=== PATIENT | male | born 1945 | race African-American/Black ===

== ENCOUNTER 2016-05-25 16:04 | Inpatient (IN) | payer MEDICARE ==
[~2016-05-25] VITALS: Ht 177.8 cm; Wt 78.1 kg
[~2016-05-25 16:04] MED LIST: AMLO5TAB2 PO; ASPI-482 PO; DILT180C2 PO; FOSI40TA PO; GABA-585 PO; HYDR12.53 PO; METF500T4 PO; METO100T2 PO; RANI150T2 PO; SILD20TA2 PO; SIMV80TA3 PO; TERA5CAP3 PO
--- NOTE | 2016-05-25 16:53 | PHYS DOC ---
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 Patient reports for the past 2 weeks she has been dealing with cold symptoms, such as cough and sore throat. He presents today with complaint of generalized weakness and shortness of breath as well. He was seen by his doctor last month, was started on a course of azithromycin with no improvement after that. He denies any chest pain. No fever. He has not taken anything else today for symptoms. No other acute complaints. Review of Systems Review of Systems Constitutional: Generalized weakness. Denies fever or chills Eyes: Denies change in visual acuity or eye pain HENT: Sore throat. Denies nasal congestion Respiratory: Cough, shortness of breath Cardiovascular: Denies chest pain GI: Denies abdominal pain, nausea, vomiting, bloody stools or diarrhea : Denies dysuria or hematuria Musculoskeletal: Denies back pain or joint pain Integument: Denies rash or skin lesions Neurologic: Denies headache, focal weakness or sensory changes Current Medications Current Medications Current Medications Medications (Trade) Dose Ordered Sig/Latonya Start Time Stop Time Status Last Admin Dose Admin Acetaminophen (Tylenol) 1,000 mg 1X ONCE 05/25/16 17:15 05/25/16 17:16 DC 05/25/16 17:20 1,000 MG Ertapenem 50 ml @ 100 mls/hr 1X ONCE 05/25/16 20:15 05/25/16 20:44 DC 05/25/16 20:26 100 MLS/HR Sodium Chloride 1,000 ml @ 1,000 mls/hr 1X ONCE 05/25/16 20:15 05/25/16 21:14 DC 05/25/16 20:27 1,000 MLS/HR Sodium Chloride (Iv Sodium Chloride 0.9% 1000ml Bag) 1,000 ml @ 1,000 mls/hr Q1H 05/25/16 17:15 05/25/16 18:14 DC 05/25/16 17:20 1,000 MLS/HR Vancomycin HCl 1 each 1 each PRN DAILY PRN 05/25/16 20:15 Vancomycin HCl/ Sodium Chloride (Iv Sodium Chloride 0.9% 500ml Bag) 500 ml @ 250 mls/hr 1X ONCE 05/25/16 20:30 05/25/16 22:29 DC 05/25/16 21:55 250 MLS/HR Allergies Allergies Allergies Coded Allergies Type Severity Reaction Last Updated Verified Penicillins Allergy Intermediate 02/04/14 Yes iodine Allergy Intermediate 02/04/14 Yes Physical Exam Physical Exam Constitutional: Well developed, well nourished, no acute distress, non-toxic appearance HENT: Normocephalic, atraumatic, bilateral external ears normal. Oropharynx clear without exudate Eyes: EOMI, conjunctiva normal, no discharge Neck: Normal range of motion, no stridor Cardiovascular: Heart rate normal, regular rhythm, no murmur Lungs & Thorax: Bilateral breath sounds clear to auscultation Abdomen: Bowel sounds normal, soft, non-distended, no TTP; ostomy noted Skin: Warm, dry, no erythema, no rash Extremities: No obvious deformity, no edema Neurologic: Alert and oriented X 3, no gross deficits noted Psychologic: Affect normal, judgement normal, mood normal Current Patient Data Vital Signs Vital Signs Date Time Temp Pulse Resp B/P Pulse Ox O2 Delivery O2 Flow Rate FiO2 05/25/16 20:30 84 20 118/69 96 Room Air 05/25/16 16:15 97.6 97.6 Lab Values Laboratory Tests Test 05/25/16 17:00 05/25/16 17:10 05/25/16 20:27 White Blood Count 4.1x10^3/uL (4.0-11.0) Red Blood Count 3.83x10^6/uL (4.30-5.70) L Hemoglobin 12.0g/dL (13.0-17.5) L Hematocrit 35.0% (39.0-53.0) L Mean Corpuscular Volume 91fL (79-100) Mean Corpuscular Hemoglobin 31pg (25-35) Mean Corpuscular Hemoglobin Concent 34g/dL (31-37) Red Cell Distribution Width 19.3% (11.5-14.5) H Platelet Count 111x10^3/uL (140-400) L Neutrophils (%) (Auto) 68% (31-73) Lymphocytes (%) (Auto) 12% (24-48) L Monocytes (%) (Auto) 19% (0-9) H Eosinophils (%) (Auto) 1% (0-3) Basophils (%) (Auto) 0% (0-3) Neutrophils # (Auto) 2.8x10^3uL (1.8-7.7) Lymphocytes # (Auto) 0.5x10^3/uL (1.0-4.8) L Monocytes # (Auto) 0.8x10^3/uL (0.0-1.1) Eosinophils # (Auto) 0.0x10^3/uL (0.0-0.7) Basophils # (Auto) 0.0x10^3/uL (0.0-0.2) Segmented Neutrophils % 66% (35-66) Band Neutrophils % 1% (0-9) Lymphocytes % 9% (24-48) L Monocytes % 23% (0-10) H Eosinophils % 1% (0-5) Toxic Granulation Mod Platelet Estimate Decreased (ADEQUATE) Large Platelets Occ Giant Platelets Occ Anisocytosis Slight Stomatocytes Occ Sodium Level 136mmol/L (136-145) Potassium Level 3.8mmol/L (3.5-5.1) Chloride Level 98mmol/L (98-107) Carbon Dioxide Level 28mmol/L (21-32) Anion Gap 10 (6-14) Blood Urea Nitrogen 34mg/dL (8-26) H Creatinine 1.9mg/dL (0.7-1.3) H Estimated GFR (Cockcroft-Gault) 42.7 BUN/Creatinine Ratio 18 (6-20) Glucose Level 300mg/dL (70-99) H Lactic Acid Level 3.6mmol/L (0.4-2.0) H Calcium Level 9.9mg/dL (8.5-10.1) Total Bilirubin 0.7mg/dL (0.2-1.0) Aspartate Amino Transferase (AST) 14U/L (15-37) L Alanine Aminotransferase (ALT) 28U/L (16-63) Alkaline Phosphatase 85U/L (46-116) Troponin I Quantitative < 0.017ng/mL (0.000-0.055) Total Protein 7.2g/dL (6.4-8.2) Albumin 3.6g/dL (3.4-5.0) Albumin/Globulin Ratio 1.0 (1.0-1.7) Influenza Type A Antigen Negative (NEGATIVE) Influenza Type B Antigen Negative (NEGATIVE) Urine Color [place] Urine Clarity Clear Urine pH 5.5 Urine Specific Reading >=1.030 Urine Protein 30mg/dL (NEG-TRACE) Urine Glucose (UA) >=1000mg/dL (NEG) Urine Ketones (Stick) Negativemg/dL (NEG) Urine Blood Negative (NEG) Urine Nitrite Negative (NEG) Urine Bilirubin Negative (NEG) Urine Urobilinogen Dipstick 0.2mg/dL (0.2 mg/dL) Urine Leukocyte Esterase Negative (NEG) Urine RBC 0/HPF (0-2) Urine WBC Occ/HPF (0-4) Urine Squamous Epithelial Cells Occ/LPF Urine Amorphous Sediment Present/HPF Urine Bacteria 0/HPF (0-FEW) Urine Hyaline Casts Moderate/HPF Urine Mucus Mod/LPF Laboratory Tests 05/25/16 17:00 Laboratory Tests 05/25/16 17:00 EKG EKG [] Radiology/Procedures Radiology/Procedures CXR: IMPRESSION: No acute cardiopulmonary abnormality is detected. Course & Med Decision Making Course & Med Decision Making Pertinent Labs and Imaging studies reviewed. (See chart for details) Patient is 70-year-old male who presents with cold symptoms, generalized weakness, shortness of breath. Increased concern for significant infectious process as patient is on chemotherapy. Will check labs, chest x-ray to evaluate. Tylenol and IV fluid bolus ordered. Imaging results as above. Labs largely unremarkable except for elevated lactic acid level; creatinine also slightly increased from prior. Discussed results with patient. Given chemotherapy, will cover with broad-spectrum antibiotics. Discussed with Dr. Fishman, will admit under his care for further evaluation and treatment. Dragon Disclaimer Dragon Disclaimer This electronic medical record was generated, in whole or in part, using a voice recognition dictation system. Departure Departure Impression: Primary Impression: Generalized weakness Additional Impressions: Cough SOB (shortness of breath) Elevated lactic acid level Disposition: 09 ADMITTED INPATIENT Admitting Physician: Carolin Fishman Condition: GUARDED Referrals: BAILEY CARRANZA Jr, MD Problem Qualifiers ELIZABETH ALCOCER MD May 25, 2016 16:53
[2016-05-25 17:13] LABS: BASO % 0 % (0-3); EOS % 1 % (0-3); LYMPH # 0.5 x10^3/uL (1.0-4.8); LYMPH % 12 % (24-48); MEAN CORPUSCULAR HEMOGLOBIN 31 pg (25-35); MEAN CORPUSCULAR HGB CONC 34 g/dL (31-37); MEAN CORPUSCULAR VOLUME 91 fL (79-100); MONO % 19 % (0-9); NEUT % 68 % (31-73); PLATELET COUNT 111 x10^3/uL (140-400); RED BLOOD COUNT 3.83 x10^6/uL (4.30-5.70); RED CELL DISTRIBUTION WIDTH 19.3 % (11.5-14.5); WHITE BLOOD COUNT 4.1 x10^3/uL (4.0-11.0)
--- NOTE | 2016-05-25 17:14 | RAD ---
Portable chest, 05/25/2016: History: Cough, shortness of breath, tachycardia Comparison is made to a study from 02/20/2016. A right-sided Port-A-Cath remains in place extending into the superior vena cava. The heart size and pulmonary vascularity are normal. There is tortuosity and calcific plaquing of the thoracic aorta. No pulmonary infiltrates are seen. The right base has cleared since the previous study. There is no evidence of pleural fluid. IMPRESSION: No acute cardiopulmonary abnormality is detected.
[2016-05-25] MEDS ORDERED: ACETAMINOPHEN 500 MG TABLET PO ONE (17:15)
[2016-05-25] MEDS ORDERED: IV NORMAL SALINE 1000ML BAG 1,000 ML IV SCH (17:15)
[2016-05-25 17:31] LABS: CALCIUM 9.9 mg/dL (8.5-10.1); CREATININE 1.9 mg/dL (0.7-1.3); GFR 42.7; POTASSIUM 3.8 mmol/L (3.5-5.1)
[2016-05-25 17:37] LABS: ALBUMIN 3.6 g/dL (3.4-5.0); TOTAL BILIRUBIN 0.7 mg/dL (0.2-1.0); TOTAL PROTEIN 7.2 g/dL (6.4-8.2)
[2016-05-25 17:40] LABS: OBC FLU VALID
[2016-05-25] MEDS ORDERED: ERTAPENEM 1GM IVPB FOR OMNI 50 ML IV ONE (20:15)
[2016-05-25] MEDS ORDERED: IV NORMAL SALINE 1000ML BAG 1,000 ML IV ONE (20:15)
[2016-05-25 20:30] LABS: % EOS 1 % (0-5)
[2016-05-25] MEDS ORDERED: VANCOMYCIN 2 GM in IV NORMAL SALINE 500ML BAG 500 ML IV ONE (20:30)
[2016-05-25 20:31] LABS: PLT ESTIMATE DECREASED (ADEQUATE)
[2016-05-25 20:32] LABS: ANISOCYTOSIS SLIGHT; STOMATOCYTES OCC
[2016-05-25 20:33] LABS: TOXIC GRANULATION MOD
[2016-05-25 20:35] LABS: BILIRUBIN,URINE NEGATIVE (NEG); GLUCOSE,URINE >=1000 mg/dL (NEG); NITRITE,URINE NEGATIVE (NEG); PH,URINE 5.5; PROTEIN,URINE 30 mg/dL (NEG-TRACE); UROBILINOGEN,URINE 0.2 mg/dL (0.2 mg/dL)
[2016-05-25] MEDS ORDERED: DEXTROSE 50% 25 GM / 50ML DISP.SYRIN. IV PRN (20:45)
[2016-05-25] MEDS ORDERED: ACETAMINOPHEN 325 MG TABLET. PO PRN (20:45)
[2016-05-25] MEDS ORDERED: ONDANSETRON PF 4 MG/2 ML VIAL. IV PRN (20:45)
[2016-05-25] MEDS ORDERED: MORPHINE SULFATE 4 MG/ML DISP.SYRIN. IV PRN (20:45)
[2016-05-25 20:54] LABS: BACTERIA,URINE 0 /HPF (0-FEW); RBC,URINE 0 /HPF (0-2); SQUAMOUS EPITHELIAL CELL,UR OCC /LPF; WBC,URINE OCC /HPF (0-4)
--- NOTE | 2016-05-25 21:19 | EKG ---
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
[2016-05-25] MEDS: IV NORMAL SALINE 1000ML BAG 1,000 ML IV SCH (21:56)
--- NOTE | 2016-05-25 23:47 | ACF ---
Admit Criteria Forms Admit Criteria Forms Admit Criteria Forms GENERAL ADMISSION CRITERIA (Place 'X' for any and all applicable criteria): Admission is indicated for ANY ONE of the following: [X]I. Hemodynamic instability as indicated by ANY ONE of the following(1)(2) (3)(4)(5): [ ]a) Vital sign abnormality not readily corrected by appropriate treatment within 12 to 24 hours indicated by ANY ONE of the following: [ ]i) Hypotension [ ]ii) Symptomatic Tachycardia unresponsive to treatment (eg , analgesia, fluids, sedation as indicated) [ ]iii) Orthostatic vital sign changes unresponsive to treatment (eg, fluids) [X]b) Vital sign abnormality that is severe indicated by ANY ONE of the following: [X]i) Inadequate perfusion indicated by ANY ONE of the following: [X]1) Lactic acidosis (greater than 2 mmol/L) [ ]2) New abnormal capillary refill (greater than 3 seconds) [ ]3) Other metabolic acidosis (arterial pH less than 7.35) not otherwise explained [ ]4) Reduced urine output [ ]5) Altered mental status [ ]6) Myocardial Ischemia [ ]v) Mean arterial pressure[A] less than 60 mm Hg [ ]vi) Mean arterial pressure[A] less than 70 mm Hg after 30 minutes of appropriate treatment (eg, fluid resuscitation) [ ]vii) IV inotropic or vasopressor medication required to maintain adequate blood pressure or perfusion [ ]viii) Sustained heart rate greater than 120 beats per minute in adult or child 6 years or older[B]] [ ]II. Hypertension requiring inpatient treatment as indicated by ANY ONE of the following(6)(7)(8): [ ]a) SBP greater than 220 mm Hg or DBP greater than 120 mm Hg despite treatment [ ]b) SBP greater than 140 mm Hg or DBP greater than 100 mm Hg with evidence of acute end organ damage as indicated by ANY ONE of the following: [ ]i) Encephalopathy [ ]ii) Acute renal failure as indicated by new onset of ANY ONE of the following(9)(10)(11)(12)(13): [ ]1) A 3-fold rise in serum creatinine from baseline [ ]2) Serum creatinine greater than 4 mg/dL ( 354 micromoles/L) with acute rise greater than 0.5 mg/dL (44.2 micromoles/L) [ ]3) Reduction of more than 75% in estimated glomerular filtration rate from baseline [ ]4) Estimated glomerular filtration rate less than 35 mL/min/1.73m2 (0.59 mL/sec/1.73m2) in child up to 18 years of age [ ]5) Cessation of urine output indicated by ALL of the following: [ ]A. Adequate volume status [ ]B. Inadequate urine output as indicated by ANY ONE of the following: [ ]a. Urine output less than 0.3 mL/kg/hr for 24 hours [ ]b. Anuria (urine output less than 0.1 mL/kg/hr) for 12 hours [ ]iii) Aortic dissection [ ]iv) Myocardial ischemia [ ]v) Left ventricular heart failure [ ]vi) Retinal hemorrhage [ ]vii) Other significant finding [ ]c) Hypertension in child requiring inpatient treatment as indicated by ALL of the following(14)(15)(16): [ ]i) Outpatient treatment not effective, not available, or not appropriate [ ]ii) SBP or DBP greater than 95th percentile for age [ ]iii) Evidence of acute end organ damage as indicated by ANY ONE of the following: [ ]1) Altered mental status [ ]2) Acute renal failure as indicated by new onset of ANY ONE of the following(9)(10)(11)(12)(13): [ ]A. A 3-fold rise in serum creatinine from baseline [ ]B. Serum creatinine greater than 4 mg/dL (354 micromoles/L) with acute rise greater than 0.5 mg/dL (44.2 micromoles/L) [ ]C. Reduction of more than 75% in estimated glomerular filtration rate from baseline [ ]D. Estimated glomerular filtration rate less than 35 mL/min/1.73m2 (0.59 mL/sec/1.73m2)in child up to 18 years of age [ ]E. Cessation of urine output indicated by ALL of the following: [ ]a. Adequate volume status [ ]b. Inadequate urine output as indicated by ANY ONE of the following: [ ]1) Urine output less than 0.3 mL/kg/hr for 24 hours [ ]2) Anuria (urine output less than 0.1 mL/kg/hr) for 12 hours [ ]3) Severe headache [ ]4) Visual disturbance [ ]5) Retinal hemorrhage [ ]6) Other significant finding [ ]III. Acute cardiac or peripheral ischemia as indicated by ANY ONE of the following: [ ]a) Acute coronary syndrome(17)(18) [ ]b) Acute peripheral ischemia (eg, pulseless, cool, mottled, or cyanotic extremity)(19) [ ]IV. Cardiac arrhythmias or findings of immediate concern indicated by ANY ONE of the following(20)(21): [ ]a) Heart rhythms that are inherently dangerous or unstable indicated by ANY ONE of the following(22)(23)(24): [ ]i) Resuscitated ventricular fibrillation or cardiac arrest [ ]ii) Ventricular escape rhythm [ ]iii) Sustained ventricular tachycardia (30 seconds or more of ventricular rhythm at greater than 100 beats per minute) [ ]iv) Nonsustained ventricular tachycardia and ANY ONE of the following: [ ]1) Suspected cardiac ischemia as cause or consequence of ventricular tachycardia [ ]2) In setting of acute myocarditis [ ]b) Unstable cardiac conduction defects indicated by ANY ONE of the following(24)(25)(26): [ ]i) Type II second-degree atrioventricular block [ ]ii) Third-degree atrioventricular block [ ]iii) New-onset left bundle branch block with suspected myocardial ischemia [ ]c) Any heart rhythm and ANY ONE of the following(22)(23)(27)(28)( 29): [ ] i) Continuous long-term ECG monitoring needed (eg, initiation of drug requiring monitoring for more than 24 hours) [ ] ii) Patient has automatic implanted cardioverter defibrillator that is repeatedly firing, malfunctioning, or in need of immediate adjustment of settings beyond the scope of ambulatory or observation care. [ ]d) Heart rhythms of concern due to ANY ONE of the following: [ ]i) Hypotension [ ]ii) Respiratory distress [ ]iii) Association with other significant symptoms (eg, bradycardia with syncope or ongoing dizziness, supraventricular tachycardia with chest pain) (27)(28) (30) [ ] V. Severe heart failure as indicated by ANY ONE of the following ( 31)(32): [ ]a) Respiratory distress [ ]b) Hypotension [ ]c) Anasarca (refractory to outpatient therapy) [ ]d) Cardiac arrhythmias of immediate concern [ ]e) Myocardial ischemia [ ]. Respiratory abnormalities, including ANY ONE of the following(33)(34) (35)(36): [ ]a) Respiratory rate greater than 30 breaths per minute unresponsive to treatment [A] [ ]b) New saturation of arterial oxygen less than 90% [ ]c) New partial pressure of carbon dioxide greater than 44 mm Hg ( 5.9 kPa) [ ]d) Supplemental oxygen or respiratory treatments needed that are new or not performable at other levels of care [ ]e) New-onset cyanosis [ ]f) Inability to protect airway [ ]g) Chronic lung disease with severe deterioration (not responsive to emergency and observation care treatment as appropriate) as indicated by ANY ONE of the following(34)(36 ): [ ]i) SaO2 5% below baseline in patient with chronic hypoxemia [ ]ii) New requirement for supplemental oxygen to keep SaO2 at baseline or acceptable level [ ]iii) Required supplemental oxygen performable only in acute inpatient setting [ ]iv) Severe airflow or ventilation abnormalities [ ]v) Previously mobile patient unable to walk between rooms [ ]vi Inability to eat or sleep due to dyspnea [ ]vii) Rapid rate of exacerbation onset [ ]viii) Altered mental status ]VII. Severe airflow or ventilation abnormalities (not responsive to emergency and observation care treatment as appropriate) as indicated by ANY ONE of the following(33)(34)(35)(37): [ ]a) PCO2 greater than 42 mm Hg (5.6 kPa) and pH less than 7.35 (new ) [ ]b) Documented PCO2 increased more than 5 mm Hg (0.7 kPa) from disease baseline [ ]c) Airflow measurements [B] less than 60% of previous best or predicted (eg, peak expiratory flow rate less than 300 L/minute) despite intensive emergent treatment [C] [ ]d) Required respiratory treatments that are performable only in acute inpatient setting [ ]VIII. Impending or actual respiratory arrest ( Also use Respiratory Failure GRG for severe respiratory disease and long-term mechanical ventilation patients) [ ]IX. Neurologic abnormalities, including ANY ONE of the following: [ ]a) New findings that suggest ANY ONE of the following: [ ]i) FISH WORM GROWER infection(38) [ ]ii) Cerebral bleeding, ischemia, or vasospasm(39)(40) [ ]iii) Increased intracranial pressure, hydrocephalus, or cerebral edema(41)(42)(43) [ ]iv) Spinal cord injury(44) [ ]b) Uncontrolled seizures(45) [ ]c) New-onset coma (eg, Prosepr coma scale score less than 9) or unexplained abnormal mental status (eg, [place] coma scale score less than 14) [D](41)(46)(47) [ ]X. New-onset severe neurologic findings requiring inpatient care; examples include(42)(48)(49): [ ]a) Papilledema [ ]b) Cerebral edema [ ]c) Mass effect on CT scan [ ]XI. Suspected acute intra-abdominal process with peritoneal signs, abdominal mass, or similar findings (50)(51)(52) [ ]XII. Severe physiologic disorder remaining after emergency or observation level care (as appropriate) as indicated by ANY ONE of the following (53): [ ]a) Significant dehydration [ ]b) Diabetic ketoacidosis [ ]c) Hyperglycemic hyperosmolar state (eg, osmolality greater than 320 mOsm/kg (mmol/kg) [ ]d) Hypoglycemia [ ]e) Other (new) acid-base disorder with pH less than 7.35 or greater than 7.5(54) [ ]f) Thyroid storm (55) [ ]g) Myxedema coma (55) [ ]XIII. Abdominal abnormalities with ANY ONE of the following(56)(57): [ ]a) Absent bowel sounds with complete ileus [ ]b) Signs of intestinal obstruction or peritonitis [E] [ ]c) Nausea and vomiting that cannot be controlled with outpatient or observation care [ ]XIV. Acute renal failure as indicated by new onset of ANY ONE of the following(9)(10)(11)(12)(13): [ ]a) A 3-fold rise in serum creatinine from baseline [ ]b) Serum creatinine greater than 4 mg/dL (354 micromoles/L) with acute rise greater than 0.5 mg/dL (44.2 micromoles/L) [ ]c) Reduction of more than 75% in estimated glomerular filtration rate from baseline [ ]d) Estimated glomerular filtration rate less than 35 mL/min/ 1.73m2 (0.59 mL/sec/1.73m2) in child up to 18 years of age [ ]e) Cessation of urine output indicated by ALL of the following: [ ]i) Adequate volume status [ ]ii) Inadequate urine output as indicated by ANY ONE of the following: [ ]1) Urine output less than 0.3 mL/kg/hr for 24 hours [ ]2) Anuria (urine output less than 0.1 mL/kg/hr) for 12 hours [ ]XV. Significant uremic complications as indicated by ANY ONE of the following(58)(59)(60): [ ]a) Outpatient therapy is ineffective or not feasible for ANY ONE of the following: [ ]i) Severe heart failure [ ]ii) Severehypertension [ ]iii) Pleural effusion [ ]iv) Pericarditis or pericardial effusion [ ]b) Cardiac arrhythmias of immediate concern [ ]c) Intractable nausea or vomiting [ ]d) Recurrent seizures [ ]e) Encephalopathy [ ]f) Bleeding abnormalities (eg, platelet dysfunction) with active (eg, gastrointestinal) bleeding [ ]g) Dialysis indicated before long-term access or ambulatory arrangements can be made [ ]h) Significant metabolic or electrolyte abnormalities (eg, severe acidosis or hyperkalemia) [ ]XVI. High fever or other high-risk infection situation as indicated by ANY ONE of the following(61)(62)(63)(64): [ ]a) Outpatient and observation care antimicrobial treatment unavailable, not effective, or not appropriate [ ]b) Documented bacteremia [ ]c) Temperature greater than 40.5 degrees C (104.9 degrees F) ( oral) [ ]d) Temperature greater than 39.5 degrees C (103.1 degrees F) ( oral) or less than 36 degrees C (96.8 degrees F) (rectal) that does not respond to e treatment and observation care [ ] XVII. Temperature less than 95 degrees F (35 degrees C)(rectal)(65) [ ] XVIII. Severe nutritional abnormalities as indicated by ALL of the following (66)(67): [ ]a) Inability to tolerate or establish sufficient oral or other enteral nutrition in outpatient setting [ ]b) Parenteral nutrition regimen need that must be implemented on inpatient basis [ ] XIX. Severe electrolyte abnormalities indicated by ALL of the following(68) (69)(70): [ ]a) Electrolytes and associated findings are not as expected for patient baseline or acceptable treatment effects. [ ]b) Severe abnormalities indicated by ANY ONE of the following: [ ]i) Sodium less than 130 mEq/L (mmol/L) (new) [ ]ii)Sodium less than 135 mEq/L (mmol/L) with ANY ONE of the following: [ ]1) Uncorrectable (to near normal or chronic baseline) after trial of outpatient and emergency treatment [ ]2) Altered mental status [ ]3) Seizures [ ]4) Severe medical etiology requiring inpatient management (eg, heart failure, hypovolemia) [ ]iii) Sodium greater than 155 mEq/L (mmol/L) [ ]iv) Sodium greater than 150 mEq/L (mmol/L) with ANY ONE of the following: [ ]1) Uncorrectable (to near normal or chronic baseline) with outpatient and emergency treatment [ ]2) Altered mental status [ ]3) Seizures [ ]4) Severe medical etiology (eg, hypovolemia, diabetes insipidus) [ ]v) Potassium less than 2.5 mEq/L (mmol/L) despite outpatient and emergency treatment [ ]vi) Potassium less than 3 mEq/L (mmol/L) with ANY ONE of the following: [ ]1) Weakness [ ]2) Cardiac abnormality (eg, arrhythmia, conduction disturbance) [ ]3) Cardiac ischemia [ ]4) Ileus [ ]5) Ongoing medical cause requiring inpatient management (eg, acute renal wasting or SIADH) [ ]6) Other severe symptoms [ ]vii) Potassium greater than 6.5 mEq/L (mmol/L) [ ]viii) Potassium greater than 5 mEq/L (mmol/L) with ANY ONE of the following: [ ]1) Uncorrectable (to near normal or chronic baseline) with outpatient and emergency treatment [ ]2) Severe ECG findings [F] [ ]3) Acute worsening of renal failure (creatinine greater than 2.5 mg/dL (221 micromoles/L) or significant elevation for age and size) [ ]4) Severe weakness [ ]5) Severe medical etiology (eg, hemolysis, infection, drug overdose) [ ]ix) Calcium less than 7 mg/dL (1.75 mmol/L) despite outpatient and emergency treatment (72) [ ]x) Calcium less than 8 mg/dL (2 mmol/L) with significant symptoms or findings; examples include(72): [ ]1) Altered mental status [ ]2) Muscle spasms [ ]3) Seizures [ ]4) Breathing difficulty [ ]5) Cardiac abnormality (eg, arrhythmia or conduction disturbance) [ ]xi) Calcium greater than 14 mg/dL (3.5 mmol/L)(72) [ ]xii) Calcium greater than 12 mg/dL (3 mmol/L) with ANY ONE of the following(72): [ ]1) Uncorrectable (to near normal or chronic baseline) with outpatient and emergency treatment [ ]2) Significant dehydration or hypovolemia as indicated by ALL of the following(70)(73)(74): [ ]A. Not resolved with initial treatments [ ]B. Clinically significant dehydration as indicated by ANY ONE of the following: [ ]a. Vomiting refractory to outpatient treatment (ie, precluding oral rehydration) [ ]b. Inability to drink [ ]c. Hypernatremia or other electrolyte abnormality unable to be corrected with outpatient and emergency treatment [ ]d. Failure to remain hydrated with outpatient therapy [ ]e. Reduced urine output [ ]f. Hypotension [ ]g. Serious cause for dehydration requiring acute hospitalization (eg, bowel obstruction, increased intracranial pressure, infectious cause) [ ]h. Child with ANY ONE of the following(75): [ ]1) Severe abdominal tenderness [ ]2) Adequate care not available at home [ ]3) Severe dehydration ( greater than 9% loss of body weight) [ ]4) Significant symptoms or findings; examples include: [ ]A. Altered mental status [ ]B. Cardiac abnormality (eg, arrhythmia, conduction disturbance) [ ]C. Malignant etiology requiring inpatient treatment [ ]xiii) Phosphorus less than 1 mg/dL (0.32 mmol/L) [ ]xiv) Phosphorus less than 1.5 mg/dL (0.48 mmol/L) with ANY ONE of the following: [ ]1) Patient unresponsive to outpatient and emergency treatment [ ]2) Significant symptoms or findings; examples include: [ ]A. Weakness [ ]B. Altered mental status [ ]C. Breathing difficulty [ ]D. Seizures [ ]E. Rhabdomyolysis [ ]xv) Phosphorus greater than 10 mg/dL (3.2 mmol/L) [ ]xvi) Phosphorus greater than 4.5 mg/dL (1.45 mmol/L) (new) with ANY ONE of the following: [ ]1) Severe medical etiology (eg, crush injury, acute renal failure) [ ]2) Associated hypocalcemia with significant findings; examples include: [ ]A. Neurologic symptoms [ ]B. Altered mental status [ ]C. Muscle spasms [ ]D. Seizures [ ]E. Breathing difficulty [ ]F. Cardiac abnormality (eg, arrhythmia, conduction disturbance) [ ]xvii) Magnesium less than 1 mg/dL (0.41 mmol/L) [ ]xviii) Magnesium less than 1.5 mg/dL (0.62 mmol/L) with ANY ONE of the following: [ ]1) Patient unresponsive to outpatient and emergency treatment [ ]2) Associated hypocalcemia with significant findings; examples include: [ ]A. Altered mental status [ ]B. Muscle spasms [ ]C. Seizures [ ]D. Breathing difficulty [ ]E. Cardiac abnormality (eg, arrhythmia , conduction disturbance) [ ]3) Associated hypokalemia (potassium less than 3 mEq/L (mmol/L)) with risk of arrhythmia [ ]xix) Magnesium greater than 4 mEq/L (2 mmol/L) [ ]xx) Magnesium greater than 2.5 mEq/L (1.25 mmol/L) with significant symptoms or findings; examples include: [ ]1) Weakness [ ]2) Altered mental status [ ]3) Cardiac abnormality (eg, arrhythmia, conduction disturbance) [ ]4) Breathing difficulty [ ]5) Severe medical etiology (eg, renal failure, hypovolemia) [ ]xxi) Uric acid greater than 20 mg/dL (1190 micromoles/L)(76) [ ]xxii) Uric acid greater than 8 mg/dL (476 micromoles/L) with significant symptoms or findings of tumor lysis syndrome; examples include(76): [ ]1) Creatinine greater than 1.5 times upper limit of normal [ ]2) Cardiac abnormality (eg, arrhythmia, conduction disturbance) [ ]3) Seizure [ ]XX. Acute blood loss causing significant abnormality as indicated by ANY ONE of the following(77)(78): [ ]a) Hemoglobin less than 10 g/dL (100 g/L) (not baseline) [ ]b) Hematocrit less than 30% (0.30) (not baseline) [ ]c) Repeat hematocrit decreased more than 2% (0.02) [ ]d) Uncontrolled bleeding [ ]XXI. Severe anemia indicated by ANY ONE of the following(78)(79): [ ]a) Altered mental status [ ]b) Chest pain [ ]c) Exertional dyspnea [ ]d) Syncope [ ]e) Other findings suggesting inadequate perfusion [ ]f) Treatment with transfusion or volume replacement is ineffective at resolving ANY ONE of the following [G]: [ ]i) Tachycardia for age [ ]ii) Orthostatic vital sign changes as indicated by ANY ONE of the following(80): [ ]1) Fall in SBP of 20 mm Hg or more 1 to 3 minutes after patient sits or stands from recumbent position [ ]2) Fall in DBP of 10 mm Hg or more 1 to 3 minutes after patient sits or stands from recumbent position [ ]XXII. High-risk low platelet count as indicated by ANY ONE of the following( 81)(82): [ ]a) Severe or life-threatening bleeding (eg, intracranial, major gastrointestinal, or extensive mucosal bleeding), with any reduced platelet count [ ]b) Platelet count less than 20,000/mm3 (20 x109/L) with any active bleeding [ ]c) Platelet count less than 10,000/mm3 (10 x109/L) with minor purpura or petechiae [ ]d) Platelet count less than 5000/mm3 (5 x109/L) [ ]e) Low platelet count with hemolytic anemia [ ]XXIII. Disseminated intravascular coagulation(77)(83) [ ]XXIV. Severe adverse drug or systemic toxin reaction requiring inpatient treatment; examples include(84)(85): [ ]a) Serotonin syndrome(86) [ ]b) Neuroleptic malignant syndrome(86) [ ]c) Cholinergic syndrome with severe symptoms (eg, bronchorrhea, weakness, mental status changes, seizures) [ ]d) Sympathetic syndrome with severe symptoms (eg, seizures, mental status changes, cardiac dysrhythmias) [ ]e) Anticholinergic syndrome [ ]XXV. Severe pain requiring acute inpatient management as indicated by ALL of the following (87)(88)(89): [ ]a) Continuous or frequent (eg, every 2 to 4 hours) parenteral analgesics required [H] [ ]b) Rapid improvement expected from treatment or acute intervention (eg, surgery, anesthesia procedure) [ ]XXVI.Severe behavioral health issues judged unmanageable at a lower level of care (eg, residential) in a patient who is ANY ONE of the following(91) [ ]a) Acutely suicidal [ ]b) A danger to self (eg, self-mutilating or suicidal behavior) [ ]c) A danger to others (eg, assaultive or homicidal behavior) [ ]d) Incapacitated because of grave disability (eg, inability to provide for self at lower level of care) (92) [ ]XXVII. Inpatient monitoring needed; examples include(1)(3)(87)(93)(94)(95)(96 ): [ ]a) Vital signs, neurologic signs, or vascular checks more frequently than every 4 hours [ ]b) Cardiac or respiratory monitoring beyond the scope (eg, over 24 hours) of observation care [ ]c) Pulmonary artery catheter monitoring [ ]d) Suspected compartment syndrome(97) (98) [ ]e) Cerebral bleeding, hydrocephalus, or vasospasm monitoring [ ]f) Increased intracranial pressure or cerebral edema monitoring [ ]g) monitoring [ ]XXVIII. Treatment requiring inpatient care; examples include: [ ]a) IV fluid to replace significant ongoing losses (greater than 3 L/m2 per day)(53) [ ]b) High concentration oxygen (greater than 40%)(33)(99)(100) [ ]c) Frequent respiratory therapy (more frequently than every 4 hours) to maintain airflow rates greater than 60% of baseline(33)(99)(100) [ ]d) Epidural analgesia(87) [ ]e) IV anticoagulation, vasoactive, or antiarrhythmic medication(19 )(23) [ ]f) Acute thrombolytics (generally require 24 hours of observation )(101)(102) [ ]XXIX. Emergency procedures needed; examples include: [ ]a) Emergency inpatient surgery [ ]b) Temporary pacemaker placement(103) [ ]c) Chest tube placement with active evacuation (eg, suction, drainage)(104) [ ]d) Emergent cardioversion(105) [ ]e) Emergent cardiac or vascular procedures (eg, cardiac catheterization, angioplasty) (17)(18) [ ]f) Emergent dialysis access placement and institution(10)(106) [ ]g) Emergent pericardiocentesis(107) [ ]h) Emergent plasmapheresis or leukapheresis(83) [ ]i) Emergent tracheostomy The original [employer] content created by [employer] has been revised. The portions of the content which have been revised are identified through the use of italic text or in bold, and [email or web address] has neither reviewed nor approved the modified material. All other unmodified content is copyright [employer]. Please see references footnoted in the original [employer] edition 2016 HERMILA HOFF May 25, 2016 23:47
--- NOTE | 2016-05-26 00:38 | HP ---
ADMIT DATE: 05/25/2016 CHIEF COMPLAINT: Weakness, cough, shortness of breath. HISTORY OF PRESENT ILLNESS: The patient is a pleasant 70-year-old male who has metastatic colon cancer. There is mets to the lungs. He is still on chemotherapy. Today presents with weakness, shortness of breath and cough. His lactic acid is little high at 3.6. I have discussed the case with the ER physician. We are going to admit the patient and consult his oncologist. PAST MEDICAL HISTORY: Metastatic colon cancer, colostomy, chemo port on the right chest, hypertension, diabetes, GERD, and BPH. ALLERGIES: PENICILLIN AND IODINE. FAMILY HISTORY: Coronary artery disease. SOCIAL HISTORY: Does not drink, smoke or take drugs. MEDICATIONS: Reviewed, please refer to the MRAD. REVIEW OF SYSTEMS: GENERAL: The patient complains of weakness. SKIN: No bruising, hair changes or rashes. EYES: No blurred, double or loss of vision. NOSE AND THROAT: No history of nosebleeds, hoarseness or sore throat. HEART: No history of palpitations, chest pain or shortness of breath on exertion. LUNGS: Denies cough, hemoptysis, wheezing or shortness of breath. GASTROINTESTINAL: Denies changes in appetite, nausea, vomiting, diarrhea or constipation. GENITOURINARY: No history of frequency, urgency, hesitancy or nocturia. NEUROLOGIC: Denies history of numbness, tingling, tremor or weakness. PSYCHIATRIC: No history of panic, anxiety or depression. ENDOCRINE: No history of heat or cold intolerance, polyuria or polydipsia. EXTREMITIES: Denies muscle weakness, joint pain, pain on walking or stiffness. PHYSICAL EXAMINATION: VITAL SIGNS: Temperature afebrile, pulse 82, respirations 25, blood pressure 106/86. GENERAL: He is alert, cooperative. HEART: Normal S1, S2. LUNGS: Clear. ABDOMEN: Soft, positive bowel sounds, is distended. There is a large hernia in the left lower quadrant. There is also an ostomy bag in the left lower quadrant. EXTREMITIES: Trace edema. SKIN: No rashes. PSYCHIATRIC: He seems depressed. VASCULAR: Good capillary refill. LABORATORY DATA: White count 4, hemoglobin 12, platelets 111. Electrolytes normal other than BUN of 34, creatinine 1.9, glucose of 300, lactic acid high at 3.6. AST is low at 14. Troponin is 0. ASSESSMENT AND PLAN: Weakness, lactic acidosis, hyperglycemia, acute on chronic renal failure in an elderly male who has metastatic colon cancer. The patient has been admitted, will consult Dr. Jade, consult Dr. Gunderson, IV fluids. Continue home medicines, and empiric antibiotics. YASL Jax LANCE DO DR: YARIEL/ivania JOB#: [id number] / [id number]
[2016-05-26 02:54] VITALS: BP 125/76
[2016-05-26] MEDS: VANCOMYCIN PER PHARMACY MC PRN ×2 (03:13→15:37)
[2016-05-26 05:43] LABS: BASO % 0 % (0-3); EOS % 1 % (0-3); HEMATOCRIT 31.9 % (39.0-53.0); HEMOGLOBIN 10.8 g/dL (13.0-17.5); LYMPH # 0.7 x10^3/uL (1.0-4.8); LYMPH % 20 % (24-48); MEAN CORPUSCULAR HEMOGLOBIN 31 pg (25-35); MEAN CORPUSCULAR HGB CONC 34 g/dL (31-37); MEAN CORPUSCULAR VOLUME 91 fL (79-100); MONO % 17 % (0-9); NEUT % 62 % (31-73); PLATELET COUNT 110 x10^3/uL (140-400); RED CELL DISTRIBUTION WIDTH 19.6 % (11.5-14.5); WHITE BLOOD COUNT 3.4 x10^3/uL (4.0-11.0)
[2016-05-26 06:07] LABS: CREATININE 1.5 mg/dL (0.7-1.3); GFR 56.1; POTASSIUM 3.3 mmol/L (3.5-5.1)
[2016-05-26 07:00] VITALS: BP 162/95
[2016-05-26] MEDS: GABAPENTIN 100 MG CAPSULE. PO SCH ×3 (07:45→20:50)
[2016-05-26] MEDS: TERAZOSIN 5 MG CAPSULE. PO SCH (07:46)
[2016-05-26] MEDS: FAMOTIDINE 20 MG TABLET. PO SCH (07:47)
[2016-05-26] MEDS: METOPROLOL TART IMMED RELEASE 50 MG TABLET PO SCH ×2 (07:47→20:53)
[2016-05-26] MEDS: DILTIAZEM HCL 180 MG CAP.ER.24H PO SCH (07:48)
[2016-05-26] MEDS: ASPIRIN ENTERIC COATED 81 MG TABLET.DR. PO SCH (07:49)
[2016-05-26] MEDS ORDERED: INSULIN ASPART 300 UNITS/3 ML INSULN.PEN SQ SCH (08:00)
[2016-05-26] MEDS: LISINOPRIL 40 MG TABLET. PO SCH ×2 (09:00→20:52)
[2016-05-26] MEDS ORDERED: ONDANSETRON PF 4 MG/2 ML VIAL. IV PRN (09:00)
[2016-05-26] MEDS ORDERED: DEXTROSE 50% 25 GM / 50ML DISP.SYRIN. IV PRN (09:00)
[2016-05-26] MEDS: IV NORMAL SALINE 1000ML BAG 1,000 ML IV SCH (09:55)
[2016-05-26 10:48] VITALS: BP 135/83
--- NOTE | 2016-05-26 10:54 | PDOC2 ---
Consultation Consultation Date and Time DATE: 05/26/16 TIME: 10:47 Speciality: Hematology Date of Admission Date of Admission: May 25, 2016 at 20:33 Source: patient Age Age: 70 Sex: Male History of Present Illness HPI originally diagnosed with rectal cancer in 2009, received combined modality neoadjuvant chemotherapy and radiation, underwent an AP resection and colostomy on 06/29/2010. He subsequently went on to receive adjuvant chemotherapy. He was diagnosed with pulmonary metastasis on November 19, 2012 (rt lung nodule biopsy), and was treated on the [facility] clinical trial, where he was randomized to FOLFOX and Avastin. He had some delays due to thrombocytopenia. Eventually found to have a solitary right pulmonary lesion, received radiation under the direction of Dr. Jose Rojo ending on 07/09/2014, and he was followed clinically. CT 04/18/15 revealed worsening lung metastasis. He was started on FOLFIRI 05/11/15 and has been stable, more or less since. CT 03/27/16 : Slight interval increase in size of the right lower lobe/right infrahilar mass. C# 25 FOLFIRI given 05/16/16. He just feels like he has had a cold for some time now that he just can't kick. He was given a course of azithromycin in mid Apr that helped briefly, but now he is back to feeling like he has a tough time catching his breath, mainly with exertion. Sitting in bed this morning, he is very comfortable with his breathing , without any oxygen needed. CXR yesterday showed no acute issues. Vitals Vital Signs Vital Signs Date Time Temp Pulse Resp B/P Pulse Ox O2 Delivery O2 Flow Rate FiO2 05/26/16 07:48 88 162/95 05/26/16 07:00 97.7 18 91 Room Air 97.7 Past Medical History Cardiovascular: HTN GI: Other Heme/Onc: Other Psych: Depression Musculoskeletal: Weakness Renal/: Chronic renal insuff Endocrine: Diabetes Past Surgical History Past Surgical History: Colon Resection Social History ALCOHOL: none Drugs: None Lives: Alone Medicacation Home Meds Reported Medications Gabapentin 100 Mg CapsuleUnknown Dose PO TID #90 CAP Ref 2 02/03/14 Diltiazem Hcl (Cardizem Cd)180 Mg Cap.er.24hUnknown Dose PO DAILY #90 CAP Ref 1 11/12/14 Terazosin Hcl 5 Mg Capsule5 Mg PO DAILY 03/25/13 Aspirin (Aspir 81)81 Mg Tablet.dr81 Mg PO DAILY 03/25/13 Fosinopril Sodium 40 Mg Bhgvgw17 Mg PO BID 03/25/13 Metoprolol Tartrate 100 Mg [id number] Mg PO BID 03/25/13 Metformin Hcl 500 Mg Qbzppq567 Mg PO DAILYBFRSUP 03/25/13 Metformin Hcl 500 Mg Tablet1,000 Mg PO DAILYWBKFT 03/25/13 Ranitidine Hcl 150 Mg [id number] Mg PO BID 03/25/13 Discontinued Reported Medications Simvastatin 80 Mg Fkctlu81 Mg PO HS 03/25/13 Amlodipine Besylate 5 Mg Tablet5 Mg PO DAILY 03/25/13 Allergies Allergies: Coded Allergies: Penicillins (Verified Allergy, Intermediate, 02/04/14) iodine (Verified Allergy, Intermediate, 02/04/14) Radiology X-Ray CXR yesterday looked clear without any acute cardiopulmonary process. Laboratory Lab Results Laboratory Tests Test 05/25/16 17:00 05/25/16 17:10 05/25/16 20:27 05/25/16 21:00 White Blood Count 4.1x10^3/uL (4.0-11.0) Red Blood Count 3.83x10^6/uL (4.30-5.70) Hemoglobin 12.0g/dL (13.0-17.5) Hematocrit 35.0% (39.0-53.0) Mean Corpuscular Volume 91fL (79-100) Mean Corpuscular Hemoglobin 31pg (25-35) Mean Corpuscular Hemoglobin Concent 34g/dL (31-37) Red Cell Distribution Width 19.3% (11.5-14.5) Platelet Count 111x10^3/uL (140-400) Neutrophils (%) (Auto) 68% (31-73) Lymphocytes (%) (Auto) 12% (24-48) Monocytes (%) (Auto) 19% (0-9) Eosinophils (%) (Auto) 1% (0-3) Basophils (%) (Auto) 0% (0-3) Neutrophils # (Auto) 2.8x10^3uL (1.8-7.7) Lymphocytes # (Auto) 0.5x10^3/uL (1.0-4.8) Monocytes # (Auto) 0.8x10^3/uL (0.0-1.1) Eosinophils # (Auto) 0.0x10^3/uL (0.0-0.7) Basophils # (Auto) 0.0x10^3/uL (0.0-0.2) Segmented Neutrophils % 66% (35-66) Band Neutrophils % 1% (0-9) Lymphocytes % 9% (24-48) Monocytes % 23% (0-10) Eosinophils % 1% (0-5) Toxic Granulation Mod Platelet Estimate Decreased (ADEQUATE) Large Platelets Occ Giant Platelets Occ Anisocytosis Slight Stomatocytes Occ Sodium Level 136mmol/L (136-145) Potassium Level 3.8mmol/L (3.5-5.1) Chloride Level 98mmol/L (98-107) Carbon Dioxide Level 28mmol/L (21-32) Anion Gap 10 (6-14) Blood Urea Nitrogen 34mg/dL (8-26) Creatinine 1.9mg/dL (0.7-1.3) Estimated GFR (Cockcroft-Gault) 42.7 BUN/Creatinine Ratio 18 (6-20) Glucose Level 300mg/dL (70-99) Lactic Acid Level 3.6mmol/L (0.4-2.0) 2.0mmol/L (0.4-2.0) Calcium Level 9.9mg/dL (8.5-10.1) Total Bilirubin 0.7mg/dL (0.2-1.0) Aspartate Amino Transf (AST/SGOT) 14U/L (15-37) Alanine Aminotransferase (ALT/SGPT) 28U/L (16-63) Alkaline Phosphatase 85U/L (46-116) Troponin I Quantitative < 0.017ng/mL (0.000-0.055) Total Protein 7.2g/dL (6.4-8.2) Albumin 3.6g/dL (3.4-5.0) Albumin/Globulin Ratio 1.0 (1.0-1.7) Influenza Type A Antigen Negative (NEGATIVE) Influenza Type B Antigen Negative (NEGATIVE) Urine Color [place] Urine Clarity Clear Urine pH 5.5 Urine Specific [place] >=1.030 Urine Protein 30mg/dL (NEG-TRACE) Urine Glucose (UA) >=1000mg/dL (NEG) Urine Ketones (Stick) Negativemg/dL (NEG) Urine Blood Negative (NEG) Urine Nitrite Negative (NEG) Urine Bilirubin Negative (NEG) Urine Urobilinogen Dipstick 0.2mg/dL (0.2 mg/dL) Urine Leukocyte Esterase Negative (NEG) Urine RBC 0/HPF (0-2) Urine WBC Occ/HPF (0-4) Urine Squamous Epithelial Cells Occ/LPF Urine Amorphous Sediment Present/HPF Urine Bacteria 0/HPF (0-FEW) Urine Hyaline Casts Moderate/HPF Urine Mucus Mod/LPF Test 05/26/16 00:01 05/26/16 05:00 05/26/16 07:22 Lactic Acid Level 2.1mmol/L (0.4-2.0) White Blood Count 3.4x10^3/uL (4.0-11.0) Red Blood Count 3.50x10^6/uL (4.30-5.70) Hemoglobin 10.8g/dL (13.0-17.5) Hematocrit 31.9% (39.0-53.0) Mean Corpuscular Volume 91fL (79-100) Mean Corpuscular Hemoglobin 31pg (25-35) Mean Corpuscular Hemoglobin Concent 34g/dL (31-37) Red Cell Distribution Width 19.6% (11.5-14.5) Platelet Count 110x10^3/uL (140-400) Neutrophils (%) (Auto) 62% (31-73) Lymphocytes (%) (Auto) 20% (24-48) Monocytes (%) (Auto) 17% (0-9) Eosinophils (%) (Auto) 1% (0-3) Basophils (%) (Auto) 0% (0-3) Neutrophils # (Auto) 2.1x10^3uL (1.8-7.7) Lymphocytes # (Auto) 0.7x10^3/uL (1.0-4.8) Monocytes # (Auto) 0.6x10^3/uL (0.0-1.1) Eosinophils # (Auto) 0.0x10^3/uL (0.0-0.7) Basophils # (Auto) 0.0x10^3/uL (0.0-0.2) Sodium Level 140mmol/L (136-145) Potassium Level 3.3mmol/L (3.5-5.1) Chloride Level 104mmol/L (98-107) Carbon Dioxide Level 25mmol/L (21-32) Anion Gap 11 (6-14) Blood Urea Nitrogen 32mg/dL (8-26) Creatinine 1.5mg/dL (0.7-1.3) Estimated GFR (Cockcroft-Gault) 56.1 Glucose Level 168mg/dL (70-99) Calcium Level 9.0mg/dL (8.5-10.1) Glucose (Fingerstick) 217mg/dL (70-99) Review of Systems Constitutional: YES Weakness, No Chills, No Fever, No Malaise, No Other, No Sweats ENT: YES Mouth swelling, YES Throat pain, YES Throat swelling Gastrointestinal: Yes Abdominal Pain, Yes Diarrhea, Yes Hematochezia, Yes Nausea, Yes Vomiting Genitourinary: YES Dysuria Musculoskeletal: Yes Joint Pain, Yes Joint Swelling, Yes Muscle Pain Neurological: Yes Weakness Cardiovascular: yes Other Physical Exams General Appearance: no apparent distress, alert, oriented, afebrile Head: normal inspection Neck Exam: normal inspection, full range of motion, trachea is midline Nasal Exam: normal inspection Oral Exam: dentition (poor) Respiratory: normal inspection, normal breath sounds, lungs clear Cardiovascular/Chest: normal inspection, regular rate, rhythm Abdominal Exam: normal inspection, normal bowel sounds, non tender, soft [employer] Exam: normal hearing, normal speech Motor/Sensory: normal sensory function, normal motor function Mental Status: alert, oriented Appearance: appropriate appearance Eye contact: cooperative, good eye contact Thoughts: normal thought pattern Assessment Comments 70 yo with metastatic colorectal cancer, on FOLFIRI for over a year now with slight growth of lung nodules on last CT in Mar 2016. He looks comfortable on exam today, and is non-toxic. I would favor getting him out of the hospital sooner rather than later today or tomorrow, as much of what I would suggest could be done as an outpt. I think he should probably have another CT chest (again, could be done as an outpt early next week) to eval lung lesions; CXR yesterday certainly looked okay though. It does not appear that he has been tried on another course of antibiotics or steroids, so I would treat this with a combination of augmentin x 7 days and steroid burst (prednisone 50mg) for next 5 days. He should follow up with Dr Jade's team next week. CHICHI RUTH MD May 26, 2016 10:54
[2016-05-26] MEDS: INSULIN ASPART 300 UNITS/3 ML INSULN.PEN SQ SCH ×2 (11:52→17:02)
--- NOTE | 2016-05-26 12:04 | PDOC ---
PROGRESS NOTES Chief Complaint Chief Complaint 1. Metastatic colon CA with mets to lungs s/p FOLFOX tx or still currently on chemo, last tx 2 weeks ago 2. Hx hypovolemic hypotension 3. Hx of hypontaremia was on HCTZ 2013 4. Mod PCM 5. Dysphagia, Left sided neck pain 6. AOCD 7. FAll risk , gen weakness 8. DM 2 BS ok 9 JOYA, vasomotor History of Present Illness History of Present Illness Known to fabian from 2013 when I admitted him for hypotension, hypovolemia, hyponatremia was on HCTZ that time DOing well in that regard but now back bec weak, cant walk. REfuses snu, claims he needs a walker LABs, CXR and flu all neg - he does not think his weakness is from his recent chemo Heme onc note reviewed, advised home on PO augmentin and pred 50 burst dose BUt pt would rather stay \ He complains of dysphagia, and pain left neck - my PE of ENT area is neg Plan: Check CT chest (per heme onc recommendation), add CT neck soft tissue Allergy tp PCN - on vanc - need to verify what kind of reaction Start PO pred here 50 qD PT/OT here Downgrade to GI soft Dw pt and son and RN at bedside Nutrition consult Gentle IVF - Joya plus weak Vitals Vitals Vital Signs Date Time Temp Pulse Resp B/P Pulse Ox O2 Delivery O2 Flow Rate FiO2 05/26/16 10:48 98.5 83 20 135/83 92 Room Air 98.5 Physical Exam General: Oriented X3, Cooperative, Other (weak) Heart: Regular rate, Normal S1, Normal S2 Lungs: Clear Abdomen: Normal bowel sounds, Soft Extremities: No clubbing, No cyanosis Skin: No rashes, No breakdown Labs LABS Laboratory Tests Test 05/25/16 17:00 05/25/16 17:10 05/25/16 20:27 05/25/16 21:00 White Blood Count 4.1x10^3/uL (4.0-11.0) Red Blood Count 3.83x10^6/uL (4.30-5.70) Hemoglobin 12.0g/dL (13.0-17.5) Hematocrit 35.0% (39.0-53.0) Mean Corpuscular Volume 91fL (79-100) Mean Corpuscular Hemoglobin 31pg (25-35) Mean Corpuscular Hemoglobin Concent 34g/dL (31-37) Red Cell Distribution Width 19.3% (11.5-14.5) Platelet Count 111x10^3/uL (140-400) Neutrophils (%) (Auto) 68% (31-73) Lymphocytes (%) (Auto) 12% (24-48) Monocytes (%) (Auto) 19% (0-9) Eosinophils (%) (Auto) 1% (0-3) Basophils (%) (Auto) 0% (0-3) Neutrophils # (Auto) 2.8x10^3uL (1.8-7.7) Lymphocytes # (Auto) 0.5x10^3/uL (1.0-4.8) Monocytes # (Auto) 0.8x10^3/uL (0.0-1.1) Eosinophils # (Auto) 0.0x10^3/uL (0.0-0.7) Basophils # (Auto) 0.0x10^3/uL (0.0-0.2) Segmented Neutrophils % 66% (35-66) Band Neutrophils % 1% (0-9) Lymphocytes % 9% (24-48) Monocytes % 23% (0-10) Eosinophils % 1% (0-5) Toxic Granulation Mod Platelet Estimate Decreased (ADEQUATE) Large Platelets Occ Giant Platelets Occ Anisocytosis Slight Stomatocytes Occ Sodium Level 136mmol/L (136-145) Potassium Level 3.8mmol/L (3.5-5.1) Chloride Level 98mmol/L (98-107) Carbon Dioxide Level 28mmol/L (21-32) Anion Gap 10 (6-14) Blood Urea Nitrogen 34mg/dL (8-26) Creatinine 1.9mg/dL (0.7-1.3) Estimated GFR (Cockcroft-Gault) 42.7 BUN/Creatinine Ratio 18 (6-20) Glucose Level 300mg/dL (70-99) Lactic Acid Level 3.6mmol/L (0.4-2.0) 2.0mmol/L (0.4-2.0) Calcium Level 9.9mg/dL (8.5-10.1) Total Bilirubin 0.7mg/dL (0.2-1.0) Aspartate Amino Transf (AST/SGOT) 14U/L (15-37) Alanine Aminotransferase (ALT/SGPT) 28U/L (16-63) Alkaline Phosphatase 85U/L (46-116) Troponin I Quantitative < 0.017ng/mL (0.000-0.055) Total Protein 7.2g/dL (6.4-8.2) Albumin 3.6g/dL (3.4-5.0) Albumin/Globulin Ratio 1.0 (1.0-1.7) Influenza Type A Antigen Negative (NEGATIVE) Influenza Type B Antigen Negative (NEGATIVE) Urine Color [place] Urine Clarity Clear Urine pH 5.5 Urine Specific [place] >=1.030 Urine Protein 30mg/dL (NEG-TRACE) Urine Glucose (UA) >=1000mg/dL (NEG) Urine Ketones (Stick) Negativemg/dL (NEG) Urine Blood Negative (NEG) Urine Nitrite Negative (NEG) Urine Bilirubin Negative (NEG) Urine Urobilinogen Dipstick 0.2mg/dL (0.2 mg/dL) Urine Leukocyte Esterase Negative (NEG) Urine RBC 0/HPF (0-2) Urine WBC Occ/HPF (0-4) Urine Squamous Epithelial Cells Occ/LPF Urine Amorphous Sediment Present/HPF Urine Bacteria 0/HPF (0-FEW) Urine Hyaline Casts Moderate/HPF Urine Mucus Mod/LPF Test 05/26/16 00:01 05/26/16 05:00 05/26/16 07:22 05/26/16 11:03 Lactic Acid Level 2.1mmol/L (0.4-2.0) White Blood Count 3.4x10^3/uL (4.0-11.0) Red Blood Count 3.50x10^6/uL (4.30-5.70) Hemoglobin 10.8g/dL (13.0-17.5) Hematocrit 31.9% (39.0-53.0) Mean Corpuscular Volume 91fL (79-100) Mean Corpuscular Hemoglobin 31pg (25-35) Mean Corpuscular Hemoglobin Concent 34g/dL (31-37) Red Cell Distribution Width 19.6% (11.5-14.5) Platelet Count 110x10^3/uL (140-400) Neutrophils (%) (Auto) 62% (31-73) Lymphocytes (%) (Auto) 20% (24-48) Monocytes (%) (Auto) 17% (0-9) Eosinophils (%) (Auto) 1% (0-3) Basophils (%) (Auto) 0% (0-3) Neutrophils # (Auto) 2.1x10^3uL (1.8-7.7) Lymphocytes # (Auto) 0.7x10^3/uL (1.0-4.8) Monocytes # (Auto) 0.6x10^3/uL (0.0-1.1) Eosinophils # (Auto) 0.0x10^3/uL (0.0-0.7) Basophils # (Auto) 0.0x10^3/uL (0.0-0.2) Sodium Level 140mmol/L (136-145) Potassium Level 3.3mmol/L (3.5-5.1) Chloride Level 104mmol/L (98-107) Carbon Dioxide Level 25mmol/L (21-32) Anion Gap 11 (6-14) Blood Urea Nitrogen 32mg/dL (8-26) Creatinine 1.5mg/dL (0.7-1.3) Estimated GFR (Cockcroft-Gault) 56.1 Glucose Level 168mg/dL (70-99) Calcium Level 9.0mg/dL (8.5-10.1) Glucose (Fingerstick) 217mg/dL (70-99) 221mg/dL (70-99) Review of Systems Review of Systems dysphagia, neck pain, weak, no soa Assessment and Plan Assessmemt and Plan Problems Medical Problems: (1) Cough Status: Acute (2) Elevated lactic acid level Status: Acute (3) Generalized weakness Status: Acute (4) SOB (shortness of breath) Status: Acute Problems: Comment Review of Relevant I have reviewed the following items isabel (where applicable) has been applied. Labs Laboratory Tests Test 05/25/16 17:00 05/25/16 17:10 05/25/16 20:27 05/25/16 21:00 White Blood Count 4.1x10^3/uL (4.0-11.0) Red Blood Count 3.83x10^6/uL (4.30-5.70) Hemoglobin 12.0g/dL (13.0-17.5) Hematocrit 35.0% (39.0-53.0) Mean Corpuscular Volume 91fL (79-100) Mean Corpuscular Hemoglobin 31pg (25-35) Mean Corpuscular Hemoglobin Concent 34g/dL (31-37) Red Cell Distribution Width 19.3% (11.5-14.5) Platelet Count 111x10^3/uL (140-400) Neutrophils (%) (Auto) 68% (31-73) Lymphocytes (%) (Auto) 12% (24-48) Monocytes (%) (Auto) 19% (0-9) Eosinophils (%) (Auto) 1% (0-3) Basophils (%) (Auto) 0% (0-3) Neutrophils # (Auto) 2.8x10^3uL (1.8-7.7) Lymphocytes # (Auto) 0.5x10^3/uL (1.0-4.8) Monocytes # (Auto) 0.8x10^3/uL (0.0-1.1) Eosinophils # (Auto) 0.0x10^3/uL (0.0-0.7) Basophils # (Auto) 0.0x10^3/uL (0.0-0.2) Segmented Neutrophils % 66% (35-66) Band Neutrophils % 1% (0-9) Lymphocytes % 9% (24-48) Monocytes % 23% (0-10) Eosinophils % 1% (0-5) Toxic Granulation Mod Platelet Estimate Decreased (ADEQUATE) Large Platelets Occ Giant Platelets Occ Anisocytosis Slight Stomatocytes Occ Sodium Level 136mmol/L (136-145) Potassium Level 3.8mmol/L (3.5-5.1) Chloride Level 98mmol/L (98-107) Carbon Dioxide Level 28mmol/L (21-32) Anion Gap 10 (6-14) Blood Urea Nitrogen 34mg/dL (8-26) Creatinine 1.9mg/dL (0.7-1.3) Estimated GFR (Cockcroft-Gault) 42.7 BUN/Creatinine Ratio 18 (6-20) Glucose Level 300mg/dL (70-99) Lactic Acid Level 3.6mmol/L (0.4-2.0) 2.0mmol/L (0.4-2.0) Calcium Level 9.9mg/dL (8.5-10.1) Total Bilirubin 0.7mg/dL (0.2-1.0) Aspartate Amino Transf (AST/SGOT) 14U/L (15-37) Alanine Aminotransferase (ALT/SGPT) 28U/L (16-63) Alkaline Phosphatase 85U/L (46-116) Troponin I Quantitative < 0.017ng/mL (0.000-0.055) Total Protein 7.2g/dL (6.4-8.2) Albumin 3.6g/dL (3.4-5.0) Albumin/Globulin Ratio 1.0 (1.0-1.7) Influenza Type A Antigen Negative (NEGATIVE) Influenza Type B Antigen Negative (NEGATIVE) Urine Color [place] Urine Clarity Clear Urine pH 5.5 Urine Specific [place] >=1.030 Urine Protein 30mg/dL (NEG-TRACE) Urine Glucose (UA) >=1000mg/dL (NEG) Urine Ketones (Stick) Negativemg/dL (NEG) Urine Blood Negative (NEG) Urine Nitrite Negative (NEG) Urine Bilirubin Negative (NEG) Urine Urobilinogen Dipstick 0.2mg/dL (0.2 mg/dL) Urine Leukocyte Esterase Negative (NEG) Urine RBC 0/HPF (0-2) Urine WBC Occ/HPF (0-4) Urine Squamous Epithelial Cells Occ/LPF Urine Amorphous Sediment Present/HPF Urine Bacteria 0/HPF (0-FEW) Urine Hyaline Casts Moderate/HPF Urine Mucus Mod/LPF Test 05/26/16 00:01 05/26/16 05:00 05/26/16 07:22 05/26/16 11:03 Lactic Acid Level 2.1mmol/L (0.4-2.0) White Blood Count 3.4x10^3/uL (4.0-11.0) Red Blood Count 3.50x10^6/uL (4.30-5.70) Hemoglobin 10.8g/dL (13.0-17.5) Hematocrit 31.9% (39.0-53.0) Mean Corpuscular Volume 91fL (79-100) Mean Corpuscular Hemoglobin 31pg (25-35) Mean Corpuscular Hemoglobin Concent 34g/dL (31-37) Red Cell Distribution Width 19.6% (11.5-14.5) Platelet Count 110x10^3/uL (140-400) Neutrophils (%) (Auto) 62% (31-73) Lymphocytes (%) (Auto) 20% (24-48) Monocytes (%) (Auto) 17% (0-9) Eosinophils (%) (Auto) 1% (0-3) Basophils (%) (Auto) 0% (0-3) Neutrophils # (Auto) 2.1x10^3uL (1.8-7.7) Lymphocytes # (Auto) 0.7x10^3/uL (1.0-4.8) Monocytes # (Auto) 0.6x10^3/uL (0.0-1.1) Eosinophils # (Auto) 0.0x10^3/uL (0.0-0.7) Basophils # (Auto) 0.0x10^3/uL (0.0-0.2) Sodium Level 140mmol/L (136-145) Potassium Level 3.3mmol/L (3.5-5.1) Chloride Level 104mmol/L (98-107) Carbon Dioxide Level 25mmol/L (21-32) Anion Gap 11 (6-14) Blood Urea Nitrogen 32mg/dL (8-26) Creatinine 1.5mg/dL (0.7-1.3) Estimated GFR (Cockcroft-Gault) 56.1 Glucose Level 168mg/dL (70-99) Calcium Level 9.0mg/dL (8.5-10.1) Glucose (Fingerstick) 217mg/dL (70-99) 221mg/dL (70-99) Laboratory Tests Test 05/25/16 17:00 05/25/16 17:10 05/25/16 20:27 05/25/16 21:00 White Blood Count 4.1x10^3/uL (4.0-11.0) Red Blood Count 3.83x10^6/uL (4.30-5.70) Hemoglobin 12.0g/dL (13.0-17.5) Hematocrit 35.0% (39.0-53.0) Mean Corpuscular Volume 91fL (79-100) Mean Corpuscular Hemoglobin 31pg (25-35) Mean Corpuscular Hemoglobin Concent 34g/dL (31-37) Red Cell Distribution Width 19.3% (11.5-14.5) Platelet Count 111x10^3/uL (140-400) Neutrophils (%) (Auto) 68% (31-73) Lymphocytes (%) (Auto) 12% (24-48) Monocytes (%) (Auto) 19% (0-9) Eosinophils (%) (Auto) 1% (0-3) Basophils (%) (Auto) 0% (0-3) Neutrophils # (Auto) 2.8x10^3uL (1.8-7.7) Lymphocytes # (Auto) 0.5x10^3/uL (1.0-4.8) Monocytes # (Auto) 0.8x10^3/uL (0.0-1.1) Eosinophils # (Auto) 0.0x10^3/uL (0.0-0.7) Basophils # (Auto) 0.0x10^3/uL (0.0-0.2) Segmented Neutrophils % 66% (35-66) Band Neutrophils % 1% (0-9) Lymphocytes % 9% (24-48) Monocytes % 23% (0-10) Eosinophils % 1% (0-5) Toxic Granulation Mod Platelet Estimate Decreased (ADEQUATE) Large Platelets Occ Giant Platelets Occ Anisocytosis Slight Stomatocytes Occ Sodium Level 136mmol/L (136-145) Potassium Level 3.8mmol/L (3.5-5.1) Chloride Level 98mmol/L (98-107) Carbon Dioxide Level 28mmol/L (21-32) Anion Gap 10 (6-14) Blood Urea Nitrogen 34mg/dL (8-26) Creatinine 1.9mg/dL (0.7-1.3) Estimated GFR (Cockcroft-Gault) 42.7 BUN/Creatinine Ratio 18 (6-20) Glucose Level 300mg/dL (70-99) Lactic Acid Level 3.6mmol/L (0.4-2.0) 2.0mmol/L (0.4-2.0) Calcium Level 9.9mg/dL (8.5-10.1) Total Bilirubin 0.7mg/dL (0.2-1.0) Aspartate Amino Transf (AST/SGOT) 14U/L (15-37) Alanine Aminotransferase (ALT/SGPT) 28U/L (16-63) Alkaline Phosphatase 85U/L (46-116) Troponin I Quantitative < 0.017ng/mL (0.000-0.055) Total Protein 7.2g/dL (6.4-8.2) Albumin 3.6g/dL (3.4-5.0) Albumin/Globulin Ratio 1.0 (1.0-1.7) Influenza Type A Antigen Negative (NEGATIVE) Influenza Type B Antigen Negative (NEGATIVE) Urine Color [place] Urine Clarity Clear Urine pH 5.5 Urine Specific [place] >=1.030 Urine Protein 30mg/dL (NEG-TRACE) Urine Glucose (UA) >=1000mg/dL (NEG) Urine Ketones (Stick) Negativemg/dL (NEG) Urine Blood Negative (NEG) Urine Nitrite Negative (NEG) Urine Bilirubin Negative (NEG) Urine Urobilinogen Dipstick 0.2mg/dL (0.2 mg/dL) Urine Leukocyte Esterase Negative (NEG) Urine RBC 0/HPF (0-2) Urine WBC Occ/HPF (0-4) Urine Squamous Epithelial Cells Occ/LPF Urine Amorphous Sediment Present/HPF Urine Bacteria 0/HPF (0-FEW) Urine Hyaline Casts Moderate/HPF Urine Mucus Mod/LPF Test 05/26/16 00:01 05/26/16 05:00 05/26/16 07:22 05/26/16 11:03 Lactic Acid Level 2.1mmol/L (0.4-2.0) White Blood Count 3.4x10^3/uL (4.0-11.0) Red Blood Count 3.50x10^6/uL (4.30-5.70) Hemoglobin 10.8g/dL (13.0-17.5) Hematocrit 31.9% (39.0-53.0) Mean Corpuscular Volume 91fL (79-100) Mean Corpuscular Hemoglobin 31pg (25-35) Mean Corpuscular Hemoglobin Concent 34g/dL (31-37) Red Cell Distribution Width 19.6% (11.5-14.5) Platelet Count 110x10^3/uL (140-400) Neutrophils (%) (Auto) 62% (31-73) Lymphocytes (%) (Auto) 20% (24-48) Monocytes (%) (Auto) 17% (0-9) Eosinophils (%) (Auto) 1% (0-3) Basophils (%) (Auto) 0% (0-3) Neutrophils # (Auto) 2.1x10^3uL (1.8-7.7) Lymphocytes # (Auto) 0.7x10^3/uL (1.0-4.8) Monocytes # (Auto) 0.6x10^3/uL (0.0-1.1) Eosinophils # (Auto) 0.0x10^3/uL (0.0-0.7) Basophils # (Auto) 0.0x10^3/uL (0.0-0.2) Sodium Level 140mmol/L (136-145) Potassium Level 3.3mmol/L (3.5-5.1) Chloride Level 104mmol/L (98-107) Carbon Dioxide Level 25mmol/L (21-32) Anion Gap 11 (6-14) Blood Urea Nitrogen 32mg/dL (8-26) Creatinine 1.5mg/dL (0.7-1.3) Estimated GFR (Cockcroft-Gault) 56.1 Glucose Level 168mg/dL (70-99) Calcium Level 9.0mg/dL (8.5-10.1) Glucose (Fingerstick) 217mg/dL (70-99) 221mg/dL (70-99) Medications Current Medications Sodium Chloride (Iv Sodium Chloride 0.9% 1000ml Bag) 1,000 ml @ 1,000 mls/hr Q1H IV Last administered on 05/25/16 17:20; Start 05/25/16 at 17:15; Stop at 18:14; Status DC Acetaminophen (Tylenol) 1,000 mg 1X ONCE PO Last administered on 05/25/16 17: 20; Start 05/25/16 at 17:15; Stop 05/25/16 at 17:16; Status DC Vancomycin HCl 1 each 1 each PRN DAILY PRN MC SEE COMMENTS Last administered on 05/26/16 03:13; Start 05/25/16 at 20:15 Ertapenem 50 ml @ 100 mls/hr 1X ONCE IV Last administered on 05/25/16 20:26; Start 05/25/16 at 20:15; Stop 05/25/16 at 20:44; Status DC Sodium Chloride 1,000 ml @ 1,000 mls/hr 1X ONCE IV Last administered on 20:27; Start 05/25/16 at 20:15; Stop 05/25/16 at 21:14; Status DC Vancomycin HCl/ Sodium Chloride (Iv Sodium Chloride 0.9% 500ml Bag) 500 ml @ 250 mls/hr 1X ONCE IV Last administered on 05/25/16 21:55; Start 05/25/16 at 20 :30; Stop 05/25/16 at 22:29; Status DC Ondansetron HCl (Zofran) 4 mg PRN Q8HRS PRN IV NAUSEA/VOMITING; Start 05/25/16 at 20:45; Stop 05/26/16 at 09:02; Status DC Morphine Sulfate 4 mg 4 mg PRN Q2HR PRN IV SEVERE PAIN; Start 05/25/16 at 20:45 ; Stop 05/26/16 at 20:44 Sodium Chloride (Iv Sodium Chloride 0.9% 1000ml Bag) 1,000 ml @ 75 mls/hr [id number] IV Last administered on 05/25/16 21:56; Start 05/25/16 at 20:35; Stop at 20:34 Acetaminophen (Tylenol) 650 mg PRN Q4HRS PRN PO FEVER; Start 05/25/16 at 20:45; Stop 05/26/16 at 20:44 Insulin Aspart (Novolog) 0-7 UNITS TIDWMEALS SQ Last administered on 05/26/16 07:52; Start 05/26/16 at 08:00; Stop 05/26/16 at 09:02; Status DC Dextrose 12.5 gm PRN Q15MIN PRN IV SEE COMMENTS; Start 05/25/16 at 20:45 Aspirin (Ecotrin) 81 mg DAILY PO Last administered on 05/26/16 07:49; Start 05/26/16 at 09:00 Diltiazem HCl (Cardizem 24hr Cd) 180 mg DAILY PO Last administered on 05/26/16 07:48; Start 05/26/16 at 09:00 Gabapentin (Neurontin) 100 mg TID PO Last administered on 05/26/16 07:45; Start 05/26/16 at 09:00 Terazosin HCl (Hytrin) 5 mg DAILY PO Last administered on 05/26/16 07:46; Start 05/26/16 at 09:00 Lisinopril (Prinivil) 40 mg BID PO ; Start 05/26/16 at 09:00 Metoprolol Tartrate (Lopressor) 100 mg BID PO Last administered on 05/26/16 07: 47; Start 05/26/16 at 09:00 Famotidine 20 mg 20 mg DAILY PO Last administered on 05/26/16 07:47; Start 05/26 at 09:00 Vancomycin HCl/ Sodium Chloride (Iv Sodium Chloride 0.9% 250ml) 250 ml @ 167 mls/hr Q24H IV ; Start 05/26/16 at 22:00 Vancomycin HCl 1 each 1X ONCE MC ; Start 05/27/16 at 21:30; Stop 05/27/16 at 21: 31 Ondansetron HCl (Zofran) 4 mg PRN Q6HRS PRN IV NAUSEA/VOMITING; Start 05/26/16 at 09:00 Insulin Aspart (Novolog) 0-9 UNITS TIDWMEALS SQ Last administered on 05/26/16 11:52; Start 05/26/16 at 12:00 Dextrose 12.5 gm PRN Q15MIN PRN IV SEE COMMENTS; Start 05/26/16 at 09:00 Active Scripts Active Reported Gabapentin 100 Mg Capsule Unknown Dose PO TID Cardizem Cd (Diltiazem Hcl) 180 Mg Cap.er.24h Unknown Dose PO DAILY Terazosin Hcl 5 Mg Capsule 5 Mg PO DAILY Aspir 81 (Aspirin) 81 Mg Tablet.dr 81 Mg PO DAILY Fosinopril Sodium 40 Mg Tablet 40 Mg PO BID Metoprolol Tartrate 100 Mg Tablet 100 Mg PO BID Metformin Hcl 500 Mg Tablet 500 Mg PO DAILYBFRSUP Metformin Hcl 500 Mg Tablet 1,000 Mg PO [id number] Ranitidine Hcl 150 Mg Tablet 150 Mg PO BID Vitals/I & O Vital Sign - Last 24 Hours 05/25/16 05/25/16 05/25/16 05/25/16 16:15 16:30 17:00 17:30 Temp 97.6 97.6 Pulse 94 92 94 88 Resp 17 22 22 21 B/P 102/68 84/59 95/64 110/66 Pulse Ox 95 96 96 96 O2 Delivery Room Air Room Air Room Air Room Air 05/25/16 05/25/16 05/25/16 05/25/16 18:00 18:30 19:00 19:30 Pulse 84 84 84 82 Resp 22 B/P 101/67 106/68 113/72 112/71 Pulse Ox 96 96 93 100 O2 Delivery Room Air Room Air Room Air Room Air 05/25/16 05/25/16 05/25/16 05/25/16 20:00 20:30 21:00 22:40 Pulse 88 84 80 Resp 23 B/P 106/68 118/69 124/71 Pulse Ox 94 96 94 O2 Delivery Room Air Room Air Room Air Room Air 05/26/16 05/26/16 05/26/16 05/26/16 02:54 07:00 07:46 07:47 Temp 98.1 97.7 98.1 97.7 Pulse 79 90 88 88 Resp 18 18 B/P 125/76 162/95 162/95 162/95 Pulse Ox 95 91 O2 Delivery Room Air Room Air 05/26/16 05/26/16 07:48 10:48 Temp 98.5 98.5 Pulse 88 83 Resp 20 B/P 162/95 135/83 Pulse Ox 92 O2 Delivery Room Air Intake and Output 05/25/16 05/25/16 05/26/16 15:00 23:00 07:00 Intake Total 1750 ml 840 ml Output Total 200 ml Balance 1750 ml 640 ml GONZALEZ WEINSTEIN MD May 26, 2016 12:04
[2016-05-26] MEDS: PREDNISONE 10 MG TABLET PO SCH (12:43)
[2016-05-26 15:00] VITALS: BP 141/82
--- NOTE | 2016-05-26 15:05 | RAD ---
Examination: CT neck and chest without contrast History: History of lung cancer, metastasis Comparison: CT chest from 10/24/2012 Technique: Axial CT images of the soft tissue neck and chest were performed without contrast with coronal and sagittal reformats were performed. PQRS Compliance Statement: One or more of the following individualized dose reduction techniques were utilized for this examination: 1. Automated exposure control 2. Adjustment of the mA and/or kV according to patient size 3. Use of iterative reconstruction technique Findings: Partially visualized right internal jugular line is identified. The visualized intracranial portion grossly appears unremarkable. The bilateral parotid glands, submandibular glands grossly appears unremarkable. No radiological significant bilateral cervical lymphadenopathy identified. Examination is limited lack of IV contrast. Moderate atherosclerotic identified in the bilateral carotid bulbs, left greater than right. The visualized thyroid gland grossly appears unremarkable. Mild cardiomegaly. Diffuse coronary artery calcifications identified. Moderate aortic atherosclerosis. The ascending aorta measures 3.9 cm in transverse dimension. No radiologically significant mediastinal lymphadenopathy is identified. There is a right infrahilar lungs opacity measuring 4.8 x 3.4 cm causing narrowing and filling of the right lower lobe bronchus branches with some postobstructive atelectasis. There is linear left lung base airspace opacity likely atelectasis or infiltrate with mild bronchiectatic changes. There is diffuse decreased attenuation noted throughout the liver likely hepatic steatosis. Partially visualized gallstones identified within the partially visualized gallbladder. Moderate degenerative changes identified in the visualized thoracic and cervical spine. Impression: 1. 4.8 cm masslike density identified in the right infrahilar region surrounding the right lower lobe bronchus causing narrowing and filling of the right lower lobe bronchial branches could be endobronchial lesion with postobstructive atelectasis or right infrahilar mass causing filling of the right lower lobe bronchial branches. Bronchoscopy evaluation and/or PET/CT scanner correlation is recommended. 2. Mild patchy linear left lung base airspace opacity with mild bronchiectasis in the left lung base likely atelectasis or infiltrate. Follow-up to resolution. 3. Diffuse decreased attenuation throughout the liver likely hepatic steatosis. 4. Gallstones identified within the proximal gallbladder. 5. Coronary artery calcifications. 6. No radiologically significant cervical lymphadenopathy identified.
[2016-05-26 19:59] VITALS: BP 184/119
[2016-05-26] MEDS: VANCOMYCIN 1.25 GM in IV NORMAL SALINE 250ML 250 ML IV SCH (20:59)
[2016-05-26] MEDS ORDERED: INSULIN ASPART 300 UNITS/3 ML INSULN.PEN SQ ONE (22:00)
[2016-05-26] MEDS ORDERED: INSULIN DETEMIR 300 UNITS/3 ML INSULN.PEN. SQ SCH (22:00)
[2016-05-26 23:46] VITALS: BP 167/110
[2016-05-27 03:59] VITALS: BP 171/106
[2016-05-27 07:00] VITALS: BP 168/98
[2016-05-27] MEDS ORDERED: INSULIN ASPART 300 UNITS/3 ML INSULN.PEN SQ SCH (07:30)
[2016-05-27] MEDS: INSULIN ASPART 300 UNITS/3 ML INSULN.PEN SQ SCH ×5 (07:41→17:01)
[2016-05-27] MEDS: DILTIAZEM HCL 180 MG CAP.ER.24H PO SCH (09:11)
[2016-05-27] MEDS: ASPIRIN ENTERIC COATED 81 MG TABLET.DR. PO SCH (09:11)
[2016-05-27] MEDS: TERAZOSIN 5 MG CAPSULE. PO SCH (09:11)
[2016-05-27] MEDS: GABAPENTIN 100 MG CAPSULE. PO SCH ×3 (09:11→20:25)
[2016-05-27] MEDS: FAMOTIDINE 20 MG TABLET. PO SCH (09:11)
[2016-05-27] MEDS: METOPROLOL TART IMMED RELEASE 50 MG TABLET PO SCH ×2 (09:12→20:26)
[2016-05-27] MEDS: LISINOPRIL 40 MG TABLET. PO SCH ×2 (09:12→20:26)
[2016-05-27] MEDS: BENZOCAINE/MENTHOL LOZENGE. PO PRN (09:16)
[2016-05-27] MEDS: PREDNISONE 10 MG TABLET PO SCH (09:16)
[2016-05-27 11:00] VITALS: BP 177/100
--- NOTE | 2016-05-27 11:08 | CONS ---
DATE OF CONSULTATION: REQUESTING PHYSICIAN: Hospitalist. REASON FOR CONSULTATION: Renal failure. HISTORY OF PRESENT ILLNESS: A 70-year-old gentleman with known colon cancer with metastases to the lungs. He continues on chemotherapy. He is currently admitted with shortness of breath, cough, and weakness. He is known to have lactic acidosis at 3.6. His white count is 3.4, hemoglobin 10, and hematocrit 31.9. Creatinine 1.5, GFR 56. In this setting, Nephrology evaluation is requested. PAST MEDICAL HISTORY: 1. Metastatic colon catheter -- pulmonary metastases. 2. Colostomy 3. Ongoing chemotherapy. 4. Diabetes mellitus. 5. Hypertension. 6. GE reflux disease. 7. BPH. ALLERGIES: IODINE, IV CONTRAST, AND PENICILLIN. MEDICATIONS: Noted. FAMILY HISTORY: Noncontributory. SOCIAL HISTORY: The patient is a nonsmoker, nondrinker. REVIEW OF SYSTEMS: He has weakness. No headaches, sinus problem, nasal drainage, epistaxis, change in vision or hearing, and no difficulty swallowing. No fever, chills, cough, sputum production, or hemoptysis. He has had dyspnea on exertion. No chest pain. No abdominal pain. No upper or lower gastrointestinal blood loss. No nausea, vomiting, diarrhea, or seizures. He has a history of metastatic colon cancer. PHYSICAL EXAMINATION: GENERAL: The patient is awake and conversant. HEENT: ____. NECK: No increased JVD. No thyromegaly, mass, or adenopathy. LUNGS: Clear. CARDIAC: Without S3 or rub. ABDOMEN: Distended, nontender. EXTREMITIES: Without edema. NEUROLOGIC: Nonfocal localizing. PSYCHIATRIC: Fair attention to detail, appropriate affect. LABORATORY DATA: As above. IMPRESSION: 1. Chronic kidney disease stage 3 in the setting of diabetes mellitus. 2. Metastatic colon cancer. RECOMMENDATIONS: At this point, he should be comfort in palliation. Maintain fluid balance as tolerated. HALIE JIMENEZ MD DR: JULIA/ivania JOB#: [id number] / [id number]
--- NOTE | 2016-05-27 12:02 | PDOC ---
PROGRESS NOTES Chief Complaint Chief Complaint 1. Metastatic colon CA with mets to lungs s/p FOLFOX tx or still currently on chemo, last tx 2 weeks ago 2. Hx hypovolemic hypotension 3. Hx of hypontaremia was on HCTZ 2013 4. Mod PCM 5. Dysphagia, Left sided neck pain 6. AOCD 7. FAll risk , gen weakness 8. DM 2 BS ok 9 JOYA, vasomotor History of Present Illness History of Present Illness CT scan shows: Impression: 1. 4.8 cm masslike density identified in the right infrahilar region surrounding the right lower lobe bronchus causing narrowing and filling of the right lower lobe bronchial branches could be endobronchial lesion with postobstructive atelectasis or right infrahilar mass causing filling of the right lower lobe bronchial branches. Bronchoscopy evaluation and/or PET/CT scanner correlation is recommended. 2. Mild patchy linear left lung base airspace opacity with mild bronchiectasis in the left lung base likely atelectasis or infiltrate. Follow-up to resolution. 3. Diffuse decreased attenuation throughout the liver likely hepatic steatosis. 4. Gallstones identified within the proximal gallbladder. 5. Coronary artery calcifications. 6. No radiologically significant cervical lymphadenopathy identified. Claims dysphagia better - willing to try some solids Walked with PT yesterday - 2 rounds Wansts to stay in house to get more strength, BUT DOES NOT WANT INPT REHAB OR SNU BS high - on OHA only for DM at home, but started on pred 50 PO here per heme onc recs so now BS and BP are both HIGH SATURDAY ENTRY: Known to fabian from 2013 when I admitted him for hypotension, hypovolemia, hyponatremia was on HCTZ that time DOing well in that regard but now back bec weak, cant walk. REfuses snu, claims he needs a walker LABs, CXR and flu all neg - he does not think his weakness is from his recent chemo Heme onc note reviewed, advised home on PO augmentin and pred 50 burst dose BUt pt would rather stay \ He complains of dysphagia, and pain left neck - my PE of ENT area is neg PLAn: Await pulmo consult Ok to have reg diet Pt/OT Supportive meds Cleared from heme onc to go home on PO augmentin And pred 50 - but pt wants to stay to get more PT (refuses rehab) Inc CARDIZEM to 180 PO qD starting lauren - might need to go back to 180 home dose once off steroid Add prn IV labetalol Start levemir 20 qhs start novolog 10 TID Dw RN and pt Vitals Vitals Vital Signs Date Time Temp Pulse Resp B/P Pulse Ox O2 Delivery O2 Flow Rate FiO2 05/27/16 11:00 98.8 95 18 177/100 95 Room Air 98.8 Physical Exam General: Oriented X3, Cooperative, Other (weak) Heart: Regular rate, Normal S1, Normal S2 Lungs: Clear Abdomen: Normal bowel sounds, Soft Extremities: No clubbing, No cyanosis Skin: No rashes, No breakdown Labs LABS Laboratory Tests Test 05/26/16 16:30 05/26/16 21:24 05/27/16 07:36 05/27/16 11:46 Glucose (Fingerstick) 276mg/dL (70-99) 362mg/dL (70-99) 211mg/dL (70-99) 293mg/dL (70-99) Review of Systems Review of Systems weak, dysphagia, alll else neg Assessment and Plan Assessmemt and Plan Problems Medical Problems: (1) Cough Status: Acute (2) Elevated lactic acid level Status: Acute (3) Generalized weakness Status: Acute (4) SOB (shortness of breath) Status: Acute Problems: Comment Review of Relevant I have reviewed the following items isabel (where applicable) has been applied. Labs Laboratory Tests Test 05/25/16 17:00 05/25/16 17:10 05/25/16 20:27 05/25/16 21:00 White Blood Count 4.1x10^3/uL (4.0-11.0) Red Blood Count 3.83x10^6/uL (4.30-5.70) Hemoglobin 12.0g/dL (13.0-17.5) Hematocrit 35.0% (39.0-53.0) Mean Corpuscular Volume 91fL (79-100) Mean Corpuscular Hemoglobin 31pg (25-35) Mean Corpuscular Hemoglobin Concent 34g/dL (31-37) Red Cell Distribution Width 19.3% (11.5-14.5) Platelet Count 111x10^3/uL (140-400) Neutrophils (%) (Auto) 68% (31-73) Lymphocytes (%) (Auto) 12% (24-48) Monocytes (%) (Auto) 19% (0-9) Eosinophils (%) (Auto) 1% (0-3) Basophils (%) (Auto) 0% (0-3) Neutrophils # (Auto) 2.8x10^3uL (1.8-7.7) Lymphocytes # (Auto) 0.5x10^3/uL (1.0-4.8) Monocytes # (Auto) 0.8x10^3/uL (0.0-1.1) Eosinophils # (Auto) 0.0x10^3/uL (0.0-0.7) Basophils # (Auto) 0.0x10^3/uL (0.0-0.2) Segmented Neutrophils % 66% (35-66) Band Neutrophils % 1% (0-9) Lymphocytes % 9% (24-48) Monocytes % 23% (0-10) Eosinophils % 1% (0-5) Toxic Granulation Mod Platelet Estimate Decreased (ADEQUATE) Large Platelets Occ Giant Platelets Occ Anisocytosis Slight Stomatocytes Occ Sodium Level 136mmol/L (136-145) Potassium Level 3.8mmol/L (3.5-5.1) Chloride Level 98mmol/L (98-107) Carbon Dioxide Level 28mmol/L (21-32) Anion Gap 10 (6-14) Blood Urea Nitrogen 34mg/dL (8-26) Creatinine 1.9mg/dL (0.7-1.3) Estimated GFR (Cockcroft-Gault) 42.7 BUN/Creatinine Ratio 18 (6-20) Glucose Level 300mg/dL (70-99) Lactic Acid Level 3.6mmol/L (0.4-2.0) 2.0mmol/L (0.4-2.0) Calcium Level 9.9mg/dL (8.5-10.1) Total Bilirubin 0.7mg/dL (0.2-1.0) Aspartate Amino Transf (AST/SGOT) 14U/L (15-37) Alanine Aminotransferase (ALT/SGPT) 28U/L (16-63) Alkaline Phosphatase 85U/L (46-116) Troponin I Quantitative < 0.017ng/mL (0.000-0.055) Total Protein 7.2g/dL (6.4-8.2) Albumin 3.6g/dL (3.4-5.0) Albumin/Globulin Ratio 1.0 (1.0-1.7) Influenza Type A Antigen Negative (NEGATIVE) Influenza Type B Antigen Negative (NEGATIVE) Urine Color [place] Urine Clarity Clear Urine pH 5.5 Urine Specific [place] >=1.030 Urine Protein 30mg/dL (NEG-TRACE) Urine Glucose (UA) >=1000mg/dL (NEG) Urine Ketones (Stick) Negativemg/dL (NEG) Urine Blood Negative (NEG) Urine Nitrite Negative (NEG) Urine Bilirubin Negative (NEG) Urine Urobilinogen Dipstick 0.2mg/dL (0.2 mg/dL) Urine Leukocyte Esterase Negative (NEG) Urine RBC 0/HPF (0-2) Urine WBC Occ/HPF (0-4) Urine Squamous Epithelial Cells Occ/LPF Urine Amorphous Sediment Present/HPF Urine Bacteria 0/HPF (0-FEW) Urine Hyaline Casts Moderate/HPF Urine Mucus Mod/LPF Test 05/26/16 00:01 05/26/16 05:00 05/26/16 07:22 05/26/16 11:03 Lactic Acid Level 2.1mmol/L (0.4-2.0) White Blood Count 3.4x10^3/uL (4.0-11.0) Red Blood Count 3.50x10^6/uL (4.30-5.70) Hemoglobin 10.8g/dL (13.0-17.5) Hematocrit 31.9% (39.0-53.0) Mean Corpuscular Volume 91fL (79-100) Mean Corpuscular Hemoglobin 31pg (25-35) Mean Corpuscular Hemoglobin Concent 34g/dL (31-37) Red Cell Distribution Width 19.6% (11.5-14.5) Platelet Count 110x10^3/uL (140-400) Neutrophils (%) (Auto) 62% (31-73) Lymphocytes (%) (Auto) 20% (24-48) Monocytes (%) (Auto) 17% (0-9) Eosinophils (%) (Auto) 1% (0-3) Basophils (%) (Auto) 0% (0-3) Neutrophils # (Auto) 2.1x10^3uL (1.8-7.7) Lymphocytes # (Auto) 0.7x10^3/uL (1.0-4.8) Monocytes # (Auto) 0.6x10^3/uL (0.0-1.1) Eosinophils # (Auto) 0.0x10^3/uL (0.0-0.7) Basophils # (Auto) 0.0x10^3/uL (0.0-0.2) Sodium Level 140mmol/L (136-145) Potassium Level 3.3mmol/L (3.5-5.1) Chloride Level 104mmol/L (98-107) Carbon Dioxide Level 25mmol/L (21-32) Anion Gap 11 (6-14) Blood Urea Nitrogen 32mg/dL (8-26) Creatinine 1.5mg/dL (0.7-1.3) Estimated GFR (Cockcroft-Gault) 56.1 Glucose Level 168mg/dL (70-99) Calcium Level 9.0mg/dL (8.5-10.1) Glucose (Fingerstick) 217mg/dL (70-99) 221mg/dL (70-99) Test 05/26/16 16:30 05/26/16 21:24 05/27/16 07:36 05/27/16 11:46 Glucose (Fingerstick) 276mg/dL (70-99) 362mg/dL (70-99) 211mg/dL (70-99) 293mg/dL (70-99) Laboratory Tests Test 05/26/16 16:30 05/26/16 21:24 05/27/16 07:36 05/27/16 11:46 Glucose (Fingerstick) 276mg/dL (70-99) 362mg/dL (70-99) 211mg/dL (70-99) 293mg/dL (70-99) Microbiology 05/25/16 Blood Culture - Preliminary, Resulted NO GROWTH AFTER 1 DAY Medications Current Medications Sodium Chloride (Iv Sodium Chloride 0.9% 1000ml Bag) 1,000 ml @ 1,000 mls/hr Q1H IV Last administered on 05/25/16t 17:20; Start 05/25/16 at 17:15; Stop at 18:14; Status DC Acetaminophen (Tylenol) 1,000 mg 1X ONCE PO Last administered on 05/25/16 17: 20; Start 05/25/16 at 17:15; Stop 05/25/16 at 17:16; Status DC Vancomycin HCl 1 each 1 each PRN DAILY PRN MC SEE COMMENTS Last administered on 05/26/16 15:37; Start 05/25/16 at 20:15 Ertapenem 50 ml @ 100 mls/hr 1X ONCE IV Last administered on 05/25/16 20:26; Start 05/25/16 at 20:15; Stop 05/25/16 at 20:44; Status DC Sodium Chloride 1,000 ml @ 1,000 mls/hr 1X ONCE IV Last administered on 20:27; Start 05/25/16 at 20:15; Stop 05/25/16 at 21:14; Status DC Vancomycin HCl/ Sodium Chloride (Iv Sodium Chloride 0.9% 500ml Bag) 500 ml @ 250 mls/hr 1X ONCE IV Last administered on 05/25/16 21:55; Start 05/25/16 at 20 :30; Stop 05/25/16 at 22:29; Status DC Ondansetron HCl (Zofran) 4 mg PRN Q8HRS PRN IV NAUSEA/VOMITING; Start 05/25/16 at 20:45; Stop 05/26/16 at 09:02; Status DC Morphine Sulfate 4 mg 4 mg PRN Q2HR PRN IV SEVERE PAIN; Start 05/25/16 at 20:45 ; Stop 05/26/16 at 20:44; Status DC Sodium Chloride (Iv Sodium Chloride 0.9% 1000ml Bag) 1,000 ml @ 75 mls/hr [id number] IV Last administered on 05/26/16 09:55; Start 05/25/16 at 20:35; Stop at 20:34; Status DC Acetaminophen (Tylenol) 650 mg PRN Q4HRS PRN PO FEVER; Start 05/25/16 at 20:45; Stop 05/26/16 at 20:44; Status DC Insulin Aspart (Novolog) 0-7 UNITS TIDWMEALS SQ Last administered on 05/26/16 07:52; Start 05/26/16 at 08:00; Stop 05/26/16 at 09:02; Status DC Dextrose 12.5 gm PRN Q15MIN PRN IV SEE COMMENTS; Start 05/25/16 at 20:45; Stop 05/26/16 at 11:58; Status DC Aspirin (Ecotrin) 81 mg DAILY PO Last administered on 05/27/16 09:11; Start 05/26/16 at 09:00 Diltiazem HCl (Cardizem 24hr Cd) 180 mg DAILY PO Last administered on 05/27/16 09:11; Start 05/26/16 at 09:00 Gabapentin (Neurontin) 100 mg TID PO Last administered on 05/27/16 09:11; Start 05/26/16 at 09:00 Terazosin HCl (Hytrin) 5 mg DAILY PO Last administered on 05/27/16 09:11; Start 05/26/16 at 09:00 Lisinopril (Prinivil) 40 mg BID PO Last administered on 05/27/16 09:12; Start 05/26/16 at 09:00 Metoprolol Tartrate (Lopressor) 100 mg BID PO Last administered on 05/27/16 09: 12; Start 05/26/16 at 09:00 Famotidine 20 mg 20 mg DAILY PO Last administered on 05/27/16 09:11; Start 05/26 at 09:00 Vancomycin HCl/ Sodium Chloride (Iv Sodium Chloride 0.9% 250ml) 250 ml @ 167 mls/hr Q24H IV Last administered on 05/26/16 20:59; Start 05/26/16 at 22:00 Vancomycin HCl 1 each 1X ONCE MC ; Start 05/27/16 at 21:30; Stop 05/27/16 at 21: 31 Ondansetron HCl (Zofran) 4 mg PRN Q6HRS PRN IV NAUSEA/VOMITING; Start 05/26/16 at 09:00 Insulin Aspart (Novolog) 0-9 UNITS TIDWMEALS SQ Last administered on 05/27/16 07:41; Start 05/26/16 at 12:00 Dextrose 12.5 gm PRN Q15MIN PRN IV SEE COMMENTS; Start 05/26/16 at 09:00 Throat Lozenges (Cepacol Sore Throat Lozenge) 1 roberto PRN Q2HRS PRN PO SORE THROAT Last administered on 05/27/16 09:16; Start 05/26/16 at 12:00 Prednisone (Prednisone) 50 mg DAILY PO Last administered on 05/27/16 09:16; Start 05/26/16 at 12:30 Insulin Aspart (Novolog) 5 units TIDAC SQ Last administered on 05/27/16 07:41; Start 05/27/16 at 07:30; Stop 05/27/16 at 10:56; Status DC Insulin Aspart (Novolog) 5 units 1X ONCE SQ Last administered on 05/26/16 21: 57; Start 05/26/16 at 22:00; Stop 05/26/16 at 22:01; Status DC Insulin Detemir (Levemir) 15 units QHS SQ Last administered on 05/26/16 21:58; Start 05/26/16 at 22:00; Stop 05/27/16 at 10:56; Status DC Insulin Aspart (Novolog) 10 units TIDAC SQ ; Start 05/27/16 at 11:30 Insulin Detemir (Levemir) 20 units QHS SQ ; Start 05/27/16 at 21:00 Active Scripts Active Reported Gabapentin 100 Mg Capsule Unknown Dose PO TID Cardizem Cd (Diltiazem Hcl) 180 Mg Cap.er.24h Unknown Dose PO DAILY Terazosin Hcl 5 Mg Capsule 5 Mg PO DAILY Aspir 81 (Aspirin) 81 Mg Tablet.dr 81 Mg PO DAILY Fosinopril Sodium 40 Mg Tablet 40 Mg PO BID Metoprolol Tartrate 100 Mg Tablet 100 Mg PO BID Metformin Hcl 500 Mg Tablet 500 Mg PO DAILYBFRSUP Metformin Hcl 500 Mg Tablet 1,000 Mg PO DAILYWBKFT Ranitidine Hcl 150 Mg Tablet 150 Mg PO BID Vitals/I & O Vital Sign - Last 24 Hours 05/26/16 05/26/16 05/26/16 05/26/16 15:00 19:59 20:00 20:52 Temp 97.9 98.5 97.9 98.5 Pulse 89 110 110 Resp 18 18 B/P 141/82 184/119 184/119 Pulse Ox 93 92 O2 Delivery Room Air Room Air Room Air 05/26/16 05/26/16 05/27/16 05/27/16 20:53 23:46 03:59 07:00 Temp 98.7 97.6 97.9 98.7 97.6 97.9 Pulse 110 105 95 94 Resp 18 18 18 B/P 184/119 167/110 171/106 168/98 Pulse Ox 97 93 96 O2 Delivery Room Air Room Air Room Air 05/27/16 05/27/16 05/27/16 05/27/16 07:50 09:11 09:11 09:12 Pulse 94 94 94 B/P 168/98 168/98 168/98 O2 Delivery Room Air 05/27/16 05/27/16 09:12 11:00 Temp 98.8 98.8 Pulse 94 95 Resp 18 B/P 168/98 177/100 Pulse Ox 95 O2 Delivery Room Air Intake and Output 05/26/16 05/26/16 05/27/16 15:00 23:00 07:00 Intake Total 240 ml 0 ml 300 ml Output Total 600 ml 400 ml 1700 ml Balance -360 ml -400 ml -1400 ml GONZALEZ WEINSTEIN MD May 27, 2016 12:02
[2016-05-27] MEDS: LABETALOL 20 MG/4 ML DISP.SYRIN. IVP PRN ×2 (12:32→23:44)
[2016-05-27 15:00] VITALS: BP 163/93
[2016-05-27] MEDS: VANCOMYCIN PER PHARMACY MC PRN (15:11)
--- NOTE | 2016-05-27 16:10 | PDOC ---
PULMONARY PROGRESS NOTES Vitals Vital Signs Date Time Temp Pulse Resp B/P Pulse Ox O2 Delivery O2 Flow Rate FiO2 05/27/16 15:00 98.4 95 18 163/93 97 Room Air 98.4 Lungs: Clear Labs Laboratory Tests Test 05/25/16 17:00 05/25/16 17:10 05/25/16 20:27 05/25/16 21:00 White Blood Count 4.1x10^3/uL (4.0-11.0) Red Blood Count 3.83x10^6/uL (4.30-5.70) Hemoglobin 12.0g/dL (13.0-17.5) Hematocrit 35.0% (39.0-53.0) Mean Corpuscular Volume 91fL (79-100) Mean Corpuscular Hemoglobin 31pg (25-35) Mean Corpuscular Hemoglobin Concent 34g/dL (31-37) Red Cell Distribution Width 19.3% (11.5-14.5) Platelet Count 111x10^3/uL (140-400) Neutrophils (%) (Auto) 68% (31-73) Lymphocytes (%) (Auto) 12% (24-48) Monocytes (%) (Auto) 19% (0-9) Eosinophils (%) (Auto) 1% (0-3) Basophils (%) (Auto) 0% (0-3) Neutrophils # (Auto) 2.8x10^3uL (1.8-7.7) Lymphocytes # (Auto) 0.5x10^3/uL (1.0-4.8) Monocytes # (Auto) 0.8x10^3/uL (0.0-1.1) Eosinophils # (Auto) 0.0x10^3/uL (0.0-0.7) Basophils # (Auto) 0.0x10^3/uL (0.0-0.2) Segmented Neutrophils % 66% (35-66) Band Neutrophils % 1% (0-9) Lymphocytes % 9% (24-48) Monocytes % 23% (0-10) Eosinophils % 1% (0-5) Toxic Granulation Mod Platelet Estimate Decreased (ADEQUATE) Large Platelets Occ Giant Platelets Occ Anisocytosis Slight Stomatocytes Occ Sodium Level 136mmol/L (136-145) Potassium Level 3.8mmol/L (3.5-5.1) Chloride Level 98mmol/L (98-107) Carbon Dioxide Level 28mmol/L (21-32) Anion Gap 10 (6-14) Blood Urea Nitrogen 34mg/dL (8-26) Creatinine 1.9mg/dL (0.7-1.3) Estimated GFR (Cockcroft-Gault) 42.7 BUN/Creatinine Ratio 18 (6-20) Glucose Level 300mg/dL (70-99) Lactic Acid Level 3.6mmol/L (0.4-2.0) 2.0mmol/L (0.4-2.0) Calcium Level 9.9mg/dL (8.5-10.1) Total Bilirubin 0.7mg/dL (0.2-1.0) Aspartate Amino Transf (AST/SGOT) 14U/L (15-37) Alanine Aminotransferase (ALT/SGPT) 28U/L (16-63) Alkaline Phosphatase 85U/L (46-116) Troponin I Quantitative < 0.017ng/mL (0.000-0.055) Total Protein 7.2g/dL (6.4-8.2) Albumin 3.6g/dL (3.4-5.0) Albumin/Globulin Ratio 1.0 (1.0-1.7) Influenza Type A Antigen Negative (NEGATIVE) Influenza Type B Antigen Negative (NEGATIVE) Urine Color [place] Urine Clarity Clear Urine pH 5.5 Urine Specific [place] >=1.030 Urine Protein 30mg/dL (NEG-TRACE) Urine Glucose (UA) >=1000mg/dL (NEG) Urine Ketones (Stick) Negativemg/dL (NEG) Urine Blood Negative (NEG) Urine Nitrite Negative (NEG) Urine Bilirubin Negative (NEG) Urine Urobilinogen Dipstick 0.2mg/dL (0.2 mg/dL) Urine Leukocyte Esterase Negative (NEG) Urine RBC 0/HPF (0-2) Urine WBC Occ/HPF (0-4) Urine Squamous Epithelial Cells Occ/LPF Urine Amorphous Sediment Present/HPF Urine Bacteria 0/HPF (0-FEW) Urine Hyaline Casts Moderate/HPF Urine Mucus Mod/LPF Test 05/26/16 00:01 05/26/16 05:00 05/26/16 07:22 05/26/16 11:03 Lactic Acid Level 2.1mmol/L (0.4-2.0) White Blood Count 3.4x10^3/uL (4.0-11.0) Red Blood Count 3.50x10^6/uL (4.30-5.70) Hemoglobin 10.8g/dL (13.0-17.5) Hematocrit 31.9% (39.0-53.0) Mean Corpuscular Volume 91fL (79-100) Mean Corpuscular Hemoglobin 31pg (25-35) Mean Corpuscular Hemoglobin Concent 34g/dL (31-37) Red Cell Distribution Width 19.6% (11.5-14.5) Platelet Count 110x10^3/uL (140-400) Neutrophils (%) (Auto) 62% (31-73) Lymphocytes (%) (Auto) 20% (24-48) Monocytes (%) (Auto) 17% (0-9) Eosinophils (%) (Auto) 1% (0-3) Basophils (%) (Auto) 0% (0-3) Neutrophils # (Auto) 2.1x10^3uL (1.8-7.7) Lymphocytes # (Auto) 0.7x10^3/uL (1.0-4.8) Monocytes # (Auto) 0.6x10^3/uL (0.0-1.1) Eosinophils # (Auto) 0.0x10^3/uL (0.0-0.7) Basophils # (Auto) 0.0x10^3/uL (0.0-0.2) Sodium Level 140mmol/L (136-145) Potassium Level 3.3mmol/L (3.5-5.1) Chloride Level 104mmol/L (98-107) Carbon Dioxide Level 25mmol/L (21-32) Anion Gap 11 (6-14) Blood Urea Nitrogen 32mg/dL (8-26) Creatinine 1.5mg/dL (0.7-1.3) Estimated GFR (Cockcroft-Gault) 56.1 Glucose Level 168mg/dL (70-99) Calcium Level 9.0mg/dL (8.5-10.1) Glucose (Fingerstick) 217mg/dL (70-99) 221mg/dL (70-99) Test 05/26/16 16:30 05/26/16 21:24 05/27/16 07:36 05/27/16 11:46 Glucose (Fingerstick) 276mg/dL (70-99) 362mg/dL (70-99) 211mg/dL (70-99) 293mg/dL (70-99) Laboratory Tests Test 05/26/16 16:30 05/26/16 21:24 05/27/16 07:36 05/27/16 11:46 Glucose (Fingerstick) 276mg/dL (70-99) 362mg/dL (70-99) 211mg/dL (70-99) 293mg/dL (70-99) Medications Active Scripts Medications Dose Route/Sig Days Date Category Gabapentin 100 Mg Capsule Unknown Dose PO TID 02/03/14 Reported Cardizem Cd (Diltiazem Hcl) 180 Mg Cap.er.24h Unknown Dose PO DAILY 02/03/14 Reported Terazosin Hcl 5 Mg Capsule 5 Mg PO DAILY 03/25/13 Reported Aspir 81 (Aspirin) 81 Mg Tablet.dr 81 Mg PO DAILY 03/25/13 Reported Fosinopril Sodium 40 Mg Tablet 40 Mg PO BID 03/25/13 Reported Metoprolol Tartrate 100 Mg Tablet 100 Mg PO BID 03/25/13 Reported Metformin Hcl 500 Mg Tablet 500 Mg PO DAILYBFRSUP 03/25/13 Reported Metformin Hcl 500 Mg Tablet 1,000 Mg PO DAILYWBKFT 03/25/13 Reported Ranitidine Hcl 150 Mg Tablet 150 Mg PO BID 03/25/13 Reported Impression . FULL CONSULT DICTATED RIGHT INFRAH[facility] WILL PROCEED WITH [facility] IN AM REVIEWED THE R/B/A WITH PT HE ACCEPTED NOHEMI BELLO MD May 27, 2016 16:10
[2016-05-27 19:00] VITALS: BP 159/91
[2016-05-27] MEDS ORDERED: INSULIN DETEMIR 300 UNITS/3 ML INSULN.PEN. SQ SCH (21:00)
[2016-05-27 22:23] LABS: HEMATOCRIT 31.6 % (39.0-53.0); HEMOGLOBIN 10.6 g/dL (13.0-17.5); RED BLOOD COUNT 3.43 x10^6/uL (4.30-5.70); RED CELL DISTRIBUTION WIDTH 18.9 % (11.5-14.5); WHITE BLOOD COUNT 3.7 x10^3/uL (4.0-11.0)
[2016-05-27 22:35] LABS: INR 1.3 (0.8-1.1); PROTHROMBIN TIME PATIENT 15.1 SEC (11.7-14.0)
[2016-05-27 23:00] VITALS: BP 177/104
[2016-05-27] MEDS: VANCOMYCIN 1.25 GM in IV NORMAL SALINE 250ML 250 ML IV SCH (23:04)
[2016-05-28] MEDS: VANCOMYCIN PER PHARMACY MC PRN ×2 (02:33→16:31)
[2016-05-28 03:00] VITALS: BP 182/104
[2016-05-28] MEDS: LABETALOL 20 MG/4 ML DISP.SYRIN. IVP PRN (03:10)
[2016-05-28] MEDS: BENZOCAINE/MENTHOL LOZENGE. PO PRN (03:14)
[2016-05-28 05:37] LABS: CALCIUM 9.3 mg/dL (8.5-10.1); CREATININE 1.1 mg/dL (0.7-1.3); GFR 80.3; POTASSIUM 3.4 mmol/L (3.5-5.1)
[2016-05-28] MEDS: INSULIN ASPART 300 UNITS/3 ML INSULN.PEN SQ SCH ×7 (07:30→17:16)
[2016-05-28 07:51] VITALS: BP 171/107
[2016-05-28] MEDS: PREDNISONE 10 MG TABLET PO SCH (08:10)
[2016-05-28] MEDS: FAMOTIDINE 20 MG TABLET. PO SCH (08:11)
[2016-05-28] MEDS: GABAPENTIN 100 MG CAPSULE. PO SCH ×3 (08:11→21:56)
[2016-05-28] MEDS: METOPROLOL TART IMMED RELEASE 50 MG TABLET PO SCH ×2 (08:11→21:57)
[2016-05-28] MEDS: LISINOPRIL 40 MG TABLET. PO SCH ×2 (08:11→21:57)
[2016-05-28] MEDS: DILTIAZEM HCL 240 MG CAP.ER.24H PO SCH (08:12)
[2016-05-28] MEDS: TERAZOSIN 5 MG CAPSULE. PO SCH (08:12)
[2016-05-28] MEDS: ASPIRIN ENTERIC COATED 81 MG TABLET.DR. PO SCH (08:12)
--- NOTE | 2016-05-28 08:17 | PDOC ---
PROGRESS NOTES Chief Complaint Chief Complaint 1. Metastatic colon CA with mets to lungs s/p FOLFOX tx or still currently on chemo, last tx 2 weeks ago 2. Hx hypovolemic hypotension 3. Hx of hypontaremia was on HCTZ 2013 4. Mod PCM 5. Dysphagia, Left sided neck pain 6. AOCD 7. FAll risk , gen weakness 8. DM 2 BS ok 9 JOYA, vasomotor 10. R HILAR MASS - new? History of Present Illness History of Present Illness NO inc in SOA or CP \NO hemoptysis Working on his strength CT scan shows: Impression: 1. 4.8 cm masslike density identified in the right infrahilar region surrounding the right lower lobe bronchus causing narrowing and filling of the right lower lobe bronchial branches could be endobronchial lesion with postobstructive atelectasis or right infrahilar mass causing filling of the right lower lobe bronchial branches. Bronchoscopy evaluation and/or PET/CT scanner correlation is recommended. 2. Mild patchy linear left lung base airspace opacity with mild bronchiectasis in the left lung base likely atelectasis or infiltrate. Follow-up to resolution. 3. Diffuse decreased attenuation throughout the liver likely hepatic steatosis. 4. Gallstones identified within the proximal gallbladder. 5. Coronary artery calcifications. 6. No radiologically significant cervical lymphadenopathy identified. PLAN: Bronchoscopy later NPO now CPM the rest Vitals Vitals Vital Signs Date Time Temp Pulse Resp B/P Pulse Ox O2 Delivery O2 Flow Rate FiO2 05/28/16 08:12 89 171/107 05/28/16 07:51 96.1 22 98 Room Air 96.1 Physical Exam General: Oriented X3, Cooperative, Other (weak) Heart: Regular rate, Normal S1, Normal S2 Lungs: Clear Abdomen: Normal bowel sounds, Soft Extremities: No clubbing, No cyanosis Skin: No rashes, No breakdown Labs LABS Laboratory Tests Test 05/27/16 11:46 05/27/16 16:53 05/27/16 20:22 05/27/16 21:45 Glucose (Fingerstick) 293mg/dL (70-99) 376mg/dL (70-99) 362mg/dL (70-99) White Blood Count 3.7x10^3/uL (4.0-11.0) Red Blood Count 3.43x10^6/uL (4.30-5.70) Hemoglobin 10.6g/dL (13.0-17.5) Hematocrit 31.6% (39.0-53.0) Mean Corpuscular Volume 92fL (79-100) Mean Corpuscular Hemoglobin 31pg (25-35) Mean Corpuscular Hemoglobin Concent 34g/dL (31-37) Red Cell Distribution Width 18.9% (11.5-14.5) Platelet Count 108x10^3/uL (140-400) Prothrombin Time 15.1SEC (11.7-14.0) Prothromb Time International Ratio 1.3 (0.8-1.1) Vancomycin Level Trough 6.4mcg/mL (10.0-20.0) Vancomycin Last Dose Date Vancomycin Last Dose Time Test 05/28/16 04:40 05/28/16 08:01 Sodium Level 140mmol/L (136-145) Potassium Level 3.4mmol/L (3.5-5.1) Chloride Level 104mmol/L (98-107) Carbon Dioxide Level 25mmol/L (21-32) Anion Gap 11 (6-14) Blood Urea Nitrogen 20mg/dL (8-26) Creatinine 1.1mg/dL (0.7-1.3) Estimated GFR (Cockcroft-Gault) 80.3 Glucose Level 277mg/dL (70-99) Calcium Level 9.3mg/dL (8.5-10.1) Glucose (Fingerstick) 210mg/dL (70-99) Review of Systems Review of Systems no inc SOA or CP or hemoptysis Assessment and Plan Assessmemt and Plan Problems Medical Problems: (1) Cough Status: Acute (2) Elevated lactic acid level Status: Acute (3) Generalized weakness Status: Acute (4) SOB (shortness of breath) Status: Acute Problems: Comment Review of Relevant I have reviewed the following items isabel (where applicable) has been applied. Labs Laboratory Tests Test 05/26/16 11:03 05/26/16 16:30 05/26/16 21:24 05/27/16 07:36 Glucose (Fingerstick) 221mg/dL (70-99) 276mg/dL (70-99) 362mg/dL (70-99) 211mg/dL (70-99) Test 05/27/16 11:46 05/27/16 16:53 05/27/16 20:22 05/27/16 21:45 Glucose (Fingerstick) 293mg/dL (70-99) 376mg/dL (70-99) 362mg/dL (70-99) White Blood Count 3.7x10^3/uL (4.0-11.0) Red Blood Count 3.43x10^6/uL (4.30-5.70) Hemoglobin 10.6g/dL (13.0-17.5) Hematocrit 31.6% (39.0-53.0) Mean Corpuscular Volume 92fL (79-100) Mean Corpuscular Hemoglobin 31pg (25-35) Mean Corpuscular Hemoglobin Concent 34g/dL (31-37) Red Cell Distribution Width 18.9% (11.5-14.5) Platelet Count 108x10^3/uL (140-400) Prothrombin Time 15.1SEC (11.7-14.0) Prothromb Time International Ratio 1.3 (0.8-1.1) Vancomycin Level Trough 6.4mcg/mL (10.0-20.0) Vancomycin Last Dose Date Vancomycin Last Dose Time Test 05/28/16 04:40 05/28/16 08:01 Sodium Level 140mmol/L (136-145) Potassium Level 3.4mmol/L (3.5-5.1) Chloride Level 104mmol/L (98-107) Carbon Dioxide Level 25mmol/L (21-32) Anion Gap 11 (6-14) Blood Urea Nitrogen 20mg/dL (8-26) Creatinine 1.1mg/dL (0.7-1.3) Estimated GFR (Cockcroft-Gault) 80.3 Glucose Level 277mg/dL (70-99) Calcium Level 9.3mg/dL (8.5-10.1) Glucose (Fingerstick) 210mg/dL (70-99) Laboratory Tests Test 05/27/16 11:46 05/27/16 16:53 05/27/16 20:22 05/27/16 21:45 Glucose (Fingerstick) 293mg/dL (70-99) 376mg/dL (70-99) 362mg/dL (70-99) White Blood Count 3.7x10^3/uL (4.0-11.0) Red Blood Count 3.43x10^6/uL (4.30-5.70) Hemoglobin 10.6g/dL (13.0-17.5) Hematocrit 31.6% (39.0-53.0) Mean Corpuscular Volume 92fL (79-100) Mean Corpuscular Hemoglobin 31pg (25-35) Mean Corpuscular Hemoglobin Concent 34g/dL (31-37) Red Cell Distribution Width 18.9% (11.5-14.5) Platelet Count 108x10^3/uL (140-400) Prothrombin Time 15.1SEC (11.7-14.0) Prothromb Time International Ratio 1.3 (0.8-1.1) Vancomycin Level Trough 6.4mcg/mL (10.0-20.0) Vancomycin Last Dose Date Vancomycin Last Dose Time Test 05/28/16 04:40 05/28/16 08:01 Sodium Level 140mmol/L (136-145) Potassium Level 3.4mmol/L (3.5-5.1) Chloride Level 104mmol/L (98-107) Carbon Dioxide Level 25mmol/L (21-32) Anion Gap 11 (6-14) Blood Urea Nitrogen 20mg/dL (8-26) Creatinine 1.1mg/dL (0.7-1.3) Estimated GFR (Cockcroft-Gault) 80.3 Glucose Level 277mg/dL (70-99) Calcium Level 9.3mg/dL (8.5-10.1) Glucose (Fingerstick) 210mg/dL (70-99) Microbiology 05/25/16 Blood Culture - Preliminary, Resulted NO GROWTH AFTER 2 DAYS Medications Current Medications Sodium Chloride (Iv Sodium Chloride 0.9% 1000ml Bag) 1,000 ml @ 1,000 mls/hr Q1H IV Last administered on 05/25/16 17:20; Start 05/25/16 at 17:15; Stop at 18:14; Status DC Acetaminophen (Tylenol) 1,000 mg 1X ONCE PO Last administered on 05/25/16 17: 20; Start 05/25/16 at 17:15; Stop 05/25/16 at 17:16; Status DC Vancomycin HCl 1 each 1 each PRN DAILY PRN MC SEE COMMENTS Last administered on 05/28/16 02:33; Start 05/25/16 at 20:15 Ertapenem 50 ml @ 100 mls/hr 1X ONCE IV Last administered on 05/25/16 20:26; Start 05/25/16 at 20:15; Stop 05/25/16 at 20:44; Status DC Sodium Chloride 1,000 ml @ 1,000 mls/hr 1X ONCE IV Last administered on 20:27; Start 05/25/16 at 20:15; Stop 05/25/16 at 21:14; Status DC Vancomycin HCl/ Sodium Chloride (Iv Sodium Chloride 0.9% 500ml Bag) 500 ml @ 250 mls/hr 1X ONCE IV Last administered on 05/25/16 21:55; Start 05/25/16 at 20 :30; Stop 05/25/16 at 22:29; Status DC Ondansetron HCl (Zofran) 4 mg PRN Q8HRS PRN IV NAUSEA/VOMITING; Start 05/25/16 at 20:45; Stop 05/26/16 at 09:02; Status DC Morphine Sulfate 4 mg 4 mg PRN Q2HR PRN IV SEVERE PAIN; Start 05/25/16 at 20:45 ; Stop 05/26/16 at 20:44; Status DC Sodium Chloride (Iv Sodium Chloride 0.9% 1000ml Bag) 1,000 ml @ 75 mls/hr [id number] IV Last administered on 05/26/16 09:55; Start 05/25/16 at 20:35; Stop at 20:34; Status DC Acetaminophen (Tylenol) 650 mg PRN Q4HRS PRN PO FEVER; Start 05/25/16 at 20:45; Stop 05/26/16 at 20:44; Status DC Insulin Aspart (Novolog) 0-7 UNITS TIDWMEALS SQ Last administered on 05/26/16 07:52; Start 05/26/16 at 08:00; Stop 05/26/16 at 09:02; Status DC Dextrose 12.5 gm PRN Q15MIN PRN IV SEE COMMENTS; Start 05/25/16 at 20:45; Stop 05/26/16 at 11:58; Status DC Aspirin (Ecotrin) 81 mg DAILY PO Last administered on 05/27/16 09:11; Start 05/26/16 at 09:00 Diltiazem HCl (Cardizem 24hr Cd) 180 mg DAILY PO Last administered on 05/27/16 09:11; Start 05/26/16 at 09:00; Stop 05/27/16 at 11:59; Status DC Gabapentin (Neurontin) 100 mg TID PO Last administered on 05/28/16 08:11; Start 05/26/16 at 09:00 Terazosin HCl (Hytrin) 5 mg DAILY PO Last administered on 05/28/16 08:12; Start 05/26/16 at 09:00 Lisinopril (Prinivil) 40 mg BID PO Last administered on 05/28/16 08:11; Start 05/26/16 at 09:00 Metoprolol Tartrate (Lopressor) 100 mg BID PO Last administered on 05/28/16 08: 11; Start 05/26/16 at 09:00 Famotidine 20 mg 20 mg DAILY PO Last administered on 05/28/16 08:11; Start 05/26 at 09:00 Vancomycin HCl/ Sodium Chloride (Iv Sodium Chloride 0.9% 250ml) 250 ml @ 167 mls/hr Q24H IV Last administered on 05/27/16 23:04; Start 05/26/16 at 22:00; Stop 05/28/16 at 02:28; Status DC Vancomycin HCl 1 each 1X ONCE MC ; Start 05/27/16 at 21:30; Stop 05/27/16 at 21: 31; Status DC Ondansetron HCl (Zofran) 4 mg PRN Q6HRS PRN IV NAUSEA/VOMITING; Start 05/26/16 at 09:00 Insulin Aspart (Novolog) 0-9 UNITS TIDWMEALS SQ Last administered on 05/27/16 17:00; Start 05/26/16 at 12:00 Dextrose 12.5 gm PRN Q15MIN PRN IV SEE COMMENTS; Start 05/26/16 at 09:00 Throat Lozenges (Cepacol Sore Throat Lozenge) 1 roberto PRN Q2HRS PRN PO SORE THROAT Last administered on 05/28/16 03:14; Start 05/26/16 at 12:00 Prednisone (Prednisone) 50 mg DAILY PO Last administered on 05/28/16 08:10; Start 05/26/16 at 12:30 Insulin Aspart (Novolog) 5 units TIDAC SQ Last administered on 05/27/16 07:41; Start 05/27/16 at 07:30; Stop 05/27/16 at 10:56; Status DC Insulin Aspart (Novolog) 5 units 1X ONCE SQ Last administered on 05/26/16 21: 57; Start 05/26/16 at 22:00; Stop 05/26/16 at 22:01; Status DC Insulin Detemir (Levemir) 15 units QHS SQ Last administered on 05/26/16 21:58; Start 05/26/16 at 22:00; Stop 05/27/16 at 10:56; Status DC Insulin Aspart (Novolog) 10 units TIDAC SQ Last administered on 05/27/16 17:01 ; Start 05/27/16 at 11:30 Insulin Detemir (Levemir) 20 units QHS SQ Last administered on 05/27/16 20:32; Start 05/27/16 at 21:00; Stop 05/28/16 at 07:13; Status DC Diltiazem HCl (Cardizem 24hr Cd) 240 mg DAILY PO Last administered on 05/28/16 08:12; Start 05/28/16 at 09:00 Labetalol HCl 10 mg 10 mg PRN Q2HR PRN IVP HYPERTENSION, SEE COMMENTS Last administered on 05/28/16 03:10; Start 05/27/16 at 12:00 Levofloxacin/ Dextrose 100 ml @ 100 mls/hr Q24H IV Last administered on 16:55; Start 05/27/16 at 17:00 Vancomycin HCl/ Sodium Chloride (Iv Sodium Chloride 0.9% 250ml) 250 ml @ 167 mls/hr Q12H IV ; Start 05/28/16 at 11:00 Insulin Detemir (Levemir) 25 units QHS SQ ; Start 05/28/16 at 21:00 Active Scripts Active Reported Gabapentin 100 Mg Capsule Unknown Dose PO TID Cardizem Cd (Diltiazem Hcl) 180 Mg Cap.er.24h Unknown Dose PO DAILY Terazosin Hcl 5 Mg Capsule 5 Mg PO DAILY Aspir 81 (Aspirin) 81 Mg Tablet.dr 81 Mg PO DAILY Fosinopril Sodium 40 Mg Tablet 40 Mg PO BID Metoprolol Tartrate 100 Mg Tablet 100 Mg PO BID Metformin Hcl 500 Mg Tablet 500 Mg PO DAILYBFRSUP Metformin Hcl 500 Mg Tablet 1,000 Mg PO DAILYWBKFT Ranitidine Hcl 150 Mg Tablet 150 Mg PO BID Vitals/I & O Vital Sign - Last 24 Hours 05/27/16 05/27/16 05/27/16 05/27/16 09:11 09:11 09:12 09:12 Pulse 94 94 94 94 B/P 168/98 168/98 168/98 168/98 05/27/16 05/27/16 05/27/16 05/27/16 11:00 12:32 15:00 19:00 Temp 98.8 98.4 98.1 98.8 98.4 98.1 Pulse 95 95 95 99 Resp 18 18 22 B/P 177/100 177/100 163/93 159/91 Pulse Ox 95 97 93 O2 Delivery Room Air Room Air Room Air 05/27/16 05/27/16 05/27/16 05/27/16 19:52 20:26 20:26 23:00 Temp 97.5 97.5 Pulse 91 91 87 Resp 20 B/P 177/104 Pulse Ox 95 O2 Delivery Room Air Room Air 05/27/16 05/28/16 05/28/16 05/28/16 23:44 03:00 03:10 07:51 Temp 97.5 96.1 97.5 96.1 Pulse 87 85 87 89 Resp 20 22 B/P 177/104 182/104 177/104 171/107 Pulse Ox 92 98 O2 Delivery Room Air Room Air 05/28/16 05/28/16 05/28/16 05/28/16 08:11 08:11 08:12 08:12 Pulse 89 89 89 89 B/P 171/107 171/107 171/107 171/107 Intake and Output 05/27/16 05/27/16 05/28/16 15:00 23:00 07:00 Intake Total 940 ml 120 ml Output Total 1425 ml 250 ml Balance -485 ml -130 ml GOZNALEZ WEINSTEIN MD May 28, 2016 08:17
--- NOTE | 2016-05-28 09:02 | PDOC ---
PROGRESS NOTES Subjective Subjective c/c - f/u of metastatic rectal cancer Objective Objective Vital Signs Date Time Temp Pulse Resp B/P Pulse Ox O2 Delivery O2 Flow Rate FiO2 05/28/16 08:12 89 171/107 05/28/16 07:51 96.1 22 98 Room Air 96.1 Intake and Output 05/28/16 07:00 Intake Total 1060 ml Output Total 1675 ml Balance -615 ml Intake Oral 1060 ml Output Urine Total 1425 ml Stool Total 250 ml Physical Exam Heart: Regular rate, Normal S1, Normal S2 General: Alert, Oriented X3 Lungs: Clear to auscultation Psych/Mental Status: Mental status NL Assessment Assessment Problems Medical Problems: (1) Cough Status: Acute (2) Elevated lactic acid level Status: Acute (3) Generalized weakness Status: Acute (4) SOB (shortness of breath) Status: Acute 1. 70 yo with metastatic rectal cancer, on FOLFIRI for over a year now with slight growth of lung nodules on last CT in Mar 2016. Defer chemo by 1 week. 2. Lung mets - slight growth of lung nodules on last CT in Mar 2016. CT on : 4.8 cm masslike density identified in the right infrahilar region surrounding the right lower lobe bronchus causing narrowing and filling of the right lower lobe bronchial branches could be endobronchial lesion with postobstructive atelectasis or right infrahilar mass causing filling of the right lower lobe bronchial branches. Bronchoscopy planned. Comment Review of Relevant I have reviewed the following items isabel (where applicable) has been applied. Labs Laboratory Tests Test 05/26/16 11:03 05/26/16 16:30 05/26/16 21:24 05/27/16 07:36 Glucose (Fingerstick) 221mg/dL (70-99) 276mg/dL (70-99) 362mg/dL (70-99) 211mg/dL (70-99) Test 05/27/16 11:46 05/27/16 16:53 05/27/16 20:22 05/27/16 21:45 Glucose (Fingerstick) 293mg/dL (70-99) 376mg/dL (70-99) 362mg/dL (70-99) White Blood Count 3.7x10^3/uL (4.0-11.0) Red Blood Count 3.43x10^6/uL (4.30-5.70) Hemoglobin 10.6g/dL (13.0-17.5) Hematocrit 31.6% (39.0-53.0) Mean Corpuscular Volume 92fL (79-100) Mean Corpuscular Hemoglobin 31pg (25-35) Mean Corpuscular Hemoglobin Concent 34g/dL (31-37) Red Cell Distribution Width 18.9% (11.5-14.5) Platelet Count 108x10^3/uL (140-400) Prothrombin Time 15.1SEC (11.7-14.0) Prothromb Time International Ratio 1.3 (0.8-1.1) Vancomycin Level Trough 6.4mcg/mL (10.0-20.0) Vancomycin Last Dose Date Vancomycin Last Dose Time Test 05/28/16 04:40 05/28/16 08:01 Sodium Level 140mmol/L (136-145) Potassium Level 3.4mmol/L (3.5-5.1) Chloride Level 104mmol/L (98-107) Carbon Dioxide Level 25mmol/L (21-32) Anion Gap 11 (6-14) Blood Urea Nitrogen 20mg/dL (8-26) Creatinine 1.1mg/dL (0.7-1.3) Estimated GFR (Cockcroft-Gault) 80.3 Glucose Level 277mg/dL (70-99) Calcium Level 9.3mg/dL (8.5-10.1) Glucose (Fingerstick) 210mg/dL (70-99) Laboratory Tests Test 05/27/16 11:46 05/27/16 16:53 05/27/16 20:22 05/27/16 21:45 Glucose (Fingerstick) 293mg/dL (70-99) 376mg/dL (70-99) 362mg/dL (70-99) White Blood Count 3.7x10^3/uL (4.0-11.0) Red Blood Count 3.43x10^6/uL (4.30-5.70) Hemoglobin 10.6g/dL (13.0-17.5) Hematocrit 31.6% (39.0-53.0) Mean Corpuscular Volume 92fL (79-100) Mean Corpuscular Hemoglobin 31pg (25-35) Mean Corpuscular Hemoglobin Concent 34g/dL (31-37) Red Cell Distribution Width 18.9% (11.5-14.5) Platelet Count 108x10^3/uL (140-400) Prothrombin Time 15.1SEC (11.7-14.0) Prothromb Time International Ratio 1.3 (0.8-1.1) Vancomycin Level Trough 6.4mcg/mL (10.0-20.0) Vancomycin Last Dose Date Vancomycin Last Dose Time Test 05/28/16 04:40 05/28/16 08:01 Sodium Level 140mmol/L (136-145) Potassium Level 3.4mmol/L (3.5-5.1) Chloride Level 104mmol/L (98-107) Carbon Dioxide Level 25mmol/L (21-32) Anion Gap 11 (6-14) Blood Urea Nitrogen 20mg/dL (8-26) Creatinine 1.1mg/dL (0.7-1.3) Estimated GFR (Cockcroft-Gault) 80.3 Glucose Level 277mg/dL (70-99) Calcium Level 9.3mg/dL (8.5-10.1) Glucose (Fingerstick) 210mg/dL (70-99) Microbiology 05/25/16 Blood Culture - Preliminary, Resulted NO GROWTH AFTER 2 DAYS Medications Current Medications Sodium Chloride (Iv Sodium Chloride 0.9% 1000ml Bag) 1,000 ml @ 1,000 mls/hr Q1H IV Last administered on 05/25/16 17:20; Start 05/25/16 at 17:15; Stop at 18:14; Status DC Acetaminophen (Tylenol) 1,000 mg 1X ONCE PO Last administered on 05/25/16 17: 20; Start 05/25/16 at 17:15; Stop 05/25/16 at 17:16; Status DC Vancomycin HCl 1 each 1 each PRN DAILY PRN MC SEE COMMENTS Last administered on 05/28/16 02:33; Start 05/25/16 at 20:15 Ertapenem 50 ml @ 100 mls/hr 1X ONCE IV Last administered on 05/25/16 20:26; Start 05/25/16 at 20:15; Stop 05/25/16 at 20:44; Status DC Sodium Chloride 1,000 ml @ 1,000 mls/hr 1X ONCE IV Last administered on 20:27; Start 05/25/16 at 20:15; Stop 05/25/16 at 21:14; Status DC Vancomycin HCl/ Sodium Chloride (Iv Sodium Chloride 0.9% 500ml Bag) 500 ml @ 250 mls/hr 1X ONCE IV Last administered on 05/25/16 21:55; Start 05/25/16 at 20 :30; Stop 05/25/16 at 22:29; Status DC Ondansetron HCl (Zofran) 4 mg PRN Q8HRS PRN IV NAUSEA/VOMITING; Start 05/25/16 at 20:45; Stop 05/26/16 at 09:02; Status DC Morphine Sulfate 4 mg 4 mg PRN Q2HR PRN IV SEVERE PAIN; Start 05/25/16 at 20:45 ; Stop 05/26/16 at 20:44; Status DC Sodium Chloride (Iv Sodium Chloride 0.9% 1000ml Bag) 1,000 ml @ 75 mls/hr [id number] IV Last administered on 05/26/16 09:55; Start 05/25/16 at 20:35; Stop at 20:34; Status DC Acetaminophen (Tylenol) 650 mg PRN Q4HRS PRN PO FEVER; Start 05/25/16 at 20:45; Stop 05/26/16 at 20:44; Status DC Insulin Aspart (Novolog) 0-7 UNITS TIDWMEALS SQ Last administered on 05/26/16 07:52; Start 05/26/16 at 08:00; Stop 05/26/16 at 09:02; Status DC Dextrose 12.5 gm PRN Q15MIN PRN IV SEE COMMENTS; Start 05/25/16 at 20:45; Stop 05/26/16 at 11:58; Status DC Aspirin (Ecotrin) 81 mg DAILY PO Last administered on 05/27/16 09:11; Start 05/26/16 at 09:00 Diltiazem HCl (Cardizem 24hr Cd) 180 mg DAILY PO Last administered on 05/27/16 09:11; Start 05/26/16 at 09:00; Stop 05/27/16 at 11:59; Status DC Gabapentin (Neurontin) 100 mg TID PO Last administered on 05/28/16 08:11; Start 05/26/16 at 09:00 Terazosin HCl (Hytrin) 5 mg DAILY PO Last administered on 05/28/16 08:12; Start 05/26/16 at 09:00 Lisinopril (Prinivil) 40 mg BID PO Last administered on 05/28/16 08:11; Start 05/26/16 at 09:00 Metoprolol Tartrate (Lopressor) 100 mg BID PO Last administered on 05/28/16 08: 11; Start 05/26/16 at 09:00 Famotidine 20 mg 20 mg DAILY PO Last administered on 05/28/16 08:11; Start 05/26 at 09:00 Vancomycin HCl/ Sodium Chloride (Iv Sodium Chloride 0.9% 250ml) 250 ml @ 167 mls/hr Q24H IV Last administered on 05/27/16 23:04; Start 05/26/16 at 22:00; Stop 05/28/16 at 02:28; Status DC Vancomycin HCl 1 each 1X ONCE MC ; Start 05/27/16 at 21:30; Stop 05/27/16 at 21: 31; Status DC Ondansetron HCl (Zofran) 4 mg PRN Q6HRS PRN IV NAUSEA/VOMITING; Start 05/26/16 at 09:00 Insulin Aspart (Novolog) 0-9 UNITS TIDWMEALS SQ Last administered on 05/27/16 17:00; Start 05/26/16 at 12:00 Dextrose 12.5 gm PRN Q15MIN PRN IV SEE COMMENTS; Start 05/26/16 at 09:00 Throat Lozenges (Cepacol Sore Throat Lozenge) 1 roberto PRN Q2HRS PRN PO SORE THROAT Last administered on 05/28/16 03:14; Start 05/26/16 at 12:00 Prednisone (Prednisone) 50 mg DAILY PO Last administered on 05/28/16 08:10; Start 05/26/16 at 12:30 Insulin Aspart (Novolog) 5 units TIDAC SQ Last administered on 05/27/16 07:41; Start 05/27/16 at 07:30; Stop 05/27/16 at 10:56; Status DC Insulin Aspart (Novolog) 5 units 1X ONCE SQ Last administered on 05/26/16 21: 57; Start 05/26/16 at 22:00; Stop 05/26/16 at 22:01; Status DC Insulin Detemir (Levemir) 15 units QHS SQ Last administered on 05/26/16 21:58; Start 05/26/16 at 22:00; Stop 05/27/16 at 10:56; Status DC Insulin Aspart (Novolog) 10 units TIDAC SQ Last administered on 05/27/16 17:01 ; Start 05/27/16 at 11:30 Insulin Detemir (Levemir) 20 units QHS SQ Last administered on 05/27/16 20:32; Start 05/27/16 at 21:00; Stop 05/28/16 at 07:13; Status DC Diltiazem HCl (Cardizem 24hr Cd) 240 mg DAILY PO Last administered on 05/28/16 08:12; Start 05/28/16 at 09:00 Labetalol HCl 10 mg 10 mg PRN Q2HR PRN IVP HYPERTENSION, SEE COMMENTS Last administered on 05/28/16 03:10; Start 05/27/16 at 12:00 Levofloxacin/ Dextrose 100 ml @ 100 mls/hr Q24H IV Last administered on 16:55; Start 05/27/16 at 17:00 Vancomycin HCl/ Sodium Chloride (Iv Sodium Chloride 0.9% 250ml) 250 ml @ 167 mls/hr Q12H IV ; Start 05/28/16 at 11:00 Insulin Detemir (Levemir) 25 units QHS SQ ; Start 05/28/16 at 21:00 Active Scripts Active Reported Gabapentin 100 Mg Capsule Unknown Dose PO TID Cardizem Cd (Diltiazem Hcl) 180 Mg Cap.er.24h Unknown Dose PO DAILY Terazosin Hcl 5 Mg Capsule 5 Mg PO DAILY Aspir 81 (Aspirin) 81 Mg Tablet.dr 81 Mg PO DAILY Fosinopril Sodium 40 Mg Tablet 40 Mg PO BID Metoprolol Tartrate 100 Mg Tablet 100 Mg PO BID Metformin Hcl 500 Mg Tablet 500 Mg PO DAILYBFRSUP Metformin Hcl 500 Mg Tablet 1,000 Mg PO DAILYWBKFT Ranitidine Hcl 150 Mg Tablet 150 Mg PO BID Vitals/I & O Vital Sign - Last 24 Hours 05/27/16 05/27/16 05/27/16 05/27/16 09:11 09:11 09:12 09:12 Pulse 94 94 94 94 B/P 168/98 168/98 168/98 168/98 05/27/16 05/27/16 05/27/16 05/27/16 11:00 12:32 15:00 19:00 Temp 98.8 98.4 98.1 98.8 98.4 98.1 Pulse 95 95 95 99 Resp 18 18 22 B/P 177/100 177/100 163/93 159/91 Pulse Ox 95 97 93 O2 Delivery Room Air Room Air Room Air 05/27/16 05/27/16 05/27/16 05/27/16 19:52 20:26 20:26 23:00 Temp 97.5 97.5 Pulse 91 91 87 Resp 20 B/P 177/104 Pulse Ox 95 O2 Delivery Room Air Room Air 05/27/16 05/28/16 05/28/16 05/28/16 23:44 03:00 03:10 07:51 Temp 97.5 96.1 97.5 96.1 Pulse 87 85 87 89 Resp 20 22 B/P 177/104 182/104 177/104 171/107 Pulse Ox 92 98 O2 Delivery Room Air Room Air 05/28/16 05/28/16 05/28/16 05/28/16 08:11 08:11 08:12 08:12 Pulse 89 89 89 89 B/P 171/107 171/107 171/107 171/107 Intake and Output 05/27/16 05/27/16 05/28/16 15:00 23:00 07:00 Intake Total 940 ml 120 ml Output Total 1425 ml 250 ml Balance -485 ml -130 ml WALTER MAHAN MD May 28, 2016 09:02
[2016-05-28 10:39] VITALS: BP 156/104
[2016-05-28] MEDS: VANCOMYCIN 1.25 GM in IV NORMAL SALINE 250ML 250 ML IV SCH ×2 (11:36→23:33)
--- NOTE | 2016-05-28 11:51 | PDOC ---
PULMONARY PROGRESS NOTES Subjective no soa Vitals Vital Signs Date Time Temp Pulse Resp B/P Pulse Ox O2 Delivery O2 Flow Rate FiO2 05/28/16 10:39 98.3 83 17 156/104 94 Room Air 98.3 General: Alert, No acute distress Lungs: Other (decrease bs right) Cardiovascular: S1 Abdomen: Soft Neuro Exam: Alert Extremities: No Edema Skin: Warm Labs Laboratory Tests Test 05/26/16 16:30 05/26/16 21:24 05/27/16 07:36 05/27/16 11:46 Glucose (Fingerstick) 276mg/dL (70-99) 362mg/dL (70-99) 211mg/dL (70-99) 293mg/dL (70-99) Test 05/27/16 16:53 05/27/16 20:22 05/27/16 21:45 05/28/16 04:40 Glucose (Fingerstick) 376mg/dL (70-99) 362mg/dL (70-99) White Blood Count 3.7x10^3/uL (4.0-11.0) Red Blood Count 3.43x10^6/uL (4.30-5.70) Hemoglobin 10.6g/dL (13.0-17.5) Hematocrit 31.6% (39.0-53.0) Mean Corpuscular Volume 92fL (79-100) Mean Corpuscular Hemoglobin 31pg (25-35) Mean Corpuscular Hemoglobin Concent 34g/dL (31-37) Red Cell Distribution Width 18.9% (11.5-14.5) Platelet Count 108x10^3/uL (140-400) Prothrombin Time 15.1SEC (11.7-14.0) Prothromb Time International Ratio 1.3 (0.8-1.1) Vancomycin Level Trough 6.4mcg/mL (10.0-20.0) Vancomycin Last Dose Date Vancomycin Last Dose Time Sodium Level 140mmol/L (136-145) Potassium Level 3.4mmol/L (3.5-5.1) Chloride Level 104mmol/L (98-107) Carbon Dioxide Level 25mmol/L (21-32) Anion Gap 11 (6-14) Blood Urea Nitrogen 20mg/dL (8-26) Creatinine 1.1mg/dL (0.7-1.3) Estimated GFR (Cockcroft-Gault) 80.3 Glucose Level 277mg/dL (70-99) Calcium Level 9.3mg/dL (8.5-10.1) Test 05/28/16 08:01 05/28/16 11:22 Glucose (Fingerstick) 210mg/dL (70-99) 251mg/dL (70-99) Laboratory Tests Test 05/27/16 16:53 05/27/16 20:22 05/27/16 21:45 05/28/16 04:40 Glucose (Fingerstick) 376mg/dL (70-99) 362mg/dL (70-99) White Blood Count 3.7x10^3/uL (4.0-11.0) Red Blood Count 3.43x10^6/uL (4.30-5.70) Hemoglobin 10.6g/dL (13.0-17.5) Hematocrit 31.6% (39.0-53.0) Mean Corpuscular Volume 92fL (79-100) Mean Corpuscular Hemoglobin 31pg (25-35) Mean Corpuscular Hemoglobin Concent 34g/dL (31-37) Red Cell Distribution Width 18.9% (11.5-14.5) Platelet Count 108x10^3/uL (140-400) Prothrombin Time 15.1SEC (11.7-14.0) Prothromb Time International Ratio 1.3 (0.8-1.1) Vancomycin Level Trough 6.4mcg/mL (10.0-20.0) Vancomycin Last Dose Date Vancomycin Last Dose Time Sodium Level 140mmol/L (136-145) Potassium Level 3.4mmol/L (3.5-5.1) Chloride Level 104mmol/L (98-107) Carbon Dioxide Level 25mmol/L (21-32) Anion Gap 11 (6-14) Blood Urea Nitrogen 20mg/dL (8-26) Creatinine 1.1mg/dL (0.7-1.3) Estimated GFR (Cockcroft-Gault) 80.3 Glucose Level 277mg/dL (70-99) Calcium Level 9.3mg/dL (8.5-10.1) Test 05/28/16 08:01 05/28/16 11:22 Glucose (Fingerstick) 210mg/dL (70-99) 251mg/dL (70-99) Medications Active Scripts Medications Dose Route/Sig Days Date Category Gabapentin 100 Mg Capsule Unknown Dose PO TID 02/03/14 Reported Cardizem Cd (Diltiazem Hcl) 180 Mg Cap.er.24h Unknown Dose PO DAILY 02/03/14 Reported Terazosin Hcl 5 Mg Capsule 5 Mg PO DAILY 03/25/13 Reported Aspir 81 (Aspirin) 81 Mg Tablet.dr 81 Mg PO DAILY 03/25/13 Reported Fosinopril Sodium 40 Mg Tablet 40 Mg PO BID 03/25/13 Reported Metoprolol Tartrate 100 Mg Tablet 100 Mg PO BID 03/25/13 Reported Metformin Hcl 500 Mg Tablet 500 Mg PO DAILYBFRSUP 03/25/13 Reported Metformin Hcl 500 Mg Tablet 1,000 Mg PO DAILYWBKFT 03/25/13 Reported Ranitidine Hcl 150 Mg Tablet 150 Mg PO BID 03/25/13 Reported Impression . 1. 70 yo with metastatic rectal cancer, on FOLFIRI for over a year now with slight growth of lung nodules on last CT in Mar 2016. Now with further progression 2. Lung mets - slight growth of lung nodules on last CT in Mar 2016. CT on : 4.8 cm masslike density identified in the right infrahilar region surrounding the right lower lobe bronchus causing narrowing and filling of the right lower lobe bronchial branches / suspect endobronchial lesion with postobstructive atelectasis or right infrahilar mass causing filling of the right lower lobe bronchial branches. Bronchoscopy is not needed at present. d/w Dr Jade Plan . 1. d/w Dr Jade 2. will cancel Bronch 3. Treatment of lung mets per Dr Jade 4. supportive care d/w GUERO CUETO MD May 28, 2016 11:51
--- NOTE | 2016-05-28 13:35 | CONS ---
DATE OF CONSULTATION: 05/27/2016 ATTENDING PHYSICIAN: Dr. Carolin Fishman. REASON FOR CONSULTATION: The patient is seen in pulmonary consultation at the request of Dr. Fishman for abnormal CT revealing pulmonary metastases. HISTORY OF PRESENT ILLNESS: The patient is a 70-year-old who presented to the Emergency Room mainly for cough and shortness of breath. Yesterday, he felt weak. He was more dyspneic with exertion, more than usual. Cough was productive of white sputum, subjective fever, no nausea, vomiting, and some diarrhea. No hemoptysis. The patient does not wear oxygen at home. He has never smoked. Apparently, he has had previously diagnosed pulmonary metastases, the first time back in October 2012, right lung nodule. He underwent biopsy. He was then enrolled in a clinical trial. He then was found to have additional lesion sometime back in June 2014. At that time, he underwent radiation under the direction of Dr. Jose Rojo in [place]. The patient is seen because of his increasing shortness breath. He has failed outpatient therapy. Apparently, he was on a course of Zithromax sometime in April and had some relief. PAST MEDICAL HISTORY: 1. Rectal cancer diagnosed in 2009. He received combined modality neoadjuvant chemotherapy and radiation, then underwent AP resection with colostomy on June 29, 2010. 2. Pulmonary metastases, initially diagnosed on November 19, 2012, right lung, status post biopsy. At that time, he was enrolled in a clinical trial. 3. Recurrent pulmonary nodules sometime in June 2014. At that time, he was treated with radiation under the direction of Dr. Jose Rojo in [place]. 4. Type 2 diabetes. 5. Hypertension. 6. Neuropathy. PAST SURGICAL HISTORY: He has had left shoulder surgery, had a colostomy, and AP resection of his rectum. ALLERGIES: PENICILLIN AND IODINE. CURRENT MEDICATION: List was reviewed. Please see the MRAD. REVIEW OF SYSTEMS: As indicated above. Otherwise, a 10-point system was reviewed and negative. SOCIAL HISTORY: He has never smoked. PHYSICAL EXAMINATION: GENERAL: The patient did not appear to be critically ill. VITAL SIGNS: He was off of oxygen supplementation. O2 saturation greater than 92%. He has been afebrile. HEENT: Eyes, his sclerae were nonicteric. NECK: Jugular venous distention was not elevated. No lymphadenopathy. CHEST: Full expansion. LUNGS: Adequate airway flow. No wheezes. CARDIOVASCULAR: Regular rate and rhythm with S1, S2, no S3. ABDOMEN: Soft, nontender, nondistended. EXTREMITIES: No clubbing, cyanosis, or edema. NEUROLOGIC: The patient was awake, alert, following commands. A detailed neuro exam was not performed. LABORATORY DATA: Labs were reviewed. White count was low. Hemoglobin and hematocrit were low. Electrolytes were noted. Serology for influenza was negative. IMPRESSION: 1. Abnormal CT of the chest, reviewed personally. There is a 4.8-cm mass-like density in the right infrahilar region surrounding the right lower lobe bronchus, narrowing of the bronchus. 2. Airspace opacities with bronchiectasis, left lower lobe. 3. Stage IV rectal cancer, status post initial resection back in June 2010. 4. Progressive dyspnea secondary to above. 5. Cough secondary to above. PLAN: 1. Recommend continued antibiotics and prednisone. 2. We will discuss findings with the patient. I will offer him a bronchoscopy to rule out the possibility of endobronchial lesion, with biopsies to make certain that this is related to his history of rectal cancer and not a new primary lung cancer. 3. Continue home medications. I do appreciate the privilege in sharing the patient's care. NOHEMI BELLO MD DR: ANGELA/ivania JOB#: [id number] / [id number]
[2016-05-28 14:22] VITALS: BP 133/86
--- NOTE | 2016-05-28 16:03 | PDOC ---
SUBJECTIVE ROS JOYA doing a little better OBJECTIVE Vital Signs Vital Signs Date Time Temp Pulse Resp B/P Pulse Ox O2 Delivery O2 Flow Rate FiO2 05/28/16 14:22 97.8 90 18 133/86 96 Room Air 97.8 I & 0 Intake and Output 05/28/16 07:00 Intake Total 1060 ml Output Total 1675 ml Balance -615 ml Intake Oral 1060 ml Output Urine Total 1425 ml Stool Total 250 ml PHYSICAL EXAM Physical Exam General Appearance: Awake: Alert Oriented x 2-3 Neck: No JVD or JVP Chest: CTA Ramo Heart: S1 S2 Abdomen - Soft NTND Extremities - No Edema DIAGNOSIS/ASSESSMENT Assessment & Plan JOYA - Better wtih Fluid balance Will be available prn Problems: COMMENT/RELEVANT DATA Meds Current Medications Medications (Trade) Dose Ordered Sig/Latonya Start Time Stop Time Status Last Admin Dose Admin Acetaminophen (Tylenol) 650 mg PRN Q4HRS PRN 05/25/16 20:45 05/26/16 20:44 DC Aspirin (Ecotrin) 81 mg DAILY 05/26/16 09:00 05/27/16 09:11 81 MG Dextrose 12.5 gm PRN Q15MIN PRN 05/26/16 09:00 Diltiazem HCl (Cardizem 24hr Cd) 240 mg DAILY 05/28/16 09:00 05/28/16 08:12 240 MG Ertapenem 50 ml @ 100 mls/hr 1X ONCE 05/25/16 20:15 05/25/16 20:44 DC 05/25/16 20:26 100 MLS/HR Famotidine (Pepcid) 20 mg DAILY 05/26/16 09:00 05/28/16 08:11 20 MG Gabapentin (Neurontin) 100 mg TID 05/26/16 09:00 05/28/16 14:25 100 MG Insulin Aspart (Novolog) 10 units TIDAC 05/27/16 11:30 05/28/16 11:57 10 UNITS Insulin Detemir (Levemir) 25 units QHS 05/28/16 21:00 Labetalol HCl 10 mg 10 mg PRN Q2HR PRN 05/27/16 12:00 05/28/16 03:10 10 MG Levofloxacin/ Dextrose 100 ml @ 100 mls/hr Q24H 05/27/16 17:00 05/27/16 16:55 100 MLS/HR Lisinopril (Prinivil) 40 mg BID 05/26/16 09:00 05/28/16 08:11 40 MG Metoprolol Tartrate (Lopressor) 100 mg BID 05/26/16 09:00 05/28/16 08:11 100 MG Morphine Sulfate 4 mg 4 mg PRN Q2HR PRN 05/25/16 20:45 05/26/16 20:44 DC Ondansetron HCl (Zofran) 4 mg PRN Q6HRS PRN 05/26/16 09:00 Prednisone (Prednisone) 50 mg DAILY 05/26/16 12:30 05/28/16 08:10 50 MG Sodium Chloride (Iv Sodium Chloride 0.9% 1000ml Bag) 1,000 ml @ 75 mls/hr [id number] 05/25/16 20:35 05/26/16 20:34 DC 05/26/16 09:55 75 MLS/HR Terazosin HCl (Hytrin) 5 mg DAILY 05/26/16 09:00 05/28/16 08:12 5 MG Throat Lozenges (Cepacol Sore Throat Lozenge) 1 benjamin PRN Q2HRS PRN 05/26/16 12:00 05/28/16 03:14 1 BENJAMIN Vancomycin HCl 1 each 1X ONCE 05/27/16 21:30 05/27/16 21:31 DC Vancomycin HCl 1 each 1 each PRN DAILY PRN 05/25/16 20:15 05/28/16 02:33 1 EACH Vancomycin HCl/ Sodium Chloride (Iv Sodium Chloride 0.9% 250ml) 250 ml @ 167 mls/hr Q12H 05/28/16 11:00 05/28/16 11:36 167 MLS/HR Vancomycin HCl/ Sodium Chloride (Iv Sodium Chloride 0.9% 500ml Bag) 500 ml @ 250 mls/hr 1X ONCE 05/25/16 20:30 05/25/16 22:29 DC 05/25/16 21:55 250 MLS/HR Lab Laboratory Tests Test 05/27/16 16:53 05/27/16 20:22 05/27/16 21:45 05/28/16 04:40 Glucose (Fingerstick) 376mg/dL (70-99) 362mg/dL (70-99) White Blood Count 3.7x10^3/uL (4.0-11.0) Red Blood Count 3.43x10^6/uL (4.30-5.70) Hemoglobin 10.6g/dL (13.0-17.5) Hematocrit 31.6% (39.0-53.0) Mean Corpuscular Volume 92fL (79-100) Mean Corpuscular Hemoglobin 31pg (25-35) Mean Corpuscular Hemoglobin Concent 34g/dL (31-37) Red Cell Distribution Width 18.9% (11.5-14.5) Platelet Count 108x10^3/uL (140-400) Prothrombin Time 15.1SEC (11.7-14.0) Prothromb Time International Ratio 1.3 (0.8-1.1) Vancomycin Level Trough 6.4mcg/mL (10.0-20.0) Vancomycin Last Dose Date Vancomycin Last Dose Time Sodium Level 140mmol/L (136-145) Potassium Level 3.4mmol/L (3.5-5.1) Chloride Level 104mmol/L (98-107) Carbon Dioxide Level 25mmol/L (21-32) Anion Gap 11 (6-14) Blood Urea Nitrogen 20mg/dL (8-26) Creatinine 1.1mg/dL (0.7-1.3) Estimated GFR (Cockcroft-Gault) 80.3 Glucose Level 277mg/dL (70-99) Calcium Level 9.3mg/dL (8.5-10.1) Test 05/28/16 08:01 05/28/16 11:22 Glucose (Fingerstick) 210mg/dL (70-99) 251mg/dL (70-99) BLESSING JULIO MD May 28, 2016 16:03
[2016-05-28 19:00] VITALS: BP 155/97
[2016-05-28] MEDS ORDERED: INSULIN DETEMIR 300 UNITS/3 ML INSULN.PEN. SQ SCH ×2 (21:00)
[2016-05-28 23:00] VITALS: BP 165/103
[2016-05-29] VITALS (7 sets, daily range): BP systolic 106–159; BP diastolic 76–100
[2016-05-29] MEDS: LABETALOL 20 MG/4 ML DISP.SYRIN. IVP PRN (02:14)
[2016-05-29] MEDS: FAMOTIDINE 20 MG TABLET. PO SCH (08:54)
[2016-05-29] MEDS: TERAZOSIN 5 MG CAPSULE. PO SCH (08:54)
[2016-05-29] MEDS: DILTIAZEM HCL 240 MG CAP.ER.24H PO SCH (08:54)
[2016-05-29] MEDS: GABAPENTIN 100 MG CAPSULE. PO SCH ×3 (08:55→22:05)
[2016-05-29] MEDS: LISINOPRIL 40 MG TABLET. PO SCH ×2 (08:55→22:06)
[2016-05-29] MEDS: METOPROLOL TART IMMED RELEASE 50 MG TABLET PO SCH ×2 (08:55→22:05)
[2016-05-29] MEDS: PREDNISONE 10 MG TABLET PO SCH (08:55)
[2016-05-29] MEDS: ASPIRIN ENTERIC COATED 81 MG TABLET.DR. PO SCH (08:56)
--- NOTE | 2016-05-29 08:58 | PDOC ---
PROGRESS NOTES Subjective Subjective c/c - f/u of metastatic rectal cancer Objective Objective Vital Signs Date Time Temp Pulse Resp B/P Pulse Ox O2 Delivery O2 Flow Rate FiO2 05/29/16 08:54 77 133/83 05/29/16 07:00 97.7 18 96 Room Air 97.7 Intake and Output 05/29/16 07:00 Intake Total 1080 ml Output Total 1700 ml Balance -620 ml Intake Oral 1080 ml Output Urine Total 1700 ml # Bowel Movements 1 Physical Exam Heart: Normal S1, Normal S2 General: Alert, Oriented X3 Lungs: Clear to auscultation Neuro: Normal speech Psych/Mental Status: Mental status NL Assessment Assessment Problems Medical Problems: (1) Cough Status: Acute (2) Elevated lactic acid level Status: Acute (3) Generalized weakness Status: Acute (4) SOB (shortness of breath) Status: Acute A/P: 1. 70 yo with metastatic rectal cancer, on FOLFIRI for over a year now with slight growth of lung nodules on last CT in Mar 2016. Defer chemo by 1 week. 2. Lung mets - slight growth of lung nodules on last CT in Mar 2016. CT on : 4.8 cm masslike density identified in the right infrahilar region surrounding the right lower lobe bronchus causing narrowing and filling of the right lower lobe bronchial branches could be endobronchial lesion with postobstructive atelectasis or right infrahilar mass causing filling of the right lower lobe bronchial branches. Bronchoscopy not necessary per Dr Simon as this is due to mets and I agree. Comment Review of Relevant I have reviewed the following items isabel (where applicable) has been applied. Labs Laboratory Tests Test 05/27/16 11:46 05/27/16 16:53 05/27/16 20:22 05/27/16 21:45 Glucose (Fingerstick) 293mg/dL (70-99) 376mg/dL (70-99) 362mg/dL (70-99) White Blood Count 3.7x10^3/uL (4.0-11.0) Red Blood Count 3.43x10^6/uL (4.30-5.70) Hemoglobin 10.6g/dL (13.0-17.5) Hematocrit 31.6% (39.0-53.0) Mean Corpuscular Volume 92fL (79-100) Mean Corpuscular Hemoglobin 31pg (25-35) Mean Corpuscular Hemoglobin Concent 34g/dL (31-37) Red Cell Distribution Width 18.9% (11.5-14.5) Platelet Count 108x10^3/uL (140-400) Prothrombin Time 15.1SEC (11.7-14.0) Prothromb Time International Ratio 1.3 (0.8-1.1) Vancomycin Level Trough 6.4mcg/mL (10.0-20.0) Vancomycin Last Dose Date Vancomycin Last Dose Time Test 05/28/16 04:40 05/28/16 08:01 05/28/16 11:22 05/28/16 16:33 Sodium Level 140mmol/L (136-145) Potassium Level 3.4mmol/L (3.5-5.1) Chloride Level 104mmol/L (98-107) Carbon Dioxide Level 25mmol/L (21-32) Anion Gap 11 (6-14) Blood Urea Nitrogen 20mg/dL (8-26) Creatinine 1.1mg/dL (0.7-1.3) Estimated GFR (Cockcroft-Gault) 80.3 Glucose Level 277mg/dL (70-99) Calcium Level 9.3mg/dL (8.5-10.1) Glucose (Fingerstick) 210mg/dL (70-99) 251mg/dL (70-99) 504mg/dL (70-99) Test 05/28/16 21:21 05/29/16 07:19 Glucose (Fingerstick) 310mg/dL (70-99) 202mg/dL (70-99) Laboratory Tests Test 05/28/16 11:22 05/28/16 16:33 05/28/16 21:21 05/29/16 07:19 Glucose (Fingerstick) 251mg/dL (70-99) 504mg/dL (70-99) 310mg/dL (70-99) 202mg/dL (70-99) Microbiology 05/25/16 Blood Culture - Preliminary, Resulted NO GROWTH AFTER 3 DAYS Medications Current Medications Sodium Chloride (Iv Sodium Chloride 0.9% 1000ml Bag) 1,000 ml @ 1,000 mls/hr Q1H IV Last administered on 05/25/16t 17:20; Start 05/25/16 at 17:15; Stop at 18:14; Status DC Acetaminophen (Tylenol) 1,000 mg 1X ONCE PO Last administered on 05/25/16 17: 20; Start 05/25/16 at 17:15; Stop 05/25/16 at 17:16; Status DC Vancomycin HCl 1 each 1 each PRN DAILY PRN MC SEE COMMENTS Last administered on 05/28/16 16:31; Start 05/25/16 at 20:15 Ertapenem 50 ml @ 100 mls/hr 1X ONCE IV Last administered on 05/25/16 20:26; Start 05/25/16 at 20:15; Stop 05/25/16 at 20:44; Status DC Sodium Chloride 1,000 ml @ 1,000 mls/hr 1X ONCE IV Last administered on 20:27; Start 05/25/16 at 20:15; Stop 05/25/16 at 21:14; Status DC Vancomycin HCl/ Sodium Chloride (Iv Sodium Chloride 0.9% 500ml Bag) 500 ml @ 250 mls/hr 1X ONCE IV Last administered on 05/25/16 21:55; Start 05/25/16 at 20 :30; Stop 05/25/16 at 22:29; Status DC Ondansetron HCl (Zofran) 4 mg PRN Q8HRS PRN IV NAUSEA/VOMITING; Start 05/25/16 at 20:45; Stop 05/26/16 at 09:02; Status DC Morphine Sulfate 4 mg 4 mg PRN Q2HR PRN IV SEVERE PAIN; Start 05/25/16 at 20:45 ; Stop 05/26/16 at 20:44; Status DC Sodium Chloride (Iv Sodium Chloride 0.9% 1000ml Bag) 1,000 ml @ 75 mls/hr [id number] IV Last administered on 05/26/16 09:55; Start 05/25/16 at 20:35; Stop at 20:34; Status DC Acetaminophen (Tylenol) 650 mg PRN Q4HRS PRN PO FEVER; Start 05/25/16 at 20:45; Stop 05/26/16 at 20:44; Status DC Insulin Aspart (Novolog) 0-7 UNITS TIDWMEALS SQ Last administered on 05/26/16 07:52; Start 05/26/16 at 08:00; Stop 05/26/16 at 09:02; Status DC Dextrose 12.5 gm PRN Q15MIN PRN IV SEE COMMENTS; Start 05/25/16 at 20:45; Stop 05/26/16 at 11:58; Status DC Aspirin (Ecotrin) 81 mg DAILY PO Last administered on 05/27/16 09:11; Start 05/26/16 at 09:00 Diltiazem HCl (Cardizem 24hr Cd) 180 mg DAILY PO Last administered on 05/27/16 09:11; Start 05/26/16 at 09:00; Stop 05/27/16 at 11:59; Status DC Gabapentin (Neurontin) 100 mg TID PO Last administered on 05/28/16 21:56; Start 05/26/16 at 09:00 Terazosin HCl (Hytrin) 5 mg DAILY PO Last administered on 05/29/16 08:54; Start 05/26/16 at 09:00 Lisinopril (Prinivil) 40 mg BID PO Last administered on 05/28/16 21:57; Start 05/26/16 at 09:00 Metoprolol Tartrate (Lopressor) 100 mg BID PO Last administered on 05/28/16 21: 57; Start 05/26/16 at 09:00 Famotidine 20 mg 20 mg DAILY PO Last administered on 05/28/16 08:11; Start 05/26 at 09:00 Vancomycin HCl/ Sodium Chloride (Iv Sodium Chloride 0.9% 250ml) 250 ml @ 167 mls/hr Q24H IV Last administered on 05/27/16 23:04; Start 05/26/16 at 22:00; Stop 05/28/16 at 02:28; Status DC Vancomycin HCl 1 each 1X ONCE MC ; Start 05/27/16 at 21:30; Stop 05/27/16 at 21: 31; Status DC Ondansetron HCl (Zofran) 4 mg PRN Q6HRS PRN IV NAUSEA/VOMITING; Start 05/26/16 at 09:00 Insulin Aspart (Novolog) 0-9 UNITS TIDWMEALS SQ Last administered on 05/28/16 17:16; Start 05/26/16 at 12:00 Dextrose 12.5 gm PRN Q15MIN PRN IV SEE COMMENTS; Start 05/26/16 at 09:00 Throat Lozenges (Cepacol Sore Throat Lozenge) 1 roberto PRN Q2HRS PRN PO SORE THROAT Last administered on 05/28/16 03:14; Start 05/26/16 at 12:00 Prednisone (Prednisone) 50 mg DAILY PO Last administered on 05/28/16 08:10; Start 05/26/16 at 12:30 Insulin Aspart (Novolog) 5 units TIDAC SQ Last administered on 05/27/16 07:41; Start 05/27/16 at 07:30; Stop 05/27/16 at 10:56; Status DC Insulin Aspart (Novolog) 5 units 1X ONCE SQ Last administered on 05/26/16 21: 57; Start 05/26/16 at 22:00; Stop 05/26/16 at 22:01; Status DC Insulin Detemir (Levemir) 15 units QHS SQ Last administered on 05/26/16 21:58; Start 05/26/16 at 22:00; Stop 05/27/16 at 10:56; Status DC Insulin Aspart (Novolog) 10 units TIDAC SQ Last administered on 05/28/16 11:57 ; Start 05/27/16 at 11:30; Stop 05/28/16 at 16:49; Status DC Insulin Detemir (Levemir) 20 units QHS SQ Last administered on 05/27/16 20:32; Start 05/27/16 at 21:00; Stop 05/28/16 at 07:13; Status DC Diltiazem HCl (Cardizem 24hr Cd) 240 mg DAILY PO Last administered on 05/28/16 08:12; Start 05/28/16 at 09:00 Labetalol HCl 10 mg 10 mg PRN Q2HR PRN IVP HYPERTENSION, SEE COMMENTS Last administered on 05/29/16 02:14; Start 05/27/16 at 12:00 Levofloxacin/ Dextrose 100 ml @ 100 mls/hr Q24H IV Last administered on 17:06; Start 05/27/16 at 17:00 Vancomycin HCl/ Sodium Chloride (Iv Sodium Chloride 0.9% 250ml) 250 ml @ 167 mls/hr Q12H IV Last administered on 05/28/16 23:33; Start 05/28/16 at 11:00 Insulin Detemir (Levemir) 25 units QHS SQ ; Start 05/28/16 at 21:00; Stop at 21:00; Status DC Insulin Aspart (Novolog) 15 units TIDWMEALS SQ Last administered on 05/28/16 17 :16; Start 05/28/16 at 17:00 Insulin Detemir (Levemir) 30 units QHS SQ Last administered on 05/28/16 22:01; Start 05/28/16 at 21:00 Active Scripts Active Reported Gabapentin 100 Mg Capsule Unknown Dose PO TID Cardizem Cd (Diltiazem Hcl) 180 Mg Cap.er.24h Unknown Dose PO DAILY Terazosin Hcl 5 Mg Capsule 5 Mg PO DAILY Aspir 81 (Aspirin) 81 Mg Tablet.dr 81 Mg PO DAILY Fosinopril Sodium 40 Mg Tablet 40 Mg PO BID Metoprolol Tartrate 100 Mg Tablet 100 Mg PO BID Metformin Hcl 500 Mg Tablet 500 Mg PO DAILYBFRSUP Metformin Hcl 500 Mg Tablet 1,000 Mg PO DAILYWBKFT Ranitidine Hcl 150 Mg Tablet 150 Mg PO BID Vitals/I & O Vital Sign - Last 24 Hours 05/28/16 05/28/16 05/28/16 05/28/16 10:39 14:22 19:00 20:00 Temp 98.3 97.8 98.3 98.3 97.8 98.3 Pulse 83 90 102 Resp 20 B/P 156/104 133/86 155/97 Pulse Ox 94 96 95 O2 Delivery Room Air Room Air Room Air Room Air 05/28/16 05/28/16 05/28/16 05/29/16 21:57 21:57 23:00 02:14 Temp 97.8 97.8 Pulse 86 86 78 72 Resp 20 B/P 172/95 172/95 165/103 171/84 Pulse Ox 97 O2 Delivery Room Air 05/29/16 05/29/16 05/29/16 03:00 07:00 08:54 Temp 98.0 97.7 98.0 97.7 Pulse 77 78 77 Resp 18 B/P 159/100 143/94 133/83 Pulse Ox 96 96 O2 Delivery Room Air Room Air Intake and Output 05/28/16 05/28/16 05/29/16 15:00 23:00 07:00 Intake Total 560 ml 200 ml 320 ml Output Total 575 ml 1125 ml Balance -15 ml 200 ml -805 ml Nutrition Consultation Dietary Evaluation: Recommendations by RD: Increase Calorie Intake, Protein supplementation Comments: [place] boost glucose control TID - provides 250kcal and 14g protein per serving Expected Outcomes/Goals: meet >75% est nutr needs Malnutrition Findings: Weight Status: Overweight WALTER MAHAN MD May 29, 2016 08:58
[2016-05-29] MEDS: INSULIN ASPART 300 UNITS/3 ML INSULN.PEN SQ SCH ×6 (09:00→17:16)
--- NOTE | 2016-05-29 09:30 | PDOC ---
PULMONARY PROGRESS NOTES Subjective mild soa Vitals Vital Signs Date Time Temp Pulse Resp B/P Pulse Ox O2 Delivery O2 Flow Rate FiO2 05/29/16 08:55 77 133/83 05/29/16 07:00 97.7 18 96 Room Air 97.7 General: Alert, No acute distress Lungs: Other (decrease bs right) Cardiovascular: S1 Abdomen: Soft Neuro Exam: Alert Extremities: No Edema Skin: Warm Labs Laboratory Tests Test 05/27/16 11:46 05/27/16 16:53 05/27/16 20:22 05/27/16 21:45 Glucose (Fingerstick) 293mg/dL (70-99) 376mg/dL (70-99) 362mg/dL (70-99) White Blood Count 3.7x10^3/uL (4.0-11.0) Red Blood Count 3.43x10^6/uL (4.30-5.70) Hemoglobin 10.6g/dL (13.0-17.5) Hematocrit 31.6% (39.0-53.0) Mean Corpuscular Volume 92fL (79-100) Mean Corpuscular Hemoglobin 31pg (25-35) Mean Corpuscular Hemoglobin Concent 34g/dL (31-37) Red Cell Distribution Width 18.9% (11.5-14.5) Platelet Count 108x10^3/uL (140-400) Prothrombin Time 15.1SEC (11.7-14.0) Prothromb Time International Ratio 1.3 (0.8-1.1) Vancomycin Level Trough 6.4mcg/mL (10.0-20.0) Vancomycin Last Dose Date Vancomycin Last Dose Time Test 05/28/16 04:40 05/28/16 08:01 05/28/16 11:22 05/28/16 16:33 Sodium Level 140mmol/L (136-145) Potassium Level 3.4mmol/L (3.5-5.1) Chloride Level 104mmol/L (98-107) Carbon Dioxide Level 25mmol/L (21-32) Anion Gap 11 (6-14) Blood Urea Nitrogen 20mg/dL (8-26) Creatinine 1.1mg/dL (0.7-1.3) Estimated GFR (Cockcroft-Gault) 80.3 Glucose Level 277mg/dL (70-99) Calcium Level 9.3mg/dL (8.5-10.1) Glucose (Fingerstick) 210mg/dL (70-99) 251mg/dL (70-99) 504mg/dL (70-99) Test 05/28/16 21:21 05/29/16 07:19 Glucose (Fingerstick) 310mg/dL (70-99) 202mg/dL (70-99) Laboratory Tests Test 05/28/16 11:22 05/28/16 16:33 05/28/16 21:21 05/29/16 07:19 Glucose (Fingerstick) 251mg/dL (70-99) 504mg/dL (70-99) 310mg/dL (70-99) 202mg/dL (70-99) Medications Active Scripts Medications Dose Route/Sig Days Date Category Gabapentin 100 Mg Capsule Unknown Dose PO TID 02/03/14 Reported Cardizem Cd (Diltiazem Hcl) 180 Mg Cap.er.24h Unknown Dose PO DAILY 02/03/14 Reported Terazosin Hcl 5 Mg Capsule 5 Mg PO DAILY 03/25/13 Reported Aspir 81 (Aspirin) 81 Mg Tablet. 81 Mg PO DAILY 03/25/13 Reported Fosinopril Sodium 40 Mg Tablet 40 Mg PO BID 03/25/13 Reported Metoprolol Tartrate 100 Mg Tablet 100 Mg PO BID 03/25/13 Reported Metformin Hcl 500 Mg Tablet 500 Mg PO DAILYBFRSUP 03/25/13 Reported Metformin Hcl 500 Mg Tablet 1,000 Mg PO DAILYWBKFT 03/25/13 Reported Ranitidine Hcl 150 Mg Tablet 150 Mg PO BID 03/25/13 Reported Impression . 1. 70 yo with metastatic rectal cancer, on FOLFIRI for over a year now with slight growth of lung nodules on last CT in Mar 2016. Now with further progression 2. Lung mets - growth of lung nodules on last CT in Mar 2016. CT on 05/26/16: 4.8 cm masslike density identified in the right infrahilar region surrounding the right lower lobe bronchus causing narrowing and filling of the right lower lobe bronchial branches / suspect endobronchial lesion with postobstructive atelectasis or right infrahilar mass causing filling of the right lower lobe bronchial branches. All due to progression of lung mets. Bronchoscopy is not needed at present. d/w Dr Jade Plan . 1. d/w Dr Jade 2. prn oxygen 3. Treatment of lung mets per Dr Jade 4. supportive care/ ? palliative care and goals of care d/w GUERO CUETO MD May 29, 2016 09:30
[2016-05-29] MEDS: VANCOMYCIN 1.25 GM in IV NORMAL SALINE 250ML 250 ML IV SCH ×2 (12:12→23:13)
--- NOTE | 2016-05-29 13:15 | PDOC2 ---
PALLIATIVE CARE Palliative Care Note Palliative Care Consult requested by Dr. Wyatt to address goals of care Dx. metastatic rectal cancer, on FOLFIRI for over a year now with slight growth of lung nodules on last CT in Mar 2016; increased weakness ; SOB with Activity Patient alert. Sitting up in chair. Patient is able to verbalize his medical condition. Lives with granddaughter. Family meeting tomorrow at 1030 ARGENIS SIDDIQUI May 29, 2016 13:15
--- NOTE | 2016-05-29 13:33 | PDOC ---
PROGRESS NOTES Chief Complaint Chief Complaint 1. Metastatic colon CA with mets to lungs (for1 year post Chemo and RT before) s /p FOLFOX tx or still currently on chemo, last tx 2 weeks ago 2. Hx hypovolemic hypotension 3. Hx of hyponatremia was on HCTZ 2013 4. Mod PCM 5. Dysphagia, Left sided neck pain 6. AOCD 7. FAll risk , gen weakness 8. DM 2 , not home insulin 9 JOYA, vasomotor 10. R HILAR MASS - new? 11. pancytopenia, 2/2 chemo plan: fu with pulm, onco pt wants cont chemo no bronch as per pulm for now on prednisone, increase insulin again, SSI dvt, gi ppx get PAT consult on vanco and levaquin with possible obstructive pna History of Present Illness History of Present Illness NO inc in SOA or CP \NO hemoptysis Working on his strength CT scan shows: Impression: 1. 4.8 cm masslike density identified in the right infrahilar region surrounding the right lower lobe bronchus causing narrowing and filling of the right lower lobe bronchial branches could be endobronchial lesion with postobstructive atelectasis or right infrahilar mass causing filling of the right lower lobe bronchial branches. Bronchoscopy evaluation and/or PET/CT scanner correlation is recommended. 2. Mild patchy linear left lung base airspace opacity with mild bronchiectasis in the left lung base likely atelectasis or infiltrate. Follow-up to resolution. 3. Diffuse decreased attenuation throughout the liver likely hepatic steatosis. 4. Gallstones identified within the proximal gallbladder. 5. Coronary artery calcifications. 6. No radiologically significant cervical lymphadenopathy identified. Vitals Vitals Vital Signs Date Time Temp Pulse Resp B/P Pulse Ox O2 Delivery O2 Flow Rate FiO2 05/29/16 11:07 97.1 81 16 106/76 97 Room Air 97.1 Physical Exam General: Alert, Oriented X3 Heart: Normal S1, Normal S2 Lungs: Other (decrease bs right) Abdomen: Normal bowel sounds, Soft Extremities: No clubbing, No cyanosis Skin: No rashes, No breakdown Labs LABS Laboratory Tests Test 05/28/16 16:33 05/28/16 21:21 05/29/16 07:19 05/29/16 11:23 Glucose (Fingerstick) 504mg/dL (70-99) 310mg/dL (70-99) 202mg/dL (70-99) 275mg/dL (70-99) Review of Systems Review of Systems no fever ,chills, chest pain Assessment and Plan Assessmemt and Plan Problems Medical Problems: (1) Cough Status: Acute (2) Elevated lactic acid level Status: Acute (3) Generalized weakness Status: Acute (4) SOB (shortness of breath) Status: Acute Problems: Comment Review of Relevant I have reviewed the following items isabel (where applicable) has been applied. Labs Laboratory Tests Test 05/27/16 16:53 05/27/16 20:22 05/27/16 21:45 05/28/16 04:40 Glucose (Fingerstick) 376mg/dL (70-99) 362mg/dL (70-99) White Blood Count 3.7x10^3/uL (4.0-11.0) Red Blood Count 3.43x10^6/uL (4.30-5.70) Hemoglobin 10.6g/dL (13.0-17.5) Hematocrit 31.6% (39.0-53.0) Mean Corpuscular Volume 92fL (79-100) Mean Corpuscular Hemoglobin 31pg (25-35) Mean Corpuscular Hemoglobin Concent 34g/dL (31-37) Red Cell Distribution Width 18.9% (11.5-14.5) Platelet Count 108x10^3/uL (140-400) Prothrombin Time 15.1SEC (11.7-14.0) Prothromb Time International Ratio 1.3 (0.8-1.1) Vancomycin Level Trough 6.4mcg/mL (10.0-20.0) Vancomycin Last Dose Date Vancomycin Last Dose Time Sodium Level 140mmol/L (136-145) Potassium Level 3.4mmol/L (3.5-5.1) Chloride Level 104mmol/L (98-107) Carbon Dioxide Level 25mmol/L (21-32) Anion Gap 11 (6-14) Blood Urea Nitrogen 20mg/dL (8-26) Creatinine 1.1mg/dL (0.7-1.3) Estimated GFR (Cockcroft-Gault) 80.3 Glucose Level 277mg/dL (70-99) Calcium Level 9.3mg/dL (8.5-10.1) Test 05/28/16 08:01 05/28/16 11:22 05/28/16 16:33 05/28/16 21:21 Glucose (Fingerstick) 210mg/dL (70-99) 251mg/dL (70-99) 504mg/dL (70-99) 310mg/dL (70-99) Test 05/29/16 07:19 05/29/16 11:23 Glucose (Fingerstick) 202mg/dL (70-99) 275mg/dL (70-99) Laboratory Tests Test 05/28/16 16:33 05/28/16 21:21 05/29/16 07:19 05/29/16 11:23 Glucose (Fingerstick) 504mg/dL (70-99) 310mg/dL (70-99) 202mg/dL (70-99) 275mg/dL (70-99) Microbiology 05/25/16 Blood Culture - Preliminary, Resulted NO GROWTH AFTER 3 DAYS Medications Current Medications Sodium Chloride (Iv Sodium Chloride 0.9% 1000ml Bag) 1,000 ml @ 1,000 mls/hr Q1H IV Last administered on 05/25/16 17:20; Start 05/25/16 at 17:15; Stop at 18:14; Status DC Acetaminophen (Tylenol) 1,000 mg 1X ONCE PO Last administered on 05/25/16 17: 20; Start 05/25/16 at 17:15; Stop 05/25/16 at 17:16; Status DC Vancomycin HCl 1 each 1 each PRN DAILY PRN MC SEE COMMENTS Last administered on 05/28/16 16:31; Start 05/25/16 at 20:15 Ertapenem 50 ml @ 100 mls/hr 1X ONCE IV Last administered on 05/25/16 20:26; Start 05/25/16 at 20:15; Stop 05/25/16 at 20:44; Status DC Sodium Chloride 1,000 ml @ 1,000 mls/hr 1X ONCE IV Last administered on 20:27; Start 05/25/16 at 20:15; Stop 05/25/16 at 21:14; Status DC Vancomycin HCl/ Sodium Chloride (Iv Sodium Chloride 0.9% 500ml Bag) 500 ml @ 250 mls/hr 1X ONCE IV Last administered on 05/25/16 21:55; Start 05/25/16 at 20 :30; Stop 05/25/16 at 22:29; Status DC Ondansetron HCl (Zofran) 4 mg PRN Q8HRS PRN IV NAUSEA/VOMITING; Start 05/25/16 at 20:45; Stop 05/26/16 at 09:02; Status DC Morphine Sulfate 4 mg 4 mg PRN Q2HR PRN IV SEVERE PAIN; Start 05/25/16 at 20:45 ; Stop 05/26/16 at 20:44; Status DC Sodium Chloride (Iv Sodium Chloride 0.9% 1000ml Bag) 1,000 ml @ 75 mls/hr [id number] IV Last administered on 05/26/16 09:55; Start 05/25/16 at 20:35; Stop at 20:34; Status DC Acetaminophen (Tylenol) 650 mg PRN Q4HRS PRN PO FEVER; Start 05/25/16 at 20:45; Stop 05/26/16 at 20:44; Status DC Insulin Aspart (Novolog) 0-7 UNITS TIDWMEALS SQ Last administered on 05/26/16 07:52; Start 05/26/16 at 08:00; Stop 05/26/16 at 09:02; Status DC Dextrose 12.5 gm PRN Q15MIN PRN IV SEE COMMENTS; Start 05/25/16 at 20:45; Stop 05/26/16 at 11:58; Status DC Aspirin (Ecotrin) 81 mg DAILY PO Last administered on 05/29/16 08:56; Start 05/26/16 at 09:00 Diltiazem HCl (Cardizem 24hr Cd) 180 mg DAILY PO Last administered on 05/27/16 09:11; Start 05/26/16 at 09:00; Stop 05/27/16 at 11:59; Status DC Gabapentin (Neurontin) 100 mg TID PO Last administered on 05/29/16 08:55; Start 05/26/16 at 09:00 Terazosin HCl (Hytrin) 5 mg DAILY PO Last administered on 05/29/16 08:54; Start 05/26/16 at 09:00 Lisinopril (Prinivil) 40 mg BID PO Last administered on 05/29/16 08:55; Start 05/26/16 at 09:00 Metoprolol Tartrate (Lopressor) 100 mg BID PO Last administered on 05/29/16 08: 55; Start 05/26/16 at 09:00 Famotidine 20 mg 20 mg DAILY PO Last administered on 05/29/16 08:54; Start 05/26 at 09:00 Vancomycin HCl/ Sodium Chloride (Iv Sodium Chloride 0.9% 250ml) 250 ml @ 167 mls/hr Q24H IV Last administered on 05/27/16 23:04; Start 05/26/16 at 22:00; Stop 05/28/16 at 02:28; Status DC Vancomycin HCl 1 each 1X ONCE MC ; Start 05/27/16 at 21:30; Stop 05/27/16 at 21: 31; Status DC Ondansetron HCl (Zofran) 4 mg PRN Q6HRS PRN IV NAUSEA/VOMITING; Start 05/26/16 at 09:00 Insulin Aspart (Novolog) 0-9 UNITS TIDWMEALS SQ Last administered on 05/29/16 12:18; Start 05/26/16 at 12:00 Dextrose 12.5 gm PRN Q15MIN PRN IV SEE COMMENTS; Start 05/26/16 at 09:00 Throat Lozenges (Cepacol Sore Throat Lozenge) 1 roberto PRN Q2HRS PRN PO SORE THROAT Last administered on 05/28/16 03:14; Start 05/26/16 at 12:00 Prednisone (Prednisone) 50 mg DAILY PO Last administered on 05/29/16 08:55; Start 05/26/16 at 12:30 Insulin Aspart (Novolog) 5 units TIDAC SQ Last administered on 05/27/16 07:41; Start 05/27/16 at 07:30; Stop 05/27/16 at 10:56; Status DC Insulin Aspart (Novolog) 5 units 1X ONCE SQ Last administered on 05/26/16 21: 57; Start 05/26/16 at 22:00; Stop 05/26/16 at 22:01; Status DC Insulin Detemir (Levemir) 15 units QHS SQ Last administered on 05/26/16 21:58; Start 05/26/16 at 22:00; Stop 05/27/16 at 10:56; Status DC Insulin Aspart (Novolog) 10 units TIDAC SQ Last administered on 05/28/16 11:57 ; Start 05/27/16 at 11:30; Stop 05/28/16 at 16:49; Status DC Insulin Detemir (Levemir) 20 units QHS SQ Last administered on 05/27/16 20:32; Start 05/27/16 at 21:00; Stop 05/28/16 at 07:13; Status DC Diltiazem HCl (Cardizem 24hr Cd) 240 mg DAILY PO Last administered on 05/29/16 08:54; Start 05/28/16 at 09:00 Labetalol HCl 10 mg 10 mg PRN Q2HR PRN IVP HYPERTENSION, SEE COMMENTS Last administered on 05/29/16 02:14; Start 05/27/16 at 12:00 Levofloxacin/ Dextrose 100 ml @ 100 mls/hr Q24H IV Last administered on 17:06; Start 05/27/16 at 17:00 Vancomycin HCl/ Sodium Chloride (Iv Sodium Chloride 0.9% 250ml) 250 ml @ 167 mls/hr Q12H IV Last administered on 05/29/16 12:12; Start 05/28/16 at 11:00 Insulin Detemir (Levemir) 25 units QHS SQ ; Start 05/28/16 at 21:00; Stop at 21:00; Status DC Insulin Aspart (Novolog) 15 units TIDWMEALS SQ Last administered on 05/29/16 12 :19; Start 05/28/16 at 17:00 Insulin Detemir (Levemir) 30 units QHS SQ Last administered on 05/28/16 22:01; Start 05/28/16 at 21:00 Active Scripts Active Reported Gabapentin 100 Mg Capsule Unknown Dose PO TID Cardizem Cd (Diltiazem Hcl) 180 Mg Cap.er.24h Unknown Dose PO DAILY Terazosin Hcl 5 Mg Capsule 5 Mg PO DAILY Aspir 81 (Aspirin) 81 Mg Tablet.dr 81 Mg PO DAILY Fosinopril Sodium 40 Mg Tablet 40 Mg PO BID Metoprolol Tartrate 100 Mg Tablet 100 Mg PO BID Metformin Hcl 500 Mg Tablet 500 Mg PO DAILYBFRSUP Metformin Hcl 500 Mg Tablet 1,000 Mg PO DAILYWBKFT Ranitidine Hcl 150 Mg Tablet 150 Mg PO BID Vitals/I & O Vital Sign - Last 24 Hours 05/28/16 05/28/16 05/28/16 05/28/16 14:22 19:00 20:00 21:57 Temp 97.8 98.3 97.8 98.3 Pulse 90 102 86 Resp 18 20 B/P 133/86 155/97 172/95 Pulse Ox 96 95 O2 Delivery Room Air Room Air Room Air 05/28/16 05/28/16 05/29/16 05/29/16 21:57 23:00 02:14 03:00 Temp 97.8 98.0 97.8 98.0 Pulse 86 78 72 77 Resp 20 20 B/P 172/95 165/103 171/84 159/100 Pulse Ox 97 96 O2 Delivery Room Air Room Air 05/29/16 05/29/16 05/29/16 05/29/16 07:00 08:00 08:50 08:54 Temp 97.7 97.7 Pulse 78 78 77 Resp 18 B/P 143/94 133/89 133/83 Pulse Ox 96 O2 Delivery Room Air Room Air 05/29/16 05/29/16 05/29/16 05/29/16 08:54 08:55 08:55 11:07 Temp 97.1 97.1 Pulse 77 77 77 81 Resp 16 B/P 133/83 133/83 133/83 106/76 Pulse Ox 97 O2 Delivery Room Air Intake and Output 05/28/16 05/28/16 05/29/16 15:00 23:00 07:00 Intake Total 560 ml 200 ml 320 ml Output Total 575 ml 1125 ml Balance -15 ml 200 ml -805 ml Nutrition Consultation Dietary Evaluation: Recommendations by RD: Increase Calorie Intake, Protein supplementation Comments: Jackson boost glucose control TID - provides 250kcal and 14g protein per serving Expected Outcomes/Goals: meet >75% est nutr needs Malnutrition Findings: Weight Status: Overweight ANTOINE HUIRTON MD May 29, 2016 13:33
[2016-05-29] MEDS: VANCOMYCIN PER PHARMACY MC PRN (15:28)
[2016-05-29] MEDS: INSULIN DETEMIR 300 UNITS/3 ML INSULN.PEN. SQ SCH (22:10)
[2016-05-30 03:00] VITALS: BP 156/100
[2016-05-30 04:23] LABS: BASO % 0 % (0-3); EOS % 0 % (0-3); HEMATOCRIT 31.8 % (39.0-53.0); HEMOGLOBIN 11.3 g/dL (13.0-17.5); LYMPH # 0.8 x10^3/uL (1.0-4.8); LYMPH % 20 % (24-48); MEAN CORPUSCULAR HEMOGLOBIN 32 pg (25-35); MEAN CORPUSCULAR HGB CONC 36 g/dL (31-37); MEAN CORPUSCULAR VOLUME 89 fL (79-100); MONO % 13 % (0-9); NEUT % 67 % (31-73); PLATELET COUNT 98 x10^3/uL (140-400); RED BLOOD COUNT 3.55 x10^6/uL (4.30-5.70); RED CELL DISTRIBUTION WIDTH 20.4 % (11.5-14.5); WHITE BLOOD COUNT 3.8 x10^3/uL (4.0-11.0)
[2016-05-30 05:02] LABS: CALCIUM 9.1 mg/dL (8.5-10.1); CREATININE 1.3 mg/dL (0.7-1.3); GFR 66.2; POTASSIUM 3.4 mmol/L (3.5-5.1)
[2016-05-30 07:00] VITALS: BP 128/86
[2016-05-30] MEDS: DILTIAZEM HCL 240 MG CAP.ER.24H PO SCH (08:38)
[2016-05-30] MEDS: LISINOPRIL 40 MG TABLET. PO SCH ×2 (08:38→22:02)
[2016-05-30] MEDS: ASPIRIN ENTERIC COATED 81 MG TABLET.DR. PO SCH (08:38)
[2016-05-30] MEDS: METOPROLOL TART IMMED RELEASE 50 MG TABLET PO SCH ×2 (08:38→22:02)
[2016-05-30] MEDS: PREDNISONE 10 MG TABLET PO SCH (08:38)
[2016-05-30] MEDS: FAMOTIDINE 20 MG TABLET. PO SCH (08:38)
[2016-05-30] MEDS: GABAPENTIN 100 MG CAPSULE. PO SCH ×3 (08:38→22:02)
[2016-05-30] MEDS: TERAZOSIN 5 MG CAPSULE. PO SCH (08:39)
[2016-05-30] MEDS: INSULIN ASPART 300 UNITS/3 ML INSULN.PEN SQ SCH ×6 (08:44→17:51)
[2016-05-30 11:00] VITALS: BP 147/91
[2016-05-30] MEDS ORDERED: POTASSIUM CHLORIDE 20 MEQ TABLET.ER. PO ONE (11:15)
--- NOTE | 2016-05-30 11:36 | PDOC2 ---
PALLIATIVE CARE Palliative Care Note Palliative Care Met with patient, granddaughter Jordan. Son unable to attend Reviewed current medical condition: metastatic rectal cancer, on FOLFIRI for over a year now with slight growth of lung nodules on last CT in Mar 2016. Defer chemo by 1 week. masslike density identified in the right infrahilar region surrounding the right lower lobe bronchus causing narrowing and filling of the right lower lobe bronchial branches could be endobronchial lesion with postobstructive atelectasis or right infrahilar mass causing filling of the right lower lobe bronchial branches. Patient wants to continue current chemotherapy regimen. Discussed Code Status; Patient requests DNR/DNI. Understands without this attempt he likely would . "I have isamar in the Lord and it is his they will be done." Patient requests AD. He would name his son and Jordan to speak for him if he is unable to make his own decisions. Discussed Hospice Support when active treatment is no longer an option. Patient is retired from [employer]. Lives with granddaughter. Isamar is very important part of his life. Plan: Continue current treatment plan. Palliative Home Health as option for discharge assistance if needed DNR/DNI Outside the hospital form signed by patient---will need physician signature. Patient requests to complete AD. Spoke with Camila TA who will assist in completing this document. ARGENIS SIDDIQUI May 30, 2016 11:36
[2016-05-30] MEDS: VANCOMYCIN 1.25 GM in IV NORMAL SALINE 250ML 250 ML IV SCH ×2 (12:20→22:59)
--- NOTE | 2016-05-30 12:45 | PDOC ---
PULMONARY PROGRESS NOTES Subjective feels better Vitals Vital Signs Date Time Temp Pulse Resp B/P Pulse Ox O2 Delivery O2 Flow Rate FiO2 05/30/16 11:00 98.0 72 22 147/91 97 Room Air 98.0 General: Alert, No acute distress Lungs: Other (decrease bs right) Cardiovascular: S1 Abdomen: Soft Neuro Exam: Alert Extremities: No Edema Skin: Warm Labs Laboratory Tests Test 05/28/16 16:33 05/28/16 21:21 05/29/16 07:19 05/29/16 11:23 Glucose (Fingerstick) 504mg/dL (70-99) 310mg/dL (70-99) 202mg/dL (70-99) 275mg/dL (70-99) Test 05/29/16 16:34 05/29/16 21:20 05/30/16 04:02 05/30/16 07:18 Glucose (Fingerstick) 335mg/dL (70-99) 288mg/dL (70-99) 176mg/dL (70-99) White Blood Count 3.8x10^3/uL (4.0-11.0) Red Blood Count 3.55x10^6/uL (4.30-5.70) Hemoglobin 11.3g/dL (13.0-17.5) Hematocrit 31.8% (39.0-53.0) Mean Corpuscular Volume 89fL (79-100) Mean Corpuscular Hemoglobin 32pg (25-35) Mean Corpuscular Hemoglobin Concent 36g/dL (31-37) Red Cell Distribution Width 20.4% (11.5-14.5) Platelet Count 98x10^3/uL (140-400) Neutrophils (%) (Auto) 67% (31-73) Lymphocytes (%) (Auto) 20% (24-48) Monocytes (%) (Auto) 13% (0-9) Eosinophils (%) (Auto) 0% (0-3) Basophils (%) (Auto) 0% (0-3) Neutrophils # (Auto) 2.6x10^3uL (1.8-7.7) Lymphocytes # (Auto) 0.8x10^3/uL (1.0-4.8) Monocytes # (Auto) 0.5x10^3/uL (0.0-1.1) Eosinophils # (Auto) 0.0x10^3/uL (0.0-0.7) Basophils # (Auto) 0.0x10^3/uL (0.0-0.2) Sodium Level 141mmol/L (136-145) Potassium Level 3.4mmol/L (3.5-5.1) Chloride Level 105mmol/L (98-107) Carbon Dioxide Level 24mmol/L (21-32) Anion Gap 12 (6-14) Blood Urea Nitrogen 22mg/dL (8-26) Creatinine 1.3mg/dL (0.7-1.3) Estimated GFR (Cockcroft-Gault) 66.2 Glucose Level 263mg/dL (70-99) Calcium Level 9.1mg/dL (8.5-10.1) Test 05/30/16 10:54 Glucose (Fingerstick) 192mg/dL (70-99) Laboratory Tests Test 05/29/16 16:34 05/29/16 21:20 05/30/16 04:02 05/30/16 07:18 Glucose (Fingerstick) 335mg/dL (70-99) 288mg/dL (70-99) 176mg/dL (70-99) White Blood Count 3.8x10^3/uL (4.0-11.0) Red Blood Count 3.55x10^6/uL (4.30-5.70) Hemoglobin 11.3g/dL (13.0-17.5) Hematocrit 31.8% (39.0-53.0) Mean Corpuscular Volume 89fL (79-100) Mean Corpuscular Hemoglobin 32pg (25-35) Mean Corpuscular Hemoglobin Concent 36g/dL (31-37) Red Cell Distribution Width 20.4% (11.5-14.5) Platelet Count 98x10^3/uL (140-400) Neutrophils (%) (Auto) 67% (31-73) Lymphocytes (%) (Auto) 20% (24-48) Monocytes (%) (Auto) 13% (0-9) Eosinophils (%) (Auto) 0% (0-3) Basophils (%) (Auto) 0% (0-3) Neutrophils # (Auto) 2.6x10^3uL (1.8-7.7) Lymphocytes # (Auto) 0.8x10^3/uL (1.0-4.8) Monocytes # (Auto) 0.5x10^3/uL (0.0-1.1) Eosinophils # (Auto) 0.0x10^3/uL (0.0-0.7) Basophils # (Auto) 0.0x10^3/uL (0.0-0.2) Sodium Level 141mmol/L (136-145) Potassium Level 3.4mmol/L (3.5-5.1) Chloride Level 105mmol/L (98-107) Carbon Dioxide Level 24mmol/L (21-32) Anion Gap 12 (6-14) Blood Urea Nitrogen 22mg/dL (8-26) Creatinine 1.3mg/dL (0.7-1.3) Estimated GFR (Cockcroft-Gault) 66.2 Glucose Level 263mg/dL (70-99) Calcium Level 9.1mg/dL (8.5-10.1) Test 05/30/16 10:54 Glucose (Fingerstick) 192mg/dL (70-99) Medications Active Scripts Medications Dose Route/Sig Days Date Category Gabapentin 100 Mg Capsule Unknown Dose PO TID 02/03/14 Reported Cardizem Cd (Diltiazem Hcl) 180 Mg Cap.er.24h Unknown Dose PO DAILY 02/03/14 Reported Terazosin Hcl 5 Mg Capsule 5 Mg PO DAILY 03/25/13 Reported Aspir 81 (Aspirin) 81 Mg Tablet.dr 81 Mg PO DAILY 03/25/13 Reported Fosinopril Sodium 40 Mg Tablet 40 Mg PO BID 03/25/13 Reported Metoprolol Tartrate 100 Mg Tablet 100 Mg PO BID 03/25/13 Reported Metformin Hcl 500 Mg Tablet 500 Mg PO DAILYBFRSUP 03/25/13 Reported Metformin Hcl 500 Mg Tablet 1,000 Mg PO DAILYWBKFT 03/25/13 Reported Ranitidine Hcl 150 Mg Tablet 150 Mg PO BID 03/25/13 Reported Impression . 1. 70 yo with metastatic rectal cancer, on FOLFIRI for over a year now with slight growth of lung nodules on last CT in Mar 2016. Now with further progression 2. Lung mets - growth of lung nodules on last CT in Mar 2016. CT on 05/26/16: 4.8 cm masslike density identified in the right infrahilar region surrounding the right lower lobe bronchus causing narrowing and filling of the right lower lobe bronchial branches / suspect endobronchial lesion with postobstructive atelectasis or right infrahilar mass causing filling of the right lower lobe bronchial branches. All due to progression of lung mets. Bronchoscopy is not needed at present. d/w Dr Jade Plan . 1. d/w Dr Jade 2. off oxygen 3. Treatment of lung mets per Dr Jade 4. supportive care/ ? palliative care and goals of care d/w IRMA kellogg with dc in GUERO Carter MD May 30, 2016 12:45
[2016-05-30 15:00] VITALS: BP 149/89
--- NOTE | 2016-05-30 15:18 | PDOC ---
PROGRESS NOTES Chief Complaint Chief Complaint 1. Metastatic colon CA with mets to lungs (for1 year post Chemo and RT before) s /p FOLFOX tx or still currently on chemo, last tx 2 weeks ago 2. Hx hypovolemic hypotension 3. Hx of hyponatremia was on HCTZ 2013 4. Mod PCM 5. Dysphagia, Left sided neck pain 6. AOCD 7. FAll risk , gen weakness 8. DM 2 , not home insulin 9 JOYA, vasomotor 10. R [place] mets 11. pancytopenia, 2/2 chemo plan: fu with pulm, onco pt wants cont chemo no bronch as per pulm for now on prednisone, increase insulin again, SSI dvt, gi ppx get PAT consulted, DNR now decrease prednisone to 40mg daily on vanco and levaquin with possible obstructive pna dc tmr History of Present Illness History of Present Illness NO inc in SOA or CP \NO hemoptysis Working on his strength CT scan shows: Impression: 1. 4.8 cm masslike density identified in the right infrahilar region surrounding the right lower lobe bronchus causing narrowing and filling of the right lower lobe bronchial branches could be endobronchial lesion with postobstructive atelectasis or right infrahilar mass causing filling of the right lower lobe bronchial branches. Bronchoscopy evaluation and/or PET/CT scanner correlation is recommended. 2. Mild patchy linear left lung base airspace opacity with mild bronchiectasis in the left lung base likely atelectasis or infiltrate. Follow-up to resolution. 3. Diffuse decreased attenuation throughout the liver likely hepatic steatosis. 4. Gallstones identified within the proximal gallbladder. 5. Coronary artery calcifications. 6. No radiologically significant cervical lymphadenopathy identified. Vitals Vitals Vital Signs Date Time Temp Pulse Resp B/P Pulse Ox O2 Delivery O2 Flow Rate FiO2 05/30/16 11:00 98.0 72 22 147/91 97 Room Air 98.0 Physical Exam General: Alert, Oriented X3 Heart: Normal S1, Normal S2 Lungs: Other (decrease bs right) Abdomen: Normal bowel sounds, Soft Extremities: No clubbing, No cyanosis Skin: No rashes, No breakdown Labs LABS Laboratory Tests Test 05/29/16 16:34 05/29/16 21:20 05/30/16 04:02 05/30/16 07:18 Glucose (Fingerstick) 335mg/dL (70-99) 288mg/dL (70-99) 176mg/dL (70-99) White Blood Count 3.8x10^3/uL (4.0-11.0) Red Blood Count 3.55x10^6/uL (4.30-5.70) Hemoglobin 11.3g/dL (13.0-17.5) Hematocrit 31.8% (39.0-53.0) Mean Corpuscular Volume 89fL (79-100) Mean Corpuscular Hemoglobin 32pg (25-35) Mean Corpuscular Hemoglobin Concent 36g/dL (31-37) Red Cell Distribution Width 20.4% (11.5-14.5) Platelet Count 98x10^3/uL (140-400) Neutrophils (%) (Auto) 67% (31-73) Lymphocytes (%) (Auto) 20% (24-48) Monocytes (%) (Auto) 13% (0-9) Eosinophils (%) (Auto) 0% (0-3) Basophils (%) (Auto) 0% (0-3) Neutrophils # (Auto) 2.6x10^3uL (1.8-7.7) Lymphocytes # (Auto) 0.8x10^3/uL (1.0-4.8) Monocytes # (Auto) 0.5x10^3/uL (0.0-1.1) Eosinophils # (Auto) 0.0x10^3/uL (0.0-0.7) Basophils # (Auto) 0.0x10^3/uL (0.0-0.2) Sodium Level 141mmol/L (136-145) Potassium Level 3.4mmol/L (3.5-5.1) Chloride Level 105mmol/L (98-107) Carbon Dioxide Level 24mmol/L (21-32) Anion Gap 12 (6-14) Blood Urea Nitrogen 22mg/dL (8-26) Creatinine 1.3mg/dL (0.7-1.3) Estimated GFR (Cockcroft-Gault) 66.2 Glucose Level 263mg/dL (70-99) Calcium Level 9.1mg/dL (8.5-10.1) Test 05/30/16 10:54 Glucose (Fingerstick) 192mg/dL (70-99) Review of Systems Review of Systems no fever, chills, chest pain Assessment and Plan Assessmemt and Plan Problems Medical Problems: (1) Cough Status: Acute (2) Elevated lactic acid level Status: Acute (3) Generalized weakness Status: Acute (4) SOB (shortness of breath) Status: Acute Problems: Comment Review of Relevant I have reviewed the following items isabel (where applicable) has been applied. Labs Laboratory Tests Test 05/28/16 16:33 05/28/16 21:21 05/29/16 07:19 05/29/16 11:23 Glucose (Fingerstick) 504mg/dL (70-99) 310mg/dL (70-99) 202mg/dL (70-99) 275mg/dL (70-99) Test 05/29/16 16:34 05/29/16 21:20 05/30/16 04:02 05/30/16 07:18 Glucose (Fingerstick) 335mg/dL (70-99) 288mg/dL (70-99) 176mg/dL (70-99) White Blood Count 3.8x10^3/uL (4.0-11.0) Red Blood Count 3.55x10^6/uL (4.30-5.70) Hemoglobin 11.3g/dL (13.0-17.5) Hematocrit 31.8% (39.0-53.0) Mean Corpuscular Volume 89fL (79-100) Mean Corpuscular Hemoglobin 32pg (25-35) Mean Corpuscular Hemoglobin Concent 36g/dL (31-37) Red Cell Distribution Width 20.4% (11.5-14.5) Platelet Count 98x10^3/uL (140-400) Neutrophils (%) (Auto) 67% (31-73) Lymphocytes (%) (Auto) 20% (24-48) Monocytes (%) (Auto) 13% (0-9) Eosinophils (%) (Auto) 0% (0-3) Basophils (%) (Auto) 0% (0-3) Neutrophils # (Auto) 2.6x10^3uL (1.8-7.7) Lymphocytes # (Auto) 0.8x10^3/uL (1.0-4.8) Monocytes # (Auto) 0.5x10^3/uL (0.0-1.1) Eosinophils # (Auto) 0.0x10^3/uL (0.0-0.7) Basophils # (Auto) 0.0x10^3/uL (0.0-0.2) Sodium Level 141mmol/L (136-145) Potassium Level 3.4mmol/L (3.5-5.1) Chloride Level 105mmol/L (98-107) Carbon Dioxide Level 24mmol/L (21-32) Anion Gap 12 (6-14) Blood Urea Nitrogen 22mg/dL (8-26) Creatinine 1.3mg/dL (0.7-1.3) Estimated GFR (Cockcroft-Gault) 66.2 Glucose Level 263mg/dL (70-99) Calcium Level 9.1mg/dL (8.5-10.1) Test 05/30/16 10:54 Glucose (Fingerstick) 192mg/dL (70-99) Laboratory Tests Test 05/29/16 16:34 05/29/16 21:20 05/30/16 04:02 05/30/16 07:18 Glucose (Fingerstick) 335mg/dL (70-99) 288mg/dL (70-99) 176mg/dL (70-99) White Blood Count 3.8x10^3/uL (4.0-11.0) Red Blood Count 3.55x10^6/uL (4.30-5.70) Hemoglobin 11.3g/dL (13.0-17.5) Hematocrit 31.8% (39.0-53.0) Mean Corpuscular Volume 89fL (79-100) Mean Corpuscular Hemoglobin 32pg (25-35) Mean Corpuscular Hemoglobin Concent 36g/dL (31-37) Red Cell Distribution Width 20.4% (11.5-14.5) Platelet Count 98x10^3/uL (140-400) Neutrophils (%) (Auto) 67% (31-73) Lymphocytes (%) (Auto) 20% (24-48) Monocytes (%) (Auto) 13% (0-9) Eosinophils (%) (Auto) 0% (0-3) Basophils (%) (Auto) 0% (0-3) Neutrophils # (Auto) 2.6x10^3uL (1.8-7.7) Lymphocytes # (Auto) 0.8x10^3/uL (1.0-4.8) Monocytes # (Auto) 0.5x10^3/uL (0.0-1.1) Eosinophils # (Auto) 0.0x10^3/uL (0.0-0.7) Basophils # (Auto) 0.0x10^3/uL (0.0-0.2) Sodium Level 141mmol/L (136-145) Potassium Level 3.4mmol/L (3.5-5.1) Chloride Level 105mmol/L (98-107) Carbon Dioxide Level 24mmol/L (21-32) Anion Gap 12 (6-14) Blood Urea Nitrogen 22mg/dL (8-26) Creatinine 1.3mg/dL (0.7-1.3) Estimated GFR (Cockcroft-Gault) 66.2 Glucose Level 263mg/dL (70-99) Calcium Level 9.1mg/dL (8.5-10.1) Test 05/30/16 10:54 Glucose (Fingerstick) 192mg/dL (70-99) Microbiology 05/25/16 Blood Culture - Preliminary, Resulted NO GROWTH AFTER 4 DAYS Medications Current Medications Sodium Chloride (Iv Sodium Chloride 0.9% 1000ml Bag) 1,000 ml @ 1,000 mls/hr Q1H IV Last administered on 05/25/16 17:20; Start 05/25/16 at 17:15; Stop at 18:14; Status DC Acetaminophen (Tylenol) 1,000 mg 1X ONCE PO Last administered on 05/25/16 17: 20; Start 05/25/16 at 17:15; Stop 05/25/16 at 17:16; Status DC Vancomycin HCl 1 each 1 each PRN DAILY PRN MC SEE COMMENTS Last administered on 05/29/16 15:28; Start 05/25/16 at 20:15 Ertapenem 50 ml @ 100 mls/hr 1X ONCE IV Last administered on 05/25/16 20:26; Start 05/25/16 at 20:15; Stop 05/25/16 at 20:44; Status DC Sodium Chloride 1,000 ml @ 1,000 mls/hr 1X ONCE IV Last administered on 20:27; Start 05/25/16 at 20:15; Stop 05/25/16 at 21:14; Status DC Vancomycin HCl/ Sodium Chloride (Iv Sodium Chloride 0.9% 500ml Bag) 500 ml @ 250 mls/hr 1X ONCE IV Last administered on 05/25/16 21:55; Start 05/25/16 at 20 :30; Stop 05/25/16 at 22:29; Status DC Ondansetron HCl (Zofran) 4 mg PRN Q8HRS PRN IV NAUSEA/VOMITING; Start 05/25/16 at 20:45; Stop 05/26/16 at 09:02; Status DC Morphine Sulfate 4 mg 4 mg PRN Q2HR PRN IV SEVERE PAIN; Start 05/25/16 at 20:45 ; Stop 05/26/16 at 20:44; Status DC Sodium Chloride (Iv Sodium Chloride 0.9% 1000ml Bag) 1,000 ml @ 75 mls/hr [id number] IV Last administered on 05/26/16 09:55; Start 05/25/16 at 20:35; Stop at 20:34; Status DC Acetaminophen (Tylenol) 650 mg PRN Q4HRS PRN PO FEVER; Start 05/25/16 at 20:45; Stop 05/26/16 at 20:44; Status DC Insulin Aspart (Novolog) 0-7 UNITS TIDWMEALS SQ Last administered on 05/26/16 07:52; Start 05/26/16 at 08:00; Stop 05/26/16 at 09:02; Status DC Dextrose 12.5 gm PRN Q15MIN PRN IV SEE COMMENTS; Start 05/25/16 at 20:45; Stop 05/26/16 at 11:58; Status DC Aspirin (Ecotrin) 81 mg DAILY PO Last administered on 05/30/16 08:38; Start 05/26/16 at 09:00 Diltiazem HCl (Cardizem 24hr Cd) 180 mg DAILY PO Last administered on 05/27/16 09:11; Start 05/26/16 at 09:00; Stop 05/27/16 at 11:59; Status DC Gabapentin (Neurontin) 100 mg TID PO Last administered on 05/30/16 08:38; Start 05/26/16 at 09:00 Terazosin HCl (Hytrin) 5 mg DAILY PO Last administered on 05/30/16 08:39; Start 05/26/16 at 09:00 Lisinopril (Prinivil) 40 mg BID PO Last administered on 05/30/16 08:38; Start 05/26/16 at 09:00 Metoprolol Tartrate (Lopressor) 100 mg BID PO Last administered on 05/30/16 08: 38; Start 05/26/16 at 09:00 Famotidine 20 mg 20 mg DAILY PO Last administered on 05/30/16 08:38; Start 05/26 at 09:00 Vancomycin HCl/ Sodium Chloride (Iv Sodium Chloride 0.9% 250ml) 250 ml @ 167 mls/hr Q24H IV Last administered on 05/27/16 23:04; Start 05/26/16 at 22:00; Stop 05/28/16 at 02:28; Status DC Vancomycin HCl 1 each 1X ONCE MC ; Start 05/27/16 at 21:30; Stop 05/27/16 at 21: 31; Status DC Ondansetron HCl (Zofran) 4 mg PRN Q6HRS PRN IV NAUSEA/VOMITING; Start 05/26/16 at 09:00 Insulin Aspart (Novolog) 0-9 UNITS TIDWMEALS SQ Last administered on 05/30/16 12:26; Start 05/26/16 at 12:00 Dextrose 12.5 gm PRN Q15MIN PRN IV SEE COMMENTS; Start 05/26/16 at 09:00 Throat Lozenges (Cepacol Sore Throat Lozenge) 1 roberto PRN Q2HRS PRN PO SORE THROAT Last administered on 05/28/16 03:14; Start 05/26/16 at 12:00 Prednisone (Prednisone) 50 mg DAILY PO Last administered on 05/30/16 08:38; Start 05/26/16 at 12:30; Stop 05/30/16 at 11:03; Status DC Insulin Aspart (Novolog) 5 units TIDAC SQ Last administered on 05/27/16 07:41; Start 05/27/16 at 07:30; Stop 05/27/16 at 10:56; Status DC Insulin Aspart (Novolog) 5 units 1X ONCE SQ Last administered on 05/26/16 21: 57; Start 05/26/16 at 22:00; Stop 05/26/16 at 22:01; Status DC Insulin Detemir (Levemir) 15 units QHS SQ Last administered on 05/26/16 21:58; Start 05/26/16 at 22:00; Stop 05/27/16 at 10:56; Status DC Insulin Aspart (Novolog) 10 units TIDAC SQ Last administered on 05/28/16 11:57 ; Start 05/27/16 at 11:30; Stop 05/28/16 at 16:49; Status DC Insulin Detemir (Levemir) 20 units QHS SQ Last administered on 05/27/16 20:32; Start 05/27/16 at 21:00; Stop 05/28/16 at 07:13; Status DC Diltiazem HCl (Cardizem 24hr Cd) 240 mg DAILY PO Last administered on 05/30/16 08:38; Start 05/28/16 at 09:00 Labetalol HCl 10 mg 10 mg PRN Q2HR PRN IVP HYPERTENSION, SEE COMMENTS Last administered on 05/29/16 02:14; Start 05/27/16 at 12:00 Levofloxacin/ Dextrose 100 ml @ 100 mls/hr Q24H IV Last administered on 17:09; Start 05/27/16 at 17:00; Stop 05/30/16 at 14:30; Status DC Vancomycin HCl/ Sodium Chloride (Iv Sodium Chloride 0.9% 250ml) 250 ml @ 167 mls/hr Q12H IV Last administered on 05/30/16 12:20; Start 05/28/16 at 11:00 Insulin Detemir (Levemir) 25 units QHS SQ ; Start 05/28/16 at 21:00; Stop at 21:00; Status DC Insulin Aspart (Novolog) 15 units TIDWMEALS SQ Last administered on 05/30/16 12 :27; Start 05/28/16 at 17:00 Insulin Detemir (Levemir) 30 units QHS SQ Last administered on 05/28/16 22:01; Start 05/28/16 at 21:00; Stop 05/29/16 at 13:30; Status DC Insulin Detemir (Levemir) 35 units QHS SQ Last administered on 05/29/16 22:10; Start 05/29/16 at 21:00 Prednisone (Prednisone) 40 mg DAILY PO ; Start 05/31/16 at 09:00 Potassium Chloride (Klor-Con) 40 meq 1X ONCE PO Last administered on 05/30/16 12:20; Start 05/30/16 at 11:15; Stop 05/30/16 at 11:16; Status DC Levofloxacin (Levaquin) 500 mg Q24H PO ; Start 05/30/16 at 17:00 Active Scripts Active Reported Gabapentin 100 Mg Capsule Unknown Dose PO TID Cardizem Cd (Diltiazem Hcl) 180 Mg Cap.er.24h Unknown Dose PO DAILY Terazosin Hcl 5 Mg Capsule 5 Mg PO DAILY Aspir 81 (Aspirin) 81 Mg Tablet.dr 81 Mg PO DAILY Fosinopril Sodium 40 Mg Tablet 40 Mg PO BID Metoprolol Tartrate 100 Mg Tablet 100 Mg PO BID Metformin Hcl 500 Mg Tablet 500 Mg PO [id number] Metformin Hcl 500 Mg Tablet 1,000 Mg PO [id number] Ranitidine Hcl 150 Mg Tablet 150 Mg PO BID Vitals/I & O Vital Sign - Last 24 Hours 05/29/16 05/29/16 05/29/16 05/29/16 19:00 20:00 22:05 22:06 Temp 97.5 97.5 Pulse 100 100 100 Resp 20 B/P 149/89 149/89 149/89 Pulse Ox 96 O2 Delivery Room Air Room Air 05/29/16 05/30/16 05/30/16 05/30/16 23:00 03:00 07:00 07:00 Temp 97.5 97.9 97.8 97.5 97.9 97.8 Pulse 81 82 82 Resp 20 20 20 B/P 154/99 156/100 128/86 Pulse Ox 98 97 96 O2 Delivery Room Air Room Air Room Air Room Air 05/30/16 05/30/16 05/30/16 05/30/16 08:10 08:38 08:38 08:38 Pulse 82 82 82 B/P 128/86 128/86 128/86 O2 Delivery Room Air 05/30/16 05/30/16 08:39 11:00 Temp 98.0 98.0 Pulse 82 72 Resp 22 B/P 128/86 147/91 Pulse Ox 97 O2 Delivery Room Air Intake and Output 05/29/16 05/29/16 05/30/16 15:00 23:00 07:00 Intake Total 360 ml 650 ml Output Total 1600 ml 300 ml Balance -1240 ml 350 ml Nutrition Consultation Dietary Evaluation: Recommendations by RD: Increase Calorie Intake, Protein supplementation Comments: Benton boost glucose control TID - provides 250kcal and 14g protein per serving Expected Outcomes/Goals: meet >75% est nutr needs Malnutrition Findings: Weight Status: Overweight ANTOINE HUITRON MD May 30, 2016 15:18
[2016-05-30] MEDS: LEVOFLOXACIN 500 MG TABLET PO SCH (17:48)
[2016-05-30 19:52] VITALS: BP 173/103
[2016-05-30] MEDS: INSULIN DETEMIR 300 UNITS/3 ML INSULN.PEN. SQ SCH (22:06)
[2016-05-30 23:33] VITALS: BP 184/114
[2016-05-31 03:00] VITALS: BP 154/95
[2016-05-31 05:25] LABS: BASO % 0 % (0-3); EOS % 0 % (0-3); HEMATOCRIT 32.8 % (39.0-53.0); HEMOGLOBIN 11.4 g/dL (13.0-17.5); LYMPH # 0.7 x10^3/uL (1.0-4.8); LYMPH % 16 % (24-48); MEAN CORPUSCULAR HEMOGLOBIN 32 pg (25-35); MEAN CORPUSCULAR HGB CONC 35 g/dL (31-37); MEAN CORPUSCULAR VOLUME 91 fL (79-100); MONO % 14 % (0-9); NEUT % 70 % (31-73); PLATELET COUNT 106 x10^3/uL (140-400); RED BLOOD COUNT 3.61 x10^6/uL (4.30-5.70); WHITE BLOOD COUNT 4.4 x10^3/uL (4.0-11.0)
[2016-05-31 05:48] LABS: CALCIUM 8.8 mg/dL (8.5-10.1); CREATININE 1.1 mg/dL (0.7-1.3); GFR 80.3; POTASSIUM 3.5 mmol/L (3.5-5.1)
[2016-05-31 07:00] VITALS: BP 143/91
[2016-05-31] MEDS: INSULIN ASPART 300 UNITS/3 ML INSULN.PEN SQ SCH ×6 (08:21→17:00)
[2016-05-31] MEDS ORDERED: PREDNISONE 20 MG TABLET PO SCH (09:00)
[2016-05-31] MEDS: LISINOPRIL 40 MG TABLET. PO SCH (09:09)
[2016-05-31] MEDS: GABAPENTIN 100 MG CAPSULE. PO SCH ×2 (09:10→14:27)
[2016-05-31] MEDS: METOPROLOL TART IMMED RELEASE 50 MG TABLET PO SCH (09:10)
[2016-05-31] MEDS: FAMOTIDINE 20 MG TABLET. PO SCH (09:10)
[2016-05-31] MEDS: ASPIRIN ENTERIC COATED 81 MG TABLET.DR. PO SCH (09:10)
[2016-05-31] MEDS: TERAZOSIN 5 MG CAPSULE. PO SCH (09:11)
[2016-05-31] MEDS: DILTIAZEM HCL 240 MG CAP.ER.24H PO SCH (09:15)
--- NOTE | 2016-05-31 09:24 | PDOC ---
PROGRESS NOTES Subjective Subjective c/c - f/u of metastatic rectal cancer ROS - dyspnea better Objective Objective Vital Signs Date Time Temp Pulse Resp B/P Pulse Ox O2 Delivery O2 Flow Rate FiO2 05/31/16 09:15 77 143/91 05/31/16 07:00 97.7 18 97 Room Air 97.7 Intake and Output 05/31/16 07:00 Intake Total 1880 ml Output Total 1850 ml Balance 30 ml Intake Oral 1630 ml IV Total 250 ml Output Urine Total 1850 ml # Bowel Movements 1 Physical Exam Heart: Normal S1, Normal S2 Extremities: No cyanosis General: Alert, Oriented X3 Lungs: Clear to auscultation Neuro: Normal speech Psych/Mental Status: Mental status NL Assessment Assessment Problems Medical Problems: (1) Cough Status: Acute (2) Elevated lactic acid level Status: Acute (3) Generalized weakness Status: Acute (4) SOB (shortness of breath) Status: Acute A/P: 1. 70 yo with metastatic rectal cancer, on FOLFIRI for over a year now with slight growth of lung nodules on last CT in Mar 2016. Defer chemo by 1 week. Appreciate palliative care consult. f/u with next week. 2. Lung mets - slight growth of lung nodules on last CT in Mar 2016. CT on : 4.8 cm masslike density identified in the right infrahilar region surrounding the right lower lobe bronchus causing narrowing and filling of the right lower lobe bronchial branches could be endobronchial lesion with postobstructive atelectasis or right infrahilar mass causing filling of the right lower lobe bronchial branches. Bronchoscopy not necessary per Dr Simon as this is due to mets and I agree. Comment Review of Relevant I have reviewed the following items isabel (where applicable) has been applied. Labs Laboratory Tests Test 05/29/16 11:23 05/29/16 16:34 05/29/16 21:20 05/30/16 04:02 Glucose (Fingerstick) 275mg/dL (70-99) 335mg/dL (70-99) 288mg/dL (70-99) White Blood Count 3.8x10^3/uL (4.0-11.0) Red Blood Count 3.55x10^6/uL (4.30-5.70) Hemoglobin 11.3g/dL (13.0-17.5) Hematocrit 31.8% (39.0-53.0) Mean Corpuscular Volume 89fL (79-100) Mean Corpuscular Hemoglobin 32pg (25-35) Mean Corpuscular Hemoglobin Concent 36g/dL (31-37) Red Cell Distribution Width 20.4% (11.5-14.5) Platelet Count 98x10^3/uL (140-400) Neutrophils (%) (Auto) 67% (31-73) Lymphocytes (%) (Auto) 20% (24-48) Monocytes (%) (Auto) 13% (0-9) Eosinophils (%) (Auto) 0% (0-3) Basophils (%) (Auto) 0% (0-3) Neutrophils # (Auto) 2.6x10^3uL (1.8-7.7) Lymphocytes # (Auto) 0.8x10^3/uL (1.0-4.8) Monocytes # (Auto) 0.5x10^3/uL (0.0-1.1) Eosinophils # (Auto) 0.0x10^3/uL (0.0-0.7) Basophils # (Auto) 0.0x10^3/uL (0.0-0.2) Sodium Level 141mmol/L (136-145) Potassium Level 3.4mmol/L (3.5-5.1) Chloride Level 105mmol/L (98-107) Carbon Dioxide Level 24mmol/L (21-32) Anion Gap 12 (6-14) Blood Urea Nitrogen 22mg/dL (8-26) Creatinine 1.3mg/dL (0.7-1.3) Estimated GFR (Cockcroft-Gault) 66.2 Glucose Level 263mg/dL (70-99) Calcium Level 9.1mg/dL (8.5-10.1) Test 05/30/16 07:18 05/30/16 10:54 05/30/16 16:31 05/30/16 21:06 Glucose (Fingerstick) 176mg/dL (70-99) 192mg/dL (70-99) 279mg/dL (70-99) 337mg/dL (70-99) Test 05/31/16 04:50 05/31/16 07:25 White Blood Count 4.4x10^3/uL (4.0-11.0) Red Blood Count 3.61x10^6/uL (4.30-5.70) Hemoglobin 11.4g/dL (13.0-17.5) Hematocrit 32.8% (39.0-53.0) Mean Corpuscular Volume 91fL (79-100) Mean Corpuscular Hemoglobin 32pg (25-35) Mean Corpuscular Hemoglobin Concent 35g/dL (31-37) Red Cell Distribution Width 20.0% (11.5-14.5) Platelet Count 106x10^3/uL (140-400) Neutrophils (%) (Auto) 70% (31-73) Lymphocytes (%) (Auto) 16% (24-48) Monocytes (%) (Auto) 14% (0-9) Eosinophils (%) (Auto) 0% (0-3) Basophils (%) (Auto) 0% (0-3) Neutrophils # (Auto) 3.1x10^3uL (1.8-7.7) Lymphocytes # (Auto) 0.7x10^3/uL (1.0-4.8) Monocytes # (Auto) 0.6x10^3/uL (0.0-1.1) Eosinophils # (Auto) 0.0x10^3/uL (0.0-0.7) Basophils # (Auto) 0.0x10^3/uL (0.0-0.2) Sodium Level 141mmol/L (136-145) Potassium Level 3.5mmol/L (3.5-5.1) Chloride Level 104mmol/L (98-107) Carbon Dioxide Level 26mmol/L (21-32) Anion Gap 11 (6-14) Blood Urea Nitrogen 21mg/dL (8-26) Creatinine 1.1mg/dL (0.7-1.3) Estimated GFR (Cockcroft-Gault) 80.3 Glucose Level 235mg/dL (70-99) Calcium Level 8.8mg/dL (8.5-10.1) Glucose (Fingerstick) 208mg/dL (70-99) Laboratory Tests Test 05/30/16 10:54 05/30/16 16:31 05/30/16 21:06 05/31/16 04:50 Glucose (Fingerstick) 192mg/dL (70-99) 279mg/dL (70-99) 337mg/dL (70-99) White Blood Count 4.4x10^3/uL (4.0-11.0) Red Blood Count 3.61x10^6/uL (4.30-5.70) Hemoglobin 11.4g/dL (13.0-17.5) Hematocrit 32.8% (39.0-53.0) Mean Corpuscular Volume 91fL (79-100) Mean Corpuscular Hemoglobin 32pg (25-35) Mean Corpuscular Hemoglobin Concent 35g/dL (31-37) Red Cell Distribution Width 20.0% (11.5-14.5) Platelet Count 106x10^3/uL (140-400) Neutrophils (%) (Auto) 70% (31-73) Lymphocytes (%) (Auto) 16% (24-48) Monocytes (%) (Auto) 14% (0-9) Eosinophils (%) (Auto) 0% (0-3) Basophils (%) (Auto) 0% (0-3) Neutrophils # (Auto) 3.1x10^3uL (1.8-7.7) Lymphocytes # (Auto) 0.7x10^3/uL (1.0-4.8) Monocytes # (Auto) 0.6x10^3/uL (0.0-1.1) Eosinophils # (Auto) 0.0x10^3/uL (0.0-0.7) Basophils # (Auto) 0.0x10^3/uL (0.0-0.2) Sodium Level 141mmol/L (136-145) Potassium Level 3.5mmol/L (3.5-5.1) Chloride Level 104mmol/L (98-107) Carbon Dioxide Level 26mmol/L (21-32) Anion Gap 11 (6-14) Blood Urea Nitrogen 21mg/dL (8-26) Creatinine 1.1mg/dL (0.7-1.3) Estimated GFR (Cockcroft-Gault) 80.3 Glucose Level 235mg/dL (70-99) Calcium Level 8.8mg/dL (8.5-10.1) Test 05/31/16 07:25 Glucose (Fingerstick) 208mg/dL (70-99) Microbiology 05/25/16 Blood Culture - Final, Complete NO GROWTH AFTER 5 DAYS Medications Current Medications Sodium Chloride (Iv Sodium Chloride 0.9% 1000ml Bag) 1,000 ml @ 1,000 mls/hr Q1H IV Last administered on 05/25/16 17:20; Start 05/25/16 at 17:15; Stop at 18:14; Status DC Acetaminophen (Tylenol) 1,000 mg 1X ONCE PO Last administered on 05/25/16 17: 20; Start 05/25/16 at 17:15; Stop 05/25/16 at 17:16; Status DC Vancomycin HCl 1 each 1 each PRN DAILY PRN MC SEE COMMENTS Last administered on 05/29/16 15:28; Start 05/25/16 at 20:15 Ertapenem 50 ml @ 100 mls/hr 1X ONCE IV Last administered on 05/25/16 20:26; Start 05/25/16 at 20:15; Stop 05/25/16 at 20:44; Status DC Sodium Chloride 1,000 ml @ 1,000 mls/hr 1X ONCE IV Last administered on 20:27; Start 05/25/16 at 20:15; Stop 05/25/16 at 21:14; Status DC Vancomycin HCl/ Sodium Chloride (Iv Sodium Chloride 0.9% 500ml Bag) 500 ml @ 250 mls/hr 1X ONCE IV Last administered on 05/25/16 21:55; Start 05/25/16 at 20 :30; Stop 05/25/16 at 22:29; Status DC Ondansetron HCl (Zofran) 4 mg PRN Q8HRS PRN IV NAUSEA/VOMITING; Start 05/25/16 at 20:45; Stop 05/26/16 at 09:02; Status DC Morphine Sulfate 4 mg 4 mg PRN Q2HR PRN IV SEVERE PAIN; Start 05/25/16 at 20:45 ; Stop 05/26/16 at 20:44; Status DC Sodium Chloride (Iv Sodium Chloride 0.9% 1000ml Bag) 1,000 ml @ 75 mls/hr [id number] IV Last administered on 05/26/16 09:55; Start 05/25/16 at 20:35; Stop at 20:34; Status DC Acetaminophen (Tylenol) 650 mg PRN Q4HRS PRN PO FEVER; Start 05/25/16 at 20:45; Stop 05/26/16 at 20:44; Status DC Insulin Aspart (Novolog) 0-7 UNITS TIDWMEALS SQ Last administered on 05/26/16 07:52; Start 05/26/16 at 08:00; Stop 05/26/16 at 09:02; Status DC Dextrose 12.5 gm PRN Q15MIN PRN IV SEE COMMENTS; Start 05/25/16 at 20:45; Stop 05/26/16 at 11:58; Status DC Aspirin (Ecotrin) 81 mg DAILY PO Last administered on 05/31/16 09:10; Start 05/26/16 at 09:00 Diltiazem HCl (Cardizem 24hr Cd) 180 mg DAILY PO Last administered on 05/27/16 09:11; Start 05/26/16 at 09:00; Stop 05/27/16 at 11:59; Status DC Gabapentin (Neurontin) 100 mg TID PO Last administered on 05/31/16 09:10; Start 05/26/16 at 09:00 Terazosin HCl (Hytrin) 5 mg DAILY PO Last administered on 05/31/16 09:11; Start 05/26/16 at 09:00 Lisinopril (Prinivil) 40 mg BID PO Last administered on 05/31/16 09:09; Start 05/26/16 at 09:00 Metoprolol Tartrate (Lopressor) 100 mg BID PO Last administered on 05/31/16 09: 10; Start 05/26/16 at 09:00 Famotidine 20 mg 20 mg DAILY PO Last administered on 05/31/16 09:10; Start 05/26 at 09:00 Vancomycin HCl/ Sodium Chloride (Iv Sodium Chloride 0.9% 250ml) 250 ml @ 167 mls/hr Q24H IV Last administered on 05/27/16 23:04; Start 05/26/16 at 22:00; Stop 05/28/16 at 02:28; Status DC Vancomycin HCl 1 each 1X ONCE MC ; Start 05/27/16 at 21:30; Stop 05/27/16 at 21: 31; Status DC Ondansetron HCl (Zofran) 4 mg PRN Q6HRS PRN IV NAUSEA/VOMITING; Start 05/26/16 at 09:00 Insulin Aspart (Novolog) 0-9 UNITS TIDWMEALS SQ Last administered on 05/31/16 08:21; Start 05/26/16 at 12:00 Dextrose 12.5 gm PRN Q15MIN PRN IV SEE COMMENTS; Start 05/26/16 at 09:00 Throat Lozenges (Cepacol Sore Throat Lozenge) 1 roberto PRN Q2HRS PRN PO SORE THROAT Last administered on 05/28/16 03:14; Start 05/26/16 at 12:00 Prednisone (Prednisone) 50 mg DAILY PO Last administered on 05/30/16 08:38; Start 05/26/16 at 12:30; Stop 05/30/16 at 11:03; Status DC Insulin Aspart (Novolog) 5 units TIDAC SQ Last administered on 05/27/16 07:41; Start 05/27/16 at 07:30; Stop 05/27/16 at 10:56; Status DC Insulin Aspart (Novolog) 5 units 1X ONCE SQ Last administered on 05/26/16 21: 57; Start 05/26/16 at 22:00; Stop 05/26/16 at 22:01; Status DC Insulin Detemir (Levemir) 15 units QHS SQ Last administered on 05/26/16 21:58; Start 05/26/16 at 22:00; Stop 05/27/16 at 10:56; Status DC Insulin Aspart (Novolog) 10 units TIDAC SQ Last administered on 05/28/16 11:57 ; Start 05/27/16 at 11:30; Stop 05/28/16 at 16:49; Status DC Insulin Detemir (Levemir) 20 units QHS SQ Last administered on 05/27/16 20:32; Start 05/27/16 at 21:00; Stop 05/28/16 at 07:13; Status DC Diltiazem HCl (Cardizem 24hr Cd) 240 mg DAILY PO Last administered on 05/31/16 09:15; Start 05/28/16 at 09:00 Labetalol HCl 10 mg 10 mg PRN Q2HR PRN IVP HYPERTENSION, SEE COMMENTS Last administered on 05/29/16 02:14; Start 05/27/16 at 12:00 Levofloxacin/ Dextrose 100 ml @ 100 mls/hr Q24H IV Last administered on 17:09; Start 05/27/16 at 17:00; Stop 05/30/16 at 14:30; Status DC Vancomycin HCl/ Sodium Chloride (Iv Sodium Chloride 0.9% 250ml) 250 ml @ 167 mls/hr Q12H IV Last administered on 05/30/16 22:59; Start 05/28/16 at 11:00 Insulin Detemir (Levemir) 25 units QHS SQ ; Start 05/28/16 at 21:00; Stop at 21:00; Status DC Insulin Aspart (Novolog) 15 units TIDWMEALS SQ Last administered on 05/31/16 08 :22; Start 05/28/16 at 17:00 Insulin Detemir (Levemir) 30 units QHS SQ Last administered on 05/28/16 22:01; Start 05/28/16 at 21:00; Stop 05/29/16 at 13:30; Status DC Insulin Detemir (Levemir) 35 units QHS SQ Last administered on 05/30/16 22:06; Start 05/29/16 at 21:00 Prednisone (Prednisone) 40 mg DAILY PO Last administered on 05/31/16 09:10; Start 05/31/16 at 09:00 Potassium Chloride (Klor-Con) 40 meq 1X ONCE PO Last administered on 05/30/16 12:20; Start 05/30/16 at 11:15; Stop 05/30/16 at 11:16; Status DC Levofloxacin (Levaquin) 500 mg Q24H PO Last administered on 05/30/16 17:48; Start 05/30/16 at 17:00 Active Scripts Active Reported Gabapentin 100 Mg Capsule Unknown Dose PO TID Cardizem Cd (Diltiazem Hcl) 180 Mg Cap.er.24h Unknown Dose PO DAILY Terazosin Hcl 5 Mg Capsule 5 Mg PO DAILY Aspir 81 (Aspirin) 81 Mg Tablet.dr 81 Mg PO DAILY Fosinopril Sodium 40 Mg Tablet 40 Mg PO BID Metoprolol Tartrate 100 Mg Tablet 100 Mg PO BID Metformin Hcl 500 Mg Tablet 500 Mg PO DAILYBFRSUP Metformin Hcl 500 Mg Tablet 1,000 Mg PO DAILYWBKFT Ranitidine Hcl 150 Mg Tablet 150 Mg PO BID Vitals/I & O Vital Sign - Last 24 Hours 05/30/16 05/30/16 05/30/16 05/30/16 11:00 15:00 19:52 20:00 Temp 98.0 98.2 97.3 98.0 98.2 97.3 Pulse 72 84 Resp 22 20 20 B/P 147/91 149/89 173/103 Pulse Ox 97 98 97 O2 Delivery Room Air Room Air Room Air 05/30/16 05/30/16 05/30/16 05/31/16 22:02 22:02 23:33 03:00 Temp 98.1 98.2 98.1 98.2 Pulse 84 84 87 80 Resp 18 20 B/P 173/103 173/103 184/114 154/95 Pulse Ox 98 96 O2 Delivery Room Air Room Air 05/31/16 05/31/16 05/31/16 05/31/16 07:00 09:09 09:10 09:11 Temp 97.7 97.7 Pulse 77 77 77 77 Resp 18 B/P 143/91 143/91 143/91 143/91 Pulse Ox 97 O2 Delivery Room Air 05/31/16 09:15 Pulse 77 B/P 143/91 Intake and Output 05/30/16 05/30/16 05/31/16 15:00 23:00 07:00 Intake Total 960 ml 670 ml 250 ml Output Total 600 ml 650 ml 600 ml Balance 360 ml 20 ml -350 ml Nutrition Consultation Dietary Evaluation: Recommendations by RD: Increase Calorie Intake, Protein supplementation Comments: Lopeno boost glucose control TID - provides 250kcal and 14g protein per serving Expected Outcomes/Goals: meet >75% est nutr needs Malnutrition Findings: Weight Status: Overweight WALTER MAHAN MD May 31, 2016 09:24
[2016-05-31 10:48] VITALS: BP 119/69
--- NOTE | 2016-05-31 11:08 | PDOC ---
PULMONARY PROGRESS NOTES Subjective feels better Vitals Vital Signs Date Time Temp Pulse Resp B/P Pulse Ox O2 Delivery O2 Flow Rate FiO2 05/31/16 10:48 98.1 81 16 119/69 94 Room Air 98.1 General: Alert, No acute distress Lungs: Other (decrease bs right) Cardiovascular: S1 Abdomen: Soft Neuro Exam: Alert Extremities: No Edema Skin: Warm Labs Laboratory Tests Test 05/29/16 11:23 05/29/16 16:34 05/29/16 21:20 05/30/16 04:02 Glucose (Fingerstick) 275mg/dL (70-99) 335mg/dL (70-99) 288mg/dL (70-99) White Blood Count 3.8x10^3/uL (4.0-11.0) Red Blood Count 3.55x10^6/uL (4.30-5.70) Hemoglobin 11.3g/dL (13.0-17.5) Hematocrit 31.8% (39.0-53.0) Mean Corpuscular Volume 89fL (79-100) Mean Corpuscular Hemoglobin 32pg (25-35) Mean Corpuscular Hemoglobin Concent 36g/dL (31-37) Red Cell Distribution Width 20.4% (11.5-14.5) Platelet Count 98x10^3/uL (140-400) Neutrophils (%) (Auto) 67% (31-73) Lymphocytes (%) (Auto) 20% (24-48) Monocytes (%) (Auto) 13% (0-9) Eosinophils (%) (Auto) 0% (0-3) Basophils (%) (Auto) 0% (0-3) Neutrophils # (Auto) 2.6x10^3uL (1.8-7.7) Lymphocytes # (Auto) 0.8x10^3/uL (1.0-4.8) Monocytes # (Auto) 0.5x10^3/uL (0.0-1.1) Eosinophils # (Auto) 0.0x10^3/uL (0.0-0.7) Basophils # (Auto) 0.0x10^3/uL (0.0-0.2) Sodium Level 141mmol/L (136-145) Potassium Level 3.4mmol/L (3.5-5.1) Chloride Level 105mmol/L (98-107) Carbon Dioxide Level 24mmol/L (21-32) Anion Gap 12 (6-14) Blood Urea Nitrogen 22mg/dL (8-26) Creatinine 1.3mg/dL (0.7-1.3) Estimated GFR (Cockcroft-Gault) 66.2 Glucose Level 263mg/dL (70-99) Calcium Level 9.1mg/dL (8.5-10.1) Test 05/30/16 07:18 05/30/16 10:54 05/30/16 16:31 05/30/16 21:06 Glucose (Fingerstick) 176mg/dL (70-99) 192mg/dL (70-99) 279mg/dL (70-99) 337mg/dL (70-99) Test 05/31/16 04:50 05/31/16 07:25 White Blood Count 4.4x10^3/uL (4.0-11.0) Red Blood Count 3.61x10^6/uL (4.30-5.70) Hemoglobin 11.4g/dL (13.0-17.5) Hematocrit 32.8% (39.0-53.0) Mean Corpuscular Volume 91fL (79-100) Mean Corpuscular Hemoglobin 32pg (25-35) Mean Corpuscular Hemoglobin Concent 35g/dL (31-37) Red Cell Distribution Width 20.0% (11.5-14.5) Platelet Count 106x10^3/uL (140-400) Neutrophils (%) (Auto) 70% (31-73) Lymphocytes (%) (Auto) 16% (24-48) Monocytes (%) (Auto) 14% (0-9) Eosinophils (%) (Auto) 0% (0-3) Basophils (%) (Auto) 0% (0-3) Neutrophils # (Auto) 3.1x10^3uL (1.8-7.7) Lymphocytes # (Auto) 0.7x10^3/uL (1.0-4.8) Monocytes # (Auto) 0.6x10^3/uL (0.0-1.1) Eosinophils # (Auto) 0.0x10^3/uL (0.0-0.7) Basophils # (Auto) 0.0x10^3/uL (0.0-0.2) Sodium Level 141mmol/L (136-145) Potassium Level 3.5mmol/L (3.5-5.1) Chloride Level 104mmol/L (98-107) Carbon Dioxide Level 26mmol/L (21-32) Anion Gap 11 (6-14) Blood Urea Nitrogen 21mg/dL (8-26) Creatinine 1.1mg/dL (0.7-1.3) Estimated GFR (Cockcroft-Gault) 80.3 Glucose Level 235mg/dL (70-99) Calcium Level 8.8mg/dL (8.5-10.1) Glucose (Fingerstick) 208mg/dL (70-99) Laboratory Tests Test 05/30/16 16:31 05/30/16 21:06 05/31/16 04:50 05/31/16 07:25 Glucose (Fingerstick) 279mg/dL (70-99) 337mg/dL (70-99) 208mg/dL (70-99) White Blood Count 4.4x10^3/uL (4.0-11.0) Red Blood Count 3.61x10^6/uL (4.30-5.70) Hemoglobin 11.4g/dL (13.0-17.5) Hematocrit 32.8% (39.0-53.0) Mean Corpuscular Volume 91fL (79-100) Mean Corpuscular Hemoglobin 32pg (25-35) Mean Corpuscular Hemoglobin Concent 35g/dL (31-37) Red Cell Distribution Width 20.0% (11.5-14.5) Platelet Count 106x10^3/uL (140-400) Neutrophils (%) (Auto) 70% (31-73) Lymphocytes (%) (Auto) 16% (24-48) Monocytes (%) (Auto) 14% (0-9) Eosinophils (%) (Auto) 0% (0-3) Basophils (%) (Auto) 0% (0-3) Neutrophils # (Auto) 3.1x10^3uL (1.8-7.7) Lymphocytes # (Auto) 0.7x10^3/uL (1.0-4.8) Monocytes # (Auto) 0.6x10^3/uL (0.0-1.1) Eosinophils # (Auto) 0.0x10^3/uL (0.0-0.7) Basophils # (Auto) 0.0x10^3/uL (0.0-0.2) Sodium Level 141mmol/L (136-145) Potassium Level 3.5mmol/L (3.5-5.1) Chloride Level 104mmol/L (98-107) Carbon Dioxide Level 26mmol/L (21-32) Anion Gap 11 (6-14) Blood Urea Nitrogen 21mg/dL (8-26) Creatinine 1.1mg/dL (0.7-1.3) Estimated GFR (Cockcroft-Gault) 80.3 Glucose Level 235mg/dL (70-99) Calcium Level 8.8mg/dL (8.5-10.1) Medications Active Scripts Medications Dose Route/Sig Days Date Category Gabapentin 100 Mg Capsule Unknown Dose PO TID 02/03/14 Reported Cardizem Cd (Diltiazem Hcl) 180 Mg Cap.er.24h Unknown Dose PO DAILY 02/03/14 Reported Terazosin Hcl 5 Mg Capsule 5 Mg PO DAILY 03/25/13 Reported Aspir 81 (Aspirin) 81 Mg Tablet.dr 81 Mg PO DAILY 03/25/13 Reported Fosinopril Sodium 40 Mg Tablet 40 Mg PO BID 03/25/13 Reported Metoprolol Tartrate 100 Mg Tablet 100 Mg PO BID 03/25/13 Reported Metformin Hcl 500 Mg Tablet 500 Mg PO DAILYBFRSUP 03/25/13 Reported Metformin Hcl 500 Mg Tablet 1,000 Mg PO DAILYWBKFT 03/25/13 Reported Ranitidine Hcl 150 Mg Tablet 150 Mg PO BID 03/25/13 Reported Impression . 1. 70 yo with metastatic rectal cancer, on FOLFIRI for over a year now with slight growth of lung nodules on last CT in Mar 2016. Now with further progression 2. Lung mets - growth of lung nodules on last CT in Mar 2016. CT on 05/26/16: 4.8 cm masslike density identified in the right infrahilar region surrounding the right lower lobe bronchus causing narrowing and filling of the right lower lobe bronchial branches / suspect endobronchial lesion with postobstructive atelectasis or right infrahilar mass causing filling of the right lower lobe bronchial branches. All due to progression of lung mets. Bronchoscopy is not needed at present. d/w Dr Jade Plan . 1. d/w Dr Jade 2. off oxygen 3. Treatment of lung mets per Dr Jade 4. supportive care/ palliative care and goals of care d/w IRMA kellogg with GUERO De La Rosa MD May 31, 2016 11:08
[2016-05-31] MEDS: VANCOMYCIN 1.25 GM in IV NORMAL SALINE 250ML 250 ML IV SCH ×2 (11:16→11:29)
[2016-05-31] MEDS ORDERED: METF10002 PO (11:28)
--- NOTE | 2016-05-31 13:57 | PDOC3 ---
Discharge Summary [facility] Date of Admission: May 25, 2016 Discharge Date: May 31, 2016 Admitting Diagnosis 1. Metastatic colon CA with mets to lungs (for1 year post Chemo and RT before) s /p FOLFOX tx or still currently on chemo, last tx 2 weeks ago 2. Hx hypovolemic hypotension 3. Hx of hyponatremia was on HCTZ 2013 4. Mod PCM 5. Dysphagia, Left sided neck pain 6. AOCD 7. FAll risk , gen weakness 8. DM 2 , not home insulin 9 JOYA, vasomotor 10. R HILAR MASS mets 11. pancytopenia, 2/2 chemo 12. orthostatic hypotension Problems: Final Diagnosis Problems Medical Problems: (1) Cough Status: Acute (2) Elevated lactic acid level Status: Acute (3) Generalized weakness Status: Acute (4) SOB (shortness of breath) Status: Acute CONSULTS pulm onco Brief Hospital Course Mr. Perez is a 70 old M, with rectal Ca post sx and has colostomy, has lung mets for 2 years , got chemo and RT before. Comes for sob, no need o2. CT showed a 4cm rt lung Mass, likely mets. pt still feels mild sob while ambulation. PAT consulted, DNR now. pt wants to fu with onco for chemo. no bronchoscopy done + orthostatic hypotension, dc lisinopril, on cardizem and metoprolol for PAFIB pt wants to go home instead of rehab. hyperglycemia with prednisone here, dc it, increase metformin to 1000mg bid. dc time 40min. General: Alert, Oriented X3 Heart: Normal S1, Normal S2 Lungs: Other (decrease bs right) Abdomen: Normal bowel sounds, Soft Extremities: No clubbing, No cyanosis Skin: No rashes, No breakdown Patient History: Family history: Diabetes mellitus (situation) 32 MOTHER Family history: Hypertension (situation) G8 BROTHER 32 MOTHER Problems: Disposition home CONDITION AT DISCHARGE: Improved Diet regular Scheduled Aspirin (Aspir 81) 81 MG PO DAILY (Reported) Diltiazem Hcl (Cardizem Cd) Unknown Dose PO DAILY (Reported) Gabapentin (Gabapentin) Unknown Dose PO TID (Reported) Metformin Hcl (Metformin Hcl) 1,000 MG PO BIDWMEALS Metoprolol Tartrate (Metoprolol Tartrate) 100 MG PO BID (Reported) Ranitidine Hcl (Ranitidine Hcl) 150 MG PO BID (Reported) Terazosin Hcl (Terazosin Hcl) 5 MG PO DAILY (Reported) Discontinued Medications Amlodipine Besylate (Amlodipine Besylate) 5 MG PO DAILY (Reported) Metformin Hcl (Metformin Hcl) 1,000 MG PO DAILYWBKFT (Reported) Metformin Hcl (Metformin Hcl) 500 MG PO DAILYBFRSUP (Reported) Simvastatin (Simvastatin) 40 MG PO HS (Reported) Follow Up onco in 2 weeks ANTOINE HUITRON MD May 31, 2016 13:57
[2016-05-31 14:57] VITALS: BP 128/71
[2016-05-31] MEDS ORDERED: METFORMIN 1,000 MG TABLET PO SCH (17:00)
[2016-05-31] MEDS: LEVOFLOXACIN 500 MG TABLET PO SCH (17:05)
[2016-05-31] MEDS: VANCOMYCIN PER PHARMACY MC PRN (18:11)
== END 2016-05-31 17:58 | disposition home or self-care (01) | DRG 180 ==
LOC: ER 16:04 → 5 SOUTH 20:33
PROVIDERS: ADMIT Internal Medicine; ATTEND Internal Medicine
DX: C78.00 Secondary malignant neoplasm of unspecified lung (principal); N17.0 Acute kidney failure with tubular necrosis; D61.810 Antineoplastic chemotherapy induced pancytopenia; J98.11 Atelectasis; E44.0 Moderate protein-calorie malnutrition; C19 Malignant neoplasm of rectosigmoid junction; E87.2 Acidosis; N17.9 Acute kidney failure, unspecified; R06.02 Shortness of breath; D63.8 Anemia in other chronic diseases classified elsewhere; E11.22 Type 2 diabetes mellitus with diabetic chronic kidney disease; E11.65 Type 2 diabetes mellitus with hyperglycemia; I12.9 Hypertensive chronic kidney disease with stage 1 through stage 4 chronic kidney disease, or unspecified chronic kidney disease; I25.10 Atherosclerotic heart disease of native coronary artery without angina pectoris; I95.1 Orthostatic hypotension; J47.9 Bronchiectasis, uncomplicated; K21.9 Gastro-esophageal reflux disease without esophagitis; K76.0 Fatty (change of) liver, not elsewhere classified; N18.3 Chronic kidney disease, stage 3 (moderate); K80.20 Calculus of gallbladder without cholecystitis without obstruction; N40.0 Benign prostatic hyperplasia without lower urinary tract symptoms; F32.9 Major depressive disorder, single episode, unspecified; Z66 Do not resuscitate; R13.10 Dysphagia, unspecified; T45.1X5A Adverse effect of antineoplastic and immunosuppressive drugs, initial encounter; Z00.6 Encounter for examination for normal comparison and control in clinical research program; Z82.49 Family history of ischemic heart disease and other diseases of the circulatory system; Z83.3 Family history of diabetes mellitus; Z85.048 Personal history of other malignant neoplasm of rectum, rectosigmoid junction, and anus; Z91.81 History of falling; Z92.3 Personal history of irradiation; Z93.3 Colostomy status; Z79.899 Other long term (current) drug therapy; Z88.0 Allergy status to penicillin; Z91.041 Radiographic dye allergy status
CPT/HCPCS: 36415; 70490; 71010; 71250; 80048; 80053; 80202; 81001; 82947; 83036; 83605; 84484; 85007; 85027; 85610; 87040; 87804; 93005; 96361; 96365; J1335; J1815; J1956; J3370; J3490; J7030; J7040; J7050; J7512; 97110; 97116; 97530; 97535; 99285-25

== ENCOUNTER 2016-06-05 13:05 | Emergency (ER) | payer MEDICARE ==
[~2016-06-05] VITALS: Ht 170.2 cm; Wt 79.4 kg
[~2016-06-05 13:05] MED LIST changes: +METF10002 PO
[2016-06-05] MEDS ORDERED: LIDOCAINE 2% JELLY 6ML IN APPLICATOR. MM ONE (14:15)
[2016-06-05] MEDS: FENTANYL PF 100 MCG/2 ML VIAL. IV PRN ×3 (14:18→15:26)
[2016-06-05 14:40] VITALS: BP 135/85
[2016-06-05 14:45] LABS: CALCIUM 8.8 mg/dL (8.5-10.1); CREATININE 1.4 mg/dL (0.7-1.3); GFR 60.8; POTASSIUM 3.4 mmol/L (3.5-5.1)
[2016-06-05 14:51] LABS: TOTAL BILIRUBIN 0.5 mg/dL (0.2-1.0)
[2016-06-05 15:10] LABS: BILIRUBIN,URINE NEGATIVE (NEG); GLUCOSE,URINE >=1000 mg/dL (NEG); NITRITE,URINE NEGATIVE (NEG); PROTEIN,URINE NEGATIVE (NEG-TRACE); UROBILINOGEN,URINE 0.2 mg/dL (0.2 mg/dL)
[2016-06-05 15:19] LABS: BASO % 1 % (0-3); EOS % 1 % (0-3); HEMATOCRIT 34.3 % (39.0-53.0); HEMOGLOBIN 11.3 g/dL (13.0-17.5); LYMPH # 0.9 x10^3/uL (1.0-4.8); LYMPH % 17 % (24-48); MEAN CORPUSCULAR HEMOGLOBIN 31 pg (25-35); MEAN CORPUSCULAR HGB CONC 33 g/dL (31-37); MEAN CORPUSCULAR VOLUME 94 fL (79-100); MONO % 14 % (0-9); NEUT % 67 % (31-73); PLATELET COUNT 114 x10^3/uL (140-400); RED BLOOD COUNT 3.67 x10^6/uL (4.30-5.70); RED CELL DISTRIBUTION WIDTH 19.4 % (11.5-14.5); WHITE BLOOD COUNT 5.1 x10^3/uL (4.0-11.0)
[2016-06-05 15:22] LABS: BACTERIA,URINE 0 /HPF (0-FEW); RBC,URINE 0 /HPF (0-2); SQUAMOUS EPITHELIAL CELL,UR FEW /LPF
--- NOTE | 2016-06-05 19:59 | ED.ADGEN ---
Past Medical History Past Medical History: Cancer, Diabetes-Type II, Hypertension, Other Additional Past Medical Histor: NEUROPATHY,COLON/RECTAL CA TREATED W/ CHEMO & RADIATION Past Surgical History: Other Additional Past Surgical Histo: L SHOULDER,COLOSTOMY/ RECTUM REMOVED; port Alcohol Use: None Drug Use: None Adult General Chief Complaint Chief Complaint: GROIN PAIN HPI HPI Patient is a 70 year old man, with history of colon cancer currently undergoing chemotherapy with FOLFOX, type 2 diabetes mellitus, hypertension, who presents to the emergency department with complaint of penile pain and swelling for the past 3 days. Patient states that he first noted some irritation along the anterior aspect of his scrotum, and then noted swelling at the head of the penis, and noted that he was then unable to retract his foreskin. He has noted some mild bleeding from the area, denies any drainage, states that he's had some pain with urination but no difficulty with urination. Denies any abdominal pain, any fevers or chills, any nausea or vomiting. States that his sugars have been running well at home. No injuries. No chest pain or shortness of breath, no fevers or chills. No similar symptoms previously. Review of Systems Review of Systems Constitutional: Denies fever or chills. [] Eyes: Denies change in visual acuity. [] HENT: Denies nasal congestion or sore throat. [] Respiratory: Denies cough or shortness of breath. [] Cardiovascular: Denies chest pain or edema. [] GI: Denies abdominal pain, nausea, vomiting, bloody stools or diarrhea. [] : Denies dysuria. Penile pain and swelling. Scrotal pain. Musculoskeletal: Denies back pain or joint pain. [] Integument: Denies rash. [] Neurologic: Denies headache, focal weakness or sensory changes. [] Endocrine: Denies polyuria or polydipsia. [] Lymphatic: Denies swollen glands. [] Psychiatric: Denies depression or anxiety. [] Current Medications Current Medications Current Medications Medications (Trade) Dose Ordered Sig/Latonya Start Time Stop Time Status Last Admin Dose Admin Fentanyl Citrate (Fentanyl 2ml Vial) 50 mcg PRN Q15MIN PRN 06/05/16 14:15 06/05/16 17:33 DC 06/05/16 15:26 50 MCG Lidocaine HCl (Glydo (Lidocaine) Jelly) 1 edgar 1X ONCE 06/05/16 14:15 06/05/16 14:16 DC Allergies Allergies Allergies Coded Allergies Type Severity Reaction Last Updated Verified Penicillins Allergy Intermediate 02/04/14 Yes iodine Allergy Intermediate 02/04/14 Yes Physical Exam Physical Exam Constitutional: Well developed, well nourished, no acute distress, non-toxic appearance. [] HENT: Normocephalic, atraumatic, bilateral external ears normal, oropharynx moist, no oral exudates, nose normal. [] Eyes: PERRLA, EOMI, conjunctiva normal, no discharge. [] Neck: Normal range of motion, no tenderness, supple, no stridor. [] Cardiovascular:Heart rate regular rhythm, no murmur S1, S2, no rubs or gallops. [] Lungs & Thorax: Bilateral breath sounds clear to auscultation, no wheezing, rhonchi, rales. No chest tenderness or crepitus. Abdomen: Bowel sounds normal, soft, no tenderness, she with surgical incision, and large ventral hernia, colostomy with bag in place, with liquid brown stool, no masses, no pulsatile masses. Skin: Warm, dry, no erythema, no rash. [] Back: No tenderness, no CVA tenderness. [] Extremities: No tenderness, no cyanosis, no clubbing, ROM intact, no edema. [] Neurologic: Alert and oriented X 3, normal motor function, normal sensory function, no focal deficits noted. [] Psychologic: Affect normal, judgement normal, mood normal. examination: Patient is uncircumcised, patient with beefy, red, significant swollen glands penis, with paraphimosis, no discharge or drainage from the urethra, drainage noted on the scrotum which is also mildly erythematous, there is no crepitus, no evidence of necrosis, entire area is exquisitely tender to touch. Current Patient Data Vital Signs Vital Signs Date Time Temp Pulse Resp B/P Pulse Ox O2 Delivery O2 Flow Rate FiO2 06/05/16 15:26 97 Room Air 06/05/16 14:40 89 135/85 06/05/16 13:09 97.1 18 97.1 Lab Values Laboratory Tests Test 06/05/16 13:20 06/05/16 14:35 White Blood Count 5.1x10^3/uL (4.0-11.0) Red Blood Count 3.67x10^6/uL (4.30-5.70) L Hemoglobin 11.3g/dL (13.0-17.5) L Hematocrit 34.3% (39.0-53.0) L Mean Corpuscular Volume 94fL (79-100) Mean Corpuscular Hemoglobin 31pg (25-35) Mean Corpuscular Hemoglobin Concent 33g/dL (31-37) Red Cell Distribution Width 19.4% (11.5-14.5) H Platelet Count 114x10^3/uL (140-400) L Neutrophils (%) (Auto) 67% (31-73) Lymphocytes (%) (Auto) 17% (24-48) L Monocytes (%) (Auto) 14% (0-9) H Eosinophils (%) (Auto) 1% (0-3) Basophils (%) (Auto) 1% (0-3) Neutrophils # (Auto) 3.4x10^3uL (1.8-7.7) Lymphocytes # (Auto) 0.9x10^3/uL (1.0-4.8) L Monocytes # (Auto) 0.7x10^3/uL (0.0-1.1) Eosinophils # (Auto) 0.0x10^3/uL (0.0-0.7) Basophils # (Auto) 0.0x10^3/uL (0.0-0.2) Sodium Level 137mmol/L (136-145) Potassium Level 3.4mmol/L (3.5-5.1) L Chloride Level 100mmol/L (98-107) Carbon Dioxide Level 27mmol/L (21-32) Anion Gap 10 (6-14) Blood Urea Nitrogen 12mg/dL (8-26) Creatinine 1.4mg/dL (0.7-1.3) H Estimated GFR (Cockcroft-Gault) 60.8 BUN/Creatinine Ratio 9 (6-20) Glucose Level 343mg/dL (70-99) H Calcium Level 8.8mg/dL (8.5-10.1) Total Bilirubin 0.5mg/dL (0.2-1.0) Aspartate Amino Transferase (AST) 17U/L (15-37) Alanine Aminotransferase (ALT) 31U/L (16-63) Alkaline Phosphatase 102U/L (46-116) Total Protein 6.0g/dL (6.4-8.2) L Albumin 3.0g/dL (3.4-5.0) L Albumin/Globulin Ratio 1.0 (1.0-1.7) Urine Collection Type Unknown Urine Color Yellow Urine Clarity Clear Urine pH 6.0 Urine Specific [place] >=1.030 Urine Protein Negativemg/dL (NEG-TRACE) Urine Glucose (UA) >=1000mg/dL (NEG) Urine Ketones (Stick) Negativemg/dL (NEG) Urine Blood Trace (NEG) Urine Nitrite Negative (NEG) Urine Bilirubin Negative (NEG) Urine Urobilinogen Dipstick 0.2mg/dL (0.2 mg/dL) Urine Leukocyte Esterase Negative (NEG) Urine RBC 0/HPF (0-2) Urine WBC 1-4/HPF (0-4) Urine Squamous Epithelial Cells Few/LPF Urine Bacteria 0/HPF (0-FEW) Laboratory Tests 06/05/16 13:20 Laboratory Tests 06/05/16 13:20 EKG EKG ECG: Rhythm strip: Sinus rhythm, heart rate 90 beats minute, no ectopy. As interpreted by me. [] Radiology/Procedures Radiology/Procedures Not indicated. [] Course & Med Decision Making Course & Med Decision Making Pertinent Labs and Imaging studies reviewed. (See chart for details) Patient with paraphimosis on examination, no evidence of necrosis, but area is extremely red, swollen, with concern for cellulitis of the scrotum and glans penis. No evidence of 4 years gangrene and examination at this time. Urology coverage is not available at [facility] today, therefore I spoke with Dr. Sheriff of urology at . Discussed patients stated medical history, including history of diabetes mellitus, and current chemotherapy for colon cancer, patient's vital signs are stable are his ED course at this point, he is afebrile, he has received pain medication with some improvement of his symptoms although he remains uncomfortable in the emergency department. Dr. Sheriff requests the patient be transferred ED to ED for urology evaluation, for reduction of the paraphimosis, no indication for initiation of antibiotics or other treatment aside from supportive measures at this time, will hold off on antibiotics until he is evaluated by urology. Patient is a ptosis noted on laboratory studies, with no significant lateral abnormalities or other concerning findings. Patient agreeable with plan for transport, consent for transfer obtained from patient, patient received several additional doses of fentanyl in the emergency department, was transferred via EMS without issue for urology evaluation in the emergency department. Dragon Disclaimer Dragon Disclaimer This electronic medical record was generated, in whole or in part, using a voice recognition dictation system. Departure Impression: Primary Impression: Paraphimosis Disposition: 05 TRANSFER OTHER Condition: IMPROVED MERCEDEZ JACOBS DO Jun 05, 2016 19:59
== END 2016-06-05 15:45 | disposition short-term general hospital (02) ==
LOC: ER 13:05
DX: N47.2 Paraphimosis (principal); E11.40 Type 2 diabetes mellitus with diabetic neuropathy, unspecified; I10 Essential (primary) hypertension; C18.9 Malignant neoplasm of colon, unspecified; Z91.041 Radiographic dye allergy status; Z88.0 Allergy status to penicillin; Z51.11 Encounter for antineoplastic chemotherapy
CPT/HCPCS: 36415; 80053; 81001; 85027; 96374; 96376; 99285; J3010

== ENCOUNTER 2016-07-24 08:49 | Emergency (ER) | payer BC, MEDICARE ==
[~2016-07-24] VITALS: Ht 177.8 cm; Wt 83.0 kg
[~2016-07-24 08:49] MED LIST changes: +METF-620 PO; -METF10002 PO
[2016-07-24 08:56] VITALS: BP 146/86
--- NOTE | 2016-07-24 09:22 | PHYS DOC ---
Past Medical History Past Medical History: Cancer, Diabetes-Type II, Hypertension, Other Additional Past Medical Histor: NEUROPATHY,COLON/RECTAL CA TREATED W/ CHEMO & RADIATION Past Surgical History: Other Additional Past Surgical Histo: L SHOULDER,COLOSTOMY/ RECTUM REMOVED; PORT-A- CATH X 2,1 REMOVED Alcohol Use: None Drug Use: None Adult General Chief Complaint Chief Complaint: TONGUE SWELLING/INJURY [facility] HPI Patient is a 71 year old male, with a history diabetes and colorectal cancer under chemotherapy and radiation therapy, comes emergency room today with complaint of sores in mouth and white plaque-like substance on the surface of the tongue that is been ongoing for approximately 2-3 days. Patient denies ingestion of anything hot that would be an inciting injury. He reports that he is able to swallow and control his secretions. He is not under any radiation therapy to his mouth or neck. Patient states his last chemotherapy was last week. He denies any vomiting, fevers, chills, myalgias or arthralgias. He states that he has no other concerns at this time. Review of Systems Review of Systems Constitutional: Denies fever or chills [] Eyes: Denies change in visual acuity, redness, or eye pain [] HENT: Denies nasal congestion or sore throat [] Respiratory: Denies cough or shortness of breath [] Cardiovascular: No additional information not addressed in HPI [] GI: Denies abdominal pain, nausea, vomiting, bloody stools or diarrhea [] : Denies dysuria or hematuria [] Musculoskeletal: Denies back pain or joint pain [] Integument: Denies rash or skin lesions [] Neurologic: Denies headache, focal weakness or sensory changes [] Endocrine: Denies polyuria or polydipsia [] Allergies Allergies Allergies Coded Allergies Type Severity Reaction Last Updated Verified Penicillins Allergy Intermediate 02/04/14 Yes iodine Allergy Intermediate 02/04/14 Yes Physical Exam Physical Exam Constitutional: Well developed, well nourished, no acute distress, non-toxic appearance. [] HENT: Normocephalic, atraumatic, bilateral external ears normal, oropharynx moist, no oral exudates, nose normal. There is no trismus or hot potato speech. Patient has numerous apples ulcers to the surface of his tongue and buccal mucosa bilaterally. He also has an adherent white plicae substance on the surface of his tongue and scattered within the buccal cavity bilaterally consistent with thrush. Posterior oropharynx is normal in appearance without halo lesions or apples ulcers. Eyes: PERRLA, EOMI, conjunctiva normal, no discharge. [] Neck: Normal range of motion, no tenderness, supple, no stridor. There is no meningismus. There is bilateral anterior and posterior cervical lymphadenopathy. Cardiovascular:Heart rate regular rhythm, no murmur [] Lungs & Thorax: Bilateral breath sounds clear to auscultation [] Abdomen: Bowel sounds normal, soft, no tenderness, no masses, no pulsatile masses. [] Skin: Warm, dry, no erythema, no rash. [] Back: No tenderness, no CVA tenderness. [] Extremities: No tenderness, no cyanosis, no clubbing, ROM intact, no edema. [] Neurologic: Alert and oriented X 3, normal motor function, normal sensory function, no focal deficits noted. [] Psychologic: Affect normal, judgement normal, mood normal. [] Current Patient Data Vital Signs Vital Signs Date Time Temp Pulse Resp B/P Pulse Ox O2 Delivery O2 Flow Rate FiO2 07/24/16 08:56 98.8 97 20 146/86 94 Room Air 98.8 EKG EKG [] Radiology/Procedures Radiology/Procedures [] Course & Med Decision Making Course & Med Decision Making Case was staffed with Dr. Jade's nurse practitioner. They will follow up in the office next week. He will be prescribed Diflucan for a single dose and a repeat dose in one week. He'll also be prescribed Magic mouthwash for the discomfort. Dragon Disclaimer Dragon Disclaimer This electronic medical record was generated, in whole or in part, using a voice recognition dictation system. Departure Departure Impression: Primary Impression: Thrush Additional Impression: Aphthous stomatitis Disposition: 01 HOME, SELF-CARE Condition: GOOD Referrals: BAILEY CARRANZA Jr, MD (PCP) WALTER JADE MD Patient Instructions: Primary Herpetic Gingivostomatitis, Thrush, Adult, Easy- to-Read Additional Instructions: 1. Take the medication as prescribed. 2. When using the medication mouthwash, be sure not to swallow it. 3. Review the discharge instructions provided for self-care and reasons to return to the emergency department. 4. Follow-up with Dr. Jade's office as planned. Scripts Fluconazole (Diflucan)150 Mg Tablet1 Tab PO ONCE #2 TAB Ref 1 Take 1 tablet now and repeat with another tablet in 3 days. Prov:AGNIESZKA MENDEZ 07/24/16 Problem Qualifiers AGNIESZKA MENDEZ July 24, 2016 09:21
[2016-07-24] MEDS ORDERED: FLUC150T PO (10:14)
== END 2016-07-24 10:29 | disposition home or self-care (01) ==
LOC: ER 08:49
DX: B37.9 Candidiasis, unspecified (principal); K12.0 Recurrent oral aphthae; I10 Essential (primary) hypertension; E11.40 Type 2 diabetes mellitus with diabetic neuropathy, unspecified; Z93.3 Colostomy status; Z90.49 Acquired absence of other specified parts of digestive tract; Z91.041 Radiographic dye allergy status
CPT/HCPCS: 99284

== ENCOUNTER 2016-10-15 10:31 | Inpatient (IN) | payer BC ==
[~2016-10-15] VITALS: Ht 177.8 cm; Wt 83.5 kg
[~2016-10-15 10:31] MED LIST changes: +FLUC150T PO
[2016-10-15 11:16] LABS: BASO % 1 % (0-3); EOS % 1 % (0-3); HEMATOCRIT 32.7 % (39.0-53.0); HEMOGLOBIN 11.2 g/dL (13.0-17.5); LYMPH # 0.8 x10^3/uL (1.0-4.8); LYMPH % 21 % (24-48); MEAN CORPUSCULAR HEMOGLOBIN 29 pg (25-35); MEAN CORPUSCULAR HGB CONC 34 g/dL (31-37); MEAN CORPUSCULAR VOLUME 84 fL (79-100); MONO % 8 % (0-9); NEUT % 69 % (31-73); PLATELET COUNT 109 x10^3/uL (140-400); RED CELL DISTRIBUTION WIDTH 16.7 % (11.5-14.5); WHITE BLOOD COUNT 3.6 x10^3/uL (4.0-11.0)
--- NOTE | 2016-10-15 11:27 | PHYS DOC ---
Past Medical History Past Medical History: Cancer, Diabetes-Type II, Hypertension, Other Additional Past Medical Histor: NEUROPATHY,COLON/RECTAL CA TREATED W/ CHEMO & RADIATION Past Surgical History: Other Additional Past Surgical Histo: L SHOULDER,COLOSTOMY/ RECTUM REMOVED; PORT-A- CATH X 2,1 REMOVED Alcohol Use: None Drug Use: None Adult General Chief Complaint Chief Complaint: WEAKNESS/GENERALIZED HPI HPI Patient is a 71 year old male who presents with numbness and tingling to his tongue and left arm that started this morning upon arrival waking up. Patient states his last known well was last night. Patient denies any chest pain or shortness of breath. Patient states his symptoms have improved since coming to the emergency room. Patient is currently undergoing chemotherapy for colon cancer with metastases. Patient denies any fevers. Patient denies any nausea/ vomiting/diarrhea. Patient has no other complaints. Review of Systems Review of Systems GEN: Paresthesia is to the tongue and left arm HEENT: Denies blurred vision, sore throat CV: Denies chest pain RESP: Denies shortness of air, cough GI: Denies n/v/d NEURO: Denies confusion, dizziness MSK: Denies weakness, joint pain/swelling Allergies Allergies Allergies Coded Allergies Type Severity Reaction Last Updated Verified Penicillins Allergy Intermediate 02/04/14 Yes iodine Allergy Intermediate 02/04/14 Yes Physical Exam Physical Exam GEN.: No apparent distress. Alert and oriented. HEENT: Head is normocephalic, atraumatic NECK: Supple. LUNGS: CTAB. HEART: RRR, S1, S2 present. Peripheral pulses intact ABDOMEN: Soft, nontender. Positive bowel sounds. EXTREMITIES: Without any cyanosis. NEUROLOGIC: Normal speech, normal tone, no noticeable decrease sensations on the left side of the body, cranial nerves II through XII are grossly intact without focal neurological deficits PSYCHIATRIC: Normal affect, normal mood. SKIN: No ulcerations Current Patient Data Vital Signs Vital Signs Date Time Temp Pulse Resp B/P (MAP) Pulse Ox O2 Delivery O2 Flow Rate FiO2 10/15/16 12:50 79 18 159/93 (115) 94 Room Air 10/15/16 10:42 98.9 98.9 Lab Values Laboratory Tests Test 10/15/16 10:40 10/15/16 11:30 White Blood Count 3.6 x10^3/uL (4.0-11.0) L Red Blood Count 3.90 x10^6/uL (4.30-5.70) L Hemoglobin 11.2 g/dL (13.0-17.5) L Hematocrit 32.7 % (39.0-53.0) L Mean Corpuscular Volume 84 fL (79-100) Mean Corpuscular Hemoglobin 29 pg (25-35) Mean Corpuscular Hemoglobin Concent 34 g/dL (31-37) Red Cell Distribution Width 16.7 % (11.5-14.5) H Platelet Count 109 x10^3/uL (140-400) L Neutrophils (%) (Auto) 69 % (31-73) Lymphocytes (%) (Auto) 21 % (24-48) L Monocytes (%) (Auto) 8 % (0-9) Eosinophils (%) (Auto) 1 % (0-3) Basophils (%) (Auto) 1 % (0-3) Neutrophils # (Auto) 2.5 x10^3uL (1.8-7.7) Lymphocytes # (Auto) 0.8 x10^3/uL (1.0-4.8) L Monocytes # (Auto) 0.3 x10^3/uL (0.0-1.1) Eosinophils # (Auto) 0.0 x10^3/uL (0.0-0.7) Basophils # (Auto) 0.0 x10^3/uL (0.0-0.2) Sodium Level 137 mmol/L (136-145) Potassium Level 2.9 mmol/L (3.5-5.1) *L Chloride Level 98 mmol/L (98-107) Carbon Dioxide Level 31 mmol/L (21-32) Anion Gap 8 (6-14) Blood Urea Nitrogen 6 mg/dL (8-26) L Creatinine 1.2 mg/dL (0.7-1.3) Estimated GFR (Cockcroft-Gault) 72.4 BUN/Creatinine Ratio 5 (6-20) L Glucose Level 248 mg/dL (70-99) H Calcium Level 8.5 mg/dL (8.5-10.1) Total Bilirubin 0.5 mg/dL (0.2-1.0) Aspartate Amino Transferase (AST) 14 U/L (15-37) L Alanine Aminotransferase (ALT) 18 U/L (16-63) Alkaline Phosphatase 100 U/L (46-116) Troponin I Quantitative < 0.017 ng/mL (0.000-0.055) Total Protein 6.4 g/dL (6.4-8.2) Albumin 3.1 g/dL (3.4-5.0) L Albumin/Globulin Ratio 0.9 (1.0-1.7) L Urine Collection Type Void Urine Color Yellow Urine Clarity Clear Urine pH 7.5 Urine Specific [place] <=1.005 Urine Protein Negative mg/dL (NEG-TRACE) Urine Glucose (UA) 100 mg/dL (NEG) Urine Ketones (Stick) Negative mg/dL (NEG) Urine Blood Negative (NEG) Urine Nitrite Negative (NEG) Urine Bilirubin Negative (NEG) Urine Urobilinogen Dipstick 1.0 mg/dL (0.2 mg/dL) Urine Leukocyte Esterase Negative (NEG) Urine RBC 0 /HPF (0-2) Urine WBC Occ /HPF (0-4) Urine Squamous Epithelial Cells Occ /LPF Urine Bacteria 0 /HPF (0-FEW) Laboratory Tests 10/15/16 10:40 Laboratory Tests 10/15/16 10:40 EKG EKG 1113: Normal sinus rhythm rate of 85 no STEMI [] Radiology/Procedures Radiology/Procedures CT HEAD WITHOUT CONTRAST10/15/2016 1:05 PM Indication: paresthesias Comparison: CT of the head without contrast May 27, 2006. Procedure: Multidetector CT imaging of the head was performed without the administration of contrast. Findings: There is no evidence of acute intracranial hemorrhage. No evidence of acute mass effect or midline shift is identified. The ventricles and basilar cisterns are grossly unremarkable. No acute abnormal extra-axial fluid collections are identified. No definitive evidence of interval territorial infarct is identified. However in the interval since prior exam from May 2006, there has been development of a focal area of hypoattenuation in left frontal, periventricular white matter. The appearance most likely represents progressive changes of chronic small vessel disease. Subacute lacunar infarct is felt to be less likely. Given history of malignancy, metastasis is difficult to completely exclude, but also felt to be less likely. If concern persists follow-up MRI of the brain with and without contrast is recommended for further evaluation. No acute osseous abnormalities are identified. Impression: 1. No evidence of acute intracranial hemorrhage 2. Interval development of area of hypoattenuation in left frontal periventricular white matter. Favor progression of chronic small vessel disease. Metastasis is considered less likely but is difficult to completely exclude given history of primary malignancy. If clinical concern persists follow-up MRI of the brain with and without contrast recommended. PQRS Compliance Statement: One or more of the following individualized dose reduction techniques were utilized for this examination: 1. Automated exposure control 2. Adjustment of the mA and/or kV according to patient size 3. Use of iterative reconstruction technique [] Course & Med Decision Making Course & Med Decision Making Pertinent Labs and Imaging studies reviewed. (See chart for details) Patient was seen and evaluated emergency room CBC, CMP, CT scan of the head was ordered 1220: Discussed results with the patient and CT findings for possible metastasis which she was unaware of. Patient's paresthesias have improved and no new symptoms have arise, blood pressure 170/90 1225: Paged Dr. Wyatt 1245: Paged Dr. Thomas 1300: Discussed CC/HP/PMH with Dr. Thomas and recommends admit MDM: After reviewing the chart, CC/HPI/PMH, physical exam, [lab results], [ radiological results], I do not believe the patient have an acute CVA needing TPA however given the patient's neurological symptoms and possible finding of metastasis to the brain from his colon cancer we'll make the patient for further evaluation and management. [] Dragon Disclaimer Dragon Disclaimer This electronic medical record was generated, in whole or in part, using a voice recognition dictation system. Departure Departure Impression: Primary Impression: Paresthesias Additional Impression: Brain metastases Disposition: ADMITTED INPATIENT Admitting Physician: Josefina Thomas Condition: IMPROVED Referrals: BAILEY CARRANZA Jr, MD (PCP) Problem Qualifiers ALISON RAWLS DO Oct 15, 2016 11:27
--- NOTE | 2016-10-15 11:47 | EKG ---
[facility] [address] [place] [address] Test Date: 2016-10-15 Test Time: 11:09:27 Pat Name: RONNIE KENNEDY Department: Room: Gender: M Toe Former: : 1945 Requested By: ALISON RAWLS Order Number: [id number] Reading MD: Jose Kolb Measurements Intervals [place] Rate: 85 P: 22 MA: 180 QRS: -16 QRSD: 86 T: -4 QT: 394 QTc: 475 Interpretive Statements SINUS RHYTHM LEFTWARD AXIS QRS(T) CONTOUR ABNORMALITY CONSIDER ANTEROSEPTAL MYOCARDIAL DAMAGE PROLONGED QT Electronically Signed On 10-21-2016 14:57:34 CDT by Jose Kolb
[2016-10-15 11:50] LABS: ALBUMIN 3.1 g/dL (3.4-5.0); ALBUMIN/GLOBULIN RATIO 0.9 (1.0-1.7); CALCIUM 8.5 mg/dL (8.5-10.1); CREATININE 1.2 mg/dL (0.7-1.3); GFR 72.4; TOTAL BILIRUBIN 0.5 mg/dL (0.2-1.0); TOTAL PROTEIN 6.4 g/dL (6.4-8.2)
[2016-10-15 11:53] LABS: POTASSIUM 2.9 mmol/L (3.5-5.1)
[2016-10-15 11:55] LABS: BILIRUBIN,URINE NEGATIVE (NEG); GLUCOSE,URINE 100 mg/dL (NEG); NITRITE,URINE NEGATIVE (NEG); PH,URINE 7.5; PROTEIN,URINE NEGATIVE (NEG-TRACE)
--- NOTE | 2016-10-15 12:03 | RAD ---
CT HEAD WITHOUT CONTRAST10/15/2016 1:05 PM Indication: paresthesias Comparison: CT of the head without contrast May 27, 2006. Procedure: Multidetector CT imaging of the head was performed without the administration of contrast. Findings: There is no evidence of acute intracranial hemorrhage. No evidence of acute mass effect or midline shift is identified. The ventricles and basilar cisterns are grossly unremarkable. No acute abnormal extra-axial fluid collections are identified. No definitive evidence of interval territorial infarct is identified. However in the interval since prior exam from May 2006, there has been development of a focal area of hypoattenuation in left frontal, periventricular white matter. The appearance most likely represents progressive changes of chronic small vessel disease. Subacute lacunar infarct is felt to be less likely. Given history of malignancy, metastasis is difficult to completely exclude, but also felt to be less likely. If concern persists follow-up MRI of the brain with and without contrast is recommended for further evaluation. No acute osseous abnormalities are identified. Impression: 1. No evidence of acute intracranial hemorrhage 2. Interval development of area of hypoattenuation in left frontal periventricular white matter. Favor progression of chronic small vessel disease. Metastasis is considered less likely but is difficult to completely exclude given history of primary malignancy. If clinical concern persists follow-up MRI of the brain with and without contrast recommended. PQRS Compliance Statement: One or more of the following individualized dose reduction techniques were utilized for this examination: 1. Automated exposure control 2. Adjustment of the mA and/or kV according to patient size 3. Use of iterative reconstruction technique
[2016-10-15 12:04] LABS: BACTERIA,URINE 0 /HPF (0-FEW); RBC,URINE 0 /HPF (0-2); SQUAMOUS EPITHELIAL CELL,UR OCC /LPF; WBC,URINE OCC /HPF (0-4)
[2016-10-15] MEDS ORDERED: ONDANSETRON PF 4 MG/2 ML VIAL. IV PRN (13:30)
[2016-10-15] MEDS ORDERED: MORPHINE SULFATE 4 MG/ML DISP.SYRIN. IV PRN (13:30)
[2016-10-15] MEDS ORDERED: POTASSIUM CL 20MEQ D5-0.2%NACL 1,000 ML IV ONE (14:00)
[2016-10-15 14:54] VITALS: BP 171/94
[2016-10-15] MEDS ORDERED: LOSA100T6 PO (15:01)
[2016-10-15] MEDS ORDERED: GABA300C8 PO (15:01)
[2016-10-15] MEDS ORDERED: METO100T11 PO (15:01)
[2016-10-15] MEDS ORDERED: DILT240C4 PO (15:01)
[2016-10-15] MEDS ORDERED: METF500T4 PO ×2 (15:01)
[2016-10-15 15:02] VITALS: BP 171/94
[2016-10-15] MEDS ORDERED: ASPIRIN ENTERIC COATED 81 MG TABLET.DR. PO SCH (16:00)
[2016-10-15] MEDS ORDERED: DEXTROSE 50% 25 GM / 50ML DISP.SYRIN. IV PRN (16:15)
--- NOTE | 2016-10-15 16:20 | PDOC1 ---
History and Physical Date of Admission Date of Admission DATE: 10/15/16 TIME: 16:15 Identification/Chief Complaint Chief Complaint arm tingling, left Problems: Source Source: Chart review, Patient History of Present Illness History of Present Illness Mr. Perez, is a 71 year old male who presents with numbness and tingling to his tongue and left arm. New symptoms just this AM. He has had some prior right arm and hand similar symptoms from his chemotherapy related to his colon cancer. He had left had weakness with the tingling and numbness that seems better this afternoon. CT head showed concerning lesion, but has a history of CVA from about 10 years ago without residual He is retired from . Past Medical History Cardiovascular: HTN GI: Other Heme/Onc: Cancer (stage 4 colon to lung), Other Psych: Depression Musculoskeletal: Weakness Renal/: Chronic renal insuff Endocrine: Diabetes Past Surgical History Past Surgical History: Colon Resection Family History Family History: No Significant Social History Smoke: No ALCOHOL: none Drugs: None Current Problem List Problem List Problems Medical Problems: (1) Brain metastases Status: Acute (2) Paresthesias Status: Acute Problems: Current Medications Current Medications Current Medications Ondansetron HCl (Zofran) 4 mg PRN Q8HRS PRN IV NAUSEA/VOMITING; Start 10/15/16 at 13:30; Stop 10/16/16 at 13:29 Morphine Sulfate 4 mg PRN Q2HR PRN IV PAIN; Start 10/15/16 at 13:30; Stop 10/16 at 13:29 Potassium Chloride/Dextrose/ Sod Cl 1,000 ml @ 75 mls/hr 1X ONCE IV Last administered on 10/15/16t 13:47; Start 10/15/16 at 14:00; Stop 10/16/16 at 03:19 Aspirin (Ecotrin) 81 mg DAILY PO ; Start 10/15/16 at 16:00 Gabapentin (Neurontin) 300 mg TID PO ; Start 10/15/16 at 16:00 Metformin HCl (Glucophage) 1,000 mg DAILYWBKFT PO ; Start 10/16/16 at 08:00 Metformin HCl (Glucophage) 500 mg DAILYBFRSUP PO ; Start 10/15/16 at 17:00 Metoprolol Succinate (Toprol Xl) 100 mg DAILY PO ; Start 10/15/16 at 16:00 Terazosin HCl (Hytrin) 5 mg DAILY PO ; Start 10/15/16 at 16:00 Diltiazem HCl (Cardizem 24hr Cd) 240 mg DAILY PO ; Start 10/15/16 at 16:00 Losartan Potassium (Cozaar) 50 mg BID PO ; Start 10/15/16 at 21:00 Famotidine (Pepcid) 20 mg BID PO ; Start 10/15/16 at 21:00 Active Scripts Active Reported Metformin Hcl 500 Mg Tablet 500 Mg PO DAILYBFRSUP Losartan Potassium 100 Mg Tablet 50 Mg PO BID Metformin Hcl 500 Mg Tablet 1,000 Mg PO DAILYWBKFT Gabapentin 300 Mg Capsule 300 Mg PO TID Metoprolol Succinate ( Xl ) (Metoprolol Succinate) 100 Mg Tab.er.24h 100 Mg PO DAILY Diltiazem Xt (Diltiazem Hcl) 240 Mg Capsule.er 240 Mg PO DAILY Terazosin Hcl 5 Mg Capsule 5 Mg PO DAILY Aspir 81 (Aspirin) 81 Mg Tablet.dr 81 Mg PO DAILY Ranitidine Hcl 150 Mg Tablet 150 Mg PO BID Allergies Allergies: Coded Allergies: Penicillins (Verified Allergy, Intermediate, 02/04/14) iodine (Verified Allergy, Intermediate, 02/04/14) ROS General: No: Chills, Night Sweats, Fatigue, Malaise, Appetite, Other PSYCHOLOGICAL ROS: No: Anxiety, Behavioral Disorder, Concentration difficultie , Decreased libido, Depression, Disorientation, Hallucinations, Hostility, Irritablity, Memory difficulties, Mood Swings, Obsessive thoughts, Physical abuse, Sexual abuse, Sleep disturbances, Suicidal ideation, Other Eyes: No Blurry vision, No Decreased vision, No Double vision, No Dry eyes, No Excessive tearing, No Eye Pain, No Itchy Eyes, No Loss of vision, No Photophobia , No Scotomata, No Uses contacts, No Uses glasses, No Other HEENT: YES: Heacaches, No: Visual Changes, Hearing change, Nasal congestion, Nasal discharge, Oral lesions, Sinus pain, Sore Throat, Epistaxis, Sneezing, Snoring, Tinnitus, Vertigo, Vocal changes, Other Respiratory: No: Cough, Hemoptysis, Orthopnea, Pleuritic Pain, Shortness of breath, SOB with excertion, Sputum Changes, Stridor, Tachypnea, Wheezing, Other Cardiovascular: No Chest Pain, No Palpitations, No Orthopnea, No Paroxysmal Noc. Dyspnea, No Edema, No Lt Headedness, No Other Gastrointestinal: No Nausea, No Vomiting, No Abdominal Pain, No Diarrhea, No Constipation, No Melena, No Hematochezia, No Other Genitourinary: No Dysuria, No Frequency, No Incontinence, No Hematuria, No Retention, No Discharge, No Urgency, No Pain, No Flank Pain, No Other, No , No , No , No , No , No , No Musculoskeletal: Yes Joint Pain, Yes Joint Stiffness, No Gait Disturbance, No Joint Swelling, No Muscle Pain, No Muscular Weakness , No Pain In:, No Swelling In:, No Other Neurological: Yes Numbness/Tingling, Yes Weakness, No Behavorial Changes, No Bowel/Bladder ControlChng, No Confusion, No Dizziness, No Gait Disturbance, No Headaches, No Impaired Coord/balance, No Memory Loss, No Seizures, No Speech Problems, No Tremors, No Visual Changes, No Other Skin: No Dry Skin, No Eczema, No Hair Changes, No Lumps, No Mole Changes, No Mottling, No Nail Changes, No Pruritus, No Rash, No Skin Lesion Changes, No Other, No Acne Physical Exam General: Alert, Oriented X3, Cooperative, No acute distress HEENT: Atraumatic, PERRLA, EOMI, Mucous membr. moist/pink Lungs: Clear to auscultation, Normal air movement Heart: S1S2, RRR, no gallops, no murmurs Abdomen: Normal bowel sounds, Soft Rectal Exam: not examined Extremities: No clubbing, No edema, Normal pulses Skin: No rashes, No significant lesion Neuro: Strength at 5/5 X4 ext, Normal tone, Sensation intact, Cranial nerves 3- 12 NL Psych/Mental Status: Mood NL Vitals Vitals Vital Signs Date Time Temp Pulse Resp B/P (MAP) Pulse Ox O2 Delivery O2 Flow Rate FiO2 10/15/16 15:02 98.1 80 18 171/94 (119) 93 Room Air 98.1 Labs Labs Laboratory Tests Test 10/15/16 10:40 10/15/16 11:30 White Blood Count 3.6 x10^3/uL (4.0-11.0) Red Blood Count 3.90 x10^6/uL (4.30-5.70) Hemoglobin 11.2 g/dL (13.0-17.5) Hematocrit 32.7 % (39.0-53.0) Mean Corpuscular Volume 84 fL (79-100) Mean Corpuscular Hemoglobin 29 pg (25-35) Mean Corpuscular Hemoglobin Concent 34 g/dL (31-37) Red Cell Distribution Width 16.7 % (11.5-14.5) Platelet Count 109 x10^3/uL (140-400) Neutrophils (%) (Auto) 69 % (31-73) Lymphocytes (%) (Auto) 21 % (24-48) Monocytes (%) (Auto) 8 % (0-9) Eosinophils (%) (Auto) 1 % (0-3) Basophils (%) (Auto) 1 % (0-3) Neutrophils # (Auto) 2.5 x10^3uL (1.8-7.7) Lymphocytes # (Auto) 0.8 x10^3/uL (1.0-4.8) Monocytes # (Auto) 0.3 x10^3/uL (0.0-1.1) Eosinophils # (Auto) 0.0 x10^3/uL (0.0-0.7) Basophils # (Auto) 0.0 x10^3/uL (0.0-0.2) Sodium Level 137 mmol/L (136-145) Potassium Level 2.9 mmol/L (3.5-5.1) Chloride Level 98 mmol/L (98-107) Carbon Dioxide Level 31 mmol/L (21-32) Anion Gap 8 (6-14) Blood Urea Nitrogen 6 mg/dL (8-26) Creatinine 1.2 mg/dL (0.7-1.3) Estimated GFR (Cockcroft-Gault) 72.4 BUN/Creatinine Ratio 5 (6-20) Glucose Level 248 mg/dL (70-99) Calcium Level 8.5 mg/dL (8.5-10.1) Total Bilirubin 0.5 mg/dL (0.2-1.0) Aspartate Amino Transf (AST/SGOT) 14 U/L (15-37) Alanine Aminotransferase (ALT/SGPT) 18 U/L (16-63) Alkaline Phosphatase 100 U/L (46-116) Troponin I Quantitative < 0.017 ng/mL (0.000-0.055) Total Protein 6.4 g/dL (6.4-8.2) Albumin 3.1 g/dL (3.4-5.0) Albumin/Globulin Ratio 0.9 (1.0-1.7) Urine Collection Type Void Urine Color Yellow Urine Clarity Clear Urine pH 7.5 Urine Specific [place] <=1.005 Urine Protein Negative mg/dL (NEG-TRACE) Urine Glucose (UA) 100 mg/dL (NEG) Urine Ketones (Stick) Negative mg/dL (NEG) Urine Blood Negative (NEG) Urine Nitrite Negative (NEG) Urine Bilirubin Negative (NEG) Urine Urobilinogen Dipstick 1.0 mg/dL (0.2 mg/dL) Urine Leukocyte Esterase Negative (NEG) Urine RBC 0 /HPF (0-2) Urine WBC Occ /HPF (0-4) Urine Squamous Epithelial Cells Occ /LPF Urine Bacteria 0 /HPF (0-FEW) Laboratory Tests Test 10/15/16 10:40 10/15/16 11:30 White Blood Count 3.6 x10^3/uL (4.0-11.0) Red Blood Count 3.90 x10^6/uL (4.30-5.70) Hemoglobin 11.2 g/dL (13.0-17.5) Hematocrit 32.7 % (39.0-53.0) Mean Corpuscular Volume 84 fL (79-100) Mean Corpuscular Hemoglobin 29 pg (25-35) Mean Corpuscular Hemoglobin Concent 34 g/dL (31-37) Red Cell Distribution Width 16.7 % (11.5-14.5) Platelet Count 109 x10^3/uL (140-400) Neutrophils (%) (Auto) 69 % (31-73) Lymphocytes (%) (Auto) 21 % (24-48) Monocytes (%) (Auto) 8 % (0-9) Eosinophils (%) (Auto) 1 % (0-3) Basophils (%) (Auto) 1 % (0-3) Neutrophils # (Auto) 2.5 x10^3uL (1.8-7.7) Lymphocytes # (Auto) 0.8 x10^3/uL (1.0-4.8) Monocytes # (Auto) 0.3 x10^3/uL (0.0-1.1) Eosinophils # (Auto) 0.0 x10^3/uL (0.0-0.7) Basophils # (Auto) 0.0 x10^3/uL (0.0-0.2) Sodium Level 137 mmol/L (136-145) Potassium Level 2.9 mmol/L (3.5-5.1) Chloride Level 98 mmol/L (98-107) Carbon Dioxide Level 31 mmol/L (21-32) Anion Gap 8 (6-14) Blood Urea Nitrogen 6 mg/dL (8-26) Creatinine 1.2 mg/dL (0.7-1.3) Estimated GFR (Cockcroft-Gault) 72.4 BUN/Creatinine Ratio 5 (6-20) Glucose Level 248 mg/dL (70-99) Calcium Level 8.5 mg/dL (8.5-10.1) Total Bilirubin 0.5 mg/dL (0.2-1.0) Aspartate Amino Transf (AST/SGOT) 14 U/L (15-37) Alanine Aminotransferase (ALT/SGPT) 18 U/L (16-63) Alkaline Phosphatase 100 U/L (46-116) Troponin I Quantitative < 0.017 ng/mL (0.000-0.055) Total Protein 6.4 g/dL (6.4-8.2) Albumin 3.1 g/dL (3.4-5.0) Albumin/Globulin Ratio 0.9 (1.0-1.7) Urine Collection Type Void Urine Color Yellow Urine Clarity Clear Urine pH 7.5 Urine Specific [place] <=1.005 Urine Protein Negative mg/dL (NEG-TRACE) Urine Glucose (UA) 100 mg/dL (NEG) Urine Ketones (Stick) Negative mg/dL (NEG) Urine Blood Negative (NEG) Urine Nitrite Negative (NEG) Urine Bilirubin Negative (NEG) Urine Urobilinogen Dipstick 1.0 mg/dL (0.2 mg/dL) Urine Leukocyte Esterase Negative (NEG) Urine RBC 0 /HPF (0-2) Urine WBC Occ /HPF (0-4) Urine Squamous Epithelial Cells Occ /LPF Urine Bacteria 0 /HPF (0-FEW) VTE Prophylaxis Ordered VTE Prophylaxis Devices: No VTE Pharmacological Prophylaxi: Yes Assessment/Plan Assessment/Plan left arm and hand and tongue parathesia w. some hand weakness that now appears improved could be related to his chemotherapy but CVA history, TIA is also possible, will order MRI brain, and consult Neuro Colon cancer stage 4, Onc consult Dm2, poor control, add FREDERICK EATON MD Oct 15, 2016 16:20
[2016-10-15] MEDS ORDERED: POTASSIUM CHLORIDE 20 MEQ TABLET.ER. PO ONE (16:30)
[2016-10-15] MEDS ORDERED: ASPIRIN 325 MG TABLET PO ONE (16:30)
[2016-10-15] MEDS: metFORMIN 500 MG TABLET PO SCH (16:35)
[2016-10-15] MEDS: TERAZOSIN 5 MG CAPSULE. PO SCH (16:36)
[2016-10-15] MEDS: GABAPENTIN 300 MG CAPSULE. PO SCH ×2 (16:36→21:04)
[2016-10-15] MEDS: METOPROLOL SUCC 24HR ER 100 MG TAB.ER.24H. PO SCH (16:36)
[2016-10-15] MEDS: ENOXAPARIN 40 MG/0.4 ML SYRINGE. SQ SCH (17:00)
--- NOTE | 2016-10-15 17:22 | PDOC ---
Provider Note Provider Note Onc consult dictated- [id number] Rectal ca s/p lung mets- On pall FOLFIRI, last 10/02, concern of progression with increased CEA Abn CT head- Unlikely mets as rectal ca doesn't typically go to brain. Will f/u MRI brain. Thank you. FAUSTO ALVAREZ DO Oct 15, 2016 17:22
[2016-10-15] MEDS: INSULIN ASPART 300 UNITS/3 ML INSULN.PEN SQ SCH ×2 (18:00→21:00)
[2016-10-15 19:35] VITALS: BP 157/96
[2016-10-15] MEDS: LOSARTAN POTASSIUM 50 MG TABLET. PO SCH (21:04)
[2016-10-15] MEDS: FAMOTIDINE 20 MG TABLET. PO SCH (21:04)
[2016-10-15 23:35] VITALS: BP 158/78
[2016-10-16] VITALS (9 sets, daily range): BP systolic 105–187; BP diastolic 69–105
--- NOTE | 2016-10-16 04:30 | CONS ---
DATE OF CONSULTATION: 10/15/2016 REFERRING PROVIDER: Dr. Thomas. REASON FOR CONSULTATION: Rectal cancer. HISTORY OF PRESENT ILLNESS: The patient is a 71-year-old male, who has been followed by my colleague, Dr. Jade, for his history of rectal cancer since 2009. He underwent neoadjuvant chemoradiation followed by resection and subsequent chemotherapy in October 2012, he was found to have pulmonary metastases and was on FOLFOX/Avastin. I am unsure if he was off therapy for some time, but apparently in June 2014, he had a right solitary lung nodule and underwent radiation for this. He has been on FOLFIRI since April 2015. He last saw Dr. Jade on 10/02/2016. However, there is concern that he has having some progression as a CEA has been rising. Despite this he has wanted ongoing therapy, but has not always wanted to come to clinic every 2 weeks. In fact, his last treatments had 6 weeks in between them. 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 He presented with tongue tingling and left arm numbness this morning, though these symptoms have resolved. He now feels back to his baseline. A CT head was completed, which showed probable increase chronic small vessel disease versus less likely a metastatic lesion. PAST MEDICAL HISTORY: Stroke 10 years ago, rectal cancer, depression, chronic kidney disease and diabetes. PAST SURGICAL HISTORY: Rectal cancer resection, right shoulder surgery. FAMILY HISTORY: Negative for any malignancies. SOCIAL HISTORY: Denies tobacco, alcohol or drug use. ALLERGIES: PENICILLIN AND IODINE. CURRENT MEDICATIONS: Aspirin, potassium chloride, metformin, Pepcid, losartan, Lovenox, NovoLog, diltiazem, terazosin, metoprolol, gabapentin, morphine sulfate and Zofran. REVIEW OF SYSTEMS: Ten point review of systems completed and unremarkable with the exception on the chronic neuropathy and balance issues as above. These symptoms of left arm and tongue tingling have resolved. PHYSICAL EXAMINATION: VITAL SIGNS: Temperature 98.1, pulse 80, respiratory rate 18, blood pressure 171/94, 93% O2 on room air. GENERAL: He is alert and oriented and does not appear to be in any distress at this time. HEENT: Extraocular muscles are intact. Sclerae are without icterus. Mucous membranes are moist. CARDIOVASCULAR: Heart is regular in rhythm and rate. LUNGS: Clear to auscultation bilaterally. CHEST: Shows what appears to be some chronic scarring above his current port site. There is no tenderness, erythema or drainage. He believes this has been present for 3 months. ABDOMEN: Soft, nontender. EXTREMITIES: No edema. NEUROLOGIC: No focal deficits. MUSCULOSKELETAL: Strength grossly 5/5 bilateral upper extremities. IMAGING AND LABORATORY DATA: WBC 3.6, hemoglobin 11.2, platelets 109. CMP is significant for potassium 2.9, creatinine 1.2. CT findings reviewed as above. Outside oncology records reviewed as above. ASSESSMENT AND PLAN: The patient is a 71-year-old male with the following medical problems: 1. History of stage IV rectal cancer with lung metastases. He has been on palliative FOLFIRI, last given on 10/02/2016. However, there is concern of progression with his CEA rising and Dr. Jade planned to do to repeat imaging next month. I will order that while he is here. He has been wanting to delay and spread out his chemotherapy. I certainly want to make sure that further chemotherapy is truly being beneficial. He was due for a treatment this Saturday, which will be deferred at least 1 week until he is out of the hospital. 2. Abnormal CT head finding. I suspect this is more likely related to a small vessel disease as rectal cancer does not typically metastasized to the brain. MRI brain is planned for further characterization. 3. Small wound about this port site. Wound care will be consulted. Thank you for alerting us of his admission. I have updated Dr. Jade's Oncology staff as well. FAUSTO ALVAREZ DO DR: CHIQUI/ivania JOB#: [id number] / [id number] REGIS
--- NOTE | 2016-10-16 04:30 | ACF ---
Admission Forms Criteria GENERAL ADMISSION CRITERIA (Place 'X' for any and all applicable criteria): Admission is indicated for ANY ONE of the following: [ ]I. Hemodynamic instability as indicated by ANY ONE of the following(1)(2) (3)(4)(5): [ ]a) Vital sign abnormality not readily corrected by appropriate treatment within 12 to 24 hours indicated by ANY ONE of the following: [ ]i) Hypotension [ ]ii) Symptomatic Tachycardia unresponsive to treatment (eg , analgesia, fluids, sedation as indicated) [ ]iii) Orthostatic vital sign changes unresponsive to treatment (eg, fluids) [ ]b) Vital sign abnormality that is severe indicated by ANY ONE of the following: [ ]i) Inadequate perfusion indicated by ANY ONE of the following: [ ]1) Lactic acidosis (greater than 2 mmol/L) [ ]2) New abnormal capillary refill (greater than 3 seconds) [ ]3) Other metabolic acidosis (arterial pH less than 7.35) not otherwise explained [ ]4) Reduced urine output [ ]5) Altered mental status [ ]6) Myocardial Ischemia [ ]v) Mean arterial pressure[A] less than 60 mm Hg [ ]vi) Mean arterial pressure[A] less than 70 mm Hg after 30 minutes of appropriate treatment (eg, fluid resuscitation) [ ]vii) IV inotropic or vasopressor medication required to maintain adequate blood pressure or perfusion [ ]viii) Sustained heart rate greater than 120 beats per minute in adult or child 6 years or older[B]] [ ]II. Hypertension requiring inpatient treatment as indicated by ANY ONE of the following(6)(7)(8): [ ]a) SBP greater than 220 mm Hg or DBP greater than 120 mm Hg despite treatment [ ]b) SBP greater than 140 mm Hg or DBP greater than 100 mm Hg with evidence of acute end organ damage as indicated by ANY ONE of the following: [ ]i) Encephalopathy [ ]ii) Acute renal failure as indicated by new onset of ANY ONE of the following(9)(10)(11)(12)(13): [ ]1) A 3-fold rise in serum creatinine from baseline [ ]2) Serum creatinine greater than 4 mg/dL ( 354 micromoles/L) with acute rise greater than 0.5 mg/dL (44.2 micromoles/L) [ ]3) Reduction of more than 75% in estimated glomerular filtration rate from baseline [ ]4) Estimated glomerular filtration rate less than 35 mL/min/1.73m2 (0.59 mL/sec/1.73m2) in child up to 18 years of age [ ]5) Cessation of urine output indicated by ALL of the following: [ ]A. Adequate volume status [ ]B. Inadequate urine output as indicated by ANY ONE of the following: [ ]a. Urine output less than 0.3 mL/kg/hr for 24 hours [ ]b. Anuria (urine output less than 0.1 mL/kg/hr) for 12 hours [ ]iii) Aortic dissection [ ]iv) Myocardial ischemia [ ]v) Left ventricular heart failure [ ]vi) Retinal hemorrhage [ ]vii) Other significant finding [ ]c) Hypertension in child requiring inpatient treatment as indicated by ALL of the following(14)(15)(16): [ ]i) Outpatient treatment not effective, not available, or not appropriate [ ]ii) SBP or DBP greater than 95th percentile for age [ ]iii) Evidence of acute end organ damage as indicated by ANY ONE of the following: [ ]1) Altered mental status [ ]2) Acute renal failure as indicated by new onset of ANY ONE of the following(9)(10)(11)(12)(13): [ ]A. A 3-fold rise in serum creatinine from baseline [ ]B. Serum creatinine greater than 4 mg/dL (354 micromoles/L) with acute rise greater than 0.5 mg/dL (44.2 micromoles/L) [ ]C. Reduction of more than 75% in estimated glomerular filtration rate from baseline [ ]D. Estimated glomerular filtration rate less than 35 mL/min/1.73m2 (0.59 mL/sec/1.73m2)in child up to 18 years of age [ ]E. Cessation of urine output indicated by ALL of the following: [ ]a. Adequate volume status [ ]b. Inadequate urine output as indicated by ANY ONE of the following: [ ]1) Urine output less than 0.3 mL/kg/hr for 24 hours [ ]2) Anuria (urine output less than 0.1 mL/kg/hr) for 12 hours [ ]3) Severe headache [ ]4) Visual disturbance [ ]5) Retinal hemorrhage [ ]6) Other significant finding [ ]III. Acute cardiac or peripheral ischemia as indicated by ANY ONE of the following: [ ]a) Acute coronary syndrome(17)(18) [ ]b) Acute peripheral ischemia (eg, pulseless, cool, mottled, or cyanotic extremity)(19) [ ]IV. Cardiac arrhythmias or findings of immediate concern indicated by ANY ONE of the following(20)(21): [ ]a) Heart rhythms that are inherently dangerous or unstable indicated by ANY ONE of the following(22)(23)(24): [ ]i) Resuscitated ventricular fibrillation or cardiac arrest [ ]ii) Ventricular escape rhythm [ ]iii) Sustained ventricular tachycardia (30 seconds or more of ventricular rhythm at greater than 100 beats per minute) [ ]iv) Nonsustained ventricular tachycardia and ANY ONE of the following: [ ]1) Suspected cardiac ischemia as cause or consequence of ventricular tachycardia [ ]2) In setting of acute myocarditis [ ]b) Unstable cardiac conduction defects indicated by ANY ONE of the following(24)(25)(26): [ ]i) Type II second-degree atrioventricular block [ ]ii) Third-degree atrioventricular block [ ]iii) New-onset left bundle branch block with suspected myocardial ischemia [ ]c) Any heart rhythm and ANY ONE of the following(22)(23)(27)(28)( 29): [ ] i) Continuous long-term ECG monitoring needed (eg, initiation of drug requiring monitoring for more than 24 hours) [ ] ii) Patient has automatic implanted cardioverter defibrillator that is repeatedly firing, malfunctioning, or in need of immediate adjustment of settings beyond the scope of ambulatory or observation care. [ ]d) Heart rhythms of concern due to ANY ONE of the following: [ ]i) Hypotension [ ]ii) Respiratory distress [ ]iii) Association with other significant symptoms (eg, bradycardia with syncope or ongoing dizziness, supraventricular tachycardia with chest pain) (27)(28) (30) [ ] V. Severe heart failure as indicated by ANY ONE of the following ( 31)(32): [ ]a) Respiratory distress [ ]b) Hypotension [ ]c) Anasarca (refractory to outpatient therapy) [ ]d) Cardiac arrhythmias of immediate concern [ ]e) Myocardial ischemia [ ]. Respiratory abnormalities, including ANY ONE of the following(33)(34) (35)(36): [ ]a) Respiratory rate greater than 30 breaths per minute unresponsive to treatment [A] [ ]b) New saturation of arterial oxygen less than 90% [ ]c) New partial pressure of carbon dioxide greater than 44 mm Hg ( 5.9 kPa) [ ]d) Supplemental oxygen or respiratory treatments needed that are new or not performable at other levels of care [ ]e) New-onset cyanosis [ ]f) Inability to protect airway [ ]g) Chronic lung disease with severe deterioration (not responsive to emergency and observation care treatment as appropriate) as indicated by ANY ONE of the following(34)(36 ): [ ]i) SaO2 5% below baseline in patient with chronic hypoxemia [ ]ii) New requirement for supplemental oxygen to keep SaO2 at baseline or acceptable level [ ]iii) Required supplemental oxygen performable only in acute inpatient setting [ ]iv) Severe airflow or ventilation abnormalities [ ]v) Previously mobile patient unable to walk between rooms [ ]vi Inability to eat or sleep due to dyspnea [ ]vii) Rapid rate of exacerbation onset [ ]viii) Altered mental status ]VII. Severe airflow or ventilation abnormalities (not responsive to emergency and observation care treatment as appropriate) as indicated by ANY ONE of the following(33)(34)(35)(37): [ ]a) PCO2 greater than 42 mm Hg (5.6 kPa) and pH less than 7.35 (new ) [ ]b) Documented PCO2 increased more than 5 mm Hg (0.7 kPa) from disease baseline [ ]c) Airflow measurements [B] less than 60% of previous best or predicted (eg, peak expiratory flow rate less than 300 L/minute) despite intensive emergent treatment [C] [ ]d) Required respiratory treatments that are performable only in acute inpatient setting [ ]VIII. Impending or actual respiratory arrest ( Also use Respiratory Failure GRG for severe respiratory disease and long-term mechanical ventilation patients) [ ]IX. Neurologic abnormalities, including ANY ONE of the following: [ ]a) New findings that suggest ANY ONE of the following: [ ]i) HAND III CUTTER infection(38) [ ]ii) Cerebral bleeding, ischemia, or vasospasm(39)(40) [ ]iii) Increased intracranial pressure, hydrocephalus, or cerebral edema(41)(42)(43) [ ]iv) Spinal cord injury(44) [ ]b) Uncontrolled seizures(45) [ ]c) New-onset coma (eg, Prosper coma scale score less than 9) or unexplained abnormal mental status (eg, Prosper coma scale score less than 14) [D](41)(46)(47) [ ]X. New-onset severe neurologic findings requiring inpatient care; examples include(42)(48)(49): [ ]a) Papilledema [ ]b) Cerebral edema [ ]c) Mass effect on CT scan [ ]XI. Suspected acute intra-abdominal process with peritoneal signs, abdominal mass, or similar findings (50)(51)(52) [ ]XII. Severe physiologic disorder remaining after emergency or observation level care (as appropriate) as indicated by ANY ONE of the following (53): [ ]a) Significant dehydration [ ]b) Diabetic ketoacidosis [ ]c) Hyperglycemic hyperosmolar state (eg, osmolality greater than 320 mOsm/kg (mmol/kg) [ ]d) Hypoglycemia [ ]e) Other (new) acid-base disorder with pH less than 7.35 or greater than 7.5(54) [ ]f) Thyroid storm (55) [ ]g) Myxedema coma (55) [ ]XIII. Abdominal abnormalities with ANY ONE of the following(56)(57): [ ]a) Absent bowel sounds with complete ileus [ ]b) Signs of intestinal obstruction or peritonitis [E] [ ]c) Nausea and vomiting that cannot be controlled with outpatient or observation care [ ]XIV. Acute renal failure as indicated by new onset of ANY ONE of the following(9)(10)(11)(12)(13): [ ]a) A 3-fold rise in serum creatinine from baseline [ ]b) Serum creatinine greater than 4 mg/dL (354 micromoles/L) with acute rise greater than 0.5 mg/dL (44.2 micromoles/L) [ ]c) Reduction of more than 75% in estimated glomerular filtration rate from baseline [ ]d) Estimated glomerular filtration rate less than 35 mL/min/ 1.73m2 (0.59 mL/sec/1.73m2) in child up to 18 years of age [ ]e) Cessation of urine output indicated by ALL of the following: [ ]i) Adequate volume status [ ]ii) Inadequate urine output as indicated by ANY ONE of the following: [ ]1) Urine output less than 0.3 mL/kg/hr for 24 hours [ ]2) Anuria (urine output less than 0.1 mL/kg/hr) for 12 hours [ ]XV. Significant uremic complications as indicated by ANY ONE of the following(58)(59)(60): [ ]a) Outpatient therapy is ineffective or not feasible for ANY ONE of the following: [ ]i) Severe heart failure [ ]ii) Severehypertension [ ]iii) Pleural effusion [ ]iv) Pericarditis or pericardial effusion [ ]b) Cardiac arrhythmias of immediate concern [ ]c) Intractable nausea or vomiting [ ]d) Recurrent seizures [ ]e) Encephalopathy [ ]f) Bleeding abnormalities (eg, platelet dysfunction) with active (eg, gastrointestinal) bleeding [ ]g) Dialysis indicated before long-term access or ambulatory arrangements can be made [ ]h) Significant metabolic or electrolyte abnormalities (eg, severe acidosis or hyperkalemia) [ ]XVI. High fever or other high-risk infection situation as indicated by ANY ONE of the following(61)(62)(63)(64): [ ]a) Outpatient and observation care antimicrobial treatment unavailable, not effective, or not appropriate [ ]b) Documented bacteremia [ ]c) Temperature greater than 40.5 degrees C (104.9 degrees F) ( oral) [ ]d) Temperature greater than 39.5 degrees C (103.1 degrees F) ( oral) or less than 36 degrees C (96.8 degrees F) (rectal) that does not respond to e treatment and observation care [ ] XVII. Temperature less than 95 degrees F (35 degrees C)(rectal)(65) [ ] XVIII. Severe nutritional abnormalities as indicated by ALL of the following (66)(67): [ ]a) Inability to tolerate or establish sufficient oral or other enteral nutrition in outpatient setting [ ]b) Parenteral nutrition regimen need that must be implemented on inpatient basis [ ] XIX. Severe electrolyte abnormalities indicated by ALL of the following(68) (69)(70): [ ]a) Electrolytes and associated findings are not as expected for patient baseline or acceptable treatment effects. [ ]b) Severe abnormalities indicated by ANY ONE of the following: [ ]i) Sodium less than 130 mEq/L (mmol/L) (new) [ ]ii)Sodium less than 135 mEq/L (mmol/L) with ANY ONE of the following: [ ]1) Uncorrectable (to near normal or chronic baseline) after trial of outpatient and emergency treatment [ ]2) Altered mental status [ ]3) Seizures [ ]4) Severe medical etiology requiring inpatient management (eg, heart failure, hypovolemia) [ ]iii) Sodium greater than 155 mEq/L (mmol/L) [ ]iv) Sodium greater than 150 mEq/L (mmol/L) with ANY ONE of the following: [ ]1) Uncorrectable (to near normal or chronic baseline) with outpatient and emergency treatment [ ]2) Altered mental status [ ]3) Seizures [ ]4) Severe medical etiology (eg, hypovolemia, diabetes insipidus) [ ]v) Potassium less than 2.5 mEq/L (mmol/L) despite outpatient and emergency treatment [ ]vi) Potassium less than 3 mEq/L (mmol/L) with ANY ONE of the following: [ ]1) Weakness [ ]2) Cardiac abnormality (eg, arrhythmia, conduction disturbance) [ ]3) Cardiac ischemia [ ]4) Ileus [ ]5) Ongoing medical cause requiring inpatient management (eg, acute renal wasting or SIADH) [ ]6) Other severe symptoms [ ]vii) Potassium greater than 6.5 mEq/L (mmol/L) [ ]viii) Potassium greater than 5 mEq/L (mmol/L) with ANY ONE of the following: [ ]1) Uncorrectable (to near normal or chronic baseline) with outpatient and emergency treatment [ ]2) Severe ECG findings [F] [ ]3) Acute worsening of renal failure (creatinine greater than 2.5 mg/dL (221 micromoles/L) or significant elevation for age and size) [ ]4) Severe weakness [ ]5) Severe medical etiology (eg, hemolysis, infection, drug overdose) [ ]ix) Calcium less than 7 mg/dL (1.75 mmol/L) despite outpatient and emergency treatment (72) [ ]x) Calcium less than 8 mg/dL (2 mmol/L) with significant symptoms or findings; examples include(72): [ ]1) Altered mental status [ ]2) Muscle spasms [ ]3) Seizures [ ]4) Breathing difficulty [ ]5) Cardiac abnormality (eg, arrhythmia or conduction disturbance) [ ]xi) Calcium greater than 14 mg/dL (3.5 mmol/L)(72) [ ]xii) Calcium greater than 12 mg/dL (3 mmol/L) with ANY ONE of the following(72): [ ]1) Uncorrectable (to near normal or chronic baseline) with outpatient and emergency treatment [ ]2) Significant dehydration or hypovolemia as indicated by ALL of the following(70)(73)(74): [ ]A. Not resolved with initial treatments [ ]B. Clinically significant dehydration as indicated by ANY ONE of the following: [ ]a. Vomiting refractory to outpatient treatment (ie, precluding oral rehydration) [ ]b. Inability to drink [ ]c. Hypernatremia or other electrolyte abnormality unable to be corrected with outpatient and emergency treatment [ ]d. Failure to remain hydrated with outpatient therapy [ ]e. Reduced urine output [ ]f. Hypotension [ ]g. Serious cause for dehydration requiring acute hospitalization (eg, bowel obstruction, increased intracranial pressure, infectious cause) [ ]h. Child with ANY ONE of the following(75): [ ]1) Severe abdominal tenderness [ ]2) Adequate care not available at home [ ]3) Severe dehydration ( greater than 9% loss of body weight) [ ]4) Significant symptoms or findings; examples include: [ ]A. Altered mental status [ ]B. Cardiac abnormality (eg, arrhythmia, conduction disturbance) [ ]C. Malignant etiology requiring inpatient treatment [ ]xiii) Phosphorus less than 1 mg/dL (0.32 mmol/L) [ ]xiv) Phosphorus less than 1.5 mg/dL (0.48 mmol/L) with ANY ONE of the following: [ ]1) Patient unresponsive to outpatient and emergency treatment [ ]2) Significant symptoms or findings; examples include: [ ]A. Weakness [ ]B. Altered mental status [ ]C. Breathing difficulty [ ]D. Seizures [ ]E. Rhabdomyolysis [ ]xv) Phosphorus greater than 10 mg/dL (3.2 mmol/L) [ ]xvi) Phosphorus greater than 4.5 mg/dL (1.45 mmol/L) (new) with ANY ONE of the following: [ ]1) Severe medical etiology (eg, crush injury, acute renal failure) [ ]2) Associated hypocalcemia with significant findings; examples include: [ ]A. Neurologic symptoms [ ]B. Altered mental status [ ]C. Muscle spasms [ ]D. Seizures [ ]E. Breathing difficulty [ ]F. Cardiac abnormality (eg, arrhythmia, conduction disturbance) [ ]xvii) Magnesium less than 1 mg/dL (0.41 mmol/L) [ ]xviii) Magnesium less than 1.5 mg/dL (0.62 mmol/L) with ANY ONE of the following: [ ]1) Patient unresponsive to outpatient and emergency treatment [ ]2) Associated hypocalcemia with significant findings; examples include: [ ]A. Altered mental status [ ]B. Muscle spasms [ ]C. Seizures [ ]D. Breathing difficulty [ ]E. Cardiac abnormality (eg, arrhythmia , conduction disturbance) [ ]3) Associated hypokalemia (potassium less than 3 mEq/L (mmol/L)) with risk of arrhythmia [ ]xix) Magnesium greater than 4 mEq/L (2 mmol/L) [ ]xx) Magnesium greater than 2.5 mEq/L (1.25 mmol/L) with significant symptoms or findings; examples include: [ ]1) Weakness [ ]2) Altered mental status [ ]3) Cardiac abnormality (eg, arrhythmia, conduction disturbance) [ ]4) Breathing difficulty [ ]5) Severe medical etiology (eg, renal failure, hypovolemia) [ ]xxi) Uric acid greater than 20 mg/dL (1190 micromoles/L)(76) [ ]xxii) Uric acid greater than 8 mg/dL (476 micromoles/L) with significant symptoms or findings of tumor lysis syndrome; examples include(76): [ ]1) Creatinine greater than 1.5 times upper limit of normal [ ]2) Cardiac abnormality (eg, arrhythmia, conduction disturbance) [ ]3) Seizure [ ]XX. Acute blood loss causing significant abnormality as indicated by ANY ONE of the following(77)(78): [ ]a) Hemoglobin less than 10 g/dL (100 g/L) (not baseline) [ ]b) Hematocrit less than 30% (0.30) (not baseline) [ ]c) Repeat hematocrit decreased more than 2% (0.02) [ ]d) Uncontrolled bleeding [ ]XXI. Severe anemia indicated by ANY ONE of the following(78)(79): [ ]a) Altered mental status [ ]b) Chest pain [ ]c) Exertional dyspnea [ ]d) Syncope [ ]e) Other findings suggesting inadequate perfusion [ ]f) Treatment with transfusion or volume replacement is ineffective at resolving ANY ONE of the following [G]: [ ]i) Tachycardia for age [ ]ii) Orthostatic vital sign changes as indicated by ANY ONE of the following(80): [ ]1) Fall in SBP of 20 mm Hg or more 1 to 3 minutes after patient sits or stands from recumbent position [ ]2) Fall in DBP of 10 mm Hg or more 1 to 3 minutes after patient sits or stands from recumbent position [ ]XXII. High-risk low platelet count as indicated by ANY ONE of the following( 81)(82): [ ]a) Severe or life-threatening bleeding (eg, intracranial, major gastrointestinal, or extensive mucosal bleeding), with any reduced platelet count [ ]b) Platelet count less than 20,000/mm3 (20 x109/L) with any active bleeding [ ]c) Platelet count less than 10,000/mm3 (10 x109/L) with minor purpura or petechiae [ ]d) Platelet count less than 5000/mm3 (5 x109/L) [ ]e) Low platelet count with hemolytic anemia [ ]XXIII. Disseminated intravascular coagulation(77)(83) [ ]XXIV. Severe adverse drug or systemic toxin reaction requiring inpatient treatment; examples include(84)(85): [ ]a) Serotonin syndrome(86) [ ]b) Neuroleptic malignant syndrome(86) [ ]c) Cholinergic syndrome with severe symptoms (eg, bronchorrhea, weakness, mental status changes, seizures) [ ]d) Sympathetic syndrome with severe symptoms (eg, seizures, mental status changes, cardiac dysrhythmias) [ ]e) Anticholinergic syndrome [ ]XXV. Severe pain requiring acute inpatient management as indicated by ALL of the following (87)(88)(89): [ ]a) Continuous or frequent (eg, every 2 to 4 hours) parenteral analgesics required [H] [ ]b) Rapid improvement expected from treatment or acute intervention (eg, surgery, anesthesia procedure) [ ]XXVI.Severe behavioral health issues judged unmanageable at a lower level of care (eg, residential) in a patient who is ANY ONE of the following(91) [ ]a) Acutely suicidal [ ]b) A danger to self (eg, self-mutilating or suicidal behavior) [ ]c) A danger to others (eg, assaultive or homicidal behavior) [ ]d) Incapacitated because of grave disability (eg, inability to provide for self at lower level of care) (92) [X]XXVII. Inpatient monitoring needed; examples include(1)(3)(87)(93)(94)(95)(96 ): [X]a) Vital signs, neurologic signs, or vascular checks more frequently than every 4 hours [ ]b) Cardiac or respiratory monitoring beyond the scope (eg, over 24 hours) of observation care [ ]c) Pulmonary artery catheter monitoring [ ]d) Suspected compartment syndrome(97) (98) [ ]e) Cerebral bleeding, hydrocephalus, or vasospasm monitoring [ ]f) Increased intracranial pressure or cerebral edema monitoring [ ]g) monitoring [ ]XXVIII. Treatment requiring inpatient care; examples include: [ ]a) IV fluid to replace significant ongoing losses (greater than 3 L/m2 per day)(53) [ ]b) High concentration oxygen (greater than 40%)(33)(99)(100) [ ]c) Frequent respiratory therapy (more frequently than every 4 hours) to maintain airflow rates greater than 60% of baseline(33)(99)(100) [ ]d) Epidural analgesia(87) [ ]e) IV anticoagulation, vasoactive, or antiarrhythmic medication(19 )(23) [ ]f) Acute thrombolytics (generally require 24 hours of observation )(101)(102) [ ]XXIX. Emergency procedures needed; examples include: [ ]a) Emergency inpatient surgery [ ]b) Temporary pacemaker placement(103) [ ]c) Chest tube placement with active evacuation (eg, suction, drainage)(104) [ ]d) Emergent cardioversion(105) [ ]e) Emergent cardiac or vascular procedures (eg, cardiac catheterization, angioplasty) (17)(18) [ ]f) Emergent dialysis access placement and institution(10)(106) [ ]g) Emergent pericardiocentesis(107) [ ]h) Emergent plasmapheresis or leukapheresis(83) [ ]i) Emergent tracheostomy The original [employer] content created by [employer] has been revised. The portions of the content which have been revised are identified through the use of italic text or in bold, and [facility] has neither reviewed nor approved the modified material. All other unmodified content is copyright [employer]. Please see references footnoted in the original [facility] edition 2016 Admission Criteria Met?: Yes CYNTHIA LIM Oct 16, 2016 04:30
[2016-10-16 05:17] LABS: BASO % 0 % (0-3); EOS % 1 % (0-3); HEMATOCRIT 33.9 % (39.0-53.0); LYMPH # 0.7 x10^3/uL (1.0-4.8); LYMPH % 20 % (24-48); MEAN CORPUSCULAR HEMOGLOBIN 29 pg (25-35); MEAN CORPUSCULAR HGB CONC 36 g/dL (31-37); MEAN CORPUSCULAR VOLUME 83 fL (79-100); MONO % 9 % (0-9); NEUT % 70 % (31-73); PLATELET COUNT 122 x10^3/uL (140-400); RED BLOOD COUNT 4.09 x10^6/uL (4.30-5.70); RED CELL DISTRIBUTION WIDTH 16.7 % (11.5-14.5); WHITE BLOOD COUNT 3.3 x10^3/uL (4.0-11.0)
[2016-10-16 05:50] LABS: CHOLESTEROL/HDL RATIO 4.3
[2016-10-16 05:59] LABS: CALCIUM 8.8 mg/dL (8.5-10.1); GFR 89.4; POTASSIUM 3.5 mmol/L (3.5-5.1)
[2016-10-16] MEDS: INSULIN ASPART 300 UNITS/3 ML INSULN.PEN SQ SCH ×4 (07:30→22:25)
[2016-10-16] MEDS: metFORMIN 500 MG TABLET PO SCH ×2 (08:00→17:00)
[2016-10-16] MEDS: POTASSIUM CHLORIDE 20 MEQ TABLET.ER. PO SCH (08:00)
[2016-10-16] MEDS: ASPIRIN 325 MG TABLET PO SCH (08:00)
--- NOTE | 2016-10-16 08:47 | PDOC ---
Subjective: Subjective: Onc f/u- Stage IV Rectal ca No changes overnight CT to be done today ? if MRI too No tongue/ arm tingling, feels back to his baseline Objective: Vital Signs: Vital Signs Date Time Temp Pulse Resp B/P (MAP) Pulse Ox O2 Delivery O2 Flow Rate FiO2 10/16/16 07:12 100.6 96 19 187/105 (132) 95 Room Air 100.6 Physical Exam: Heart: Regular rate Extremities: No edema General: Alert, Oriented X3, Cooperative, No acute distress Lungs: Clear to auscultation, Normal air movement Psych/Mental Status: Mental status NL, Mood NL Labs/Imaging: CT C/A/P pending Assessment/Plan A/P: 1. History of stage IV rectal cancer with lung metastases managed by Dr. Jade. On palliative FOLFIRI, last given on 10/02/2016 with rising CEA. - Awaiting repeat CT C/A/P today - Delaying tx scheduled tomorrow 1 week vx new tx plan if he is found to have progression 2. Abnormal CT head finding, arm tingling (resolved). Likely related to a small vessel disease as rectal cancer does not typically metastasized to the brain. - MRI brain pending for further characterization. - Neuro following 3. Small wound about this port site. Wound care will be consulted. FAUSTO ALVAREZ DO Oct 16, 2016 08:47
[2016-10-16] MEDS: FAMOTIDINE 20 MG TABLET. PO SCH ×2 (09:04→21:00)
[2016-10-16] MEDS: GABAPENTIN 300 MG CAPSULE. PO SCH ×3 (09:04→21:00)
[2016-10-16] MEDS: METOPROLOL SUCC 24HR ER 100 MG TAB.ER.24H. PO SCH (09:04)
[2016-10-16] MEDS: TERAZOSIN 5 MG CAPSULE. PO SCH (09:04)
[2016-10-16] MEDS: LOSARTAN POTASSIUM 50 MG TABLET. PO SCH ×2 (09:05→21:00)
--- NOTE | 2016-10-16 11:49 | PDOC2 ---
NEUROLOGY CONSULT Date of Admission Date of Admission DATE: 10/16/16 TIME: 11:41 Reason for Consult Reason for Consult: Paresthesias Referring Physician Referring Physician: Dr. Thomas PCP: Dr. Worthington Source Source: Chart review, Patient History of Present Illness History of Present Illness The patient is a 71-year-old male with 15 minutes yesterday of left tongue and hand numbness. He has had similar symptoms elsewhere related to chemotherapy- induced neuropathy but today this was just localized to the tongue and hand. He denies headache, diplopia, dysphagia, dysarthria, or recurrent numbness or weakness. There is no history of stroke, seizure, or head injury. Past Medical History Cardiovascular: HTN Pulmonary: Asthma, Pneumonia, Other ( lung metastases) CENTRAL NERVOUS SYSTEM: Periperal neuropathy GI: Peptic Ulcer disease Heme/Onc: Cancer (colon, stage IV with lung mets) Endocrine: Diabetes Past Surgical History Past Surgical History: Colectomy ( colostomy), Other ( right rotator cuff) Family History Family History: CVA Social History Social History , no tobacco or alcohol Current Medications Current Medications Current Medications Ondansetron HCl (Zofran) 4 mg PRN Q8HRS PRN IV NAUSEA/VOMITING; Start 10/15/16 at 13:30; Stop 10/16/16 at 13:29 Morphine Sulfate 4 mg PRN Q2HR PRN IV PAIN; Start 10/15/16 at 13:30; Stop 10/16 at 13:29 Potassium Chloride/Dextrose/ Sod Cl 1,000 ml @ 75 mls/hr 1X ONCE IV Last administered on 10/15/16 13:47; Start 10/15/16 at 14:00; Stop 10/16/16 at 03:19 ; Status DC Aspirin (Ecotrin) 81 mg DAILY PO ; Start 10/15/16 at 16:00; Stop 10/15/16 at 16: 20; Status DC Gabapentin (Neurontin) 300 mg TID PO Last administered on 10/16/16 09:04; Start 10/15/16 at 16:00 Metformin HCl (Glucophage) 1,000 mg DAILYWBKFT PO ; Start 10/16/16 at 08:00 Metformin HCl (Glucophage) 500 mg DAILYBFRSUP PO Last administered on 16:35; Start 10/15/16 at 17:00 Metoprolol Succinate (Toprol Xl) 100 mg DAILY PO Last administered on 09:04; Start 10/15/16 at 16:00 Terazosin HCl (Hytrin) 5 mg DAILY PO Last administered on 10/16/16 09:04; Start 10/15/16 at 16:00 Diltiazem HCl (Cardizem 24hr Cd) 240 mg DAILY PO Last administered on 09:03; Start 10/15/16 at 16:00 Losartan Potassium (Cozaar) 50 mg BID PO Last administered on 10/16/16 09:05; Start 10/15/16 at 21:00 Famotidine (Pepcid) 20 mg BID PO Last administered on 10/16/16 09:04; Start at 21:00 Potassium Chloride (Klor-Con) 40 meq 1X ONCE PO Last administered on 16:37; Start 10/15/16 at 16:30; Stop 10/15/16 at 16:31; Status DC Potassium Chloride (Klor-Con) 20 meq DAILYWBKFT PO ; Start 10/16/16 at 08:00 Insulin Aspart (NovoLOG) 0-7 UNITS QIDACHS SQ Last administered on 10/15/16 18 :00; Start 10/15/16 at 16:30 Dextrose (Dextrose 50%-Water Syringe) 12.5 gm PRN Q15MIN PRN IV SEE COMMENTS; Start 10/15/16 at 16:15 Aspirin (Grecia Aspirin) 325 mg DAILYWBKFT PO ; Start 10/16/16 at 08:00 Aspirin ([employer] Aspirin) 325 mg 1X ONCE PO Last administered on 10/15/16 16:35 ; Start 10/15/16 at 16:30; Stop 10/15/16 at 16:31; Status DC Enoxaparin Sodium (Lovenox Per Pharmacy Prophylaxis Dosing) 1 each PRN DAILY PRN MC SEE COMMENTS; Start 10/15/16 at 16:15 Enoxaparin Sodium (Lovenox 40mg Syringe) 40 mg Q24H SQ ; Start 10/15/16 at 17:00 Active Scripts Active Reported Metformin Hcl 500 Mg Tablet 500 Mg PO DAILYBFRSUP Losartan Potassium 100 Mg Tablet 50 Mg PO BID Metformin Hcl 500 Mg Tablet 1,000 Mg PO DAILYWBKFT Gabapentin 300 Mg Capsule 300 Mg PO TID Metoprolol Succinate ( Xl ) (Metoprolol Succinate) 100 Mg Tab.er.24h 100 Mg PO DAILY Diltiazem Xt (Diltiazem Hcl) 240 Mg Capsule.er 240 Mg PO DAILY Terazosin Hcl 5 Mg Capsule 5 Mg PO DAILY Aspir 81 (Aspirin) 81 Mg Tablet.dr 81 Mg PO DAILY Ranitidine Hcl 150 Mg Tablet 150 Mg PO BID Allergies Allergies: Coded Allergies: Penicillins (Verified Allergy, Intermediate, 02/04/14) iodine (Verified Allergy, Intermediate, 02/04/14) ROS Review of System Negative for fevers, chills, weight loss, shortness of breath, chest pain, indigestion, hematochezia, melena, dysuria. Full 14-point review systems is negative. Physical Exam Physical Examination PHYSICAL EXAMINATION: Vital signs: see above. General appearance is normal and in no acute distress. HEENT: Normocephalic and nontraumatic. Eyes, nose, ears, and throat are unremarkable. Neck is supple. No lymphadenopathy. No bruits are heard over the carotid artery. No crepitus. NEUROLOGICAL EXAMINATION: Mental Status Examination: Alert. Oriented to time, place, and person. Answers questions and follows commends. Pupils are equal round and reactive to light and accommodation. Funduscopic exam: No papilledema. Extraocular movements are intact. Visual field exam shows no defect on the direct confrontation. No motor or sensory deficits on the facial exam. Uvula in the midline and the soft palate elevated symmetrically. No deviation of the tongue to any direction. Gross hearing is normal. Shoulder shrug normal. Muscle tone is normal. Muscle strength is 5. Deep tendon reflexes are 1+ all around. Plantar reflex is with flexion response bilaterally. [id number] test performance is accurate. Alternative movements are accurate. Gait is arthritic. Sensory exam shows no deficits. No cerebellar signs are elicited. Vitals VITALS Vital Signs Date Time Temp Pulse Resp B/P (MAP) Pulse Ox O2 Delivery O2 Flow Rate FiO2 10/16/16 11:02 100.1 113 22 105/69 (81) 96 Room Air 100.1 Labs Labs Laboratory Tests Test 10/15/16 10:40 10/15/16 11:30 10/15/16 17:20 10/15/16 20:52 White Blood Count 3.6 x10^3/uL (4.0-11.0) Red Blood Count 3.90 x10^6/uL (4.30-5.70) Hemoglobin 11.2 g/dL (13.0-17.5) Hematocrit 32.7 % (39.0-53.0) Mean Corpuscular Volume 84 fL (79-100) Mean Corpuscular Hemoglobin 29 pg (25-35) Mean Corpuscular Hemoglobin Concent 34 g/dL (31-37) Red Cell Distribution Width 16.7 % (11.5-14.5) Platelet Count 109 x10^3/uL (140-400) Neutrophils (%) (Auto) 69 % (31-73) Lymphocytes (%) (Auto) 21 % (24-48) Monocytes (%) (Auto) 8 % (0-9) Eosinophils (%) (Auto) 1 % (0-3) Basophils (%) (Auto) 1 % (0-3) Neutrophils # (Auto) 2.5 x10^3uL (1.8-7.7) Lymphocytes # (Auto) 0.8 x10^3/uL (1.0-4.8) Monocytes # (Auto) 0.3 x10^3/uL (0.0-1.1) Eosinophils # (Auto) 0.0 x10^3/uL (0.0-0.7) Basophils # (Auto) 0.0 x10^3/uL (0.0-0.2) Sodium Level 137 mmol/L (136-145) Potassium Level 2.9 mmol/L (3.5-5.1) Chloride Level 98 mmol/L (98-107) Carbon Dioxide Level 31 mmol/L (21-32) Anion Gap 8 (6-14) Blood Urea Nitrogen 6 mg/dL (8-26) Creatinine 1.2 mg/dL (0.7-1.3) Estimated GFR (Cockcroft-Gault) 72.4 BUN/Creatinine Ratio 5 (6-20) Glucose Level 248 mg/dL (70-99) Calcium Level 8.5 mg/dL (8.5-10.1) Total Bilirubin 0.5 mg/dL (0.2-1.0) Aspartate Amino Transf (AST/SGOT) 14 U/L (15-37) Alanine Aminotransferase (ALT/SGPT) 18 U/L (16-63) Alkaline Phosphatase 100 U/L (46-116) Troponin I Quantitative < 0.017 ng/mL (0.000-0.055) Total Protein 6.4 g/dL (6.4-8.2) Albumin 3.1 g/dL (3.4-5.0) Albumin/Globulin Ratio 0.9 (1.0-1.7) Urine Collection Type Void Urine Color Yellow Urine Clarity Clear Urine pH 7.5 Urine Specific [place] <=1.005 Urine Protein Negative mg/dL (NEG-TRACE) Urine Glucose (UA) 100 mg/dL (NEG) Urine Ketones (Stick) Negative mg/dL (NEG) Urine Blood Negative (NEG) Urine Nitrite Negative (NEG) Urine Bilirubin Negative (NEG) Urine Urobilinogen Dipstick 1.0 mg/dL (0.2 mg/dL) Urine Leukocyte Esterase Negative (NEG) Urine RBC 0 /HPF (0-2) Urine WBC Occ /HPF (0-4) Urine Squamous Epithelial Cells Occ /LPF Urine Bacteria 0 /HPF (0-FEW) Glucose (Fingerstick) 240 mg/dL (70-99) 220 mg/dL (70-99) Test 10/16/16 04:15 10/16/16 07:12 White Blood Count 3.3 x10^3/uL (4.0-11.0) Red Blood Count 4.09 x10^6/uL (4.30-5.70) Hemoglobin 12.0 g/dL (13.0-17.5) Hematocrit 33.9 % (39.0-53.0) Mean Corpuscular Volume 83 fL (79-100) Mean Corpuscular Hemoglobin 29 pg (25-35) Mean Corpuscular Hemoglobin Concent 36 g/dL (31-37) Red Cell Distribution Width 16.7 % (11.5-14.5) Platelet Count 122 x10^3/uL (140-400) Neutrophils (%) (Auto) 70 % (31-73) Lymphocytes (%) (Auto) 20 % (24-48) Monocytes (%) (Auto) 9 % (0-9) Eosinophils (%) (Auto) 1 % (0-3) Basophils (%) (Auto) 0 % (0-3) Neutrophils # (Auto) 2.3 x10^3uL (1.8-7.7) Lymphocytes # (Auto) 0.7 x10^3/uL (1.0-4.8) Monocytes # (Auto) 0.3 x10^3/uL (0.0-1.1) Eosinophils # (Auto) 0.0 x10^3/uL (0.0-0.7) Basophils # (Auto) 0.0 x10^3/uL (0.0-0.2) Sodium Level 135 mmol/L (136-145) Potassium Level 3.5 mmol/L (3.5-5.1) Chloride Level 98 mmol/L (98-107) Carbon Dioxide Level 28 mmol/L (21-32) Anion Gap 9 (6-14) Blood Urea Nitrogen 5 mg/dL (8-26) Creatinine 1.0 mg/dL (0.7-1.3) Estimated GFR (Cockcroft-Gault) 89.4 Glucose Level 269 mg/dL (70-99) Calcium Level 8.8 mg/dL (8.5-10.1) Triglycerides Level 164 mg/dL (0-150) Cholesterol Level 152 mg/dL (0-200) LDL Cholesterol, Calculated 84 mg/dL (0-100) VLDL Cholesterol, Calculated 33 mg/dL (0-40) Non-HDL Cholesterol Calculated 117 mg/dL (0-129) HDL Cholesterol 35 mg/dL (40-60) Cholesterol/HDL Ratio 4.3 Glucose (Fingerstick) 265 mg/dL (70-99) Laboratory Tests Test 10/15/16 17:20 10/15/16 20:52 10/16/16 04:15 10/16/16 07:12 Glucose (Fingerstick) 240 mg/dL (70-99) 220 mg/dL (70-99) 265 mg/dL (70-99) White Blood Count 3.3 x10^3/uL (4.0-11.0) Red Blood Count 4.09 x10^6/uL (4.30-5.70) Hemoglobin 12.0 g/dL (13.0-17.5) Hematocrit 33.9 % (39.0-53.0) Mean Corpuscular Volume 83 fL (79-100) Mean Corpuscular Hemoglobin 29 pg (25-35) Mean Corpuscular Hemoglobin Concent 36 g/dL (31-37) Red Cell Distribution Width 16.7 % (11.5-14.5) Platelet Count 122 x10^3/uL (140-400) Neutrophils (%) (Auto) 70 % (31-73) Lymphocytes (%) (Auto) 20 % (24-48) Monocytes (%) (Auto) 9 % (0-9) Eosinophils (%) (Auto) 1 % (0-3) Basophils (%) (Auto) 0 % (0-3) Neutrophils # (Auto) 2.3 x10^3uL (1.8-7.7) Lymphocytes # (Auto) 0.7 x10^3/uL (1.0-4.8) Monocytes # (Auto) 0.3 x10^3/uL (0.0-1.1) Eosinophils # (Auto) 0.0 x10^3/uL (0.0-0.7) Basophils # (Auto) 0.0 x10^3/uL (0.0-0.2) Sodium Level 135 mmol/L (136-145) Potassium Level 3.5 mmol/L (3.5-5.1) Chloride Level 98 mmol/L (98-107) Carbon Dioxide Level 28 mmol/L (21-32) Anion Gap 9 (6-14) Blood Urea Nitrogen 5 mg/dL (8-26) Creatinine 1.0 mg/dL (0.7-1.3) Estimated GFR (Cockcroft-Gault) 89.4 Glucose Level 269 mg/dL (70-99) Calcium Level 8.8 mg/dL (8.5-10.1) Triglycerides Level 164 mg/dL (0-150) Cholesterol Level 152 mg/dL (0-200) LDL Cholesterol, Calculated 84 mg/dL (0-100) VLDL Cholesterol, Calculated 33 mg/dL (0-40) Non-HDL Cholesterol Calculated 117 mg/dL (0-129) HDL Cholesterol 35 mg/dL (40-60) Cholesterol/HDL Ratio 4.[address] head yesterday: Findings: There is no evidence of acute intracranial hemorrhage. No evidence of acute mass effect or midline shift is identified. The ventricles and basilar cisterns are grossly unremarkable. No acute abnormal extra-axial fluid collections are identified. No definitive evidence of interval territorial infarct is identified. However in the interval since prior exam from May 2006, there has been development of a focal area of hypoattenuation in left frontal, periventricular white matter. The appearance most likely represents progressive changes of chronic small vessel disease. Subacute lacunar infarct is felt to be less likely. Given history of malignancy, metastasis is difficult to completely exclude, but also felt to be less likely. If concern persists follow-up MRI of the brain with and without contrast is recommended for further evaluation. No acute osseous abnormalities are identified. Impression: 1. No evidence of acute intracranial hemorrhage 2. Interval development of area of hypoattenuation in left frontal periventricular white matter. Favor progression of chronic small vessel disease. Metastasis is considered less likely but is difficult to completely exclude given history of primary malignancy. If clinical concern persists follow-up MRI of the brain with and without contrast recommended. 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 Rehabilitation modalities. Thank you for letting me help with the patient's care. RODRI CHAN MD Oct 16, 2016 11:49
[2016-10-16] MEDS ORDERED: VANCOMYCIN 1 GM in IV NORMAL SALINE 250ML 250 ML IV SCH (14:30)
--- NOTE | 2016-10-16 14:50 | PDOC ---
PROGRESS NOTES Chief Complaint Chief Complaint L UE/ tongue paresthesias L hand weakness ASSESSMENT AND PLAN: 1. Sepsis: fever 103, tachycardic, tachypneic, AMS; blood cult WALDEMAR. start empiric zosyn, vanco. ID consult. cooling blanket 2. ? port infect: small nonhealing wound above port for weeks. no fluctuance around port. access port, obtain blood cult., as well as peripheral. UA clean, 3. Paresthesias: improved. appreciate Dr Jackson's input. hx CVA; MRI pending 4. Rectal CA: mets to liver. on palliative chemo with Dr Jade. restaging CT pending 5. DM2: poorly controlled, poos 2/2 infect. ISS History of Present Illness History of Present Illness not feeling well, answers only yes/no questions Vitals Vitals Vital Signs Date Time Temp Pulse Resp B/P (MAP) Pulse Ox O2 Delivery O2 Flow Rate FiO2 10/16/16 11:02 100.1 113 22 105/69 (81) 96 Room Air 100.1 Physical Exam Physical Exam ill appearing, shifting in bed constantly. dry mouth, confused General: Cooperative, mild distress Heart: Other (tachy) Lungs: Clear, Other (tachypneic) Abdomen: Normal bowel sounds, Soft, No tenderness Extremities: No edema Skin: No rashes, Other (tiny wound right above chest port, with surrounding discoloration, no fluctuance) Labs LABS Laboratory Tests Test 10/15/16 17:20 10/15/16 20:52 10/16/16 04:15 10/16/16 07:12 Glucose (Fingerstick) 240 mg/dL (70-99) 220 mg/dL (70-99) 265 mg/dL (70-99) White Blood Count 3.3 x10^3/uL (4.0-11.0) Red Blood Count 4.09 x10^6/uL (4.30-5.70) Hemoglobin 12.0 g/dL (13.0-17.5) Hematocrit 33.9 % (39.0-53.0) Mean Corpuscular Volume 83 fL (79-100) Mean Corpuscular Hemoglobin 29 pg (25-35) Mean Corpuscular Hemoglobin Concent 36 g/dL (31-37) Red Cell Distribution Width 16.7 % (11.5-14.5) Platelet Count 122 x10^3/uL (140-400) Neutrophils (%) (Auto) 70 % (31-73) Lymphocytes (%) (Auto) 20 % (24-48) Monocytes (%) (Auto) 9 % (0-9) Eosinophils (%) (Auto) 1 % (0-3) Basophils (%) (Auto) 0 % (0-3) Neutrophils # (Auto) 2.3 x10^3uL (1.8-7.7) Lymphocytes # (Auto) 0.7 x10^3/uL (1.0-4.8) Monocytes # (Auto) 0.3 x10^3/uL (0.0-1.1) Eosinophils # (Auto) 0.0 x10^3/uL (0.0-0.7) Basophils # (Auto) 0.0 x10^3/uL (0.0-0.2) Sodium Level 135 mmol/L (136-145) Potassium Level 3.5 mmol/L (3.5-5.1) Chloride Level 98 mmol/L (98-107) Carbon Dioxide Level 28 mmol/L (21-32) Anion Gap 9 (6-14) Blood Urea Nitrogen 5 mg/dL (8-26) Creatinine 1.0 mg/dL (0.7-1.3) Estimated GFR (Cockcroft-Gault) 89.4 Glucose Level 269 mg/dL (70-99) Calcium Level 8.8 mg/dL (8.5-10.1) Triglycerides Level 164 mg/dL (0-150) Cholesterol Level 152 mg/dL (0-200) LDL Cholesterol, Calculated 84 mg/dL (0-100) VLDL Cholesterol, Calculated 33 mg/dL (0-40) Non-HDL Cholesterol Calculated 117 mg/dL (0-129) HDL Cholesterol 35 mg/dL (40-60) Cholesterol/HDL Ratio 4.3 Test 10/16/16 12:17 Glucose (Fingerstick) 266 mg/dL (70-99) Comment Review of Relevant I have reviewed the following items isabel (where applicable) has been applied. Labs Laboratory Tests Test 10/15/16 10:40 10/15/16 11:30 10/15/16 17:20 10/15/16 20:52 White Blood Count 3.6 x10^3/uL (4.0-11.0) Red Blood Count 3.90 x10^6/uL (4.30-5.70) Hemoglobin 11.2 g/dL (13.0-17.5) Hematocrit 32.7 % (39.0-53.0) Mean Corpuscular Volume 84 fL (79-100) Mean Corpuscular Hemoglobin 29 pg (25-35) Mean Corpuscular Hemoglobin Concent 34 g/dL (31-37) Red Cell Distribution Width 16.7 % (11.5-14.5) Platelet Count 109 x10^3/uL (140-400) Neutrophils (%) (Auto) 69 % (31-73) Lymphocytes (%) (Auto) 21 % (24-48) Monocytes (%) (Auto) 8 % (0-9) Eosinophils (%) (Auto) 1 % (0-3) Basophils (%) (Auto) 1 % (0-3) Neutrophils # (Auto) 2.5 x10^3uL (1.8-7.7) Lymphocytes # (Auto) 0.8 x10^3/uL (1.0-4.8) Monocytes # (Auto) 0.3 x10^3/uL (0.0-1.1) Eosinophils # (Auto) 0.0 x10^3/uL (0.0-0.7) Basophils # (Auto) 0.0 x10^3/uL (0.0-0.2) Sodium Level 137 mmol/L (136-145) Potassium Level 2.9 mmol/L (3.5-5.1) Chloride Level 98 mmol/L (98-107) Carbon Dioxide Level 31 mmol/L (21-32) Anion Gap 8 (6-14) Blood Urea Nitrogen 6 mg/dL (8-26) Creatinine 1.2 mg/dL (0.7-1.3) Estimated GFR (Cockcroft-Gault) 72.4 BUN/Creatinine Ratio 5 (6-20) Glucose Level 248 mg/dL (70-99) Calcium Level 8.5 mg/dL (8.5-10.1) Total Bilirubin 0.5 mg/dL (0.2-1.0) Aspartate Amino Transf (AST/SGOT) 14 U/L (15-37) Alanine Aminotransferase (ALT/SGPT) 18 U/L (16-63) Alkaline Phosphatase 100 U/L (46-116) Troponin I Quantitative < 0.017 ng/mL (0.000-0.055) Total Protein 6.4 g/dL (6.4-8.2) Albumin 3.1 g/dL (3.4-5.0) Albumin/Globulin Ratio 0.9 (1.0-1.7) Urine Collection Type Void Urine Color Yellow Urine Clarity Clear Urine pH 7.5 Urine Specific Burley <=1.005 Urine Protein Negative mg/dL (NEG-TRACE) Urine Glucose (UA) 100 mg/dL (NEG) Urine Ketones (Stick) Negative mg/dL (NEG) Urine Blood Negative (NEG) Urine Nitrite Negative (NEG) Urine Bilirubin Negative (NEG) Urine Urobilinogen Dipstick 1.0 mg/dL (0.2 mg/dL) Urine Leukocyte Esterase Negative (NEG) Urine RBC 0 /HPF (0-2) Urine WBC Occ /HPF (0-4) Urine Squamous Epithelial Cells Occ /LPF Urine Bacteria 0 /HPF (0-FEW) Glucose (Fingerstick) 240 mg/dL (70-99) 220 mg/dL (70-99) Test 10/16/16 04:15 10/16/16 07:12 10/16/16 12:17 White Blood Count 3.3 x10^3/uL (4.0-11.0) Red Blood Count 4.09 x10^6/uL (4.30-5.70) Hemoglobin 12.0 g/dL (13.0-17.5) Hematocrit 33.9 % (39.0-53.0) Mean Corpuscular Volume 83 fL (79-100) Mean Corpuscular Hemoglobin 29 pg (25-35) Mean Corpuscular Hemoglobin Concent 36 g/dL (31-37) Red Cell Distribution Width 16.7 % (11.5-14.5) Platelet Count 122 x10^3/uL (140-400) Neutrophils (%) (Auto) 70 % (31-73) Lymphocytes (%) (Auto) 20 % (24-48) Monocytes (%) (Auto) 9 % (0-9) Eosinophils (%) (Auto) 1 % (0-3) Basophils (%) (Auto) 0 % (0-3) Neutrophils # (Auto) 2.3 x10^3uL (1.8-7.7) Lymphocytes # (Auto) 0.7 x10^3/uL (1.0-4.8) Monocytes # (Auto) 0.3 x10^3/uL (0.0-1.1) Eosinophils # (Auto) 0.0 x10^3/uL (0.0-0.7) Basophils # (Auto) 0.0 x10^3/uL (0.0-0.2) Sodium Level 135 mmol/L (136-145) Potassium Level 3.5 mmol/L (3.5-5.1) Chloride Level 98 mmol/L (98-107) Carbon Dioxide Level 28 mmol/L (21-32) Anion Gap 9 (6-14) Blood Urea Nitrogen 5 mg/dL (8-26) Creatinine 1.0 mg/dL (0.7-1.3) Estimated GFR (Cockcroft-Gault) 89.4 Glucose Level 269 mg/dL (70-99) Calcium Level 8.8 mg/dL (8.5-10.1) Triglycerides Level 164 mg/dL (0-150) Cholesterol Level 152 mg/dL (0-200) LDL Cholesterol, Calculated 84 mg/dL (0-100) VLDL Cholesterol, Calculated 33 mg/dL (0-40) Non-HDL Cholesterol Calculated 117 mg/dL (0-129) HDL Cholesterol 35 mg/dL (40-60) Cholesterol/HDL Ratio 4.3 Glucose (Fingerstick) 265 mg/dL (70-99) 266 mg/dL (70-99) Laboratory Tests Test 10/15/16 17:20 10/15/16 20:52 10/16/16 04:15 10/16/16 07:12 Glucose (Fingerstick) 240 mg/dL (70-99) 220 mg/dL (70-99) 265 mg/dL (70-99) White Blood Count 3.3 x10^3/uL (4.0-11.0) Red Blood Count 4.09 x10^6/uL (4.30-5.70) Hemoglobin 12.0 g/dL (13.0-17.5) Hematocrit 33.9 % (39.0-53.0) Mean Corpuscular Volume 83 fL (79-100) Mean Corpuscular Hemoglobin 29 pg (25-35) Mean Corpuscular Hemoglobin Concent 36 g/dL (31-37) Red Cell Distribution Width 16.7 % (11.5-14.5) Platelet Count 122 x10^3/uL (140-400) Neutrophils (%) (Auto) 70 % (31-73) Lymphocytes (%) (Auto) 20 % (24-48) Monocytes (%) (Auto) 9 % (0-9) Eosinophils (%) (Auto) 1 % (0-3) Basophils (%) (Auto) 0 % (0-3) Neutrophils # (Auto) 2.3 x10^3uL (1.8-7.7) Lymphocytes # (Auto) 0.7 x10^3/uL (1.0-4.8) Monocytes # (Auto) 0.3 x10^3/uL (0.0-1.1) Eosinophils # (Auto) 0.0 x10^3/uL (0.0-0.7) Basophils # (Auto) 0.0 x10^3/uL (0.0-0.2) Sodium Level 135 mmol/L (136-145) Potassium Level 3.5 mmol/L (3.5-5.1) Chloride Level 98 mmol/L (98-107) Carbon Dioxide Level 28 mmol/L (21-32) Anion Gap 9 (6-14) Blood Urea Nitrogen 5 mg/dL (8-26) Creatinine 1.0 mg/dL (0.7-1.3) Estimated GFR (Cockcroft-Gault) 89.4 Glucose Level 269 mg/dL (70-99) Calcium Level 8.8 mg/dL (8.5-10.1) Triglycerides Level 164 mg/dL (0-150) Cholesterol Level 152 mg/dL (0-200) LDL Cholesterol, Calculated 84 mg/dL (0-100) VLDL Cholesterol, Calculated 33 mg/dL (0-40) Non-HDL Cholesterol Calculated 117 mg/dL (0-129) HDL Cholesterol 35 mg/dL (40-60) Cholesterol/HDL Ratio 4.3 Test 10/16/16 12:17 Glucose (Fingerstick) 266 mg/dL (70-99) Medications Current Medications Ondansetron HCl (Zofran) 4 mg PRN Q8HRS PRN IV NAUSEA/VOMITING; Start 10/15/16 at 13:30; Stop 10/16/16 at 13:29; Status DC Morphine Sulfate 4 mg PRN Q2HR PRN IV PAIN; Start 10/15/16 at 13:30; Stop 10/16 at 13:29; Status DC Potassium Chloride/Dextrose/ Sod Cl 1,000 ml @ 75 mls/hr 1X ONCE IV Last administered on 10/15/16 13:47; Start 10/15/16 at 14:00; Stop 10/16/16 at 03:19 ; Status DC Aspirin (Ecotrin) 81 mg DAILY PO ; Start 10/15/16 at 16:00; Stop 10/15/16 at 16: 20; Status DC Gabapentin (Neurontin) 300 mg TID PO Last administered on 10/16/16 09:04; Start 10/15/16 at 16:00 Metformin HCl (Glucophage) 1,000 mg DAILYWBKFT PO ; Start 10/16/16 at 08:00 Metformin HCl (Glucophage) 500 mg DAILYBFRSUP PO Last administered on 16:35; Start 10/15/16 at 17:00 Metoprolol Succinate (Toprol Xl) 100 mg DAILY PO Last administered on 09:04; Start 10/15/16 at 16:00 Terazosin HCl (Hytrin) 5 mg DAILY PO Last administered on 10/16/16 09:04; Start 10/15/16 at 16:00 Diltiazem HCl (Cardizem 24hr Cd) 240 mg DAILY PO Last administered on 09:03; Start 10/15/16 at 16:00 Losartan Potassium (Cozaar) 50 mg BID PO Last administered on 10/16/16 09:05; Start 10/15/16 at 21:00 Famotidine (Pepcid) 20 mg BID PO Last administered on 10/16/16 09:04; Start at 21:00 Potassium Chloride (Klor-Con) 40 meq 1X ONCE PO Last administered on 16:37; Start 10/15/16 at 16:30; Stop 10/15/16 at 16:31; Status DC Potassium Chloride (Klor-Con) 20 meq DAILYWBKFT PO ; Start 10/16/16 at 08:00 Insulin Aspart (NovoLOG) 0-7 UNITS QIDACHS SQ Last administered on 10/16/16 13 :00; Start 10/15/16 at 16:30 Dextrose (Dextrose 50%-Water Syringe) 12.5 gm PRN Q15MIN PRN IV SEE COMMENTS; Start 10/15/16 at 16:15 Aspirin (Grecia Aspirin) 325 mg DAILYWBKFT PO ; Start 10/16/16 at 08:00 Aspirin (Grecia Aspirin) 325 mg 1X ONCE PO Last administered on 10/15/16 16:35 ; Start 10/15/16 at 16:30; Stop 10/15/16 at 16:31; Status DC Enoxaparin Sodium (Lovenox Per Pharmacy Prophylaxis Dosing) 1 each PRN DAILY PRN MC SEE COMMENTS; Start 10/15/16 at 16:15 Enoxaparin Sodium (Lovenox 40mg Syringe) 40 mg Q24H SQ ; Start 10/15/16 at 17:00 Active Scripts Active Reported Metformin Hcl 500 Mg Tablet 500 Mg PO DAILYBFRSUP Losartan Potassium 100 Mg Tablet 50 Mg PO BID Metformin Hcl 500 Mg Tablet 1,000 Mg PO DAILYWBKFT Gabapentin 300 Mg Capsule 300 Mg PO TID Metoprolol Succinate ( Xl ) (Metoprolol Succinate) 100 Mg Tab.er.24h 100 Mg PO DAILY Diltiazem Xt (Diltiazem Hcl) 240 Mg Capsule.er 240 Mg PO DAILY Terazosin Hcl 5 Mg Capsule 5 Mg PO DAILY Aspir 81 (Aspirin) 81 Mg Tablet.dr 81 Mg PO DAILY Ranitidine Hcl 150 Mg Tablet 150 Mg PO BID Vitals/I & O Vital Sign - Last 24 Hours 10/15/16 10/15/16 10/15/16 10/15/16 14:54 15:02 16:36 16:36 Temp 98.1 98.1 98.1 98.1 Pulse 80 80 80 80 Resp 18 18 B/P (MAP) 171/94 (119) 171/94 (119) 171/94 171/94 Pulse Ox 93 93 O2 Delivery Room Air Room Air 10/15/16 10/15/16 10/15/16 10/15/16 16:36 19:35 20:00 21:04 Temp 98.6 98.6 Pulse 80 108 108 Resp 18 B/P (MAP) 171/94 157/96 (116) 157/96 Pulse Ox 95 O2 Delivery Room Air Room Air 10/15/16 10/16/16 10/16/16 10/16/16 23:35 03:35 07:12 08:00 Temp 98.8 99.1 100.6 98.8 99.1 100.6 Pulse 95 100 96 Resp 18 18 19 B/P (MAP) 158/78 (104) 173/97 (122) 187/105 (132) Pulse Ox 92 94 95 O2 Delivery Room Air Room Air Room Air Room Air 10/16/16 10/16/16 10/16/16 10/16/16 09:03 09:04 09:04 09:05 Pulse 96 96 96 96 B/P (MAP) 187/105 187/105 187/105 187/105 10/16/16 11:02 Temp 100.1 100.1 Pulse 113 Resp 22 B/P (MAP) 105/69 (81) Pulse Ox 96 O2 Delivery Room Air Intake and Output 10/15/16 10/15/16 10/16/16 15:00 23:00 07:00 Intake Total 460 ml 1300 ml Output Total 1000 ml Balance 460 ml 300 ml PILO KELLY MD Oct 16, 2016 14:50
[2016-10-16] MEDS ORDERED: VANCOMYCIN 2 GM in IV NORMAL SALINE 500ML BAG 500 ML IV ONE (15:00)
--- NOTE | 2016-10-16 15:09 | PDOC ---
Infectious Disease Note Vital Sign Vital Signs Vital Signs Date Time Temp Pulse Resp B/P (MAP) Pulse Ox O2 Delivery O2 Flow Rate FiO2 10/16/16 11:02 100.1 113 22 105/69 (81) 96 Room Air 100.1 Labs Lab Laboratory Tests Test 10/15/16 17:20 10/15/16 20:52 10/16/16 04:15 10/16/16 07:12 Glucose (Fingerstick) 240 mg/dL (70-99) 220 mg/dL (70-99) 265 mg/dL (70-99) White Blood Count 3.3 x10^3/uL (4.0-11.0) Red Blood Count 4.09 x10^6/uL (4.30-5.70) Hemoglobin 12.0 g/dL (13.0-17.5) Hematocrit 33.9 % (39.0-53.0) Mean Corpuscular Volume 83 fL (79-100) Mean Corpuscular Hemoglobin 29 pg (25-35) Mean Corpuscular Hemoglobin Concent 36 g/dL (31-37) Red Cell Distribution Width 16.7 % (11.5-14.5) Platelet Count 122 x10^3/uL (140-400) Neutrophils (%) (Auto) 70 % (31-73) Lymphocytes (%) (Auto) 20 % (24-48) Monocytes (%) (Auto) 9 % (0-9) Eosinophils (%) (Auto) 1 % (0-3) Basophils (%) (Auto) 0 % (0-3) Neutrophils # (Auto) 2.3 x10^3uL (1.8-7.7) Lymphocytes # (Auto) 0.7 x10^3/uL (1.0-4.8) Monocytes # (Auto) 0.3 x10^3/uL (0.0-1.1) Eosinophils # (Auto) 0.0 x10^3/uL (0.0-0.7) Basophils # (Auto) 0.0 x10^3/uL (0.0-0.2) Sodium Level 135 mmol/L (136-145) Potassium Level 3.5 mmol/L (3.5-5.1) Chloride Level 98 mmol/L (98-107) Carbon Dioxide Level 28 mmol/L (21-32) Anion Gap 9 (6-14) Blood Urea Nitrogen 5 mg/dL (8-26) Creatinine 1.0 mg/dL (0.7-1.3) Estimated GFR (Cockcroft-Gault) 89.4 Glucose Level 269 mg/dL (70-99) Calcium Level 8.8 mg/dL (8.5-10.1) Triglycerides Level 164 mg/dL (0-150) Cholesterol Level 152 mg/dL (0-200) LDL Cholesterol, Calculated 84 mg/dL (0-100) VLDL Cholesterol, Calculated 33 mg/dL (0-40) Non-HDL Cholesterol Calculated 117 mg/dL (0-129) HDL Cholesterol 35 mg/dL (40-60) Cholesterol/HDL Ratio 4.3 Test 10/16/16 12:17 Glucose (Fingerstick) 266 mg/dL (70-99) Objective Assessment Fever Early sepsis Port with opening and redness and drainage, likely source Colon ca on chemo Encephalopathy Plan Plan of Care bc, lactic acid fluids vanc and cefepime supportive care port will likely need to be removed d/w MARK Ambrocio MD Oct 16, 2016 15:09
[2016-10-16] MEDS ORDERED: CEFEPIME HCL 2 GM in IV NORMAL SALINE 100ML 100 ML IV SCH (15:30)
[2016-10-16] MEDS ORDERED: ACETAMINOPHEN 650 MG/20.3 ML SOLUTION. PO PRN (15:45)
[2016-10-16] MEDS: IV NORMAL SALINE 1000ML BAG 1,000 ML IV SCH ×2 (16:20→21:40)
--- NOTE | 2016-10-16 17:21 | RAD ---
CT ABDOMEN AND PELVIS WITHOUT IV CONTRAST History: Rectal cancer history, concern for recurrence Comparison: MRI abdomen dated 04/27/2014, chest CT dated 05/26/2016, PET CT dated 12/07/2011 Technique: After administration of oral contrast only due to iodine allergy, Helical CT of the chest, abdomen and pelvis was performed. Axial and coronal reconstructions were obtained. Abdomen Findings: Evaluation of visceral organs is limited without intravenous contrast. The thyroid appears symmetric, although artifact from patient's dental amalgam limits evaluation in this region. New enlarged left axillary lymph node measuring 1.0 x 1.6 cm processes image 36, series 2). Right hilar calcified granulomas. There is no definite mediastinal or hilar adenopathy, although it is difficult to evaluate for right hilar adenopathy given the atelectasis and lack of IV contrast. Right subclavian Port-A-Cath with tip in the distal SVC. There is moderate atherosclerotic calcification of the thoracic aorta and its branches. There are dense coronary artery calcifications. Stable ectatic ascending thoracic aorta measuring up to 4.1 cm. The cardiac size is normal. There is no pericardial effusion. Gynecomastia. Redemonstration right infrahilar lung mass which causes postobstructive atelectasis. This has not changed in dimension in the anterior-posterior or medial-lateral dimensions, but it has increased in size in the craniocaudal dimension currently measuring 4.8 x 3.4 x 4.8 cm (ML by AP by CC), previously 4.8 x 3.4 x 4.1 cm. Scattered mucous plugging. No pleural effusion or pneumothorax. Cholelithiasis. No gallbladder wall thickening or pericholecystic fluid. Splenic calcified granulomas. Otherwise normal spleen. The liver is normal. The pancreas is normal. Unchanged 2.3 x 1.3 cm left adrenal nodule shown on prior MRI to be an adenoma. Normal right adrenal gland. Unchanged 1.6 cm left renal cyst. Bilateral kidneys otherwise do not demonstrate focal abnormality. There is no hydronephrosis. Visualized loops of small bowel are normal. Left lower quadrant colostomy. Redemonstration of peristomal fat herniation. Redemonstration of rectal diastasis with herniation of fat as well as loops of small and large bowel. There is no evidence of bowel obstruction. Appendix appears within normal limits. There is no significant abdominal adenopathy. The abdominal aorta is normal in caliber. Pelvis findings: Urinary bladder is normal. There is no free fluid. Redemonstration of ill-defined presacral soft tissue density is difficult to clearly differentiate this from the prostate but it appears to measure approximately 6.4 x 5.1 x 6.8 cm. This does not definitely appear increased in size, but comparison is very difficult given the ill-defined nature. Decrease in size of the hypoattenuating component within this currently measuring 1.1 x 1.0 cm, previously 2.2 x 1.8 cm. There is no acute bony abnormality. Ajoy-or-crwpvhud multilevel degenerative changes of the visualized spine. Grade 1 retrolisthesis of L5 on S1. ANCILLARY FINDINGS: 1. Right subclavian Port-A-Cath 2. Atherosclerosis. Coronary artery calcifications. Ectatic ascending thoracic aorta. 3. Gynecomastia. 4. Cholelithiasis. 5. Stable left adrenal adenoma. 6. Stable left renal cyst. 7. Right lower quadrant colostomy. Unchanged peristomal fat herniation.. Redemonstration of rectal diastasis containing loops of fat, large bowel, and small bowel. No evidence of strangulation. IMPRESSION: Interval increase in the craniocaudal dimension of the right infrahilar lung mass. This may be due to increase in size of the mass versus increase in postobstructive atelectasis. 2. New enlarged left axillary lymph node. Given patient's history, findings are concerning for metastatic disease. Recommend tissue biopsy or PET/CT for further evaluation. 3. Redemonstration of ill-defined presacral soft tissue density. It is difficult to clearly differentiate this density from the prostate and also difficult to directly compared to prior exam given the ill-defined nature. This measures approximately 6.4 x 5.1 x 6.8 cm currently. The area of hypoattenuation within the density/mass has decreased in size currently measuring 1.1 x 1.0 cm. It is unclear how much of this density relates to malignancy versus post radiation changes. PQRS Compliance Statement: One or more of the following individualized dose reduction techniques were utilized for this examination: 1. Automated exposure control 2. Adjustment of the mA and/or kV according to patient size 3. Use of iterative reconstruction technique
[2016-10-16] MEDS: ENOXAPARIN 40 MG/0.4 ML SYRINGE. SQ SCH (17:25)
[2016-10-16] MEDS: PIPERACILLIN/TAZOBACTAM 4.5 GM in IV NORMAL SALINE 100ML 100 ML IV SCH (18:00)
[2016-10-16] MEDS: VANCOMYCIN PER PHARMACY MC PRN (18:27)
[2016-10-16] MEDS: ACETAMINOPHEN 650 MG/20.3 ML SOLUTION. PO PRN (20:45)
[2016-10-17] VITALS (19 sets, daily range): BP systolic 104–184; BP diastolic 65–112
[2016-10-17] MEDS: IV NORMAL SALINE 1000ML BAG 1,000 ML IV SCH ×5 (00:21→21:19)
[2016-10-17] MEDS: PIPERACILLIN/TAZOBACTAM 4.5 GM in IV NORMAL SALINE 100ML 100 ML IV SCH ×4 (00:22→17:56)
[2016-10-17] MEDS: ACETAMINOPHEN 650 MG/20.3 ML SOLUTION. PO PRN ×2 (01:50→08:45)
[2016-10-17] MEDS: MORPHINE SULFATE 4 MG/ML DISP.SYRIN. IV PRN (02:30)
[2016-10-17] MEDS ORDERED: VANCOMYCIN 1.25 GM in IV NORMAL SALINE 250ML 250 ML IV SCH (04:00)
--- NOTE | 2016-10-17 06:45 | CONS ---
DATE OF CONSULTATION: REQUESTING PHYSICIAN: Dr. Sanchez. REASON FOR CONSULTATION: Sepsis. HISTORY OF PRESENT ILLNESS: This is a 71-year-old -[place] gentleman with history of rectal cancer who has been undergoing chemotherapy and he has a colostomy with hernia, who presented with having tingling and numbness to the tongue and arm. The patient subsequently started running fever and lethargic, hence consultation. The patient is arousable. The patient does say few words, but he is not as active as normally he is, and he is lethargic. No nausea, vomiting, diarrhea noted. The patient does have ostomy. Denies any chest pain, shortness of breath or abdominal pain. PAST MEDICAL HISTORY: Positive for rectal cancer, history of diabetes, renal insufficiency and a stroke in the past. The patient had rectal cancer resection and ostomy. SOCIAL HISTORY: Negative for smoking, alcohol, or illicit drug use. ALLERGIES: The patient denied allergy to PENICILLIN, but is listed as in the chart ALLERGIC TO PENICILLIN. CURRENT MEDICATIONS: Reviewed. REVIEW OF SYSTEMS: As per HPI, all other systems reviewed are negative, although the patient is not in a condition to be able to give all the information, mostly is reviewed through the patient's nurse. PHYSICAL EXAMINATION: GENERAL: Awake gentleman who is lethargic and tachycardic. VITAL SIGNS: Temperature 100.1 with a T-max 100.6, pulse 113, respirations 22, blood pressure 105/69. HEENT: Both pupils are round and reacting. No conjunctival lesion, no lesion in the mouth. NECK: Supple, no JVP, no lymphadenopathy. LUNGS: Clear. HEART: S1, S2 regular. ABDOMEN: Benign. EXTREMITIES: No edema, cyanosis. SKIN: Unremarkable except patient does have a right upper chest port, the port is red, area is red and there is an opening hole with some purulent drainage just north of the port. The patient also has a large hernia into the lower abdomen. NEUROLOGIC: The patient is awake, alert, moves all the extremities, but lethargic. LABORATORY DATA: White count is 3.3, hemoglobin 12.0, platelets 122,000. BUN and creatinine is normal. Lactic acid I ordered is pending. Urinalysis unremarkable. Blood cultures have been just ordered. CT is pending. CT of the head had shown old infarct. IMPRESSION: 1. Fever and lethargy with tachycardia and hypotension. The patient is septic. 2. Most likely port infection. 3. Rectal cancer, status post chemotherapy. 4. Diabetes. PLAN: Recommend I would use vancomycin and cefepime. Supportive care. Lactic acid, blood cultures, fluids and discussion with Dr. Sanchez done. Thank you very much, Dr. Sanchez, for giving me the opportunity to participate in this patient's care. MARK JULIO MD DR: THALIA/ivania JOB#: [id number] / [id number]
[2016-10-17] MEDS: POTASSIUM CHLORIDE 20 MEQ TABLET.ER. PO SCH (08:00)
--- NOTE | 2016-10-17 08:42 | PDOC ---
Subjective: Subjective: Onc consult- Stage IV rectal cancer Became septic yesterday, unclear source Still very fatigued Mild confusion Objective: Vital Signs: Vital Signs Date Time Temp Pulse Resp B/P (MAP) Pulse Ox O2 Delivery O2 Flow Rate FiO2 10/17/16 07:40 102.9 123 36 180/112 (134) 95 Nasal Cannula 2.0 102.9 Physical Exam: Heart: Other (tachyacrdic, regular in rhythm) Extremities: No edema General: Alert, Oriented X3, Cooperative, No acute distress, mild distress, Other (confusion) Lungs: Clear to auscultation, Normal air movement Labs/Imaging: Ct C/A/P reviewed- slight progression MRI brain pending Assessment/Plan A/P: 1. Stage IV rectal cancer with lung metastases managed by Dr. Jade. On palliative FOLFIRI, last given on 10/02/2016 with rising CEA, scans showing slight progression. - Plan to hold tx until his next visit with Dr. Jade upon his return mid October to discuss if change in tx warranted. Mr. Perez was growing tired of the q 2 wk schedule as well. - No tx until sepsis clears as well 2. Abnormal CT head finding, arm tingling (resolved). Likely related to a small vessel disease as rectal cancer does not typically metastasized to the brain. - MRI brain pending for further characterization. Machine down currently. - Neuro following 3. Sepsis, unclear source - If port needs to be removed per ID, ok to do so as chemo on hold with progression as well. FAUSTO ALVAREZ DO Oct 17, 2016 08:42
[2016-10-17] MEDS: INSULIN ASPART 300 UNITS/3 ML INSULN.PEN SQ SCH ×4 (08:44→21:00)
[2016-10-17] MEDS: ASPIRIN 325 MG TABLET PO SCH (08:45)
[2016-10-17] MEDS: metFORMIN 500 MG TABLET PO SCH ×2 (08:45→17:56)
[2016-10-17] MEDS: TERAZOSIN 5 MG CAPSULE. PO SCH (08:46)
[2016-10-17] MEDS: GABAPENTIN 300 MG CAPSULE. PO SCH ×3 (08:46→21:15)
[2016-10-17] MEDS: LOSARTAN POTASSIUM 50 MG TABLET. PO SCH ×2 (08:46→21:18)
[2016-10-17] MEDS: FAMOTIDINE 20 MG TABLET. PO SCH ×2 (08:47→21:15)
[2016-10-17] MEDS: METOPROLOL SUCC 24HR ER 100 MG TAB.ER.24H. PO SCH (08:47)
--- NOTE | 2016-10-17 10:47 | PDOC ---
Infectious Disease Note Subjective Subjective Comfortable, denies pain, SOA Fever Tmax 103.6 ROS ROS GEN: Denies chills, sweats HEENT: Deniessore throat CV: Denies chest pain RESP: Denies shortness of air, cough GI: Denies n/v/d Vital Sign Vital Signs Vital Signs Date Time Temp Pulse Resp B/P (MAP) Pulse Ox O2 Delivery O2 Flow Rate FiO2 10/17/16 08:47 123 180/112 10/17/16 07:40 102.9 36 95 Nasal Cannula 2.0 102.9 Physical Exam PHYSICAL EXAM GENERAL: Propped up in bed, being fed breakfast LUNGS: Diminished aeration bases, nonlabored. 2LNC O2 HEART: S1, S2 regular. ABDOMEN: BS present, soft, NT, ostomy EXTREMITIES: No edema, cyanosis. NEUROLOGIC: More alert, responding appropriately SKIN: without rash Port: red, small hole with purulent drainage Labs Lab Laboratory Tests Test 10/16/16 12:17 10/16/16 15:05 10/16/16 16:23 10/16/16 21:29 Glucose (Fingerstick) 266 mg/dL (70-99) 275 mg/dL (70-99) 299 mg/dL (70-99) Lactic Acid Level 2.4 mmol/L (0.4-2.0) Test 10/17/16 07:43 Glucose (Fingerstick) 209 mg/dL (70-99) Micro BLOOD CULTURE Final GRAM POSITIVE COCCI IN CLUSTERS IN 4 OF 4 BOTTLES;2 SETS WERE DRAWN. Objective Assessment Sepsis with hypotension, POA. GPC bacteremia Fevers Acute encephalopathy, better Lactic acidosis Most likely port infection. Rectal cancer, status post chemotherapy. Diabetes. PNC listed as allergy, tolerating Zosyn w/o problem Plan Plan of Care Continue vanc and Zosyn Await GPC ID port will need to be removed Monitor temp, WBC and Cr d/w dr Hernandez Attending Co-Sign The patient was seen and interviewed as well as examined at the bedside. The chart was reviewed. The case was discussed. Agree with the plan of care. port removal today, d/w MARILYN Mcmullen APRN Oct 17, 2016 10:47 MARK JULIO MD Oct 17, 2016 13:21
--- NOTE | 2016-10-17 12:05 | PDOC ---
PROGRESS NOTES Chief Complaint Chief Complaint L UE/ tongue paresthesias L hand weakness ASSESSMENT AND PLAN: 1. Sepsis: remains febrile, tachicardic. blood cult pos for GPC. cont empiric zosyn, vanco until final cuturer obtained. d/w ID service. port removal WALDEMAR 2. port infect: remove port (VIR) 3. Hyper/Hypotension: SBPs bouncing between 180s and 100s. ?art stenosis. obtain bilat BPs 4. Paresthesias: improved. appreciate Dr Jackson's input. hx CVA; MRI pending 5. Rectal CA: mets to liver. on palliative chemo with Dr Jade. restaging CT obtained: persisting L hilar mass, increasing L axillary LAD. liver not mentioned (no IV contrast) 6. DM2: poorly controlled, poss 2/2 infect. ISS and metformin 8. Prohpylaxis: H2B, lovenox History of Present Illness History of Present Illness feels ok, sl winded. no pain Vitals Vitals Vital Signs Date Time Temp Pulse Resp B/P (MAP) Pulse Ox O2 Delivery O2 Flow Rate FiO2 10/17/16 08:47 123 180/112 10/17/16 07:43 Nasal Cannula 2.0 10/17/16 07:40 102.9 36 95 102.9 Physical Exam General: Alert, Oriented X3, Cooperative, No acute distress Heart: Regular rate, Other (tachy) Lungs: Clear, Other (tachypneic) Abdomen: Normal bowel sounds, Soft, No tenderness Extremities: No edema Skin: No rashes, Other (tiny wound right above chest port, with surrounding discoloration, no fluctuance) Labs LABS Laboratory Tests Test 10/16/16 12:17 10/16/16 15:05 10/16/16 16:23 10/16/16 21:29 Glucose (Fingerstick) 266 mg/dL (70-99) 275 mg/dL (70-99) 299 mg/dL (70-99) Lactic Acid Level 2.4 mmol/L (0.4-2.0) Test 10/17/16 07:43 10/17/16 11:32 Glucose (Fingerstick) 209 mg/dL (70-99) 244 mg/dL (70-99) Comment Review of Relevant I have reviewed the following items isabel (where applicable) has been applied. Labs Laboratory Tests Test 10/15/16 17:20 10/15/16 20:52 10/16/16 04:15 10/16/16 07:12 Glucose (Fingerstick) 240 mg/dL (70-99) 220 mg/dL (70-99) 265 mg/dL (70-99) White Blood Count 3.3 x10^3/uL (4.0-11.0) Red Blood Count 4.09 x10^6/uL (4.30-5.70) Hemoglobin 12.0 g/dL (13.0-17.5) Hematocrit 33.9 % (39.0-53.0) Mean Corpuscular Volume 83 fL (79-100) Mean Corpuscular Hemoglobin 29 pg (25-35) Mean Corpuscular Hemoglobin Concent 36 g/dL (31-37) Red Cell Distribution Width 16.7 % (11.5-14.5) Platelet Count 122 x10^3/uL (140-400) Neutrophils (%) (Auto) 70 % (31-73) Lymphocytes (%) (Auto) 20 % (24-48) Monocytes (%) (Auto) 9 % (0-9) Eosinophils (%) (Auto) 1 % (0-3) Basophils (%) (Auto) 0 % (0-3) Neutrophils # (Auto) 2.3 x10^3uL (1.8-7.7) Lymphocytes # (Auto) 0.7 x10^3/uL (1.0-4.8) Monocytes # (Auto) 0.3 x10^3/uL (0.0-1.1) Eosinophils # (Auto) 0.0 x10^3/uL (0.0-0.7) Basophils # (Auto) 0.0 x10^3/uL (0.0-0.2) Sodium Level 135 mmol/L (136-145) Potassium Level 3.5 mmol/L (3.5-5.1) Chloride Level 98 mmol/L (98-107) Carbon Dioxide Level 28 mmol/L (21-32) Anion Gap 9 (6-14) Blood Urea Nitrogen 5 mg/dL (8-26) Creatinine 1.0 mg/dL (0.7-1.3) Estimated GFR (Cockcroft-Gault) 89.4 Glucose Level 269 mg/dL (70-99) Calcium Level 8.8 mg/dL (8.5-10.1) Triglycerides Level 164 mg/dL (0-150) Cholesterol Level 152 mg/dL (0-200) LDL Cholesterol, Calculated 84 mg/dL (0-100) VLDL Cholesterol, Calculated 33 mg/dL (0-40) Non-HDL Cholesterol Calculated 117 mg/dL (0-129) HDL Cholesterol 35 mg/dL (40-60) Cholesterol/HDL Ratio 4.3 Test 10/16/16 12:17 10/16/16 15:05 10/16/16 16:23 10/16/16 21:29 Glucose (Fingerstick) 266 mg/dL (70-99) 275 mg/dL (70-99) 299 mg/dL (70-99) Lactic Acid Level 2.4 mmol/L (0.4-2.0) Test 10/17/16 07:43 10/17/16 11:32 Glucose (Fingerstick) 209 mg/dL (70-99) 244 mg/dL (70-99) Laboratory Tests Test 10/16/16 12:17 10/16/16 15:05 10/16/16 16:23 10/16/16 21:29 Glucose (Fingerstick) 266 mg/dL (70-99) 275 mg/dL (70-99) 299 mg/dL (70-99) Lactic Acid Level 2.4 mmol/L (0.4-2.0) Test 10/17/16 07:43 10/17/16 11:32 Glucose (Fingerstick) 209 mg/dL (70-99) 244 mg/dL (70-99) Microbiology 10/16/16 Blood Culture - Final, Complete 10/16/16 Gram Stain - Final, Complete Medications Current Medications Ondansetron HCl (Zofran) 4 mg PRN Q8HRS PRN IV NAUSEA/VOMITING; Start 10/15/16 at 13:30; Stop 10/16/16 at 13:29; Status DC Morphine Sulfate 4 mg PRN Q2HR PRN IV PAIN; Start 10/15/16 at 13:30; Stop 10/16 at 13:29; Status DC Potassium Chloride/Dextrose/ Sod Cl 1,000 ml @ 75 mls/hr 1X ONCE IV Last administered on 10/15/16t 13:47; Start 10/15/16 at 14:00; Stop 10/16/16 at 03:19 ; Status DC Aspirin (Ecotrin) 81 mg DAILY PO ; Start 10/15/16 at 16:00; Stop 10/15/16 at 16: 20; Status DC Gabapentin (Neurontin) 300 mg TID PO Last administered on 10/17/16 08:46; Start 10/15/16 at 16:00 Metformin HCl (Glucophage) 1,000 mg DAILYWBKFT PO Last administered on 08:45; Start 10/16/16 at 08:00 Metformin HCl (Glucophage) 500 mg DAILYBFRSUP PO Last administered on 16:35; Start 10/15/16 at 17:00 Metoprolol Succinate (Toprol Xl) 100 mg DAILY PO Last administered on 08:47; Start 10/15/16 at 16:00 Terazosin HCl (Hytrin) 5 mg DAILY PO Last administered on 10/17/16 08:46; Start 10/15/16 at 16:00 Diltiazem HCl (Cardizem 24hr Cd) 240 mg DAILY PO Last administered on 08:46; Start 10/15/16 at 16:00 Losartan Potassium (Cozaar) 50 mg BID PO Last administered on 10/17/16 08:46; Start 10/15/16 at 21:00 Famotidine (Pepcid) 20 mg BID PO Last administered on 10/17/16 08:47; Start at 21:00 Potassium Chloride (Klor-Con) 40 meq 1X ONCE PO Last administered on 16:37; Start 10/15/16 at 16:30; Stop 10/15/16 at 16:31; Status DC Potassium Chloride (Klor-Con) 20 meq DAILYWBKFT PO Last administered on 08:00; Start 10/16/16 at 08:00 Insulin Aspart (NovoLOG) 0-7 UNITS QIDACHS SQ Last administered on 10/17/16 08 :44; Start 10/15/16 at 16:30 Dextrose (Dextrose 50%-Water Syringe) 12.5 gm PRN Q15MIN PRN IV SEE COMMENTS; Start 10/15/16 at 16:15 Aspirin ([employer] Aspirin) 325 mg DAILYWBKFT PO Last administered on 10/17/16 08: 45; Start 10/16/16 at 08:00 Aspirin ([employer] Aspirin) 325 mg 1X ONCE PO Last administered on 10/15/16 16:35 ; Start 10/15/16 at 16:30; Stop 10/15/16 at 16:31; Status DC Enoxaparin Sodium (Lovenox Per Pharmacy Prophylaxis Dosing) 1 each PRN DAILY PRN MC SEE COMMENTS; Start 10/15/16 at 16:15 Enoxaparin Sodium (Lovenox 40mg Syringe) 40 mg Q24H SQ Last administered on 17:25; Start 10/15/16 at 17:00 Sodium Chloride 1,000 ml @ 150 mls/hr Q6H40M IV Last administered on 08:51; Start 10/16/16 at 15:00 Piperacillin Sod/ Tazobactam Sod 4.5 gm/Sodium Chloride 100 ml @ 200 mls/hr Q6HRS IV Last administered on 10/17/16 06:20; Start 10/16/16 at 18:00 Vancomycin HCl 1 gm/Sodium Chloride 250 ml @ 250 mls/hr Q12H IV ; Start at 14:30; Status UNV Vancomycin HCl (Vanco Per Pharmacy) 1 each PRN DAILY PRN MC SEE COMMENTS Last administered on 10/16/16 18:27; Start 10/16/16 at 15:00 Vancomycin HCl 2 gm/Sodium Chloride 500 ml @ 250 mls/hr 1X ONCE IV Last administered on 10/16/16 16:20; Start 10/16/16 at 15:00; Stop 10/16/16 at 16:59 ; Status DC Cefepime HCl 2 gm/ Sodium Chloride 100 ml @ 200 mls/hr Q8HRS IV ; Start at 15:30; Status Cancel Acetaminophen (Tylenol) 650 mg PRN Q6HRS PRN PO MILD PAIN / TEMP Last administered on 10/16/16 16:03; Start 10/16/16 at 15:45; Stop 10/16/16 at 20:26 ; Status DC Vancomycin HCl 1.25 gm/Sodium Chloride 250 ml @ 167 mls/hr Q12H IV Last administered on 10/17/16 04:25; Start 10/17/16 at 04:00 Vancomycin HCl 1 each 1X ONCE MC ; Start 10/17/16 at 15:30; Stop 10/17/16 at 15 :31 Acetaminophen (Tylenol) 650 mg PRN Q4HRS PRN PO MILD PAIN / TEMP; Start at 15:45; Stop 10/17/16 at 15:45; Status DC Acetaminophen (Tylenol) 650 mg PRN Q4HRS PRN PO MILD PAIN / TEMP Last administered on 10/17/16 08:45; Start 10/16/16 at 20:45 Morphine Sulfate 4 mg PRN Q4HRS PRN IV SEVERE PAIN Last administered on 02:30; Start 10/17/16 at 02:15 Active Scripts Active Reported Metformin Hcl 500 Mg Tablet 500 Mg PO DAILYBFRSUP Losartan Potassium 100 Mg Tablet 50 Mg PO BID Metformin Hcl 500 Mg Tablet 1,000 Mg PO DAILYWBKFT Gabapentin 300 Mg Capsule 300 Mg PO TID Metoprolol Succinate ( Xl ) (Metoprolol Succinate) 100 Mg Tab.er.24h 100 Mg PO DAILY Diltiazem Xt (Diltiazem Hcl) 240 Mg Capsule.er 240 Mg PO DAILY Terazosin Hcl 5 Mg Capsule 5 Mg PO DAILY Aspir 81 (Aspirin) 81 Mg Tablet.dr 81 Mg PO DAILY Ranitidine Hcl 150 Mg Tablet 150 Mg PO BID Vitals/I & O Vital Sign - Last 24 Hours 10/16/16 10/16/16 10/16/16 10/16/16 15:06 16:22 17:14 18:33 Temp 103.6 103.7 102.9 103.1 103.6 103.7 102.9 103.1 Pulse 120 120 114 126 Resp 18 35 35 22 B/P (MAP) 145/82 (103) 164/89 (114) 153/82 (105) 166/90 (115) Pulse Ox 96 97 94 95 O2 Delivery Room Air O2 Flow Rate 2.0 2.0 2.0 10/16/16 10/16/16 10/16/16 10/17/16 19:30 20:00 23:00 00:10 Temp 103.6 100.7 99.1 103.6 100.7 99.1 Pulse 96 101 106 Resp 22 40 20 B/P (MAP) 169/91 (117) 138/78 (98) 133/82 (99) Pulse Ox 97 99 99 O2 Delivery Nasal Cannula Nasal Cannula Nasal Cannula Nasal Cannula O2 Flow Rate 2.0 2.0 2.0 2.0 10/17/16 10/17/16 10/17/16 10/17/16 02:30 03:00 03:08 04:30 Temp 101.8 100.2 101.8 100.2 Pulse 112 99 Resp 35 36 40 36 B/P (MAP) 162/88 (112) 145/82 (103) Pulse Ox 96 93 O2 Delivery Nasal Cannula Nasal Cannula Nasal Cannula Nasal Cannula O2 Flow Rate 2.0 2.0 2.0 2.0 10/17/16 10/17/16 10/17/16 10/17/16 05:21 07:40 07:43 08:46 Temp 98.1 102.9 98.1 102.9 Pulse 96 123 123 Resp 28 36 B/P (MAP) 116/74 (88) 180/112 (134) 180/112 Pulse Ox 96 95 O2 Delivery Nasal Cannula Nasal Cannula Nasal Cannula O2 Flow Rate 2.0 2.0 2.0 10/17/16 10/17/16 10/17/16 08:46 08:46 08:47 Pulse 123 123 123 B/P (MAP) 180/112 180/112 180/112 Intake and Output 10/16/16 10/16/16 10/17/16 15:00 23:00 07:00 Intake Total 1200 ml 75 ml Output Total 260 ml Balance 940 ml 75 ml PILO KELLY MD Oct 17, 2016 12:05
[2016-10-17 13:15] LABS: INR 1.4 (0.8-1.1); PROTHROMBIN TIME PATIENT 16.6 SEC (11.7-14.0)
--- NOTE | 2016-10-17 13:46 | PDOC ---
PROGRESS NOTES Assessment Problems Medical Problems: (1) Brain metastases Status: Acute (2) Paresthesias Status: Acute Transient ischemic attack, neurological symptoms have resolved Chemotherapy-induced peripheral neuropathy Stage IV rectal cancer Now he has sepsis Plan Await brain MRI, scanner is down until at least tomorrow Given the late stage colon cancer, further stroke workup such as echocardiogram , carotid Dopplers, lipid panel, statin, not indicated. Rehabilitation modalities. Subjective No complaints Objective Vital Signs Date Time Temp Pulse Resp B/P (MAP) Pulse Ox O2 Delivery O2 Flow Rate FiO2 10/17/16 11:58 96 106/69 (81) 96 Nasal Cannula 2.0 10/17/16 10:43 100.0 32 100.0 Intake and Output 10/17/16 07:00 Intake Total 1275 ml Output Total 260 ml Balance 1015 ml Intake Oral 1275 ml Output Urine Total 260 ml # Voids 3 PHYSICAL EXAM Alert. Oriented to place and person, not time. PERRL. EOMI. CN: no focal findings. Muscle tone: normal. Muscle strength: 4/5 DTR: 1+ Plantar reflex: flexor Gait: not examined in bed. Sensory exam: no abnormal findings. No cerebellar signs elicited. Review of Relevant I have reviewed the following items isabel (where applicable) has been applied. Labs Laboratory Tests Test 10/15/16 17:20 10/15/16 20:52 10/16/16 04:15 10/16/16 07:12 Glucose (Fingerstick) 240 mg/dL (70-99) 220 mg/dL (70-99) 265 mg/dL (70-99) White Blood Count 3.3 x10^3/uL (4.0-11.0) Red Blood Count 4.09 x10^6/uL (4.30-5.70) Hemoglobin 12.0 g/dL (13.0-17.5) Hematocrit 33.9 % (39.0-53.0) Mean Corpuscular Volume 83 fL (79-100) Mean Corpuscular Hemoglobin 29 pg (25-35) Mean Corpuscular Hemoglobin Concent 36 g/dL (31-37) Red Cell Distribution Width 16.7 % (11.5-14.5) Platelet Count 122 x10^3/uL (140-400) Neutrophils (%) (Auto) 70 % (31-73) Lymphocytes (%) (Auto) 20 % (24-48) Monocytes (%) (Auto) 9 % (0-9) Eosinophils (%) (Auto) 1 % (0-3) Basophils (%) (Auto) 0 % (0-3) Neutrophils # (Auto) 2.3 x10^3uL (1.8-7.7) Lymphocytes # (Auto) 0.7 x10^3/uL (1.0-4.8) Monocytes # (Auto) 0.3 x10^3/uL (0.0-1.1) Eosinophils # (Auto) 0.0 x10^3/uL (0.0-0.7) Basophils # (Auto) 0.0 x10^3/uL (0.0-0.2) Sodium Level 135 mmol/L (136-145) Potassium Level 3.5 mmol/L (3.5-5.1) Chloride Level 98 mmol/L (98-107) Carbon Dioxide Level 28 mmol/L (21-32) Anion Gap 9 (6-14) Blood Urea Nitrogen 5 mg/dL (8-26) Creatinine 1.0 mg/dL (0.7-1.3) Estimated GFR (Cockcroft-Gault) 89.4 Glucose Level 269 mg/dL (70-99) Calcium Level 8.8 mg/dL (8.5-10.1) Triglycerides Level 164 mg/dL (0-150) Cholesterol Level 152 mg/dL (0-200) LDL Cholesterol, Calculated 84 mg/dL (0-100) VLDL Cholesterol, Calculated 33 mg/dL (0-40) Non-HDL Cholesterol Calculated 117 mg/dL (0-129) HDL Cholesterol 35 mg/dL (40-60) Cholesterol/HDL Ratio 4.3 Test 10/16/16 12:17 10/16/16 15:05 10/16/16 16:23 10/16/16 21:29 Glucose (Fingerstick) 266 mg/dL (70-99) 275 mg/dL (70-99) 299 mg/dL (70-99) Lactic Acid Level 2.4 mmol/L (0.4-2.0) Test 10/17/16 07:43 10/17/16 11:32 10/17/16 13:00 Glucose (Fingerstick) 209 mg/dL (70-99) 244 mg/dL (70-99) Prothrombin Time 16.6 SEC (11.7-14.0) Prothromb Time International Ratio 1.4 (0.8-1.1) Vancomycin Level Trough 14.5 mcg/mL (10.0-20.0) Vancomycin Last Dose Date 10/17/16 Vancomycin Last Dose Time 0400 Laboratory Tests Test 10/16/16 15:05 10/16/16 16:23 10/16/16 21:29 10/17/16 07:43 Lactic Acid Level 2.4 mmol/L (0.4-2.0) Glucose (Fingerstick) 275 mg/dL (70-99) 299 mg/dL (70-99) 209 mg/dL (70-99) Test 10/17/16 11:32 10/17/16 13:00 Glucose (Fingerstick) 244 mg/dL (70-99) Prothrombin Time 16.6 SEC (11.7-14.0) Prothromb Time International Ratio 1.4 (0.8-1.1) Vancomycin Level Trough 14.5 mcg/mL (10.0-20.0) Vancomycin Last Dose Date 10/17/16 Vancomycin Last Dose Time 0400 Microbiology 10/16/16 Blood Culture - Final, Complete 10/16/16 Gram Stain - Final, Complete Medications Current Medications Ondansetron HCl (Zofran) 4 mg PRN Q8HRS PRN IV NAUSEA/VOMITING; Start 10/15/16 at 13:30; Stop 10/16/16 at 13:29; Status DC Morphine Sulfate 4 mg PRN Q2HR PRN IV PAIN; Start 10/15/16 at 13:30; Stop 10/16 at 13:29; Status DC Potassium Chloride/Dextrose/ Sod Cl 1,000 ml @ 75 mls/hr 1X ONCE IV Last administered on 10/15/16 13:47; Start 10/15/16 at 14:00; Stop 10/16/16 at 03:19 ; Status DC Aspirin (Ecotrin) 81 mg DAILY PO ; Start 10/15/16 at 16:00; Stop 10/15/16 at 16: 20; Status DC Gabapentin (Neurontin) 300 mg TID PO Last administered on 10/17/16 08:46; Start 10/15/16 at 16:00 Metformin HCl (Glucophage) 1,000 mg DAILYWBKFT PO Last administered on 08:45; Start 10/16/16 at 08:00 Metformin HCl (Glucophage) 500 mg DAILYBFRSUP PO Last administered on 16:35; Start 10/15/16 at 17:00 Metoprolol Succinate (Toprol Xl) 100 mg DAILY PO Last administered on 08:47; Start 10/15/16 at 16:00 Terazosin HCl (Hytrin) 5 mg DAILY PO Last administered on 10/17/16 08:46; Start 10/15/16 at 16:00 Diltiazem HCl (Cardizem 24hr Cd) 240 mg DAILY PO Last administered on 08:46; Start 10/15/16 at 16:00 Losartan Potassium (Cozaar) 50 mg BID PO Last administered on 10/17/16 08:46; Start 10/15/16 at 21:00 Famotidine (Pepcid) 20 mg BID PO Last administered on 10/17/16 08:47; Start at 21:00 Potassium Chloride (Klor-Con) 40 meq 1X ONCE PO Last administered on 16:37; Start 10/15/16 at 16:30; Stop 10/15/16 at 16:31; Status DC Potassium Chloride (Klor-Con) 20 meq DAILYWBKFT PO Last administered on 08:00; Start 10/16/16 at 08:00 Insulin Aspart ([employer]ovoLOG) 0-7 UNITS QIDACHS SQ Last administered on 10/17/16 13 :00; Start 10/15/16 at 16:30 Dextrose (Dextrose 50%-Water Syringe) 12.5 gm PRN Q15MIN PRN IV SEE COMMENTS; Start 10/15/16 at 16:15 Aspirin ([employer] Aspirin) 325 mg DAILYWBKFT PO Last administered on 10/17/16 08: 45; Start 10/16/16 at 08:00 Aspirin ([employer] Aspirin) 325 mg 1X ONCE PO Last administered on 10/15/16 16:35 ; Start 10/15/16 at 16:30; Stop 10/15/16 at 16:31; Status DC Enoxaparin Sodium (Lovenox Per Pharmacy Prophylaxis Dosing) 1 each PRN DAILY PRN MC SEE COMMENTS; Start 10/15/16 at 16:15 Enoxaparin Sodium (Lovenox 40mg Syringe) 40 mg Q24H SQ Last administered on 17:25; Start 10/15/16 at 17:00 Sodium Chloride 1,000 ml @ 150 mls/hr Q6H40M IV Last administered on 12:53; Start 10/16/16 at 15:00 Piperacillin Sod/ Tazobactam Sod 4.5 gm/Sodium Chloride 100 ml @ 200 mls/hr Q6HRS IV Last administered on 10/17/16 12:52; Start 10/16/16 at 18:00 Vancomycin HCl 1 gm/Sodium Chloride 250 ml @ 250 mls/hr Q12H IV ; Start at 14:30; Status UNV Vancomycin HCl (Vanco Per Pharmacy) 1 each PRN DAILY PRN MC SEE COMMENTS Last administered on 10/16/16 18:27; Start 10/16/16 at 15:00 Vancomycin HCl 2 gm/Sodium Chloride 500 ml @ 250 mls/hr 1X ONCE IV Last administered on 10/16/16 16:20; Start 10/16/16 at 15:00; Stop 10/16/16 at 16:59 ; Status DC Cefepime HCl 2 gm/ Sodium Chloride 100 ml @ 200 mls/hr Q8HRS IV ; Start at 15:30; Status Cancel Acetaminophen (Tylenol) 650 mg PRN Q6HRS PRN PO MILD PAIN / TEMP Last administered on 10/16/16 16:03; Start 10/16/16 at 15:45; Stop 10/16/16 at 20:26 ; Status DC Vancomycin HCl 1.25 gm/Sodium Chloride 250 ml @ 167 mls/hr Q12H IV Last administered on 10/17/16 04:25; Start 10/17/16 at 04:00 Vancomycin HCl 1 each 1X ONCE MC ; Start 10/17/16 at 15:30; Stop 10/17/16 at 15 :31 Acetaminophen (Tylenol) 650 mg PRN Q4HRS PRN PO MILD PAIN / TEMP; Start at 15:45; Stop 10/17/16 at 15:45; Status DC Acetaminophen (Tylenol) 650 mg PRN Q4HRS PRN PO MILD PAIN / TEMP Last administered on 10/17/16 08:45; Start 10/16/16 at 20:45 Morphine Sulfate 4 mg PRN Q4HRS PRN IV SEVERE PAIN Last administered on 02:30; Start 10/17/16 at 02:15 Active Scripts Active Reported Metformin Hcl 500 Mg Tablet 500 Mg PO DAILYBFRSUP Losartan Potassium 100 Mg Tablet 50 Mg PO BID Metformin Hcl 500 Mg Tablet 1,000 Mg PO DAILYWBKFT Gabapentin 300 Mg Capsule 300 Mg PO TID Metoprolol Succinate ( Xl ) (Metoprolol Succinate) 100 Mg Tab.er.24h 100 Mg PO DAILY Diltiazem Xt (Diltiazem Hcl) 240 Mg Capsule.er 240 Mg PO DAILY Terazosin Hcl 5 Mg Capsule 5 Mg PO DAILY Aspir 81 (Aspirin) 81 Mg Tablet.dr 81 Mg PO DAILY Ranitidine Hcl 150 Mg Tablet 150 Mg PO BID Vitals/I & O Vital Sign - Last 24 Hours 10/16/16 10/16/16 10/16/16 10/16/16 15:06 16:22 17:14 18:33 Temp 103.6 103.7 102.9 103.1 103.6 103.7 102.9 103.1 Pulse 120 120 114 126 Resp 18 35 35 22 B/P (MAP) 145/82 (103) 164/89 (114) 153/82 (105) 166/90 (115) Pulse Ox 96 97 94 95 O2 Delivery Room Air O2 Flow Rate 2.0 2.0 2.0 10/16/16 10/16/16 10/16/16 10/17/16 19:30 20:00 23:00 00:10 Temp 103.6 100.7 99.1 103.6 100.7 99.1 Pulse 96 101 106 Resp 22 40 20 B/P (MAP) 169/91 (117) 138/78 (98) 133/82 (99) Pulse Ox 97 99 99 O2 Delivery Nasal Cannula Nasal Cannula Nasal Cannula Nasal Cannula O2 Flow Rate 2.0 2.0 2.0 2.0 10/17/16 10/17/16 10/17/16 10/17/16 02:30 03:00 03:08 04:30 Temp 101.8 100.2 101.8 100.2 Pulse 112 99 Resp 35 36 40 36 B/P (MAP) 162/88 (112) 145/82 (103) Pulse Ox 96 93 O2 Delivery Nasal Cannula Nasal Cannula Nasal Cannula Nasal Cannula O2 Flow Rate 2.0 2.0 2.0 2.0 10/17/16 10/17/16 10/17/16 10/17/16 05:21 07:00 07:40 07:43 Temp 98.1 102.9 98.1 102.9 Pulse 96 113 123 Resp 28 36 B/P (MAP) 116/74 (88) 164/101 (122) 180/112 (134) Pulse Ox 96 96 95 O2 Delivery Nasal Cannula Nasal Cannula Nasal Cannula Nasal Cannula O2 Flow Rate 2.0 2.0 2.0 2.0 10/17/16 10/17/16 10/17/16 10/17/16 08:00 08:46 08:46 08:46 Pulse 123 123 123 123 B/P (MAP) 184/98 (126) 180/112 180/112 180/112 Pulse Ox 94 O2 Delivery Nasal Cannula O2 Flow Rate 2.0 10/17/16 10/17/16 10/17/16 10/17/16 08:47 09:00 10:00 10:38 Pulse 123 122 119 110 B/P (MAP) 180/112 172/93 (119) 130/81 (97) 125/66 (85) Pulse Ox 94 92 93 O2 Delivery Nasal Cannula Nasal Cannula Nasal Cannula O2 Flow Rate 2.0 2.0 2.0 10/17/16 10/17/16 10/17/16 10/17/16 10:43 11:00 11:57 11:58 Temp 100.0 100.0 Pulse 110 101 96 96 Resp 32 B/P (MAP) 105/72 (83) 104/65 (78) 107/67 (80) 106/69 (81) Pulse Ox 96 94 96 96 O2 Delivery Nasal Cannula Nasal Cannula Nasal Cannula Nasal Cannula O2 Flow Rate 2.0 2.0 2.0 2.0 Intake and Output 10/16/16 10/16/16 10/17/16 15:00 23:00 07:00 Intake Total 1200 ml 75 ml Output Total 260 ml Balance 940 ml 75 ml RODRI CHAN MD Oct 17, 2016 13:46
[2016-10-17] MEDS ORDERED: LIDOCAINE 2%/EPI 1:100,000 20 ML VIAL. ONE (15:22)
[2016-10-17] MEDS ORDERED: ACETAMINOPHEN 650 MG/20.3 ML SOLUTION. PO PRN (15:45)
[2016-10-17] MEDS ORDERED: LIDOCAINE 1%/EPI 1:100,000 20 ML VIAL. INJ ONE (16:00)
--- NOTE | 2016-10-17 16:26 | RAD ---
Fluoroscopically assisted removal of right subclavian 10/17/2016 Indication: Port infection Comparison study: None Discussion: The risks and benefits of the procedure were discussed patient. Informed consent was obtained. The patient was brought to the fluoroscopy suite and placed in supine position. A timeout procedure was performed. The right chest was prepped and draped using maximal sterile barrier technique. Fluoroscopic evaluation demonstrates expected position of right subclavian catheter. On inspection there is a small wound overlying the proximal port catheter. 1% lidocaine with epinephrine was administered overlying the port reservoir. A 1.5 cm incision was made overlying the reservoir and using minimal sharp and blunt dissection the the reservoir, and catheter were freed and removed intact. This is confirmed with fluoroscopy. Catheter tip was sent for culture. The wound was inspected and was found to be without significant purulent drainage or other gross signs of infection. The pocket was thoroughly irrigated and then closed with interrupted 4-0 Vicryl suture. Sterile dressings were applied. No immediate complications were identified. Fluoroscopy time 0.1 minutes Dose Area Product: 1 Gycm2 The procedure was performed conscious sedation including continuous cardiopulmonary monitoring via a dedicated sedation nurse. Sedation time: 30 minutes Impression: Successful removal of right subclavian port. No gross signs of infection were identified in the port pocket. Port catheter was sent for culture.
[2016-10-17] MEDS: ENOXAPARIN 40 MG/0.4 ML SYRINGE. SQ SCH (17:00)
[2016-10-17] MEDS: VANCOMYCIN PER PHARMACY MC PRN ×2 (17:19→17:26)
[2016-10-17] MEDS: VANCOMYCIN 1.5 GM in IV NORMAL SALINE 500ML BAG 500 ML IV SCH (17:56)
[2016-10-18] MEDS: PIPERACILLIN/TAZOBACTAM 4.5 GM in IV NORMAL SALINE 100ML 100 ML IV SCH ×3 (00:25→12:13)
[2016-10-18 02:55] VITALS: BP 151/80
[2016-10-18] MEDS: MORPHINE SULFATE 4 MG/ML DISP.SYRIN. IV PRN (04:30)
[2016-10-18] MEDS: IV NORMAL SALINE 1000ML BAG 1,000 ML IV SCH ×3 (04:32→20:14)
[2016-10-18] MEDS: VANCOMYCIN 1.5 GM in IV NORMAL SALINE 500ML BAG 500 ML IV SCH (04:52)
[2016-10-18 05:08] LABS: BASO % 1 % (0-3); EOS % 3 % (0-3); HEMATOCRIT 28.6 % (39.0-53.0); HEMOGLOBIN 10.1 g/dL (13.0-17.5); LYMPH # 0.4 x10^3/uL (1.0-4.8); LYMPH % 20 % (24-48); MEAN CORPUSCULAR HEMOGLOBIN 29 pg (25-35); MEAN CORPUSCULAR HGB CONC 35 g/dL (31-37); MEAN CORPUSCULAR VOLUME 82 fL (79-100); MONO % 27 % (0-9); NEUT % 49 % (31-73); PLATELET COUNT 95 x10^3/uL (140-400); RED CELL DISTRIBUTION WIDTH 17.6 % (11.5-14.5)
[2016-10-18 05:17] LABS: CALCIUM 7.5 mg/dL (8.5-10.1); CREATININE 1.1 mg/dL (0.7-1.3); GFR 80.1; POTASSIUM 3.5 mmol/L (3.5-5.1)
[2016-10-18 05:31] LABS: WHITE BLOOD COUNT 1.9 x10^3/uL (4.0-11.0)
[2016-10-18 07:00] VITALS: BP 145/96
[2016-10-18] MEDS: INSULIN ASPART 300 UNITS/3 ML INSULN.PEN SQ SCH ×4 (07:30→20:14)
[2016-10-18] MEDS: ASPIRIN 325 MG TABLET PO SCH (08:51)
[2016-10-18] MEDS: TERAZOSIN 5 MG CAPSULE. PO SCH (08:52)
[2016-10-18] MEDS: metFORMIN 500 MG TABLET PO SCH ×2 (08:52→17:32)
[2016-10-18] MEDS: METOPROLOL SUCC 24HR ER 100 MG TAB.ER.24H. PO SCH (08:52)
[2016-10-18] MEDS: FAMOTIDINE 20 MG TABLET. PO SCH ×2 (08:52→20:01)
[2016-10-18] MEDS: GABAPENTIN 300 MG CAPSULE. PO SCH ×3 (08:52→20:01)
[2016-10-18] MEDS: POTASSIUM CHLORIDE 20 MEQ TABLET.ER. PO SCH (08:53)
[2016-10-18] MEDS: LOSARTAN POTASSIUM 50 MG TABLET. PO SCH ×2 (08:53→20:04)
[2016-10-18 11:00] VITALS: BP_SYST 114; BP_SYST 14; BP_DIAS 91
--- NOTE | 2016-10-18 11:02 | PDOC ---
Infectious Disease Note Subjective Subjective s/p port removal Feeling a lot better Comfortable, denies pain, SOA Less fever Tmax 100.7 ROS ROS GEN: Denies fevers, chills, sweats CV: Denies chest pain RESP: Denies shortness of air, cough GI: Denies n/v/d Vital Sign Vital Signs Vital Signs Date Time Temp Pulse Resp B/P (MAP) Pulse Ox O2 Delivery O2 Flow Rate FiO2 10/18/16 08:53 92 145/96 10/18/16 07:00 98.5 20 100 Nasal Cannula 2.0 98.5 Physical Exam PHYSICAL EXAM GENERAL: Sitting in the chair, NAD HENT: Oral cavity pink, moist LUNGS: Diminished aeration bases, nonlabored. 2LNC O2 HEART: S1, S2 regular. ABDOMEN: BS present, soft, NT, ostomy EXTREMITIES: No edema, cyanosis. NEUROLOGIC: Alert, oriented SKIN: without rash Port out, small open hole, less drainage Peripheral IV Labs Lab Laboratory Tests Test 10/17/16 11:32 10/17/16 13:00 10/17/16 17:28 10/17/16 21:20 Glucose (Fingerstick) 244 mg/dL (70-99) 145 mg/dL (70-99) 146 mg/dL (70-99) Prothrombin Time 16.6 SEC (11.7-14.0) Prothromb Time International Ratio 1.4 (0.8-1.1) Vancomycin Level Trough 14.5 mcg/mL (10.0-20.0) Vancomycin Last Dose Date 10/17/16 Vancomycin Last Dose Time 0400 Test 10/18/16 03:40 10/18/16 08:29 White Blood Count 1.9 x10^3/uL (4.0-11.0) Red Blood Count 3.50 x10^6/uL (4.30-5.70) Hemoglobin 10.1 g/dL (13.0-17.5) Hematocrit 28.6 % (39.0-53.0) Mean Corpuscular Volume 82 fL (79-100) Mean Corpuscular Hemoglobin 29 pg (25-35) Mean Corpuscular Hemoglobin Concent 35 g/dL (31-37) Red Cell Distribution Width 17.6 % (11.5-14.5) Platelet Count 95 x10^3/uL (140-400) Neutrophils (%) (Auto) 49 % (31-73) Lymphocytes (%) (Auto) 20 % (24-48) Monocytes (%) (Auto) 27 % (0-9) Eosinophils (%) (Auto) 3 % (0-3) Basophils (%) (Auto) 1 % (0-3) Neutrophils # (Auto) 0.9 x10^3uL (1.8-7.7) Lymphocytes # (Auto) 0.4 x10^3/uL (1.0-4.8) Monocytes # (Auto) 0.5 x10^3/uL (0.0-1.1) Eosinophils # (Auto) 0.0 x10^3/uL (0.0-0.7) Basophils # (Auto) 0.0 x10^3/uL (0.0-0.2) Sodium Level 137 mmol/L (136-145) Potassium Level 3.5 mmol/L (3.5-5.1) Chloride Level 104 mmol/L (98-107) Carbon Dioxide Level 24 mmol/L (21-32) Anion Gap 9 (6-14) Blood Urea Nitrogen 8 mg/dL (8-26) Creatinine 1.1 mg/dL (0.7-1.3) Estimated GFR (Cockcroft-Gault) 80.1 Glucose Level 142 mg/dL (70-99) Calcium Level 7.5 mg/dL (8.5-10.1) Glucose (Fingerstick) 143 mg/dL (70-99) Micro 10/16 BLD CULT RESULT 1 Preliminary Staphylococcus aureus Recovered from aerobic and anaerobic bottles. PRESUMPTIVE MSSA Cath tip GRAM STAIN Final WBCS MANY GRAM POSITIVE COCCI MANY COMMENTS SUGGESTIVE OF STAPH Chest wound AEROBIC RES 1 Preliminary Comment No growth after 18-24 hours. Objective Assessment Sepsis with hypotension and bacteremia. POA, 10/16. Staph aureus, presumptive MSSA Infected port infection. s/p removal, 10/17. GPC suggestive of staph Neutropenia Fevers, better Acute encephalopathy, better Lactic acidosis Rectal cancer, status post chemotherapy. Diabetes. PNC listed as allergy, tolerating Zosyn w/o problem Plan Plan of Care Continue vanc and Zosyn for now, de-escalate abx soon Repeat BC for bacterial clearance Needs echo to r/o endocarditis Monitor temp, WBC and Cr D/w Reusch Attending Co-Sign The patient was seen and interviewed as well as examined at the bedside. The chart was reviewed. The case was discussed. Agree with the plan of care. MARILYN MONTELONGO APRN Oct 18, 2016 11:02 MARK JULIO MD Oct 18, 2016 14:45
--- NOTE | 2016-10-18 12:32 | PDOC ---
Subjective: Subjective: Onc f/u- Objective: Vital Signs: Vital Signs Date Time Temp Pulse Resp B/P (MAP) Pulse Ox O2 Delivery O2 Flow Rate FiO2 10/18/16 11:00 98.5 96 20 (66) 99 Nasal Cannula 2.0 98.5 Assessment/Plan A/P: 1. Stage IV rectal cancer with lung metastases managed by Dr. Jade. Previously on palliative FOLFIRI, last given on 10/02/2016 with rising CEA, scans showing slight progression. - Plan to hold tx until his next visit with Dr. Jade upon his return mid October to discuss if change in tx warranted. Mr. Perez was growing tired of the q 2 wk schedule as well. - No tx until bacteremia clears, done with abx. Will need new port in future as well if decides to pursue additional tx. - Requested MSI testing on his tumor to see if he could be a candidate for immune based therapy in the future. 2. Abnormal CT head finding, arm tingling (resolved). Likely related to a small vessel disease as rectal cancer does not typically metastasized to the brain. - MRI brain pending for further characterization. Machine down currently. 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 - Port removed 10/17; On IB abx/ F/u with Dr. Jade mid Oct as scheduled. FAUSTO ALVAREZ DO Oct 18, 2016 12:32
--- NOTE | 2016-10-18 12:41 | PDOC ---
PROGRESS NOTES Chief Complaint Chief Complaint L UE/ tongue paresthesias L hand weakness ASSESSMENT AND PLAN: 1. Sepsis: resolving. blood cult pos for Staph. cont empiric zosyn, vanco until final culture obtained. 2. port infect: removed port (VIR) on 10/17 3. Neutropenia: did not receive neulasta post chemo. start granix daily until ANC >1.5 4. Hyper/Hypotension: bilat arm BPs obtained - congruent. BP now stable in 140s. monitor, may need adjustment in meds 5. Paresthesias: improved. appreciate Dr Mckeon's input. hx CVA; MRI pending 6. Rectal CA: mets to liver. on palliative chemo with Dr Jade. restaging CT obtained: persisting L hilar mass, increasing L axillary LAD. liver not mentioned (no IV contrast) 7. DM2: poorly controlled, poss 2/2 infect. ISS and metformin 8. Prohpylaxis: H2B, lovenox History of Present Illness History of Present Illness much better today Vitals Vitals Vital Signs Date Time Temp Pulse Resp B/P (MAP) Pulse Ox O2 Delivery O2 Flow Rate FiO2 10/18/16 11:00 98.5 96 20 14/91 (66) 99 Nasal Cannula 2.0 98.5 Physical Exam General: Alert, Oriented X3, Cooperative, No acute distress Heart: Regular rate, Other (tachy) Lungs: Clear, Other (tachypneic) Abdomen: Normal bowel sounds, Soft, No tenderness Extremities: No edema Skin: No rashes, Other (tiny wound right above chest port, with surrounding discoloration, no fluctuance) Labs LABS Laboratory Tests Test 10/17/16 13:00 10/17/16 17:28 10/17/16 21:20 10/18/16 03:40 Prothrombin Time 16.6 SEC (11.7-14.0) Prothromb Time International Ratio 1.4 (0.8-1.1) Vancomycin Level Trough 14.5 mcg/mL (10.0-20.0) Vancomycin Last Dose Date 10/17/16 Vancomycin Last Dose Time 0400 Glucose (Fingerstick) 145 mg/dL (70-99) 146 mg/dL (70-99) White Blood Count 1.9 x10^3/uL (4.0-11.0) Red Blood Count 3.50 x10^6/uL (4.30-5.70) Hemoglobin 10.1 g/dL (13.0-17.5) Hematocrit 28.6 % (39.0-53.0) Mean Corpuscular Volume 82 fL (79-100) Mean Corpuscular Hemoglobin 29 pg (25-35) Mean Corpuscular Hemoglobin Concent 35 g/dL (31-37) Red Cell Distribution Width 17.6 % (11.5-14.5) Platelet Count 95 x10^3/uL (140-400) Neutrophils (%) (Auto) 49 % (31-73) Lymphocytes (%) (Auto) 20 % (24-48) Monocytes (%) (Auto) 27 % (0-9) Eosinophils (%) (Auto) 3 % (0-3) Basophils (%) (Auto) 1 % (0-3) Neutrophils # (Auto) 0.9 x10^3uL (1.8-7.7) Lymphocytes # (Auto) 0.4 x10^3/uL (1.0-4.8) Monocytes # (Auto) 0.5 x10^3/uL (0.0-1.1) Eosinophils # (Auto) 0.0 x10^3/uL (0.0-0.7) Basophils # (Auto) 0.0 x10^3/uL (0.0-0.2) Sodium Level 137 mmol/L (136-145) Potassium Level 3.5 mmol/L (3.5-5.1) Chloride Level 104 mmol/L (98-107) Carbon Dioxide Level 24 mmol/L (21-32) Anion Gap 9 (6-14) Blood Urea Nitrogen 8 mg/dL (8-26) Creatinine 1.1 mg/dL (0.7-1.3) Estimated GFR (Cockcroft-Gault) 80.1 Glucose Level 142 mg/dL (70-99) Calcium Level 7.5 mg/dL (8.5-10.1) Test 10/18/16 08:29 10/18/16 11:25 Glucose (Fingerstick) 143 mg/dL (70-99) 203 mg/dL (70-99) PILO KELLY MD Oct 18, 2016 12:40
--- NOTE | 2016-10-18 14:34 | PDOC ---
PROGRESS NOTES Assessment Problems Medical Problems: (1) Brain metastases Status: Acute (2) Paresthesias Status: Acute Transient ischemic attack, neurological symptoms have resolved Chemotherapy-induced peripheral neuropathy Stage IV rectal cancer Now he has sepsis, better today Plan Await brain MRI, scanner is down until at least tomorrow Given the late stage colon cancer, further stroke workup such as echocardiogram , carotid Dopplers, lipid panel, statin, not indicated. Rehabilitation modalities. Subjective Feels much better today Objective Vital Signs Date Time Temp Pulse Resp B/P (MAP) Pulse Ox O2 Delivery O2 Flow Rate FiO2 10/18/16 11:00 98.5 96 20 14/91 (66) 99 Nasal Cannula 2.0 98.5 Intake and Output 10/18/16 06:59 Intake Total 200 ml Output Total 800 ml Balance -600 ml Intake Oral 200 ml Output Urine Total 800 ml # Voids 3 PHYSICAL EXAM Alert. Oriented to place and person, and time. PERRL. EOMI. CN: no focal findings. Muscle tone: normal. Muscle strength: 4/5 DTR: 1+ Plantar reflex: flexor Gait: not examined in bed. Sensory exam: no abnormal findings. No cerebellar signs elicited. Review of Relevant I have reviewed the following items isabel (where applicable) has been applied. Labs Laboratory Tests Test 10/16/16 15:05 10/16/16 16:23 10/16/16 21:29 10/17/16 07:43 Lactic Acid Level 2.4 mmol/L (0.4-2.0) Glucose (Fingerstick) 275 mg/dL (70-99) 299 mg/dL (70-99) 209 mg/dL (70-99) Test 10/17/16 11:32 10/17/16 13:00 10/17/16 17:28 10/17/16 21:20 Glucose (Fingerstick) 244 mg/dL (70-99) 145 mg/dL (70-99) 146 mg/dL (70-99) Prothrombin Time 16.6 SEC (11.7-14.0) Prothromb Time International Ratio 1.4 (0.8-1.1) Vancomycin Level Trough 14.5 mcg/mL (10.0-20.0) Vancomycin Last Dose Date 10/17/16 Vancomycin Last Dose Time 0400 Test 10/18/16 03:40 10/18/16 08:29 10/18/16 11:25 White Blood Count 1.9 x10^3/uL (4.0-11.0) Red Blood Count 3.50 x10^6/uL (4.30-5.70) Hemoglobin 10.1 g/dL (13.0-17.5) Hematocrit 28.6 % (39.0-53.0) Mean Corpuscular Volume 82 fL (79-100) Mean Corpuscular Hemoglobin 29 pg (25-35) Mean Corpuscular Hemoglobin Concent 35 g/dL (31-37) Red Cell Distribution Width 17.6 % (11.5-14.5) Platelet Count 95 x10^3/uL (140-400) Neutrophils (%) (Auto) 49 % (31-73) Lymphocytes (%) (Auto) 20 % (24-48) Monocytes (%) (Auto) 27 % (0-9) Eosinophils (%) (Auto) 3 % (0-3) Basophils (%) (Auto) 1 % (0-3) Neutrophils # (Auto) 0.9 x10^3uL (1.8-7.7) Lymphocytes # (Auto) 0.4 x10^3/uL (1.0-4.8) Monocytes # (Auto) 0.5 x10^3/uL (0.0-1.1) Eosinophils # (Auto) 0.0 x10^3/uL (0.0-0.7) Basophils # (Auto) 0.0 x10^3/uL (0.0-0.2) Sodium Level 137 mmol/L (136-145) Potassium Level 3.5 mmol/L (3.5-5.1) Chloride Level 104 mmol/L (98-107) Carbon Dioxide Level 24 mmol/L (21-32) Anion Gap 9 (6-14) Blood Urea Nitrogen 8 mg/dL (8-26) Creatinine 1.1 mg/dL (0.7-1.3) Estimated GFR (Cockcroft-Gault) 80.1 Glucose Level 142 mg/dL (70-99) Calcium Level 7.5 mg/dL (8.5-10.1) Glucose (Fingerstick) 143 mg/dL (70-99) 203 mg/dL (70-99) Laboratory Tests Test 10/17/16 17:28 10/17/16 21:20 10/18/16 03:40 10/18/16 08:29 Glucose (Fingerstick) 145 mg/dL (70-99) 146 mg/dL (70-99) 143 mg/dL (70-99) White Blood Count 1.9 x10^3/uL (4.0-11.0) Red Blood Count 3.50 x10^6/uL (4.30-5.70) Hemoglobin 10.1 g/dL (13.0-17.5) Hematocrit 28.6 % (39.0-53.0) Mean Corpuscular Volume 82 fL (79-100) Mean Corpuscular Hemoglobin 29 pg (25-35) Mean Corpuscular Hemoglobin Concent 35 g/dL (31-37) Red Cell Distribution Width 17.6 % (11.5-14.5) Platelet Count 95 x10^3/uL (140-400) Neutrophils (%) (Auto) 49 % (31-73) Lymphocytes (%) (Auto) 20 % (24-48) Monocytes (%) (Auto) 27 % (0-9) Eosinophils (%) (Auto) 3 % (0-3) Basophils (%) (Auto) 1 % (0-3) Neutrophils # (Auto) 0.9 x10^3uL (1.8-7.7) Lymphocytes # (Auto) 0.4 x10^3/uL (1.0-4.8) Monocytes # (Auto) 0.5 x10^3/uL (0.0-1.1) Eosinophils # (Auto) 0.0 x10^3/uL (0.0-0.7) Basophils # (Auto) 0.0 x10^3/uL (0.0-0.2) Sodium Level 137 mmol/L (136-145) Potassium Level 3.5 mmol/L (3.5-5.1) Chloride Level 104 mmol/L (98-107) Carbon Dioxide Level 24 mmol/L (21-32) Anion Gap 9 (6-14) Blood Urea Nitrogen 8 mg/dL (8-26) Creatinine 1.1 mg/dL (0.7-1.3) Estimated GFR (Cockcroft-Gault) 80.1 Glucose Level 142 mg/dL (70-99) Calcium Level 7.5 mg/dL (8.5-10.1) Test 10/18/16 11:25 Glucose (Fingerstick) 203 mg/dL (70-99) Microbiology 10/16/16 Blood Culture - Preliminary, Resulted 10/16/16 Blood Culture Result 1 (MAYE) - Preliminary, Resulted Medications Current Medications Ondansetron HCl (Zofran) 4 mg PRN Q8HRS PRN IV NAUSEA/VOMITING; Start 10/15/16 at 13:30; Stop 10/16/16 at 13:29; Status DC Morphine Sulfate 4 mg PRN Q2HR PRN IV PAIN; Start 10/15/16 at 13:30; Stop 10/16 at 13:29; Status DC Potassium Chloride/Dextrose/ Sod Cl 1,000 ml @ 75 mls/hr 1X ONCE IV Last administered on 10/15/16 13:47; Start 10/15/16 at 14:00; Stop 10/16/16 at 03:19 ; Status DC Aspirin (Ecotrin) 81 mg DAILY PO ; Start 10/15/16 at 16:00; Stop 10/15/16 at 16: 20; Status DC Gabapentin (Neurontin) 300 mg TID PO Last administered on 10/18/16 08:52; Start 10/15/16 at 16:00 Metformin HCl (Glucophage) 1,000 mg DAILYWBKFT PO Last administered on 08:52; Start 10/16/16 at 08:00 Metformin HCl (Glucophage) 500 mg DAILYBFRSUP PO Last administered on 17:56; Start 10/15/16 at 17:00 Metoprolol Succinate (Toprol Xl) 100 mg DAILY PO Last administered on 08:52; Start 10/15/16 at 16:00 Terazosin HCl (Hytrin) 5 mg DAILY PO Last administered on 10/18/16 08:52; Start 10/15/16 at 16:00 Diltiazem HCl (Cardizem 24hr Cd) 240 mg DAILY PO Last administered on 08:52; Start 10/15/16 at 16:00 Losartan Potassium (Cozaar) 50 mg BID PO Last administered on 10/18/16 08:53; Start 10/15/16 at 21:00 Famotidine (Pepcid) 20 mg BID PO Last administered on 10/18/16 08:52; Start at 21:00 Potassium Chloride (Klor-Con) 40 meq 1X ONCE PO Last administered on 16:37; Start 10/15/16 at 16:30; Stop 10/15/16 at 16:31; Status DC Potassium Chloride (Klor-Con) 20 meq DAILYWBKFT PO Last administered on 08:53; Start 10/16/16 at 08:00 Insulin Aspart (NovoLOG) 0-7 UNITS QIDACHS SQ Last administered on 10/18/16 12 :21; Start 10/15/16 at 16:30 Dextrose (Dextrose 50%-Water Syringe) 12.5 gm PRN Q15MIN PRN IV SEE COMMENTS; Start 10/15/16 at 16:15 Aspirin (AppleTreeBook Aspirin) 325 mg DAILYWBKFT PO Last administered on 10/18/16 08: 51; Start 10/16/16 at 08:00 Aspirin (AppleTreeBook Aspirin) 325 mg 1X ONCE PO Last administered on 10/15/16 16:35 ; Start 10/15/16 at 16:30; Stop 10/15/16 at 16:31; Status DC Enoxaparin Sodium (Lovenox Per Pharmacy Prophylaxis Dosing) 1 each PRN DAILY PRN MC SEE COMMENTS; Start 10/15/16 at 16:15 Enoxaparin Sodium (Lovenox 40mg Syringe) 40 mg Q24H SQ Last administered on 17:25; Start 10/15/16 at 17:00 Sodium Chloride 1,000 ml @ 150 mls/hr Q6H40M IV Last administered on 12:13; Start 10/16/16 at 15:00 Piperacillin Sod/ Tazobactam Sod 4.5 gm/Sodium Chloride 100 ml @ 200 mls/hr Q6HRS IV Last administered on 10/18/16 12:13; Start 10/16/16 at 18:00 Vancomycin HCl 1 gm/Sodium Chloride 250 ml @ 250 mls/hr Q12H IV ; Start at 14:30; Status UNV Vancomycin HCl (Vanco Per Pharmacy) 1 each PRN DAILY PRN MC SEE COMMENTS Last administered on 10/17/16 17:26; Start 10/16/16 at 15:00 Vancomycin HCl 2 gm/Sodium Chloride 500 ml @ 250 mls/hr 1X ONCE IV Last administered on 10/16/16 16:20; Start 10/16/16 at 15:00; Stop 10/16/16 at 16:59 ; Status DC Cefepime HCl 2 gm/ Sodium Chloride 100 ml @ 200 mls/hr Q8HRS IV ; Start at 15:30; Status Cancel Acetaminophen (Tylenol) 650 mg PRN Q6HRS PRN PO MILD PAIN / TEMP Last administered on 10/16/16 16:03; Start 10/16/16 at 15:45; Stop 10/16/16 at 20:26 ; Status DC Vancomycin HCl 1.25 gm/Sodium Chloride 250 ml @ 167 mls/hr Q12H IV Last administered on 10/17/16 04:25; Start 10/17/16 at 04:00; Stop 10/17/16 at 17:19 ; Status DC Vancomycin HCl 1 each 1X ONCE MC Last administered on 10/17/16 15:30; Start 10/17/16 at 15:30; Stop 10/17/16 at 15:31; Status DC Acetaminophen (Tylenol) 650 mg PRN Q4HRS PRN PO MILD PAIN / TEMP; Start at 15:45; Stop 10/17/16 at 15:45; Status DC Acetaminophen (Tylenol) 650 mg PRN Q4HRS PRN PO MILD PAIN / TEMP Last administered on 10/17/16 08:45; Start 10/16/16 at 20:45 Morphine Sulfate 4 mg PRN Q4HRS PRN IV SEVERE PAIN Last administered on 04:30; Start 10/17/16 at 02:15 Heparin Sodium/ Sodium Chloride 500 ml @ As Directed STK-MED ONCE .ROUTE ; Start 10/17/16 at 15:22; Stop 10/17/16 at 15:23; Status DC Lidocaine/ Epinephrine (Xylocaine 2%-Epi 1:100,000) 20 ml STK-MED ONCE .ROUTE ; Start 10/17/16 at 15:22; Stop 10/17/16 at 15:23; Status DC Heparin Sodium/ Sodium Chloride 1,000 unit 1X ONCE IART Last administered on 16:00; Start 10/17/16 at 16:00; Stop 10/17/16 at 16:01; Status DC Lidocaine/ Epinephrine (Xylocaine 1%-Epi 1:100,000) 4 ml 1X ONCE INJ Last administered on 10/17/16 16:00; Start 10/17/16 at 16:00; Stop 10/17/16 at 16:01 ; Status DC Vancomycin HCl 1.5 gm/Sodium Chloride 500 ml @ 250 mls/hr Q12H IV Last administered on 10/18/16 04:52; Start 10/17/16 at 17:00 Vancomycin HCl 1 each 1X ONCE MC ; Start 10/19/16 at 04:30; Stop 10/19/16 at 04 :31 Tbo-Filgrastim (Granix) 480 mcg QHS SQ ; Start 10/18/16 at 21:00 Active Scripts Active Reported Metformin Hcl 500 Mg Tablet 500 Mg PO DAILYBFRSUP Losartan Potassium 100 Mg Tablet 50 Mg PO BID Metformin Hcl 500 Mg Tablet 1,000 Mg PO DAILYWBKFT Gabapentin 300 Mg Capsule 300 Mg PO TID Metoprolol Succinate ( Xl ) (Metoprolol Succinate) 100 Mg Tab.er.24h 100 Mg PO DAILY Diltiazem Xt (Diltiazem Hcl) 240 Mg Capsule.er 240 Mg PO DAILY Terazosin Hcl 5 Mg Capsule 5 Mg PO DAILY Aspir 81 (Aspirin) 81 Mg Tablet.dr 81 Mg PO DAILY Ranitidine Hcl 150 Mg Tablet 150 Mg PO BID Vitals/I & O Vital Sign - Last 24 Hours 10/17/16 10/17/16 10/17/16 10/17/16 19:48 20:00 21:18 23:34 Temp 98.8 100.7 98.8 100.7 Pulse 104 104 104 Resp 24 22 B/P (MAP) 166/91 (116) 166/91 155/80 (105) Pulse Ox 97 96 O2 Delivery Nasal Cannula Nasal Cannula Nasal Cannula O2 Flow Rate 2.0 2.0 2.0 10/18/16 10/18/16 10/18/16 10/18/16 02:55 04:30 05:00 07:00 Temp 100.0 98.5 100.0 98.5 Pulse 102 92 Resp 20 18 22 20 B/P (MAP) 151/80 (103) 145/96 (112) Pulse Ox 97 100 O2 Delivery Nasal Cannula Nasal Cannula Nasal Cannula Nasal Cannula O2 Flow Rate 2.0 2.0 2.0 10/18/16 10/18/16 10/18/16 10/18/16 08:52 08:52 08:52 08:53 Pulse 92 92 92 92 B/P (MAP) 145/96 145/96 145/96 145/96 10/18/16 10/18/16 11:00 11:00 Temp 98.0 98.5 98.0 98.5 Pulse 96 Resp 20 B/P (MAP) 14/91 (66) Pulse Ox 99 O2 Delivery Nasal Cannula O2 Flow Rate 2.0 Intake and Output 10/17/16 10/17/16 10/18/16 14:59 22:59 06:59 Intake Total 0 ml 200 ml Output Total 300 ml 500 ml Balance -300 ml 200 ml -500 ml RODRI CHAN MD Oct 18, 2016 14:33
[2016-10-18 15:00] VITALS: BP 137/85
--- NOTE | 2016-10-18 16:27 | CARD ---
APPROVED REPORT EXAM: Two-dimensional and M-mode echocardiogram with Doppler and color Doppler. Other Information Quality : Average Rhythm : NSR INDICATION Infection:Rule out subacute bacterial endocarditis 2D DIMENSIONS Left Atrium(2D)3.8 (1.6-4.0cm)IVSd1.1 (0.7-1.1cm) Aortic Root(2D)3.4 (2.0-3.7cm)LVDd3.9 (3.9-5.9cm) LVOT Diameter2.3 (1.8-2.4cm)PWd1.1 (0.7-1.1cm) LVDs2.6 (2.5-4.0cm)FS (%) 23.1 % SV40.2 mlLVEF(%)40.0 (>50%) Aortic Valve AoV Peak Juni.106.6cm/sAoV VTI16.9cm AO Peak GR.4.5mmHgLVOT Peak Juni.86.4cm/s LVOT VTI 15.40cmAO Mean GR.3mmHg SALVADOR (VMAX)3.13vh7IUO (VTI)3.75cm2 AI P 1/2 Pdtm611vk Mitral Valve MV E Jqqljnjs81.2cm/sMV DECEL ECIG802sw MV A Ikpqvsvv90.8cm/sMV LPJ65re E/A Ratio0.5MV A Dbfrfylb492au MVA (PHT)4.56cm2 TDI E/Lateral E'4.1E/Medial E'8.9 Pulmonary Valve PV Peak Lntbzaiv69.2cm/sPV Peak Grad.2mmHg RVOT VTI9.0cm Tricuspid Valve TR P. Chcvaqjb868lo/sRAP WOFQILGN5toLg TR Peak Gr.91baSlZGIG30pnWs Pulmonary Vein S1 Wcrogtbg58.2cm/sD2 Txlackxp88.2cm/s LEFT VENTRICLE The left ventricle is normal size. There is normal left ventricular wall thickness. Left ventricle sy stolic function is low normal. The Ejection Fraction is 40%. There is global hypokinesis of the left ventricle. Tissue Doppler imaging reveals mild left ventricular diastolic dysfunction. Transmitral Do ppler flow pattern is Grade I-abnormal relaxation pattern. There is no ventricular septal defect visu alized. RIGHT VENTRICLE The right ventricle is normal size. The right ventricular systolic function is normal. ATRIA The left atrium size is normal. The right atrium size is normal. The interatrial septum is intact wit h no evidence for an atrial septal defect or patent foramen ovale as noted on 2-D or Doppler imaging. AORTIC VALVE The aortic valve is normal in structure The aortic valve is trileaflet. Doppler and Color Flow reveal ed mild aortic regurgitation. There is no significant aortic valvular stenosis. MITRAL VALVE The mitral valve is normal in structure The mitral valve leaflets are thickened. Can not rule out pos sible vegetation on anterior leaflet. There is no mitral valve stenosis. Doppler and Color Flow revea led mild mitral regurgitation. TRICUSPID VALVE The tricuspid valve is not well visualized. Doppler and Color Flow revealed trace tricuspid regurgita tion. The PA pressure was estimated at 25 mmHg. Can not rule out tricuspid valve vegetation at exam t leti. There is no tricuspid valve stenosis. PULMONIC VALVE The pulmonic valve is not well visualized. Doppler and Color Flow revealed no pulmonic valvular regur gitation. There is no pulmonic valvular stenosis. GREAT VESSELS The aortic root is normal in size. Normal pulmonary venous flow (Doppler). The IVC is normal in size and collapses >50% with inspiration. PERICARDIAL EFFUSION There is no evidence of significant pericardial effusion. Critical Notification Critical Value: No <Conclusion> Left ventricle systolic function is low normal. The Ejection Fraction is 40%. Tissue Doppler imaging reveals mild left ventricular diastolic dysfunction. Transmitral Doppler flow pattern is Grade I-abnormal relaxation pattern. The left atrium size is normal. The right atrium size is normal. Doppler and Color Flow revealed mild aortic regurgitation. The aortic valve is normal in structure The aortic valve is trileaflet. The mitral valve is normal in structure The mitral valve leaflets are thickened. Can not rule out possible vegetation on anterior leaflet. Doppler and Color Flow revealed mild mitral regurgitation. Doppler and Color Flow revealed trace tricuspid regurgitation. The PA pressure was estimated at 25 mmHg. The tricuspid valve is not well visualized. The pulmonic valve is not well visualized. There is no evidence of significant pericardial effusion.
[2016-10-18] MEDS: ENOXAPARIN 40 MG/0.4 ML SYRINGE. SQ SCH (17:33)
[2016-10-18 19:00] VITALS: BP 158/98
[2016-10-18] MEDS: ACETAMINOPHEN 650 MG/20.3 ML SOLUTION. PO PRN (20:00)
[2016-10-18] MEDS ORDERED: TBO-FILGRASTIM 480 MCG/0.8 ML SYRINGE. SQ SCH (21:00)
[2016-10-18 23:00] VITALS: BP 148/78
[2016-10-19] MEDS: ACETAMINOPHEN 650 MG/20.3 ML SOLUTION. PO PRN ×3 (02:06→20:59)
[2016-10-19 03:00] VITALS: BP 161/90
[2016-10-19] MEDS: MORPHINE SULFATE 4 MG/ML DISP.SYRIN. IV PRN (05:30)
[2016-10-19] MEDS: IV NORMAL SALINE 1000ML BAG 1,000 ML IV SCH ×3 (05:31→22:44)
[2016-10-19 07:08] LABS: BASO % 0 % (0-3); EOS % 1 % (0-3); HEMATOCRIT 30.6 % (39.0-53.0); HEMOGLOBIN 10.5 g/dL (13.0-17.5); LYMPH # 0.6 x10^3/uL (1.0-4.8); LYMPH % 10 % (24-48); MEAN CORPUSCULAR HEMOGLOBIN 28 pg (25-35); MEAN CORPUSCULAR HGB CONC 34 g/dL (31-37); MEAN CORPUSCULAR VOLUME 82 fL (79-100); MONO % 18 % (0-9); NEUT % 70 % (31-73); PLATELET COUNT 94 x10^3/uL (140-400); RED BLOOD COUNT 3.73 x10^6/uL (4.30-5.70); RED CELL DISTRIBUTION WIDTH 17.1 % (11.5-14.5)
[2016-10-19 07:25] LABS: CALCIUM 8.6 mg/dL (8.5-10.1); CREATININE 0.9 mg/dL (0.7-1.3); GFR 100.9; POTASSIUM 3.7 mmol/L (3.5-5.1)
[2016-10-19 07:30] VITALS: BP 171/97
[2016-10-19 07:44] LABS: % BASOS 1 % (0-3)
[2016-10-19 07:45] LABS: PLT ESTIMATE DECREASED (ADEQUATE)
[2016-10-19 07:46] LABS: ANISOCYTOSIS SLIGHT; OVALOCYTES OCC; TEAR DROP CELLS FEW
[2016-10-19] MEDS: LOSARTAN POTASSIUM 50 MG TABLET. PO SCH ×2 (08:38→20:59)
[2016-10-19] MEDS: GABAPENTIN 300 MG CAPSULE. PO SCH ×3 (08:38→20:59)
[2016-10-19] MEDS: ASPIRIN 325 MG TABLET PO SCH (08:38)
[2016-10-19] MEDS: FAMOTIDINE 20 MG TABLET. PO SCH ×2 (08:38→20:59)
[2016-10-19] MEDS: metFORMIN 500 MG TABLET PO SCH ×2 (08:38→17:57)
[2016-10-19] MEDS: METOPROLOL SUCC 24HR ER 100 MG TAB.ER.24H. PO SCH (08:39)
[2016-10-19] MEDS: TERAZOSIN 5 MG CAPSULE. PO SCH (08:39)
[2016-10-19] MEDS: POTASSIUM CHLORIDE 20 MEQ TABLET.ER. PO SCH (08:39)
[2016-10-19] MEDS: INSULIN ASPART 300 UNITS/3 ML INSULN.PEN SQ SCH ×4 (08:47→21:04)
--- NOTE | 2016-10-19 09:01 | PDOC ---
Subjective: Subjective: Onc f/u- Rectal cancer Energy better, feeling better. Afebrile No diarrhea Objective: Vital Signs: Vital Signs Date Time Temp Pulse Resp B/P (MAP) Pulse Ox O2 Delivery O2 Flow Rate FiO2 10/19/16 08:40 94 171/97 10/19/16 07:30 98.9 18 95 Nasal Cannula 2.0 98.9 Physical Exam: Heart: Regular rate Extremities: No edema General: Alert, Oriented X3, Cooperative, No acute distress Lungs: Other (no respiratory distress) Psych/Mental Status: Mental status NL, Mood NL Labs/Imaging: CBC reviewed, WBC 6.0, ANC 4.2, plt 96 Assessment/Plan A/P: 1. Stage IV rectal cancer with lung metastases managed by Dr. Jade. Previously on palliative FOLFIRI, last given on 10/02/2016 (no neulasta) with rising CEA, scans showing slight progression. - Plan to hold tx until his next visit with Dr. Jade upon his return mid October to discuss if change in tx warranted. Mr. Perez was growing tired of the q 2 wk schedule as well. Port now out and will need to be replaced if decides for additional tx. - Requested MSI testing on his tumor to see if he could be a candidate for immune based therapy in the future. 2. Abnormal CT head finding, arm tingling (resolved). Likely related to a small vessel disease as rectal cancer does not typically metastasized to the brain. - MRI brain pending for further characterization. Machine down currently. - Neuro following 3. GP bacteremia. - Port removed 10/17; On IV abx 4. Neutropenia, thrombocytopenia. Related to sepsis. Last chemo 16 days ago. ANC already recovered with granix last night, DC'ed today. F/u with Dr. Jade mid Oct as scheduled. FAUSTO ALVAREZ DO Oct 19, 2016 09:01
--- NOTE | 2016-10-19 09:54 | PDOC ---
Infectious Disease Note Subjective Subjective Feeling alright Comfortable, denies pain, SOA No fever last 24 hours ROS ROS GEN: Denies fevers, chills, sweats CV: Denies chest pain GI: Denies n/v/d Vital Sign Vital Signs Vital Signs Date Time Temp Pulse Resp B/P (MAP) Pulse Ox O2 Delivery O2 Flow Rate FiO2 10/19/16 08:40 94 171/97 10/19/16 07:30 98.9 18 95 Nasal Cannula 2.0 98.9 Physical Exam PHYSICAL EXAM GENERAL: Propped up in bed, eating, HENT: Oral cavity pink, moist LUNGS: Diminished aeration bases, nonlabored. 2LNC O2 HEART: S1, S2 regular. ABDOMEN: BS present, soft, NT, ostomy EXTREMITIES: No edema, cyanosis. NEUROLOGIC: Alert, oriented SKIN: without rash Port out, small open hole, no area redness or drainage noted Peripheral IV Labs Lab Laboratory Tests Test 10/18/16 11:25 10/18/16 17:23 10/18/16 19:55 10/19/16 07:00 Glucose (Fingerstick) 203 mg/dL (70-99) 180 mg/dL (70-99) 201 mg/dL (70-99) White Blood Count 6.0 x10^3/uL (4.0-11.0) Red Blood Count 3.73 x10^6/uL (4.30-5.70) Hemoglobin 10.5 g/dL (13.0-17.5) Hematocrit 30.6 % (39.0-53.0) Mean Corpuscular Volume 82 fL (79-100) Mean Corpuscular Hemoglobin 28 pg (25-35) Mean Corpuscular Hemoglobin Concent 34 g/dL (31-37) Red Cell Distribution Width 17.1 % (11.5-14.5) Platelet Count 94 x10^3/uL (140-400) Neutrophils (%) (Auto) 70 % (31-73) Lymphocytes (%) (Auto) 10 % (24-48) Monocytes (%) (Auto) 18 % (0-9) Eosinophils (%) (Auto) 1 % (0-3) Basophils (%) (Auto) 0 % (0-3) Neutrophils # (Auto) 4.2 x10^3uL (1.8-7.7) Lymphocytes # (Auto) 0.6 x10^3/uL (1.0-4.8) Monocytes # (Auto) 1.1 x10^3/uL (0.0-1.1) Eosinophils # (Auto) 0.1 x10^3/uL (0.0-0.7) Basophils # (Auto) 0.0 x10^3/uL (0.0-0.2) Segmented Neutrophils % 39 % (35-66) Band Neutrophils % 33 % (0-9) Lymphocytes % 10 % (24-48) Monocytes % 16 % (0-10) Basophils % 1 % (0-3) Myelocytes % 1 % (0-0) Platelet Estimate Decreased (ADEQUATE) Anisocytosis Slight Tear Drop Cells Few Ovalocytes Occ Sodium Level 139 mmol/L (136-145) Potassium Level 3.7 mmol/L (3.5-5.1) Chloride Level 104 mmol/L (98-107) Carbon Dioxide Level 25 mmol/L (21-32) Anion Gap 10 (6-14) Blood Urea Nitrogen 5 mg/dL (8-26) Creatinine 0.9 mg/dL (0.7-1.3) Estimated GFR (Cockcroft-Gault) 100.9 Glucose Level 181 mg/dL (70-99) Calcium Level 8.6 mg/dL (8.5-10.1) Test 10/19/16 07:46 Glucose (Fingerstick) 169 mg/dL (70-99) Micro 10/16 BLD CULT RESULT 1 Final Staphylococcus aureus Antibiotic RSLT#1 Ciprofloxacin S Gentamicin S Levofloxacin S Linezolid S Moxifloxacin S Nitrofurantoin S Oxacillin S Penicillin R Quinupristin/Dalfopristin S Rifampin S Tetracycline S Trimethoprim/Sulfa S Vancomycin S Cath tip GRAM STAIN Final WBCS MANY GRAM POSITIVE COCCI MANY COMMENTS SUGGESTIVE OF STAPH Chest wound AEROBIC RES 1 Preliminary Comment No growth after 18-24 hours. Objective Assessment Sepsis with hypotension and bacteremia. POA, 10/16. MSSA . TTE: mitral valve leaflets are thickened. Can not rule out possible vegetation on anterior leaflet. -Repeat BC pending from 10/18 Infected port infection. s/p removal, 10/17. GPC suggestive of staph Neutropenia, s/p Granix. better Fevers, better Acute encephalopathy, better Lactic acidosis Rectal cancer, status post chemotherapy. Diabetes. PNC listed as allergy, tolerated Zosyn w/o problem Plan Plan of Care Cefazolin Repeat BC pending Monitor labs/temp PT/OT Attending Co-Sign The patient was seen and interviewed as well as examined at the bedside. The chart was reviewed. The case was discussed. Agree with the plan of care. MARILYN MONTELONGO APRN Oct 19, 2016 09:54 MARK JULIO MD Oct 19, 2016 13:03
--- NOTE | 2016-10-19 09:57 | PDOC ---
PROGRESS NOTES Assessment Problems Medical Problems: (1) Brain metastases Status: Acute (2) Paresthesias Status: Acute Transient ischemic attack, neurological symptoms have resolved Chemotherapy-induced peripheral neuropathy Stage IV rectal cancer Sepsis Plan Brain MRI still on hold due to malfunction of scanner, okay to discharge without having this test done and I don't think checking an MRI at this late time is necessary anyway. He has passed the test of time Given the late stage colon cancer, further stroke workup such as echocardiogram , carotid Dopplers, lipid panel, statin, not indicated. Rehabilitation modalities. Follow-up with neurology as needed Subjective No complaints, wants to go home Objective Vital Signs Date Time Temp Pulse Resp B/P (MAP) Pulse Ox O2 Delivery O2 Flow Rate FiO2 10/19/16 08:40 94 171/97 10/19/16 07:30 98.9 18 95 Nasal Cannula 2.0 98.9 Intake and Output 10/19/16 07:00 Intake Total 890 ml Output Total 3350 ml Balance -2460 ml Intake Oral 890 ml Output Urine Total 3050 ml Stool Total 300 ml PHYSICAL EXAM Alert. Oriented to place and person, and time. PERRL. EOMI. CN: no focal findings. Muscle tone: normal. Muscle strength: 4/5 DTR: 1+ Plantar reflex: flexor Gait: not examined in bed. Sensory exam: no abnormal findings. No cerebellar signs elicited. Review of Relevant I have reviewed the following items isabel (where applicable) has been applied. Labs Laboratory Tests Test 10/17/16 11:32 10/17/16 13:00 10/17/16 17:28 10/17/16 21:20 Glucose (Fingerstick) 244 mg/dL (70-99) 145 mg/dL (70-99) 146 mg/dL (70-99) Prothrombin Time 16.6 SEC (11.7-14.0) Prothromb Time International Ratio 1.4 (0.8-1.1) Vancomycin Level Trough 14.5 mcg/mL (10.0-20.0) Vancomycin Last Dose Date 10/17/16 Vancomycin Last Dose Time 0400 Test 10/18/16 03:40 10/18/16 08:29 10/18/16 11:25 10/18/16 17:23 White Blood Count 1.9 x10^3/uL (4.0-11.0) Red Blood Count 3.50 x10^6/uL (4.30-5.70) Hemoglobin 10.1 g/dL (13.0-17.5) Hematocrit 28.6 % (39.0-53.0) Mean Corpuscular Volume 82 fL (79-100) Mean Corpuscular Hemoglobin 29 pg (25-35) Mean Corpuscular Hemoglobin Concent 35 g/dL (31-37) Red Cell Distribution Width 17.6 % (11.5-14.5) Platelet Count 95 x10^3/uL (140-400) Neutrophils (%) (Auto) 49 % (31-73) Lymphocytes (%) (Auto) 20 % (24-48) Monocytes (%) (Auto) 27 % (0-9) Eosinophils (%) (Auto) 3 % (0-3) Basophils (%) (Auto) 1 % (0-3) Neutrophils # (Auto) 0.9 x10^3uL (1.8-7.7) Lymphocytes # (Auto) 0.4 x10^3/uL (1.0-4.8) Monocytes # (Auto) 0.5 x10^3/uL (0.0-1.1) Eosinophils # (Auto) 0.0 x10^3/uL (0.0-0.7) Basophils # (Auto) 0.0 x10^3/uL (0.0-0.2) Sodium Level 137 mmol/L (136-145) Potassium Level 3.5 mmol/L (3.5-5.1) Chloride Level 104 mmol/L (98-107) Carbon Dioxide Level 24 mmol/L (21-32) Anion Gap 9 (6-14) Blood Urea Nitrogen 8 mg/dL (8-26) Creatinine 1.1 mg/dL (0.7-1.3) Estimated GFR (Cockcroft-Gault) 80.1 Glucose Level 142 mg/dL (70-99) Calcium Level 7.5 mg/dL (8.5-10.1) Glucose (Fingerstick) 143 mg/dL (70-99) 203 mg/dL (70-99) 180 mg/dL (70-99) Test 10/18/16 19:55 10/19/16 07:00 10/19/16 07:46 Glucose (Fingerstick) 201 mg/dL (70-99) 169 mg/dL (70-99) White Blood Count 6.0 x10^3/uL (4.0-11.0) Red Blood Count 3.73 x10^6/uL (4.30-5.70) Hemoglobin 10.5 g/dL (13.0-17.5) Hematocrit 30.6 % (39.0-53.0) Mean Corpuscular Volume 82 fL (79-100) Mean Corpuscular Hemoglobin 28 pg (25-35) Mean Corpuscular Hemoglobin Concent 34 g/dL (31-37) Red Cell Distribution Width 17.1 % (11.5-14.5) Platelet Count 94 x10^3/uL (140-400) Neutrophils (%) (Auto) 70 % (31-73) Lymphocytes (%) (Auto) 10 % (24-48) Monocytes (%) (Auto) 18 % (0-9) Eosinophils (%) (Auto) 1 % (0-3) Basophils (%) (Auto) 0 % (0-3) Neutrophils # (Auto) 4.2 x10^3uL (1.8-7.7) Lymphocytes # (Auto) 0.6 x10^3/uL (1.0-4.8) Monocytes # (Auto) 1.1 x10^3/uL (0.0-1.1) Eosinophils # (Auto) 0.1 x10^3/uL (0.0-0.7) Basophils # (Auto) 0.0 x10^3/uL (0.0-0.2) Segmented Neutrophils % 39 % (35-66) Band Neutrophils % 33 % (0-9) Lymphocytes % 10 % (24-48) Monocytes % 16 % (0-10) Basophils % 1 % (0-3) Myelocytes % 1 % (0-0) Platelet Estimate Decreased (ADEQUATE) Anisocytosis Slight Tear Drop Cells Few Ovalocytes Occ Sodium Level 139 mmol/L (136-145) Potassium Level 3.7 mmol/L (3.5-5.1) Chloride Level 104 mmol/L (98-107) Carbon Dioxide Level 25 mmol/L (21-32) Anion Gap 10 (6-14) Blood Urea Nitrogen 5 mg/dL (8-26) Creatinine 0.9 mg/dL (0.7-1.3) Estimated GFR (Cockcroft-Gault) 100.9 Glucose Level 181 mg/dL (70-99) Calcium Level 8.6 mg/dL (8.5-10.1) Laboratory Tests Test 10/18/16 11:25 10/18/16 17:23 10/18/16 19:55 10/19/16 07:00 Glucose (Fingerstick) 203 mg/dL (70-99) 180 mg/dL (70-99) 201 mg/dL (70-99) White Blood Count 6.0 x10^3/uL (4.0-11.0) Red Blood Count 3.73 x10^6/uL (4.30-5.70) Hemoglobin 10.5 g/dL (13.0-17.5) Hematocrit 30.6 % (39.0-53.0) Mean Corpuscular Volume 82 fL (79-100) Mean Corpuscular Hemoglobin 28 pg (25-35) Mean Corpuscular Hemoglobin Concent 34 g/dL (31-37) Red Cell Distribution Width 17.1 % (11.5-14.5) Platelet Count 94 x10^3/uL (140-400) Neutrophils (%) (Auto) 70 % (31-73) Lymphocytes (%) (Auto) 10 % (24-48) Monocytes (%) (Auto) 18 % (0-9) Eosinophils (%) (Auto) 1 % (0-3) Basophils (%) (Auto) 0 % (0-3) Neutrophils # (Auto) 4.2 x10^3uL (1.8-7.7) Lymphocytes # (Auto) 0.6 x10^3/uL (1.0-4.8) Monocytes # (Auto) 1.1 x10^3/uL (0.0-1.1) Eosinophils # (Auto) 0.1 x10^3/uL (0.0-0.7) Basophils # (Auto) 0.0 x10^3/uL (0.0-0.2) Segmented Neutrophils % 39 % (35-66) Band Neutrophils % 33 % (0-9) Lymphocytes % 10 % (24-48) Monocytes % 16 % (0-10) Basophils % 1 % (0-3) Myelocytes % 1 % (0-0) Platelet Estimate Decreased (ADEQUATE) Anisocytosis Slight Tear Drop Cells Few Ovalocytes Occ Sodium Level 139 mmol/L (136-145) Potassium Level 3.7 mmol/L (3.5-5.1) Chloride Level 104 mmol/L (98-107) Carbon Dioxide Level 25 mmol/L (21-32) Anion Gap 10 (6-14) Blood Urea Nitrogen 5 mg/dL (8-26) Creatinine 0.9 mg/dL (0.7-1.3) Estimated GFR (Cockcroft-Gault) 100.9 Glucose Level 181 mg/dL (70-99) Calcium Level 8.6 mg/dL (8.5-10.1) Test 10/19/16 07:46 Glucose (Fingerstick) 169 mg/dL (70-99) Microbiology 10/16/16 Blood Culture - Final, Complete 10/16/16 Blood Culture Result 1 (MAYE) - Final, Complete Medications Current Medications Ondansetron HCl (Zofran) 4 mg PRN Q8HRS PRN IV NAUSEA/VOMITING; Start 10/15/16 at 13:30; Stop 10/16/16 at 13:29; Status DC Morphine Sulfate 4 mg PRN Q2HR PRN IV PAIN; Start 10/15/16 at 13:30; Stop 10/16 at 13:29; Status DC Potassium Chloride/Dextrose/ Sod Cl 1,000 ml @ 75 mls/hr 1X ONCE IV Last administered on 10/15/16 13:47; Start 10/15/16 at 14:00; Stop 10/16/16 at 03:19 ; Status DC Aspirin (Ecotrin) 81 mg DAILY PO ; Start 10/15/16 at 16:00; Stop 10/15/16 at 16: 20; Status DC Gabapentin (Neurontin) 300 mg TID PO Last administered on 10/19/16 08:38; Start 10/15/16 at 16:00 Metformin HCl (Glucophage) 1,000 mg DAILYWBKFT PO Last administered on 08:38; Start 10/16/16 at 08:00 Metformin HCl (Glucophage) 500 mg DAILYBFRSUP PO Last administered on 17:32; Start 10/15/16 at 17:00 Metoprolol Succinate (Toprol Xl) 100 mg DAILY PO Last administered on 08:39; Start 10/15/16 at 16:00 Terazosin HCl (Hytrin) 5 mg DAILY PO Last administered on 10/19/16 08:39; Start 10/15/16 at 16:00 Diltiazem HCl (Cardizem 24hr Cd) 240 mg DAILY PO Last administered on 08:40; Start 10/15/16 at 16:00 Losartan Potassium (Cozaar) 50 mg BID PO Last administered on 10/19/16 08:38; Start 10/15/16 at 21:00 Famotidine (Pepcid) 20 mg BID PO Last administered on 10/19/16 08:38; Start at 21:00 Potassium Chloride (Klor-Con) 40 meq 1X ONCE PO Last administered on 16:37; Start 10/15/16 at 16:30; Stop 10/15/16 at 16:31; Status DC Potassium Chloride (Klor-Con) 20 meq DAILYWBKFT PO Last administered on 08:39; Start 10/16/16 at 08:00 Insulin Aspart (NovoLOG) 0-7 UNITS QIDACHS SQ Last administered on 10/19/16 08 :47; Start 10/15/16 at 16:30 Dextrose (Dextrose 50%-Water Syringe) 12.5 gm PRN Q15MIN PRN IV SEE COMMENTS; Start 10/15/16 at 16:15 Aspirin (Grecia Aspirin) 325 mg DAILYWBKFT PO Last administered on 10/19/16 08: 38; Start 10/16/16 at 08:00 Aspirin (Grecia Aspirin) 325 mg 1X ONCE PO Last administered on 10/15/16 16:35 ; Start 10/15/16 at 16:30; Stop 10/15/16 at 16:31; Status DC Enoxaparin Sodium (Lovenox Per Pharmacy Prophylaxis Dosing) 1 each PRN DAILY PRN MC SEE COMMENTS; Start 10/15/16 at 16:15 Enoxaparin Sodium (Lovenox 40mg Syringe) 40 mg Q24H SQ Last administered on 17:33; Start 10/15/16 at 17:00 Sodium Chloride 1,000 ml @ 150 mls/hr Q6H40M IV Last administered on 05:31; Start 10/16/16 at 15:00 Piperacillin Sod/ Tazobactam Sod 4.5 gm/Sodium Chloride 100 ml @ 200 mls/hr Q6HRS IV Last administered on 10/18/16 12:13; Start 10/16/16 at 18:00; Stop at 14:47; Status DC Vancomycin HCl 1 gm/Sodium Chloride 250 ml @ 250 mls/hr Q12H IV ; Start at 14:30; Status UNV Vancomycin HCl (Vanco Per Pharmacy) 1 each PRN DAILY PRN MC SEE COMMENTS Last administered on 10/17/16 17:26; Start 10/16/16 at 15:00; Stop 10/18/16 at 14:47 ; Status DC Vancomycin HCl 2 gm/Sodium Chloride 500 ml @ 250 mls/hr 1X ONCE IV Last administered on 10/16/16 16:20; Start 10/16/16 at 15:00; Stop 10/16/16 at 16:59 ; Status DC Cefepime HCl 2 gm/ Sodium Chloride 100 ml @ 200 mls/hr Q8HRS IV ; Start at 15:30; Status Cancel Acetaminophen (Tylenol) 650 mg PRN Q6HRS PRN PO MILD PAIN / TEMP Last administered on 10/16/16 16:03; Start 10/16/16 at 15:45; Stop 10/16/16 at 20:26 ; Status DC Vancomycin HCl 1.25 gm/Sodium Chloride 250 ml @ 167 mls/hr Q12H IV Last administered on 10/17/16 04:25; Start 10/17/16 at 04:00; Stop 10/17/16 at 17:19 ; Status DC Vancomycin HCl 1 each 1X ONCE MC Last administered on 10/17/16 15:30; Start 10/17/16 at 15:30; Stop 10/17/16 at 15:31; Status DC Acetaminophen (Tylenol) 650 mg PRN Q4HRS PRN PO MILD PAIN / TEMP; Start at 15:45; Stop 10/17/16 at 15:45; Status DC Acetaminophen (Tylenol) 650 mg PRN Q4HRS PRN PO MILD PAIN / TEMP Last administered on 10/19/16 02:06; Start 10/16/16 at 20:45 Morphine Sulfate 4 mg PRN Q4HRS PRN IV SEVERE PAIN Last administered on 05:30; Start 10/17/16 at 02:15 Heparin Sodium/ Sodium Chloride 500 ml @ As Directed STK-MED ONCE .ROUTE ; Start 10/17/16 at 15:22; Stop 10/17/16 at 15:23; Status DC Lidocaine/ Epinephrine (Xylocaine 2%-Epi 1:100,000) 20 ml STK-MED ONCE .ROUTE ; Start 10/17/16 at 15:22; Stop 10/17/16 at 15:23; Status DC Heparin Sodium/ Sodium Chloride 1,000 unit 1X ONCE IART Last administered on 16:00; Start 10/17/16 at 16:00; Stop 10/17/16 at 16:01; Status DC Lidocaine/ Epinephrine (Xylocaine 1%-Epi 1:100,000) 4 ml 1X ONCE INJ Last administered on 10/17/16 16:00; Start 10/17/16 at 16:00; Stop 10/17/16 at 16:01 ; Status DC Vancomycin HCl 1.5 gm/Sodium Chloride 500 ml @ 250 mls/hr Q12H IV Last administered on 10/18/16 04:52; Start 10/17/16 at 17:00; Stop 10/18/16 at 14:47 ; Status DC Vancomycin HCl 1 each 1X ONCE MC ; Start 10/19/16 at 04:30; Stop 10/19/16 at 04 :31; Status Cancel Tbo-Filgrastim (Granix) 480 mcg QHS SQ Last administered on 10/18/16 20:01; Start 10/18/16 at 21:00; Stop 10/19/16 at 08:17; Status DC Cefazolin Sodium 2 gm/Sodium Chloride 50 ml @ 100 mls/hr Q8HRS IV Last administered on 10/19/16 05:29; Start 10/18/16 at 22:00 Active Scripts Active Reported Metformin Hcl 500 Mg Tablet 500 Mg PO DAILYBFRSUP Losartan Potassium 100 Mg Tablet 50 Mg PO BID Metformin Hcl 500 Mg Tablet 1,000 Mg PO DAILYWBKFT Gabapentin 300 Mg Capsule 300 Mg PO TID Metoprolol Succinate ( Xl ) (Metoprolol Succinate) 100 Mg Tab.er.24h 100 Mg PO DAILY Diltiazem Xt (Diltiazem Hcl) 240 Mg Capsule.er 240 Mg PO DAILY Terazosin Hcl 5 Mg Capsule 5 Mg PO DAILY Aspir 81 (Aspirin) 81 Mg Tablet.dr 81 Mg PO DAILY Ranitidine Hcl 150 Mg Tablet 150 Mg PO BID Vitals/I & O Vital Sign - Last 24 Hours 10/18/16 10/18/16 10/18/16 10/18/16 11:00 11:00 15:00 19:00 Temp 98.0 98.0 98.5 98.1 98.0 98.0 98.5 98.1 Pulse 96 90 93 Resp 20 20 22 B/P (MAP) 114/91 (99) 137/85 (102) 158/98 (118) Pulse Ox 99 99 97 O2 Delivery Room Air Nasal Cannula Nasal Cannula O2 Flow Rate 2.0 2.0 10/18/16 10/18/16 10/18/16 10/19/16 20:00 20:04 23:00 03:00 Temp 97.9 98.9 97.9 98.9 Pulse 90 97 87 Resp 20 22 B/P (MAP) 137/85 148/78 (101) 161/90 (113) Pulse Ox 95 93 O2 Delivery Nasal Cannula Nasal Cannula Nasal Cannula O2 Flow Rate 2.0 2.0 2.0 10/19/16 10/19/16 10/19/16 10/19/16 05:30 07:30 08:38 08:39 Temp 98.9 98.9 Pulse 94 94 94 Resp 18 B/P (MAP) 171/97 (121) 171/97 171/97 Pulse Ox 93 95 O2 Delivery Nasal Cannula O2 Flow Rate 2.0 10/19/16 10/19/16 08:39 08:40 Pulse 94 94 B/P (MAP) 171/97 171/97 Intake and Output 10/18/16 10/18/16 10/19/16 15:00 23:00 07:00 Intake Total 350 ml 540 ml Output Total 450 ml 850 ml 2050 ml Balance -450 ml -500 ml -1510 ml RODRI CHAN MD Oct 19, 2016 09:57
[2016-10-19 11:15] VITALS: BP 163/96
--- NOTE | 2016-10-19 12:09 | PDOC ---
PROGRESS NOTES Chief Complaint Chief Complaint L UE/ tongue paresthesias L hand weakness ASSESSMENT AND PLAN: 1. Sepsis: resolving. blood cult pos for MSSA, Abx changed to cefazolin. TTE : mitral valve leaflets are thickened, cannot rule out possible vegetation on anterior leaflet. Rpt blood cult from 10/18 pending . ID service following 2. port infect: removed port (VIR) on 10/17 3. Neutropenia: received granix x1 with recovery of counts. resolved. Dr Ochoa following 4. Hyper/Hypotension: bilat arm BPs obtained - congruent. BP now stable in 140s. monitor, may need adjustment in meds 5. Paresthesias: improved. appreciate Dr Mckeon's input. hx CVA; MRI pending 6. Rectal CA: mets to liver. on palliative chemo with Dr Jade. restaging CT obtained: persisting L hilar mass, increasing L axillary LAD. liver not mentioned (no IV contrast) 7. DM2: much improved with control if infect. cont home metformin and ISS 8. Prophylaxis: H2B, lovenox History of Present Illness History of Present Illness feels much better. eating ok. no CP or SOB Vitals Vitals Vital Signs Date Time Temp Pulse Resp B/P (MAP) Pulse Ox O2 Delivery O2 Flow Rate FiO2 10/19/16 11:15 98.6 113 20 163/96 (118) 96 Nasal Cannula 2.0 98.6 Physical Exam General: Alert, Oriented X3, Cooperative, No acute distress Heart: Regular rate Lungs: Clear, Other (tachypneic) Abdomen: Normal bowel sounds, Soft, No tenderness Extremities: No edema Skin: No rashes, Other (tiny wound right above chest port, with surrounding discoloration, no fluctuance) Labs LABS Laboratory Tests Test 10/18/16 17:23 10/18/16 19:55 10/19/16 07:00 10/19/16 07:46 Glucose (Fingerstick) 180 mg/dL (70-99) 201 mg/dL (70-99) 169 mg/dL (70-99) White Blood Count 6.0 x10^3/uL (4.0-11.0) Red Blood Count 3.73 x10^6/uL (4.30-5.70) Hemoglobin 10.5 g/dL (13.0-17.5) Hematocrit 30.6 % (39.0-53.0) Mean Corpuscular Volume 82 fL (79-100) Mean Corpuscular Hemoglobin 28 pg (25-35) Mean Corpuscular Hemoglobin Concent 34 g/dL (31-37) Red Cell Distribution Width 17.1 % (11.5-14.5) Platelet Count 94 x10^3/uL (140-400) Neutrophils (%) (Auto) 70 % (31-73) Lymphocytes (%) (Auto) 10 % (24-48) Monocytes (%) (Auto) 18 % (0-9) Eosinophils (%) (Auto) 1 % (0-3) Basophils (%) (Auto) 0 % (0-3) Neutrophils # (Auto) 4.2 x10^3uL (1.8-7.7) Lymphocytes # (Auto) 0.6 x10^3/uL (1.0-4.8) Monocytes # (Auto) 1.1 x10^3/uL (0.0-1.1) Eosinophils # (Auto) 0.1 x10^3/uL (0.0-0.7) Basophils # (Auto) 0.0 x10^3/uL (0.0-0.2) Segmented Neutrophils % 39 % (35-66) Band Neutrophils % 33 % (0-9) Lymphocytes % 10 % (24-48) Monocytes % 16 % (0-10) Basophils % 1 % (0-3) Myelocytes % 1 % (0-0) Platelet Estimate Decreased (ADEQUATE) Anisocytosis Slight Tear Drop Cells Few Ovalocytes Occ Sodium Level 139 mmol/L (136-145) Potassium Level 3.7 mmol/L (3.5-5.1) Chloride Level 104 mmol/L (98-107) Carbon Dioxide Level 25 mmol/L (21-32) Anion Gap 10 (6-14) Blood Urea Nitrogen 5 mg/dL (8-26) Creatinine 0.9 mg/dL (0.7-1.3) Estimated GFR (Cockcroft-Gault) 100.9 Glucose Level 181 mg/dL (70-99) Calcium Level 8.6 mg/dL (8.5-10.1) Test 10/19/16 11:51 Glucose (Fingerstick) 225 mg/dL (70-99) PILO KELLY MD Oct 19, 2016 12:09
[2016-10-19 15:14] VITALS: BP 142/85
[2016-10-19] MEDS: ENOXAPARIN 40 MG/0.4 ML SYRINGE. SQ SCH (17:00)
[2016-10-19 19:00] VITALS: BP 167/95
[2016-10-19 23:00] VITALS: BP 160/87
[2016-10-20 03:00] VITALS: BP 165/87
[2016-10-20 04:34] LABS: BASO # 0.1 x10^3/uL (0.0-0.2); BASO % 1 % (0-3); EOS % 1 % (0-3); HEMATOCRIT 30.9 % (39.0-53.0); HEMOGLOBIN 10.4 g/dL (13.0-17.5); LYMPH # 1.1 x10^3/uL (1.0-4.8); LYMPH % 10 % (24-48); MEAN CORPUSCULAR HEMOGLOBIN 28 pg (25-35); MEAN CORPUSCULAR HGB CONC 34 g/dL (31-37); MEAN CORPUSCULAR VOLUME 82 fL (79-100); MONO % 13 % (0-9); NEUT % 75 % (31-73); PLATELET COUNT 107 x10^3/uL (140-400); RED BLOOD COUNT 3.78 x10^6/uL (4.30-5.70); RED CELL DISTRIBUTION WIDTH 17.4 % (11.5-14.5)
[2016-10-20 05:05] LABS: CALCIUM 8.4 mg/dL (8.5-10.1); CREATININE 0.9 mg/dL (0.7-1.3); GFR 100.9; POTASSIUM 3.1 mmol/L (3.5-5.1)
[2016-10-20 07:35] VITALS: BP 156/104
[2016-10-20 07:36] LABS: % BASOS 1 % (0-3); % EOS 1 % (0-5)
[2016-10-20 07:38] LABS: PLT ESTIMATE ADEQUATE (ADEQUATE)
[2016-10-20] MEDS: POTASSIUM CHLORIDE 20 MEQ TABLET.ER. PO SCH (08:43)
[2016-10-20] MEDS: ASPIRIN 325 MG TABLET PO SCH (08:43)
[2016-10-20] MEDS: LOSARTAN POTASSIUM 50 MG TABLET. PO SCH ×2 (08:44→20:04)
[2016-10-20] MEDS: TERAZOSIN 5 MG CAPSULE. PO SCH (08:45)
[2016-10-20] MEDS: GABAPENTIN 300 MG CAPSULE. PO SCH ×3 (08:45→20:04)
[2016-10-20] MEDS: FAMOTIDINE 20 MG TABLET. PO SCH ×2 (08:45→20:03)
[2016-10-20] MEDS: METOPROLOL SUCC 24HR ER 100 MG TAB.ER.24H. PO SCH (08:45)
[2016-10-20] MEDS: metFORMIN 500 MG TABLET PO SCH ×2 (08:49→17:33)
[2016-10-20] MEDS: INSULIN ASPART 300 UNITS/3 ML INSULN.PEN SQ SCH ×4 (09:06→21:43)
--- NOTE | 2016-10-20 11:08 | PDOC ---
Infectious Disease Note Subjective Subjective Comfortable, denies pain, SOA ROS ROS GEN: Denies fevers, chills, sweats HEENT: Denies sore throat CV: Denies chest pain RESP: Denies shortness of air, cough GI: Denies n/v/d Vital Sign Vital Signs Vital Signs Date Time Temp Pulse Resp B/P (MAP) Pulse Ox O2 Delivery O2 Flow Rate FiO2 10/20/16 08:45 110 156/104 10/20/16 08:00 Room Air 10/20/16 07:35 97.7 19 97 2.0 97.7 Physical Exam PHYSICAL EXAM GENERAL: Lying down, NAD LUNGS: Clear anteriorly HEART: S1, S2 regular. ABDOMEN: BS present, soft, NT, ostomy EXTREMITIES: No edema, cyanosis. NEUROLOGIC: Alert, oriented x 3 SKIN: without rash Port out, small open hole, no area redness or drainage noted Peripheral IV Labs Lab Laboratory Tests Test 10/19/16 11:51 10/19/16 16:56 10/19/16 20:54 10/20/16 03:42 Glucose (Fingerstick) 225 mg/dL (70-99) 217 mg/dL (70-99) 224 mg/dL (70-99) White Blood Count 11.0 x10^3/uL (4.0-11.0) Red Blood Count 3.78 x10^6/uL (4.30-5.70) Hemoglobin 10.4 g/dL (13.0-17.5) Hematocrit 30.9 % (39.0-53.0) Mean Corpuscular Volume 82 fL (79-100) Mean Corpuscular Hemoglobin 28 pg (25-35) Mean Corpuscular Hemoglobin Concent 34 g/dL (31-37) Red Cell Distribution Width 17.4 % (11.5-14.5) Platelet Count 107 x10^3/uL (140-400) Neutrophils (%) (Auto) 75 % (31-73) Lymphocytes (%) (Auto) 10 % (24-48) Monocytes (%) (Auto) 13 % (0-9) Eosinophils (%) (Auto) 1 % (0-3) Basophils (%) (Auto) 1 % (0-3) Neutrophils # (Auto) 8.3 x10^3uL (1.8-7.7) Lymphocytes # (Auto) 1.1 x10^3/uL (1.0-4.8) Monocytes # (Auto) 1.4 x10^3/uL (0.0-1.1) Eosinophils # (Auto) 0.1 x10^3/uL (0.0-0.7) Basophils # (Auto) 0.1 x10^3/uL (0.0-0.2) Segmented Neutrophils % 43 % (35-66) Band Neutrophils % 32 % (0-9) Lymphocytes % 10 % (24-48) Monocytes % 11 % (0-10) Eosinophils % 1 % (0-5) Basophils % 1 % (0-3) Metamyelocytes % 1 % (0-0) Myelocytes % 1 % (0-0) Platelet Estimate Adequate (ADEQUATE) Giant Platelets Many Sodium Level 140 mmol/L (136-145) Potassium Level 3.1 mmol/L (3.5-5.1) Chloride Level 105 mmol/L (98-107) Carbon Dioxide Level 26 mmol/L (21-32) Anion Gap 9 (6-14) Blood Urea Nitrogen 6 mg/dL (8-26) Creatinine 0.9 mg/dL (0.7-1.3) Estimated GFR (Cockcroft-Gault) 100.9 Glucose Level 187 mg/dL (70-99) Calcium Level 8.4 mg/dL (8.5-10.1) Test 10/20/16 07:32 Glucose (Fingerstick) 315 mg/dL (70-99) Micro 10/18 BLOOD CULTURE Preliminary NO GROWTH AFTER 1 DAY 10/16 BLD CULT RESULT 1 Final Staphylococcus aureus Antibiotic RSLT#1 Ciprofloxacin S Gentamicin S Levofloxacin S Linezolid S Moxifloxacin S Nitrofurantoin S Oxacillin S Penicillin R Quinupristin/Dalfopristin S Rifampin S Tetracycline S Trimethoprim/Sulfa S Vancomycin S CATH TIP AEROBIC RES 1 Preliminary Staphylococcus aureus >100 colony forming units Cath tip GRAM STAIN Final WBCS MANY GRAM POSITIVE COCCI MANY COMMENTS SUGGESTIVE OF STAPH Chest wound AEROBIC RES 1 Preliminary Comment No growth after 18-24 hours. Objective Assessment Sepsis with hypotension and bacteremia. POA, 10/16. MSSA . TTE: mitral valve leaflets are thickened. Can not rule out possible vegetation on anterior leaflet. -Repeat BC NGTD from 10/18 Infected port . s/p removal, 10/17. staph aureus Neutropenia, s/p Granix. better Fevers, better Acute encephalopathy, better Lactic acidosis Rectal cancer, status post chemotherapy. Diabetes. PNC listed as allergy, tolerated Zosyn w/o problem Plan Plan of Care Cefazolin Repeat BC NGTD Monitor labs/temp PT/OT Attending Co-Sign The patient was seen and interviewed as well as examined at the bedside. The chart was reviewed. The case was discussed. Agree with the plan of care. MARILYN MONTELONGO APRN Oct 20, 2016 11:08 MARK JULIO MD Oct 20, 2016 11:49
[2016-10-20 11:32] VITALS: BP 150/88
--- NOTE | 2016-10-20 12:46 | PDOC ---
PROGRESS NOTES Chief Complaint Chief Complaint Pancytopenia status post extensive chemotherapy for rectal CA L UE/ tongue paresthesias L hand weakness Neutropenia Rectal CA Sepsis DM2 History of Present Illness History of Present Illness Pt was found sitting in bedside chair responsive and feels much better. eating ok. no CP or SOB ventral abdominal hernia was found colostomy tube Vitals Vitals Vital Signs Date Time Temp Pulse Resp B/P (MAP) Pulse Ox O2 Delivery O2 Flow Rate FiO2 10/20/16 11:32 98.3 121 19 150/88 (108) 98 Nasal Cannula 2.0 98.3 Physical Exam General: Alert, Oriented X3, Cooperative, No acute distress Heart: Regular rate, Normal S1, Normal S2, No murmurs Lungs: Clear, Other (tachypneic) Abdomen: Normal bowel sounds, Soft, No tenderness Extremities: No clubbing, No cyanosis, No edema Skin: No rashes, Other (tiny wound right above chest port, with surrounding discoloration, no fluctuance) Labs LABS Laboratory Tests Test 10/19/16 16:56 10/19/16 20:54 10/20/16 03:42 10/20/16 07:32 Glucose (Fingerstick) 217 mg/dL (70-99) 224 mg/dL (70-99) 315 mg/dL (70-99) White Blood Count 11.0 x10^3/uL (4.0-11.0) Red Blood Count 3.78 x10^6/uL (4.30-5.70) Hemoglobin 10.4 g/dL (13.0-17.5) Hematocrit 30.9 % (39.0-53.0) Mean Corpuscular Volume 82 fL (79-100) Mean Corpuscular Hemoglobin 28 pg (25-35) Mean Corpuscular Hemoglobin Concent 34 g/dL (31-37) Red Cell Distribution Width 17.4 % (11.5-14.5) Platelet Count 107 x10^3/uL (140-400) Neutrophils (%) (Auto) 75 % (31-73) Lymphocytes (%) (Auto) 10 % (24-48) Monocytes (%) (Auto) 13 % (0-9) Eosinophils (%) (Auto) 1 % (0-3) Basophils (%) (Auto) 1 % (0-3) Neutrophils # (Auto) 8.3 x10^3uL (1.8-7.7) Lymphocytes # (Auto) 1.1 x10^3/uL (1.0-4.8) Monocytes # (Auto) 1.4 x10^3/uL (0.0-1.1) Eosinophils # (Auto) 0.1 x10^3/uL (0.0-0.7) Basophils # (Auto) 0.1 x10^3/uL (0.0-0.2) Segmented Neutrophils % 43 % (35-66) Band Neutrophils % 32 % (0-9) Lymphocytes % 10 % (24-48) Monocytes % 11 % (0-10) Eosinophils % 1 % (0-5) Basophils % 1 % (0-3) Metamyelocytes % 1 % (0-0) Myelocytes % 1 % (0-0) Platelet Estimate Adequate (ADEQUATE) Giant Platelets Many Sodium Level 140 mmol/L (136-145) Potassium Level 3.1 mmol/L (3.5-5.1) Chloride Level 105 mmol/L (98-107) Carbon Dioxide Level 26 mmol/L (21-32) Anion Gap 9 (6-14) Blood Urea Nitrogen 6 mg/dL (8-26) Creatinine 0.9 mg/dL (0.7-1.3) Estimated GFR (Cockcroft-Gault) 100.9 Glucose Level 187 mg/dL (70-99) Calcium Level 8.4 mg/dL (8.5-10.1) Test 10/20/16 11:56 Glucose (Fingerstick) 213 mg/dL (70-99) Review of Systems Review of Systems patient complained of weakness nausea Assessment and Plan Assessmemt and Plan Problems Medical Problems: (1) Brain metastases Status: Acute (2) Paresthesias Status: Acute Chief Complaint Chief Complaint L UE/ tongue paresthesias L hand weakness Neutropenia Sepsis Rectal CA DM2 PLAN -daily labs and electrolytes -PTOT -continue home meds -appreciate subspecialist input -maintain IV fluids Problems: Comment Review of Relevant I have reviewed the following items isabel (where applicable) has been applied. Labs Laboratory Tests Test 10/18/16 17:23 10/18/16 19:55 10/19/16 07:00 10/19/16 07:46 Glucose (Fingerstick) 180 mg/dL (70-99) 201 mg/dL (70-99) 169 mg/dL (70-99) White Blood Count 6.0 x10^3/uL (4.0-11.0) Red Blood Count 3.73 x10^6/uL (4.30-5.70) Hemoglobin 10.5 g/dL (13.0-17.5) Hematocrit 30.6 % (39.0-53.0) Mean Corpuscular Volume 82 fL (79-100) Mean Corpuscular Hemoglobin 28 pg (25-35) Mean Corpuscular Hemoglobin Concent 34 g/dL (31-37) Red Cell Distribution Width 17.1 % (11.5-14.5) Platelet Count 94 x10^3/uL (140-400) Neutrophils (%) (Auto) 70 % (31-73) Lymphocytes (%) (Auto) 10 % (24-48) Monocytes (%) (Auto) 18 % (0-9) Eosinophils (%) (Auto) 1 % (0-3) Basophils (%) (Auto) 0 % (0-3) Neutrophils # (Auto) 4.2 x10^3uL (1.8-7.7) Lymphocytes # (Auto) 0.6 x10^3/uL (1.0-4.8) Monocytes # (Auto) 1.1 x10^3/uL (0.0-1.1) Eosinophils # (Auto) 0.1 x10^3/uL (0.0-0.7) Basophils # (Auto) 0.0 x10^3/uL (0.0-0.2) Segmented Neutrophils % 39 % (35-66) Band Neutrophils % 33 % (0-9) Lymphocytes % 10 % (24-48) Monocytes % 16 % (0-10) Basophils % 1 % (0-3) Myelocytes % 1 % (0-0) Platelet Estimate Decreased (ADEQUATE) Anisocytosis Slight Tear Drop Cells Few Ovalocytes Occ Sodium Level 139 mmol/L (136-145) Potassium Level 3.7 mmol/L (3.5-5.1) Chloride Level 104 mmol/L (98-107) Carbon Dioxide Level 25 mmol/L (21-32) Anion Gap 10 (6-14) Blood Urea Nitrogen 5 mg/dL (8-26) Creatinine 0.9 mg/dL (0.7-1.3) Estimated GFR (Cockcroft-Gault) 100.9 Glucose Level 181 mg/dL (70-99) Calcium Level 8.6 mg/dL (8.5-10.1) Test 10/19/16 11:51 10/19/16 16:56 10/19/16 20:54 10/20/16 03:42 Glucose (Fingerstick) 225 mg/dL (70-99) 217 mg/dL (70-99) 224 mg/dL (70-99) White Blood Count 11.0 x10^3/uL (4.0-11.0) Red Blood Count 3.78 x10^6/uL (4.30-5.70) Hemoglobin 10.4 g/dL (13.0-17.5) Hematocrit 30.9 % (39.0-53.0) Mean Corpuscular Volume 82 fL (79-100) Mean Corpuscular Hemoglobin 28 pg (25-35) Mean Corpuscular Hemoglobin Concent 34 g/dL (31-37) Red Cell Distribution Width 17.4 % (11.5-14.5) Platelet Count 107 x10^3/uL (140-400) Neutrophils (%) (Auto) 75 % (31-73) Lymphocytes (%) (Auto) 10 % (24-48) Monocytes (%) (Auto) 13 % (0-9) Eosinophils (%) (Auto) 1 % (0-3) Basophils (%) (Auto) 1 % (0-3) Neutrophils # (Auto) 8.3 x10^3uL (1.8-7.7) Lymphocytes # (Auto) 1.1 x10^3/uL (1.0-4.8) Monocytes # (Auto) 1.4 x10^3/uL (0.0-1.1) Eosinophils # (Auto) 0.1 x10^3/uL (0.0-0.7) Basophils # (Auto) 0.1 x10^3/uL (0.0-0.2) Segmented Neutrophils % 43 % (35-66) Band Neutrophils % 32 % (0-9) Lymphocytes % 10 % (24-48) Monocytes % 11 % (0-10) Eosinophils % 1 % (0-5) Basophils % 1 % (0-3) Metamyelocytes % 1 % (0-0) Myelocytes % 1 % (0-0) Platelet Estimate Adequate (ADEQUATE) Giant Platelets Many Sodium Level 140 mmol/L (136-145) Potassium Level 3.1 mmol/L (3.5-5.1) Chloride Level 105 mmol/L (98-107) Carbon Dioxide Level 26 mmol/L (21-32) Anion Gap 9 (6-14) Blood Urea Nitrogen 6 mg/dL (8-26) Creatinine 0.9 mg/dL (0.7-1.3) Estimated GFR (Cockcroft-Gault) 100.9 Glucose Level 187 mg/dL (70-99) Calcium Level 8.4 mg/dL (8.5-10.1) Test 10/20/16 07:32 10/20/16 11:56 Glucose (Fingerstick) 315 mg/dL (70-99) 213 mg/dL (70-99) Laboratory Tests Test 10/19/16 16:56 10/19/16 20:54 10/20/16 03:42 10/20/16 07:32 Glucose (Fingerstick) 217 mg/dL (70-99) 224 mg/dL (70-99) 315 mg/dL (70-99) White Blood Count 11.0 x10^3/uL (4.0-11.0) Red Blood Count 3.78 x10^6/uL (4.30-5.70) Hemoglobin 10.4 g/dL (13.0-17.5) Hematocrit 30.9 % (39.0-53.0) Mean Corpuscular Volume 82 fL (79-100) Mean Corpuscular Hemoglobin 28 pg (25-35) Mean Corpuscular Hemoglobin Concent 34 g/dL (31-37) Red Cell Distribution Width 17.4 % (11.5-14.5) Platelet Count 107 x10^3/uL (140-400) Neutrophils (%) (Auto) 75 % (31-73) Lymphocytes (%) (Auto) 10 % (24-48) Monocytes (%) (Auto) 13 % (0-9) Eosinophils (%) (Auto) 1 % (0-3) Basophils (%) (Auto) 1 % (0-3) Neutrophils # (Auto) 8.3 x10^3uL (1.8-7.7) Lymphocytes # (Auto) 1.1 x10^3/uL (1.0-4.8) Monocytes # (Auto) 1.4 x10^3/uL (0.0-1.1) Eosinophils # (Auto) 0.1 x10^3/uL (0.0-0.7) Basophils # (Auto) 0.1 x10^3/uL (0.0-0.2) Segmented Neutrophils % 43 % (35-66) Band Neutrophils % 32 % (0-9) Lymphocytes % 10 % (24-48) Monocytes % 11 % (0-10) Eosinophils % 1 % (0-5) Basophils % 1 % (0-3) Metamyelocytes % 1 % (0-0) Myelocytes % 1 % (0-0) Platelet Estimate Adequate (ADEQUATE) Giant Platelets Many Sodium Level 140 mmol/L (136-145) Potassium Level 3.1 mmol/L (3.5-5.1) Chloride Level 105 mmol/L (98-107) Carbon Dioxide Level 26 mmol/L (21-32) Anion Gap 9 (6-14) Blood Urea Nitrogen 6 mg/dL (8-26) Creatinine 0.9 mg/dL (0.7-1.3) Estimated GFR (Cockcroft-Gault) 100.9 Glucose Level 187 mg/dL (70-99) Calcium Level 8.4 mg/dL (8.5-10.1) Test 10/20/16 11:56 Glucose (Fingerstick) 213 mg/dL (70-99) Microbiology 10/18/16 Blood Culture - Preliminary, Resulted NO GROWTH AFTER 1 DAY 10/17/16 Aerobic Culture - Preliminary, Resulted 10/17/16 Aerobic Culture Result 1 (MAYE) - Preliminary, Resulted Medications Current Medications Ondansetron HCl (Zofran) 4 mg PRN Q8HRS PRN IV NAUSEA/VOMITING; Start 10/15/16 at 13:30; Stop 10/16/16 at 13:29; Status DC Morphine Sulfate 4 mg PRN Q2HR PRN IV PAIN; Start 10/15/16 at 13:30; Stop 10/16 at 13:29; Status DC Potassium Chloride/Dextrose/ Sod Cl 1,000 ml @ 75 mls/hr 1X ONCE IV Last administered on 10/15/16 13:47; Start 10/15/16 at 14:00; Stop 10/16/16 at 03:19 ; Status DC Aspirin (Ecotrin) 81 mg DAILY PO ; Start 10/15/16 at 16:00; Stop 10/15/16 at 16: 20; Status DC Gabapentin (Neurontin) 300 mg TID PO Last administered on 10/20/16 08:45; Start 10/15/16 at 16:00 Metformin HCl (Glucophage) 1,000 mg DAILYWBKFT PO Last administered on 08:49; Start 10/16/16 at 08:00 Metformin HCl (Glucophage) 500 mg DAILYBFRSUP PO Last administered on 17:57; Start 10/15/16 at 17:00 Metoprolol Succinate (Toprol Xl) 100 mg DAILY PO Last administered on 08:45; Start 10/15/16 at 16:00 Terazosin HCl (Hytrin) 5 mg DAILY PO Last administered on 10/20/16 08:45; Start 10/15/16 at 16:00 Diltiazem HCl (Cardizem 24hr Cd) 240 mg DAILY PO Last administered on 08:44; Start 10/15/16 at 16:00 Losartan Potassium (Cozaar) 50 mg BID PO Last administered on 10/20/16 08:44; Start 10/15/16 at 21:00 Famotidine (Pepcid) 20 mg BID PO Last administered on 10/20/16 08:45; Start at 21:00 Potassium Chloride (Klor-Con) 40 meq 1X ONCE PO Last administered on 16:37; Start 10/15/16 at 16:30; Stop 10/15/16 at 16:31; Status DC Potassium Chloride (Klor-Con) 20 meq DAILYWBKFT PO Last administered on 08:43; Start 10/16/16 at 08:00 Insulin Aspart (NovoLOG) 0-7 UNITS QIDACHS SQ Last administered on 10/20/16 12 :03; Start 10/15/16 at 16:30 Dextrose (Dextrose 50%-Water Syringe) 12.5 gm PRN Q15MIN PRN IV SEE COMMENTS; Start 10/15/16 at 16:15 Aspirin (Magma Flooring Aspirin) 325 mg DAILYWBKFT PO Last administered on 10/20/16 08: 43; Start 10/16/16 at 08:00 Aspirin (Magma Flooring Aspirin) 325 mg 1X ONCE PO Last administered on 10/15/16 16:35 ; Start 10/15/16 at 16:30; Stop 10/15/16 at 16:31; Status DC Enoxaparin Sodium (Lovenox Per Pharmacy Prophylaxis Dosing) 1 each PRN DAILY PRN MC SEE COMMENTS; Start 10/15/16 at 16:15 Enoxaparin Sodium (Lovenox 40mg Syringe) 40 mg Q24H SQ Last administered on 17:33; Start 10/15/16 at 17:00 Sodium Chloride 1,000 ml @ 30 mls/hr Q24H IV Last administered on 10/19/16 05 :31; Start 10/16/16 at 15:00 Piperacillin Sod/ Tazobactam Sod 4.5 gm/Sodium Chloride 100 ml @ 200 mls/hr Q6HRS IV Last administered on 10/18/16 12:13; Start 10/16/16 at 18:00; Stop at 14:47; Status DC Vancomycin HCl 1 gm/Sodium Chloride 250 ml @ 250 mls/hr Q12H IV ; Start at 14:30; Status UNV Vancomycin HCl (Vanco Per Pharmacy) 1 each PRN DAILY PRN MC SEE COMMENTS Last administered on 10/17/16 17:26; Start 10/16/16 at 15:00; Stop 10/18/16 at 14:47 ; Status DC Vancomycin HCl 2 gm/Sodium Chloride 500 ml @ 250 mls/hr 1X ONCE IV Last administered on 10/16/16 16:20; Start 10/16/16 at 15:00; Stop 10/16/16 at 16:59 ; Status DC Cefepime HCl 2 gm/ Sodium Chloride 100 ml @ 200 mls/hr Q8HRS IV ; Start at 15:30; Status Cancel Acetaminophen (Tylenol) 650 mg PRN Q6HRS PRN PO MILD PAIN / TEMP Last administered on 10/16/16 16:03; Start 10/16/16 at 15:45; Stop 10/16/16 at 20:26 ; Status DC Vancomycin HCl 1.25 gm/Sodium Chloride 250 ml @ 167 mls/hr Q12H IV Last administered on 10/17/16 04:25; Start 10/17/16 at 04:00; Stop 10/17/16 at 17:19 ; Status DC Vancomycin HCl 1 each 1X ONCE MC Last administered on 10/17/16 15:30; Start 10/17/16 at 15:30; Stop 10/17/16 at 15:31; Status DC Acetaminophen (Tylenol) 650 mg PRN Q4HRS PRN PO MILD PAIN / TEMP; Start at 15:45; Stop 10/17/16 at 15:45; Status DC Acetaminophen (Tylenol) 650 mg PRN Q4HRS PRN PO MILD PAIN / TEMP Last administered on 10/19/16 20:59; Start 10/16/16 at 20:45 Morphine Sulfate 4 mg PRN Q4HRS PRN IV SEVERE PAIN Last administered on 05:30; Start 10/17/16 at 02:15; Stop 10/19/16 at 14:44; Status DC Heparin Sodium/ Sodium Chloride 500 ml @ As Directed STK-MED ONCE .ROUTE ; Start 10/17/16 at 15:22; Stop 10/17/16 at 15:23; Status DC Lidocaine/ Epinephrine (Xylocaine 2%-Epi 1:100,000) 20 ml STK-MED ONCE .ROUTE ; Start 10/17/16 at 15:22; Stop 10/17/16 at 15:23; Status DC Heparin Sodium/ Sodium Chloride 1,000 unit 1X ONCE IART Last administered on 16:00; Start 10/17/16 at 16:00; Stop 10/17/16 at 16:01; Status DC Lidocaine/ Epinephrine (Xylocaine 1%-Epi 1:100,000) 4 ml 1X ONCE INJ Last administered on 10/17/16 16:00; Start 10/17/16 at 16:00; Stop 10/17/16 at 16:01 ; Status DC Vancomycin HCl 1.5 gm/Sodium Chloride 500 ml @ 250 mls/hr Q12H IV Last administered on 10/18/16 04:52; Start 10/17/16 at 17:00; Stop 10/18/16 at 14:47 ; Status DC Vancomycin HCl 1 each 1X ONCE MC ; Start 10/19/16 at 04:30; Stop 10/19/16 at 04 :31; Status Cancel Tbo-Filgrastim (Granix) 480 mcg QHS SQ Last administered on 10/18/16 20:01; Start 10/18/16 at 21:00; Stop 10/19/16 at 08:17; Status DC Cefazolin Sodium 2 gm/Sodium Chloride 50 ml @ 100 mls/hr Q8HRS IV Last administered on 10/20/16 06:38; Start 10/18/16 at 22:00 Active Scripts Active Reported Metformin Hcl 500 Mg Tablet 500 Mg PO DAILYBFRSUP Losartan Potassium 100 Mg Tablet 50 Mg PO BID Metformin Hcl 500 Mg Tablet 1,000 Mg PO DAILYWBKFT Gabapentin 300 Mg Capsule 300 Mg PO TID Metoprolol Succinate ( Xl ) (Metoprolol Succinate) 100 Mg Tab.er.24h 100 Mg PO DAILY Diltiazem Xt (Diltiazem Hcl) 240 Mg Capsule.er 240 Mg PO DAILY Terazosin Hcl 5 Mg Capsule 5 Mg PO DAILY Aspir 81 (Aspirin) 81 Mg Tablet.dr 81 Mg PO DAILY Ranitidine Hcl 150 Mg Tablet 150 Mg PO BID Vitals/I & O Vital Sign - Last 24 Hours 10/19/16 10/19/16 10/19/16 10/19/16 15:14 19:00 20:00 20:59 Temp 98.6 98.2 98.6 98.2 Pulse 98 110 110 Resp 20 20 B/P (MAP) 142/85 (104) 167/95 (119) 167/95 Pulse Ox 97 95 O2 Delivery Nasal Cannula Nasal Cannula Room Air O2 Flow Rate 2.0 2.0 10/19/16 10/20/16 10/20/16 10/20/16 23:00 03:00 07:35 08:00 Temp 98.6 98.3 97.7 98.6 98.3 97.7 Pulse 93 97 110 Resp 20 20 19 B/P (MAP) 160/87 (111) 165/87 (113) 156/104 (121) Pulse Ox 92 97 97 O2 Delivery Nasal Cannula Nasal Cannula Nasal Cannula Room Air O2 Flow Rate 2.0 2.0 2.0 10/20/16 10/20/16 10/20/16 10/20/16 08:44 08:44 08:45 08:45 Pulse 110 110 110 110 B/P (MAP) 156/104 156/104 156/104 156/104 10/20/16 11:32 Temp 98.3 98.3 Pulse 121 Resp 19 B/P (MAP) 150/88 (108) Pulse Ox 98 O2 Delivery Nasal Cannula O2 Flow Rate 2.0 Intake and Output 10/19/16 10/19/16 10/20/16 15:00 23:00 07:00 Intake Total 950 ml 850 ml Output Total 1150 ml 1500 ml Balance -200 ml -650 ml IAN LANCE III DO Oct 20, 2016 12:46
[2016-10-20 15:06] VITALS: BP 157/88
[2016-10-20] MEDS: ENOXAPARIN 40 MG/0.4 ML SYRINGE. SQ SCH (17:34)
[2016-10-20 19:00] VITALS: BP 178/101
[2016-10-20] MEDS: LABETALOL 20 MG/4 ML DISP.SYRIN. IVP PRN (22:08)
[2016-10-20] MEDS: IV NORMAL SALINE 1000ML BAG 1,000 ML IV SCH (22:44)
[2016-10-20] MEDS: ACETAMINOPHEN 650 MG/20.3 ML SOLUTION. PO PRN (22:56)
[2016-10-20 23:00] VITALS: BP 170/86
[2016-10-21] VITALS (7 sets, daily range): BP systolic 142–181; BP diastolic 92–103
[2016-10-21] MEDS: LABETALOL 20 MG/4 ML DISP.SYRIN. IVP PRN (03:22)
[2016-10-21 05:08] LABS: BASO # 0.1 x10^3/uL (0.0-0.2); BASO % 0 % (0-3); EOS % 1 % (0-3); HEMATOCRIT 32.5 % (39.0-53.0); HEMOGLOBIN 10.9 g/dL (13.0-17.5); LYMPH # 1.5 x10^3/uL (1.0-4.8); LYMPH % 11 % (24-48); MEAN CORPUSCULAR HEMOGLOBIN 28 pg (25-35); MEAN CORPUSCULAR HGB CONC 34 g/dL (31-37); MEAN CORPUSCULAR VOLUME 82 fL (79-100); MONO % 11 % (0-9); NEUT % 77 % (31-73); PLATELET COUNT 122 x10^3/uL (140-400); RED BLOOD COUNT 3.97 x10^6/uL (4.30-5.70); RED CELL DISTRIBUTION WIDTH 17.4 % (11.5-14.5); WHITE BLOOD COUNT 13.2 x10^3/uL (4.0-11.0)
[2016-10-21 05:27] LABS: CALCIUM 8.5 mg/dL (8.5-10.1); GFR 89.4; POTASSIUM 3.1 mmol/L (3.5-5.1)
--- NOTE | 2016-10-21 08:38 | PDOC ---
Infectious Disease Note Subjective Subjective Comfortable Hoping to go home soon ROS ROS GEN: Denies fevers, chills, sweats HEENT: Denies sore throat CV: Denies chest pain RESP: Denies shortness of air, cough GI: Denies n/v/d NEURO: Denies confusion, dizziness Vital Sign Vital Signs Vital Signs Date Time Temp Pulse Resp B/P (MAP) Pulse Ox O2 Delivery O2 Flow Rate FiO2 10/21/16 06:34 94 159/93 (115) 10/21/16 03:00 97.9 20 93 Room Air 97.9 10/20/16 15:06 2.0 Physical Exam PHYSICAL EXAM GENERAL: Sitting up, alert, relaxed, smiling LUNGS: Clear anteriorly HEART: S1, S2 regular. ABDOMEN: BS present, soft, NT, ostomy EXTREMITIES: No edema, cyanosis. NEUROLOGIC: Alert, oriented x 3 SKIN: without rash Port out, small open hole, no area redness or drainage noted Peripheral IV Labs Lab Laboratory Tests Test 10/20/16 11:56 10/20/16 16:19 10/20/16 20:49 10/21/16 03:31 Glucose (Fingerstick) 213 mg/dL (70-99) 152 mg/dL (70-99) 206 mg/dL (70-99) White Blood Count 13.2 x10^3/uL (4.0-11.0) Red Blood Count 3.97 x10^6/uL (4.30-5.70) Hemoglobin 10.9 g/dL (13.0-17.5) Hematocrit 32.5 % (39.0-53.0) Mean Corpuscular Volume 82 fL (79-100) Mean Corpuscular Hemoglobin 28 pg (25-35) Mean Corpuscular Hemoglobin Concent 34 g/dL (31-37) Red Cell Distribution Width 17.4 % (11.5-14.5) Platelet Count 122 x10^3/uL (140-400) Neutrophils (%) (Auto) 77 % (31-73) Lymphocytes (%) (Auto) 11 % (24-48) Monocytes (%) (Auto) 11 % (0-9) Eosinophils (%) (Auto) 1 % (0-3) Basophils (%) (Auto) 0 % (0-3) Neutrophils # (Auto) 10.1 x10^3uL (1.8-7.7) Lymphocytes # (Auto) 1.5 x10^3/uL (1.0-4.8) Monocytes # (Auto) 1.4 x10^3/uL (0.0-1.1) Eosinophils # (Auto) 0.1 x10^3/uL (0.0-0.7) Basophils # (Auto) 0.1 x10^3/uL (0.0-0.2) Sodium Level 138 mmol/L (136-145) Potassium Level 3.1 mmol/L (3.5-5.1) Chloride Level 103 mmol/L (98-107) Carbon Dioxide Level 26 mmol/L (21-32) Anion Gap 9 (6-14) Blood Urea Nitrogen 5 mg/dL (8-26) Creatinine 1.0 mg/dL (0.7-1.3) Estimated GFR (Cockcroft-Gault) 89.4 Glucose Level 218 mg/dL (70-99) Calcium Level 8.5 mg/dL (8.5-10.1) Test 10/21/16 07:40 Glucose (Fingerstick) 213 mg/dL (70-99) Micro 10/18 BLOOD CULTURE Preliminary NO GROWTH AFTER 2 DAY 10/16 BLD CULT RESULT 1 Final Staphylococcus aureus Antibiotic RSLT#1 Ciprofloxacin S Gentamicin S Levofloxacin S Linezolid S Moxifloxacin S Nitrofurantoin S Oxacillin S Penicillin R Quinupristin/Dalfopristin S Rifampin S Tetracycline S Trimethoprim/Sulfa S Vancomycin S CATH TIP AEROBIC RES 1 Preliminary Staphylococcus aureus >100 colony forming units Cath tip GRAM STAIN Final WBCS MANY GRAM POSITIVE COCCI MANY COMMENTS SUGGESTIVE OF STAPH Chest wound AEROBIC RES 1 Preliminary Comment No growth after 18-24 hours. Objective Assessment Sepsis with hypotension and bacteremia. POA, 10/16. MSSA . TTE: mitral valve leaflets are thickened. Can not rule out possible vegetation on anterior leaflet. -Repeat BC NGTD from 10/18 Infected port . s/p removal, 10/17. staph aureus Neutropenia, s/p Granix. better Fevers, better Acute encephalopathy, better Lactic acidosis Rectal cancer, status post chemotherapy. Diabetes. PNC listed as allergy, tolerated Zosyn w/o problem Plan Plan of Care Cefazolin Repeat BC NGTD Monitor labs/temp PT/OT Attending Co-Sign The patient was seen and interviewed as well as examined at the bedside. The chart was reviewed. The case was discussed. Agree with the plan of care. MARILYN MONTELONGO APRN Oct 21, 2016 08:38 MARK JULIO MD Oct 21, 2016 11:02
[2016-10-21] MEDS: LOSARTAN POTASSIUM 50 MG TABLET. PO SCH ×2 (08:48→20:39)
[2016-10-21] MEDS: ASPIRIN 325 MG TABLET PO SCH (08:49)
[2016-10-21] MEDS: GABAPENTIN 300 MG CAPSULE. PO SCH ×3 (08:49→20:38)
[2016-10-21] MEDS: FAMOTIDINE 20 MG TABLET. PO SCH ×2 (08:49→20:38)
[2016-10-21] MEDS: metFORMIN 500 MG TABLET PO SCH ×2 (08:50→17:36)
[2016-10-21] MEDS: METOPROLOL SUCC 24HR ER 100 MG TAB.ER.24H. PO SCH (08:50)
[2016-10-21] MEDS: POTASSIUM CHLORIDE 20 MEQ TABLET.ER. PO SCH (08:50)
[2016-10-21] MEDS: ACETAMINOPHEN 650 MG/20.3 ML SOLUTION. PO PRN (08:56)
[2016-10-21] MEDS: TERAZOSIN 5 MG CAPSULE. PO SCH (09:00)
[2016-10-21] MEDS: INSULIN ASPART 300 UNITS/3 ML INSULN.PEN SQ SCH ×4 (09:11→22:24)
--- NOTE | 2016-10-21 13:52 | PDOC ---
PROGRESS NOTES Chief Complaint Chief Complaint anemia/thrombocytopenia status post extensive chemotherapy for rectal CA L UE/ tongue paresthesias L hand weakness Neutropenia Rectal CA Sepsis DM2 History of Present Illness History of Present Illness Pt was found sitting in bedside chair responsive and feels much better. eating ok. no CP or SOB ventral abdominal hernia was found colostomy tube tachycardic (order to consult cardiology) Vitals Vitals Vital Signs Date Time Temp Pulse Resp B/P (MAP) Pulse Ox O2 Delivery O2 Flow Rate FiO2 10/21/16 12:28 126 152/100 (117) 10/21/16 11:22 97.5 22 98 Room Air 97.5 10/20/16 15:06 2.0 Physical Exam General: Alert, Oriented X3, Cooperative, No acute distress Heart: Normal S1, Normal S2, No murmurs, Other (tachycardic) Lungs: Clear, Other Abdomen: Normal bowel sounds, Soft, No tenderness Extremities: No clubbing, No cyanosis, No edema Skin: No rashes, Other (tiny wound right above chest port, with surrounding discoloration, no fluctuance) Labs LABS Laboratory Tests Test 10/20/16 16:19 10/20/16 20:49 10/21/16 03:31 10/21/16 07:40 Glucose (Fingerstick) 152 mg/dL (70-99) 206 mg/dL (70-99) 213 mg/dL (70-99) White Blood Count 13.2 x10^3/uL (4.0-11.0) Red Blood Count 3.97 x10^6/uL (4.30-5.70) Hemoglobin 10.9 g/dL (13.0-17.5) Hematocrit 32.5 % (39.0-53.0) Mean Corpuscular Volume 82 fL (79-100) Mean Corpuscular Hemoglobin 28 pg (25-35) Mean Corpuscular Hemoglobin Concent 34 g/dL (31-37) Red Cell Distribution Width 17.4 % (11.5-14.5) Platelet Count 122 x10^3/uL (140-400) Neutrophils (%) (Auto) 77 % (31-73) Lymphocytes (%) (Auto) 11 % (24-48) Monocytes (%) (Auto) 11 % (0-9) Eosinophils (%) (Auto) 1 % (0-3) Basophils (%) (Auto) 0 % (0-3) Neutrophils # (Auto) 10.1 x10^3uL (1.8-7.7) Lymphocytes # (Auto) 1.5 x10^3/uL (1.0-4.8) Monocytes # (Auto) 1.4 x10^3/uL (0.0-1.1) Eosinophils # (Auto) 0.1 x10^3/uL (0.0-0.7) Basophils # (Auto) 0.1 x10^3/uL (0.0-0.2) Sodium Level 138 mmol/L (136-145) Potassium Level 3.1 mmol/L (3.5-5.1) Chloride Level 103 mmol/L (98-107) Carbon Dioxide Level 26 mmol/L (21-32) Anion Gap 9 (6-14) Blood Urea Nitrogen 5 mg/dL (8-26) Creatinine 1.0 mg/dL (0.7-1.3) Estimated GFR (Cockcroft-Gault) 89.4 Glucose Level 218 mg/dL (70-99) Calcium Level 8.5 mg/dL (8.5-10.1) Test 10/21/16 12:06 Glucose (Fingerstick) 248 mg/dL (70-99) Review of Systems Review of Systems pt complained of weakness pt complained of nausea Assessment and Plan Assessmemt and Plan Problems Medical Problems: (1) Brain metastases Status: Acute (2) Paresthesias Status: Acute anemia/thrombocytopenia status post extensive chemotherapy for rectal CA L UE/ tongue paresthesias L hand weakness Neutropenia Rectal CA Sepsis DM2 PLAN -consult cardiology for tachycardia -continue sliding scale insulin -continue antibiotics (cefazolin) -repeat BC NGTD -PTOT Problems: Comment Review of Relevant I have reviewed the following items isabel (where applicable) has been applied. Labs Laboratory Tests Test 10/19/16 16:56 10/19/16 20:54 10/20/16 03:42 10/20/16 07:32 Glucose (Fingerstick) 217 mg/dL (70-99) 224 mg/dL (70-99) 315 mg/dL (70-99) White Blood Count 11.0 x10^3/uL (4.0-11.0) Red Blood Count 3.78 x10^6/uL (4.30-5.70) Hemoglobin 10.4 g/dL (13.0-17.5) Hematocrit 30.9 % (39.0-53.0) Mean Corpuscular Volume 82 fL (79-100) Mean Corpuscular Hemoglobin 28 pg (25-35) Mean Corpuscular Hemoglobin Concent 34 g/dL (31-37) Red Cell Distribution Width 17.4 % (11.5-14.5) Platelet Count 107 x10^3/uL (140-400) Neutrophils (%) (Auto) 75 % (31-73) Lymphocytes (%) (Auto) 10 % (24-48) Monocytes (%) (Auto) 13 % (0-9) Eosinophils (%) (Auto) 1 % (0-3) Basophils (%) (Auto) 1 % (0-3) Neutrophils # (Auto) 8.3 x10^3uL (1.8-7.7) Lymphocytes # (Auto) 1.1 x10^3/uL (1.0-4.8) Monocytes # (Auto) 1.4 x10^3/uL (0.0-1.1) Eosinophils # (Auto) 0.1 x10^3/uL (0.0-0.7) Basophils # (Auto) 0.1 x10^3/uL (0.0-0.2) Segmented Neutrophils % 43 % (35-66) Band Neutrophils % 32 % (0-9) Lymphocytes % 10 % (24-48) Monocytes % 11 % (0-10) Eosinophils % 1 % (0-5) Basophils % 1 % (0-3) Metamyelocytes % 1 % (0-0) Myelocytes % 1 % (0-0) Platelet Estimate Adequate (ADEQUATE) Giant Platelets Many Sodium Level 140 mmol/L (136-145) Potassium Level 3.1 mmol/L (3.5-5.1) Chloride Level 105 mmol/L (98-107) Carbon Dioxide Level 26 mmol/L (21-32) Anion Gap 9 (6-14) Blood Urea Nitrogen 6 mg/dL (8-26) Creatinine 0.9 mg/dL (0.7-1.3) Estimated GFR (Cockcroft-Gault) 100.9 Glucose Level 187 mg/dL (70-99) Calcium Level 8.4 mg/dL (8.5-10.1) Test 10/20/16 11:56 10/20/16 16:19 10/20/16 20:49 10/21/16 03:31 Glucose (Fingerstick) 213 mg/dL (70-99) 152 mg/dL (70-99) 206 mg/dL (70-99) White Blood Count 13.2 x10^3/uL (4.0-11.0) Red Blood Count 3.97 x10^6/uL (4.30-5.70) Hemoglobin 10.9 g/dL (13.0-17.5) Hematocrit 32.5 % (39.0-53.0) Mean Corpuscular Volume 82 fL (79-100) Mean Corpuscular Hemoglobin 28 pg (25-35) Mean Corpuscular Hemoglobin Concent 34 g/dL (31-37) Red Cell Distribution Width 17.4 % (11.5-14.5) Platelet Count 122 x10^3/uL (140-400) Neutrophils (%) (Auto) 77 % (31-73) Lymphocytes (%) (Auto) 11 % (24-48) Monocytes (%) (Auto) 11 % (0-9) Eosinophils (%) (Auto) 1 % (0-3) Basophils (%) (Auto) 0 % (0-3) Neutrophils # (Auto) 10.1 x10^3uL (1.8-7.7) Lymphocytes # (Auto) 1.5 x10^3/uL (1.0-4.8) Monocytes # (Auto) 1.4 x10^3/uL (0.0-1.1) Eosinophils # (Auto) 0.1 x10^3/uL (0.0-0.7) Basophils # (Auto) 0.1 x10^3/uL (0.0-0.2) Sodium Level 138 mmol/L (136-145) Potassium Level 3.1 mmol/L (3.5-5.1) Chloride Level 103 mmol/L (98-107) Carbon Dioxide Level 26 mmol/L (21-32) Anion Gap 9 (6-14) Blood Urea Nitrogen 5 mg/dL (8-26) Creatinine 1.0 mg/dL (0.7-1.3) Estimated GFR (Cockcroft-Gault) 89.4 Glucose Level 218 mg/dL (70-99) Calcium Level 8.5 mg/dL (8.5-10.1) Test 10/21/16 07:40 10/21/16 12:06 Glucose (Fingerstick) 213 mg/dL (70-99) 248 mg/dL (70-99) Laboratory Tests Test 10/20/16 16:19 10/20/16 20:49 10/21/16 03:31 10/21/16 07:40 Glucose (Fingerstick) 152 mg/dL (70-99) 206 mg/dL (70-99) 213 mg/dL (70-99) White Blood Count 13.2 x10^3/uL (4.0-11.0) Red Blood Count 3.97 x10^6/uL (4.30-5.70) Hemoglobin 10.9 g/dL (13.0-17.5) Hematocrit 32.5 % (39.0-53.0) Mean Corpuscular Volume 82 fL (79-100) Mean Corpuscular Hemoglobin 28 pg (25-35) Mean Corpuscular Hemoglobin Concent 34 g/dL (31-37) Red Cell Distribution Width 17.4 % (11.5-14.5) Platelet Count 122 x10^3/uL (140-400) Neutrophils (%) (Auto) 77 % (31-73) Lymphocytes (%) (Auto) 11 % (24-48) Monocytes (%) (Auto) 11 % (0-9) Eosinophils (%) (Auto) 1 % (0-3) Basophils (%) (Auto) 0 % (0-3) Neutrophils # (Auto) 10.1 x10^3uL (1.8-7.7) Lymphocytes # (Auto) 1.5 x10^3/uL (1.0-4.8) Monocytes # (Auto) 1.4 x10^3/uL (0.0-1.1) Eosinophils # (Auto) 0.1 x10^3/uL (0.0-0.7) Basophils # (Auto) 0.1 x10^3/uL (0.0-0.2) Sodium Level 138 mmol/L (136-145) Potassium Level 3.1 mmol/L (3.5-5.1) Chloride Level 103 mmol/L (98-107) Carbon Dioxide Level 26 mmol/L (21-32) Anion Gap 9 (6-14) Blood Urea Nitrogen 5 mg/dL (8-26) Creatinine 1.0 mg/dL (0.7-1.3) Estimated GFR (Cockcroft-Gault) 89.4 Glucose Level 218 mg/dL (70-99) Calcium Level 8.5 mg/dL (8.5-10.1) Test 10/21/16 12:06 Glucose (Fingerstick) 248 mg/dL (70-99) Microbiology 10/18/16 Blood Culture - Preliminary, Resulted NO GROWTH AFTER 3 DAYS 10/17/16 Aerobic Culture - Final, Complete 10/17/16 Aerobic Culture Result 1 (MAYE) - Final, Complete 10/17/16 Antimicrobic Susceptibility - Final, Complete Medications Current Medications Ondansetron HCl (Zofran) 4 mg PRN Q8HRS PRN IV NAUSEA/VOMITING; Start 10/15/16 at 13:30; Stop 10/16/16 at 13:29; Status DC Morphine Sulfate 4 mg PRN Q2HR PRN IV PAIN; Start 10/15/16 at 13:30; Stop 10/16 at 13:29; Status DC Potassium Chloride/Dextrose/ Sod Cl 1,000 ml @ 75 mls/hr 1X ONCE IV Last administered on 10/15/16 13:47; Start 10/15/16 at 14:00; Stop 10/16/16 at 03:19 ; Status DC Aspirin (Ecotrin) 81 mg DAILY PO ; Start 10/15/16 at 16:00; Stop 10/15/16 at 16: 20; Status DC Gabapentin (Neurontin) 300 mg TID PO Last administered on 10/21/16 12:29; Start 10/15/16 at 16:00 Metformin HCl (Glucophage) 1,000 mg DAILYWBKFT PO Last administered on 08:50; Start 10/16/16 at 08:00 Metformin HCl (Glucophage) 500 mg DAILYBFRSUP PO Last administered on 17:33; Start 10/15/16 at 17:00 Metoprolol Succinate (Toprol Xl) 100 mg DAILY PO Last administered on 08:50; Start 10/15/16 at 16:00 Terazosin HCl (Hytrin) 5 mg DAILY PO Last administered on 10/21/16 09:00; Start 10/15/16 at 16:00 Diltiazem HCl (Cardizem 24hr Cd) 240 mg DAILY PO Last administered on 08:49; Start 10/15/16 at 16:00 Losartan Potassium (Cozaar) 50 mg BID PO Last administered on 10/21/16 08:48; Start 10/15/16 at 21:00 Famotidine (Pepcid) 20 mg BID PO Last administered on 10/21/16 08:49; Start at 21:00 Potassium Chloride (Klor-Con) 40 meq 1X ONCE PO Last administered on 16:37; Start 10/15/16 at 16:30; Stop 10/15/16 at 16:31; Status DC Potassium Chloride (Klor-Con) 20 meq DAILYWBKFT PO Last administered on 08:50; Start 10/16/16 at 08:00 Insulin Aspart (NovoLOG) 0-7 UNITS QIDACHS SQ Last administered on 10/21/16 12 :33; Start 10/15/16 at 16:30 Dextrose (Dextrose 50%-Water Syringe) 12.5 gm PRN Q15MIN PRN IV SEE COMMENTS; Start 10/15/16 at 16:15 Aspirin (Grecia Aspirin) 325 mg DAILYWBKFT PO Last administered on 10/21/16 08: 49; Start 10/16/16 at 08:00 Aspirin (Grecia Aspirin) 325 mg 1X ONCE PO Last administered on 10/15/16 16:35 ; Start 10/15/16 at 16:30; Stop 10/15/16 at 16:31; Status DC Enoxaparin Sodium (Lovenox Per Pharmacy Prophylaxis Dosing) 1 each PRN DAILY PRN MC SEE COMMENTS; Start 10/15/16 at 16:15 Enoxaparin Sodium (Lovenox 40mg Syringe) 40 mg Q24H SQ Last administered on 17:34; Start 10/15/16 at 17:00 Sodium Chloride 1,000 ml @ 30 mls/hr Q24H IV Last administered on 10/19/16 05 :31; Start 10/16/16 at 15:00 Piperacillin Sod/ Tazobactam Sod 4.5 gm/Sodium Chloride 100 ml @ 200 mls/hr Q6HRS IV Last administered on 10/18/16 12:13; Start 10/16/16 at 18:00; Stop at 14:47; Status DC Vancomycin HCl 1 gm/Sodium Chloride 250 ml @ 250 mls/hr Q12H IV ; Start at 14:30; Status UNV Vancomycin HCl (Vanco Per Pharmacy) 1 each PRN DAILY PRN MC SEE COMMENTS Last administered on 10/17/16 17:26; Start 10/16/16 at 15:00; Stop 10/18/16 at 14:47 ; Status DC Vancomycin HCl 2 gm/Sodium Chloride 500 ml @ 250 mls/hr 1X ONCE IV Last administered on 10/16/16 16:20; Start 10/16/16 at 15:00; Stop 10/16/16 at 16:59 ; Status DC Cefepime HCl 2 gm/ Sodium Chloride 100 ml @ 200 mls/hr Q8HRS IV ; Start at 15:30; Status Cancel Acetaminophen (Tylenol) 650 mg PRN Q6HRS PRN PO MILD PAIN / TEMP Last administered on 10/16/16 16:03; Start 10/16/16 at 15:45; Stop 10/16/16 at 20:26 ; Status DC Vancomycin HCl 1.25 gm/Sodium Chloride 250 ml @ 167 mls/hr Q12H IV Last administered on 10/17/16 04:25; Start 10/17/16 at 04:00; Stop 10/17/16 at 17:19 ; Status DC Vancomycin HCl 1 each 1X ONCE MC Last administered on 10/17/16 15:30; Start 10/17/16 at 15:30; Stop 10/17/16 at 15:31; Status DC Acetaminophen (Tylenol) 650 mg PRN Q4HRS PRN PO MILD PAIN / TEMP; Start at 15:45; Stop 10/17/16 at 15:45; Status DC Acetaminophen (Tylenol) 650 mg PRN Q4HRS PRN PO MILD PAIN / TEMP Last administered on 10/21/16 08:56; Start 10/16/16 at 20:45 Morphine Sulfate 4 mg PRN Q4HRS PRN IV SEVERE PAIN Last administered on 05:30; Start 10/17/16 at 02:15; Stop 10/19/16 at 14:44; Status DC Heparin Sodium/ Sodium Chloride 500 ml @ As Directed STK-MED ONCE .ROUTE ; Start 10/17/16 at 15:22; Stop 10/17/16 at 15:23; Status DC Lidocaine/ Epinephrine (Xylocaine 2%-Epi 1:100,000) 20 ml STK-MED ONCE .ROUTE ; Start 10/17/16 at 15:22; Stop 10/17/16 at 15:23; Status DC Heparin Sodium/ Sodium Chloride 1,000 unit 1X ONCE IART Last administered on 16:00; Start 10/17/16 at 16:00; Stop 10/17/16 at 16:01; Status DC Lidocaine/ Epinephrine (Xylocaine 1%-Epi 1:100,000) 4 ml 1X ONCE INJ Last administered on 10/17/16 16:00; Start 10/17/16 at 16:00; Stop 10/17/16 at 16:01 ; Status DC Vancomycin HCl 1.5 gm/Sodium Chloride 500 ml @ 250 mls/hr Q12H IV Last administered on 10/18/16 04:52; Start 10/17/16 at 17:00; Stop 10/18/16 at 14:47 ; Status DC Vancomycin HCl 1 each 1X ONCE MC ; Start 10/19/16 at 04:30; Stop 10/19/16 at 04 :31; Status Cancel Tbo-Filgrastim (Granix) 480 mcg QHS SQ Last administered on 10/18/16 20:01; Start 10/18/16 at 21:00; Stop 10/19/16 at 08:17; Status DC Cefazolin Sodium 2 gm/Sodium Chloride 50 ml @ 100 mls/hr Q8HRS IV Last administered on 10/21/16 06:30; Start 10/18/16 at 22:00 Labetalol HCl (Normodyne) 10 mg PRN Q2HR PRN IVP HYPERTENSION, SEE COMMENTS Last administered on 10/21/16 03:22; Start 10/20/16 at 22:00 Active Scripts Active Reported Metformin Hcl 500 Mg Tablet 500 Mg PO DAILYBFRSUP Losartan Potassium 100 Mg Tablet 50 Mg PO BID Metformin Hcl 500 Mg Tablet 1,000 Mg PO DAILYWBKFT Gabapentin 300 Mg Capsule 300 Mg PO TID Metoprolol Succinate ( Xl ) (Metoprolol Succinate) 100 Mg Tab.er.24h 100 Mg PO DAILY Diltiazem Xt (Diltiazem Hcl) 240 Mg Capsule.er 240 Mg PO DAILY Terazosin Hcl 5 Mg Capsule 5 Mg PO DAILY Aspir 81 (Aspirin) 81 Mg Tablet.dr 81 Mg PO DAILY Ranitidine Hcl 150 Mg Tablet 150 Mg PO BID Vitals/I & O Vital Sign - Last 24 Hours 10/20/16 10/20/16 10/20/16 10/20/16 15:06 19:00 20:00 20:04 Temp 97.9 98.7 97.9 98.7 Pulse 99 96 96 Resp 20 24 B/P (MAP) 157/88 (111) 178/101 (126) 179/104 Pulse Ox 96 97 O2 Delivery Nasal Cannula Room Air Room Air O2 Flow Rate 2.0 10/20/16 10/20/16 10/21/16 10/21/16 22:08 23:00 03:00 03:22 Temp 98.9 97.9 98.9 97.9 Pulse 105 101 98 101 Resp 20 20 B/P (MAP) 179/105 170/86 (114) 171/103 (125) 171/103 Pulse Ox 95 93 O2 Delivery Room Air Room Air 10/21/16 10/21/16 10/21/16 10/21/16 06:34 08:00 08:48 08:49 Pulse 94 94 94 B/P (MAP) 159/93 (115) 159/93 159/93 O2 Delivery Room Air 10/21/16 10/21/16 10/21/16 10/21/16 08:50 09:00 11:22 12:28 Temp 97.5 97.5 Pulse 94 94 127 126 Resp 22 B/P (MAP) 159/93 159/93 174/95 (121) 152/100 (117) Pulse Ox 98 O2 Delivery Room Air Intake and Output 10/20/16 10/20/16 10/21/16 15:00 23:00 07:00 Intake Total 500 ml 525 ml Output Total 500 ml 1100 ml Balance 0 ml -575 ml IAN LANCE III DO Oct 21, 2016 13:52
--- NOTE | 2016-10-21 14:00 | PDOC2 ---
CONSULT Date of Consult Date of Consult DATE: 10/21/16 TIME: 13:54 Reason for Consult Reason for Consult: Tachycardia and elevated blood pressure Referring Physician Referring Physician: Dr. Fishman Identification/Chief Complaint Chief Complaint Weakness, anemia, status post chemotherapy for rectal CA Problems: History of Present Illness Reason for Visit: This patient is a 71-year-old gentleman that has a rectal CVA and is status post surgery and extensive chemotherapy. He was having some issues with lightheadedness weakness and a multitude of discomforts which required hospitalization. The patient developed a tachycardia with an elevated blood pressure and I was asked to see the patient and evaluate his current condition. The patient is in sinus tachycardia with a rate of 120. The patient's blood pressure has been elevated. He is on a multitude of medications. At the time that I saw the patient he denies having any pains and denies having any palpitations. Past Medical History Cardiovascular: HTN Pulmonary: Asthma, Pneumonia, Other ( lung metastases) CENTRAL NERVOUS SYSTEM: Periperal neuropathy GI: Peptic Ulcer disease Heme/Onc: Cancer (colon, stage IV with lung mets) Psych: Depression Musculoskeletal: Weakness Renal/: Chronic renal insuff Endocrine: Diabetes Past Surgical History Past Surgical History: Colectomy ( colostomy), Other ( right rotator cuff) Family History Family History: No Significant Social History No ALCOHOL: none Drugs: None Lives: Alone Current Problem List Problem List Problems Medical Problems: (1) Brain metastases Status: Acute (2) Paresthesias Status: Acute Current Medications Current Medications Current Medications Ondansetron HCl (Zofran) 4 mg PRN Q8HRS PRN IV NAUSEA/VOMITING; Start 10/15/16 at 13:30; Stop 10/16/16 at 13:29; Status DC Morphine Sulfate 4 mg PRN Q2HR PRN IV PAIN; Start 10/15/16 at 13:30; Stop 10/16 at 13:29; Status DC Potassium Chloride/Dextrose/ Sod Cl 1,000 ml @ 75 mls/hr 1X ONCE IV Last administered on 10/15/16t 13:47; Start 10/15/16 at 14:00; Stop 10/16/16 at 03:19 ; Status DC Aspirin (Ecotrin) 81 mg DAILY PO ; Start 10/15/16 at 16:00; Stop 10/15/16 at 16: 20; Status DC Gabapentin (Neurontin) 300 mg TID PO Last administered on 10/21/16 12:29; Start 10/15/16 at 16:00 Metformin HCl (Glucophage) 1,000 mg DAILYWBKFT PO Last administered on 08:50; Start 10/16/16 at 08:00 Metformin HCl (Glucophage) 500 mg DAILYBFRSUP PO Last administered on 17:33; Start 10/15/16 at 17:00 Metoprolol Succinate (Toprol Xl) 100 mg DAILY PO Last administered on 08:50; Start 10/15/16 at 16:00 Terazosin HCl (Hytrin) 5 mg DAILY PO Last administered on 10/21/16 09:00; Start 10/15/16 at 16:00 Diltiazem HCl (Cardizem 24hr Cd) 240 mg DAILY PO Last administered on 08:49; Start 10/15/16 at 16:00 Losartan Potassium (Cozaar) 50 mg BID PO Last administered on 10/21/16 08:48; Start 10/15/16 at 21:00 Famotidine (Pepcid) 20 mg BID PO Last administered on 10/21/16 08:49; Start at 21:00 Potassium Chloride (Klor-Con) 40 meq 1X ONCE PO Last administered on 16:37; Start 10/15/16 at 16:30; Stop 10/15/16 at 16:31; Status DC Potassium Chloride (Klor-Con) 20 meq DAILYWBKFT PO Last administered on 08:50; Start 10/16/16 at 08:00 Insulin Aspart (NovoLOG) 0-7 UNITS QIDACHS SQ Last administered on 10/21/16 12 :33; Start 10/15/16 at 16:30 Dextrose (Dextrose 50%-Water Syringe) 12.5 gm PRN Q15MIN PRN IV SEE COMMENTS; Start 10/15/16 at 16:15 Aspirin ([place] Aspirin) 325 mg DAILYWBKFT PO Last administered on 10/21/16 08: 49; Start 10/16/16 at 08:00 Aspirin ([place] Aspirin) 325 mg 1X ONCE PO Last administered on 10/15/16 16:35 ; Start 10/15/16 at 16:30; Stop 10/15/16 at 16:31; Status DC Enoxaparin Sodium (Lovenox Per Pharmacy Prophylaxis Dosing) 1 each PRN DAILY PRN MC SEE COMMENTS; Start 10/15/16 at 16:15 Enoxaparin Sodium (Lovenox 40mg Syringe) 40 mg Q24H SQ Last administered on 17:34; Start 10/15/16 at 17:00 Sodium Chloride 1,000 ml @ 30 mls/hr Q24H IV Last administered on 10/19/16 05 :31; Start 10/16/16 at 15:00 Piperacillin Sod/ Tazobactam Sod 4.5 gm/Sodium Chloride 100 ml @ 200 mls/hr Q6HRS IV Last administered on 10/18/16 12:13; Start 10/16/16 at 18:00; Stop at 14:47; Status DC Vancomycin HCl 1 gm/Sodium Chloride 250 ml @ 250 mls/hr Q12H IV ; Start at 14:30; Status UNV Vancomycin HCl (Vanco Per Pharmacy) 1 each PRN DAILY PRN MC SEE COMMENTS Last administered on 10/17/16 17:26; Start 10/16/16 at 15:00; Stop 10/18/16 at 14:47 ; Status DC Vancomycin HCl 2 gm/Sodium Chloride 500 ml @ 250 mls/hr 1X ONCE IV Last administered on 10/16/16 16:20; Start 10/16/16 at 15:00; Stop 10/16/16 at 16:59 ; Status DC Cefepime HCl 2 gm/ Sodium Chloride 100 ml @ 200 mls/hr Q8HRS IV ; Start at 15:30; Status Cancel Acetaminophen (Tylenol) 650 mg PRN Q6HRS PRN PO MILD PAIN / TEMP Last administered on 10/16/16 16:03; Start 10/16/16 at 15:45; Stop 10/16/16 at 20:26 ; Status DC Vancomycin HCl 1.25 gm/Sodium Chloride 250 ml @ 167 mls/hr Q12H IV Last administered on 10/17/16 04:25; Start 10/17/16 at 04:00; Stop 10/17/16 at 17:19 ; Status DC Vancomycin HCl 1 each 1X ONCE MC Last administered on 10/17/16 15:30; Start 10/17/16 at 15:30; Stop 10/17/16 at 15:31; Status DC Acetaminophen (Tylenol) 650 mg PRN Q4HRS PRN PO MILD PAIN / TEMP; Start at 15:45; Stop 10/17/16 at 15:45; Status DC Acetaminophen (Tylenol) 650 mg PRN Q4HRS PRN PO MILD PAIN / TEMP Last administered on 10/21/16 08:56; Start 10/16/16 at 20:45 Morphine Sulfate 4 mg PRN Q4HRS PRN IV SEVERE PAIN Last administered on 05:30; Start 10/17/16 at 02:15; Stop 10/19/16 at 14:44; Status DC Heparin Sodium/ Sodium Chloride 500 ml @ As Directed STK-MED ONCE .ROUTE ; Start 10/17/16 at 15:22; Stop 10/17/16 at 15:23; Status DC Lidocaine/ Epinephrine (Xylocaine 2%-Epi 1:100,000) 20 ml STK-MED ONCE .ROUTE ; Start 10/17/16 at 15:22; Stop 10/17/16 at 15:23; Status DC Heparin Sodium/ Sodium Chloride 1,000 unit 1X ONCE IART Last administered on 16:00; Start 10/17/16 at 16:00; Stop 10/17/16 at 16:01; Status DC Lidocaine/ Epinephrine (Xylocaine 1%-Epi 1:100,000) 4 ml 1X ONCE INJ Last administered on 10/17/16 16:00; Start 10/17/16 at 16:00; Stop 10/17/16 at 16:01 ; Status DC Vancomycin HCl 1.5 gm/Sodium Chloride 500 ml @ 250 mls/hr Q12H IV Last administered on 10/18/16 04:52; Start 10/17/16 at 17:00; Stop 10/18/16 at 14:47 ; Status DC Vancomycin HCl 1 each 1X ONCE MC ; Start 10/19/16 at 04:30; Stop 10/19/16 at 04 :31; Status Cancel Tbo-Filgrastim (Granix) 480 mcg QHS SQ Last administered on 10/18/16 20:01; Start 10/18/16 at 21:00; Stop 10/19/16 at 08:17; Status DC Cefazolin Sodium 2 gm/Sodium Chloride 50 ml @ 100 mls/hr Q8HRS IV Last administered on 10/21/16 06:30; Start 10/18/16 at 22:00 Labetalol HCl (Normodyne) 10 mg PRN Q2HR PRN IVP HYPERTENSION, SEE COMMENTS Last administered on 10/21/16 03:22; Start 10/20/16 at 22:00 Active Scripts Active Reported Metformin Hcl 500 Mg Tablet 500 Mg PO DAILYBFRSUP Losartan Potassium 100 Mg Tablet 50 Mg PO BID Metformin Hcl 500 Mg Tablet 1,000 Mg PO DAILYWBKFT Gabapentin 300 Mg Capsule 300 Mg PO TID Metoprolol Succinate ( Xl ) (Metoprolol Succinate) 100 Mg Tab.er.24h 100 Mg PO DAILY Diltiazem Xt (Diltiazem Hcl) 240 Mg Capsule.er 240 Mg PO DAILY Terazosin Hcl 5 Mg Capsule 5 Mg PO DAILY Aspir 81 (Aspirin) 81 Mg Tablet.dr 81 Mg PO DAILY Ranitidine Hcl 150 Mg Tablet 150 Mg PO BID Allergies Allergies: Coded Allergies: iodine (Verified Allergy, Intermediate, 02/04/14) Physical Exam General: Alert, Oriented X3, Cooperative HEENT: Other (pupils are maximally dilated) Lungs: Clear to auscultation, Normal air movement Heart: Other (tachycardic. Normal S1 normal S2. No rubs no clicks.) Abdomen: Normal bowel sounds, Soft Extremities: No edema Vitals VITALS Vital Signs Date Time Temp Pulse Resp B/P (MAP) Pulse Ox O2 Delivery O2 Flow Rate FiO2 10/21/16 12:28 126 152/100 (117) 10/21/16 11:22 97.5 22 98 Room Air 97.5 10/20/16 15:06 2.0 Labs Labs Laboratory Tests Test 10/19/16 16:56 10/19/16 20:54 10/20/16 03:42 10/20/16 07:32 Glucose (Fingerstick) 217 mg/dL (70-99) 224 mg/dL (70-99) 315 mg/dL (70-99) White Blood Count 11.0 x10^3/uL (4.0-11.0) Red Blood Count 3.78 x10^6/uL (4.30-5.70) Hemoglobin 10.4 g/dL (13.0-17.5) Hematocrit 30.9 % (39.0-53.0) Mean Corpuscular Volume 82 fL (79-100) Mean Corpuscular Hemoglobin 28 pg (25-35) Mean Corpuscular Hemoglobin Concent 34 g/dL (31-37) Red Cell Distribution Width 17.4 % (11.5-14.5) Platelet Count 107 x10^3/uL (140-400) Neutrophils (%) (Auto) 75 % (31-73) Lymphocytes (%) (Auto) 10 % (24-48) Monocytes (%) (Auto) 13 % (0-9) Eosinophils (%) (Auto) 1 % (0-3) Basophils (%) (Auto) 1 % (0-3) Neutrophils # (Auto) 8.3 x10^3uL (1.8-7.7) Lymphocytes # (Auto) 1.1 x10^3/uL (1.0-4.8) Monocytes # (Auto) 1.4 x10^3/uL (0.0-1.1) Eosinophils # (Auto) 0.1 x10^3/uL (0.0-0.7) Basophils # (Auto) 0.1 x10^3/uL (0.0-0.2) Segmented Neutrophils % 43 % (35-66) Band Neutrophils % 32 % (0-9) Lymphocytes % 10 % (24-48) Monocytes % 11 % (0-10) Eosinophils % 1 % (0-5) Basophils % 1 % (0-3) Metamyelocytes % 1 % (0-0) Myelocytes % 1 % (0-0) Platelet Estimate Adequate (ADEQUATE) Giant Platelets Many Sodium Level 140 mmol/L (136-145) Potassium Level 3.1 mmol/L (3.5-5.1) Chloride Level 105 mmol/L (98-107) Carbon Dioxide Level 26 mmol/L (21-32) Anion Gap 9 (6-14) Blood Urea Nitrogen 6 mg/dL (8-26) Creatinine 0.9 mg/dL (0.7-1.3) Estimated GFR (Cockcroft-Gault) 100.9 Glucose Level 187 mg/dL (70-99) Calcium Level 8.4 mg/dL (8.5-10.1) Test 10/20/16 11:56 10/20/16 16:19 10/20/16 20:49 10/21/16 03:31 Glucose (Fingerstick) 213 mg/dL (70-99) 152 mg/dL (70-99) 206 mg/dL (70-99) White Blood Count 13.2 x10^3/uL (4.0-11.0) Red Blood Count 3.97 x10^6/uL (4.30-5.70) Hemoglobin 10.9 g/dL (13.0-17.5) Hematocrit 32.5 % (39.0-53.0) Mean Corpuscular Volume 82 fL (79-100) Mean Corpuscular Hemoglobin 28 pg (25-35) Mean Corpuscular Hemoglobin Concent 34 g/dL (31-37) Red Cell Distribution Width 17.4 % (11.5-14.5) Platelet Count 122 x10^3/uL (140-400) Neutrophils (%) (Auto) 77 % (31-73) Lymphocytes (%) (Auto) 11 % (24-48) Monocytes (%) (Auto) 11 % (0-9) Eosinophils (%) (Auto) 1 % (0-3) Basophils (%) (Auto) 0 % (0-3) Neutrophils # (Auto) 10.1 x10^3uL (1.8-7.7) Lymphocytes # (Auto) 1.5 x10^3/uL (1.0-4.8) Monocytes # (Auto) 1.4 x10^3/uL (0.0-1.1) Eosinophils # (Auto) 0.1 x10^3/uL (0.0-0.7) Basophils # (Auto) 0.1 x10^3/uL (0.0-0.2) Sodium Level 138 mmol/L (136-145) Potassium Level 3.1 mmol/L (3.5-5.1) Chloride Level 103 mmol/L (98-107) Carbon Dioxide Level 26 mmol/L (21-32) Anion Gap 9 (6-14) Blood Urea Nitrogen 5 mg/dL (8-26) Creatinine 1.0 mg/dL (0.7-1.3) Estimated GFR (Cockcroft-Gault) 89.4 Glucose Level 218 mg/dL (70-99) Calcium Level 8.5 mg/dL (8.5-10.1) Test 10/21/16 07:40 10/21/16 12:06 Glucose (Fingerstick) 213 mg/dL (70-99) 248 mg/dL (70-99) Laboratory Tests Test 10/20/16 16:19 10/20/16 20:49 10/21/16 03:31 10/21/16 07:40 Glucose (Fingerstick) 152 mg/dL (70-99) 206 mg/dL (70-99) 213 mg/dL (70-99) White Blood Count 13.2 x10^3/uL (4.0-11.0) Red Blood Count 3.97 x10^6/uL (4.30-5.70) Hemoglobin 10.9 g/dL (13.0-17.5) Hematocrit 32.5 % (39.0-53.0) Mean Corpuscular Volume 82 fL (79-100) Mean Corpuscular Hemoglobin 28 pg (25-35) Mean Corpuscular Hemoglobin Concent 34 g/dL (31-37) Red Cell Distribution Width 17.4 % (11.5-14.5) Platelet Count 122 x10^3/uL (140-400) Neutrophils (%) (Auto) 77 % (31-73) Lymphocytes (%) (Auto) 11 % (24-48) Monocytes (%) (Auto) 11 % (0-9) Eosinophils (%) (Auto) 1 % (0-3) Basophils (%) (Auto) 0 % (0-3) Neutrophils # (Auto) 10.1 x10^3uL (1.8-7.7) Lymphocytes # (Auto) 1.5 x10^3/uL (1.0-4.8) Monocytes # (Auto) 1.4 x10^3/uL (0.0-1.1) Eosinophils # (Auto) 0.1 x10^3/uL (0.0-0.7) Basophils # (Auto) 0.1 x10^3/uL (0.0-0.2) Sodium Level 138 mmol/L (136-145) Potassium Level 3.1 mmol/L (3.5-5.1) Chloride Level 103 mmol/L (98-107) Carbon Dioxide Level 26 mmol/L (21-32) Anion Gap 9 (6-14) Blood Urea Nitrogen 5 mg/dL (8-26) Creatinine 1.0 mg/dL (0.7-1.3) Estimated GFR (Cockcroft-Gault) 89.4 Glucose Level 218 mg/dL (70-99) Calcium Level 8.5 mg/dL (8.5-10.1) Test 10/21/16 12:06 Glucose (Fingerstick) 248 mg/dL (70-99) Assessment/Plan Assessment/Plan This patient with sinus tachycardia and an elevated uncontrolled hypertension is on multiple meds. I would like to increase the metoprolol from succinate 100 mg once a day changing it to metoprolol tartrate 100 mg twice a day. Depending on the patient's progression we will then make further recommendations. Thank you very much for asking me to participate in the care of this patient OSCAR SUAREZ MD Oct 21, 2016 14:00
[2016-10-21] MEDS ORDERED: GADOBUTROL 7.5 MMOL/7.5 ML VIAL IV ONE (15:00)
--- NOTE | 2016-10-21 16:44 | RAD ---
Clinical indications: Left hand numbness. Tongue numbness.. Paresthesias. New abnormality of the left frontal periventricular white matter seen on recent CT study.. Technique: T1 and T2 and FLAIR MRI sequences of the whole brain were performed. After IV infusion of 7.5 cc of Gadavist, postcontrast T1-weighted MRI sequence of the whole brain were performed. Images were obtained in axial, coronal, and sagittal planes. Diffusion weighted MRI sequence was performed as well. Comparison: No previous MRI study of the brain available. Recent head CT on October 15, 2016. Findings: No acute ischemia is seen on the diffusion weighted images. Mild periventricular white matter hypodensity is seen more prominent within the left frontal parietal region corresponding to the CT finding. This involves the upper aspect of the left caudate nucleus in the antrum of the left internal capsule. No cerebellar or brainstem edema is seen.. No intracranial mass lesion or mass-effect is seen. No midline shift or hydrocephalus or extra-axial fluid collection is seen. No intracranial hemorrhage is identified. No intracranial contrast enhancing lesion is seen. Normal vascular flow signal voids are seen. The internal auditory canals have a symmetric appearance and no cerebellopontine angle mass is present. No cerebellar tonsillar ectopia is seen. No pituitary mass is identified. There is opacification right sphenoid sinus.. Impression:Mild chronic small vessel ischemic disease of the periventricular white matter. No acute ischemia is seen. No intracranial contrast enhancing lesion or mass lesion is seen. Opacification of the right sphenoid sinus..
[2016-10-21] MEDS: ENOXAPARIN 40 MG/0.4 ML SYRINGE. SQ SCH (17:36)
[2016-10-21] MEDS: METOPROLOL TART IMMED RELEASE 50 MG TABLET. PO SCH (20:38)
[2016-10-21] MEDS: IV NORMAL SALINE 1000ML BAG 1,000 ML IV SCH (22:44)
[2016-10-22 03:00] VITALS: BP 158/88
[2016-10-22 05:58] LABS: BASO # 0.1 x10^3/uL (0.0-0.2); BASO % 1 % (0-3); EOS % 0 % (0-3); HEMATOCRIT 30.9 % (39.0-53.0); HEMOGLOBIN 10.9 g/dL (13.0-17.5); LYMPH # 1.2 x10^3/uL (1.0-4.8); LYMPH % 13 % (24-48); MEAN CORPUSCULAR HEMOGLOBIN 28 pg (25-35); MEAN CORPUSCULAR HGB CONC 35 g/dL (31-37); MEAN CORPUSCULAR VOLUME 80 fL (79-100); MONO % 13 % (0-9); NEUT % 73 % (31-73); PLATELET COUNT 124 x10^3/uL (140-400); RED BLOOD COUNT 3.85 x10^6/uL (4.30-5.70); RED CELL DISTRIBUTION WIDTH 17.7 % (11.5-14.5); WHITE BLOOD COUNT 9.7 x10^3/uL (4.0-11.0)
[2016-10-22 06:08] LABS: CALCIUM 9.1 mg/dL (8.5-10.1); GFR 89.4; POTASSIUM 3.3 mmol/L (3.5-5.1)
[2016-10-22 07:20] VITALS: BP 180/106
--- NOTE | 2016-10-22 08:02 | PDOC ---
Infectious Disease Note Subjective Subjective Comfortable feeling good ROS ROS GEN: Denies fevers, chills, sweats HEENT: Denies blurred vision, sore throat CV: Denies chest pain RESP: Denies shortness of air, cough GI: Denies n/v/d NEURO: Denies confusion, dizziness MSK: Denies weakness, joint pain/swelling Vital Sign Vital Signs Vital Signs Date Time Temp Pulse Resp B/P (MAP) Pulse Ox O2 Delivery O2 Flow Rate FiO2 10/22/16 07:20 98.4 92 22 180/106 (130) 95 Room Air 98.4 Physical Exam PHYSICAL EXAM GENERAL: NAD, Alert HEENT: PERRL, OC/OP NECK: Supple, no JVD, no LN LUNGS: Clear HEART: S1S2, no gallop, no murmur ABD: Soft, NT, no organomegaly, no rebound EXT: No edema, no cyanosis DEMAND PLANNER: Alert, oriented x 3, no focal neurologic deficit SKIN: No rash IV: ok Labs Lab Laboratory Tests Test 10/21/16 12:06 10/21/16 16:45 10/21/16 21:14 10/22/16 05:35 Glucose (Fingerstick) 248 mg/dL (70-99) 182 mg/dL (70-99) 229 mg/dL (70-99) White Blood Count 9.7 x10^3/uL (4.0-11.0) Red Blood Count 3.85 x10^6/uL (4.30-5.70) Hemoglobin 10.9 g/dL (13.0-17.5) Hematocrit 30.9 % (39.0-53.0) Mean Corpuscular Volume 80 fL (79-100) Mean Corpuscular Hemoglobin 28 pg (25-35) Mean Corpuscular Hemoglobin Concent 35 g/dL (31-37) Red Cell Distribution Width 17.7 % (11.5-14.5) Platelet Count 124 x10^3/uL (140-400) Neutrophils (%) (Auto) 73 % (31-73) Lymphocytes (%) (Auto) 13 % (24-48) Monocytes (%) (Auto) 13 % (0-9) Eosinophils (%) (Auto) 0 % (0-3) Basophils (%) (Auto) 1 % (0-3) Neutrophils # (Auto) 7.1 x10^3uL (1.8-7.7) Lymphocytes # (Auto) 1.2 x10^3/uL (1.0-4.8) Monocytes # (Auto) 1.2 x10^3/uL (0.0-1.1) Eosinophils # (Auto) 0.0 x10^3/uL (0.0-0.7) Basophils # (Auto) 0.1 x10^3/uL (0.0-0.2) Sodium Level 138 mmol/L (136-145) Potassium Level 3.3 mmol/L (3.5-5.1) Chloride Level 102 mmol/L (98-107) Carbon Dioxide Level 27 mmol/L (21-32) Anion Gap 9 (6-14) Blood Urea Nitrogen 6 mg/dL (8-26) Creatinine 1.0 mg/dL (0.7-1.3) Estimated GFR (Cockcroft-Gault) 89.4 Glucose Level 212 mg/dL (70-99) Calcium Level 9.1 mg/dL (8.5-10.1) Test 10/22/16 07:27 Glucose (Fingerstick) 205 mg/dL (70-99) Objective Assessment Sepsis with hypotension and bacteremia. POA, 10/16. MSSA . TTE: mitral valve leaflets are thickened. Can not rule out possible vegetation on anterior leaflet. -Repeat BC NGTD from 10/18 Infected port . s/p removal, 10/17. staph aureus Neutropenia, s/p Granix. better Fevers, better Acute encephalopathy, better Lactic acidosis Rectal cancer, status post chemotherapy. Diabetes. PNC listed as allergy, tolerated Zosyn w/o problem Plan Plan of Care Cefazolin Repeat BC NGTD Monitor labs/temp PT/OT picc ss to arrange SNF transfer f/u with us in 2 wks wkly cbc, bun/cr MARK JULIO MD Oct 22, 2016 08:02
[2016-10-22] MEDS: GABAPENTIN 300 MG CAPSULE. PO SCH ×3 (08:33→21:17)
[2016-10-22] MEDS: TERAZOSIN 5 MG CAPSULE. PO SCH (08:34)
[2016-10-22] MEDS: FAMOTIDINE 20 MG TABLET. PO SCH ×2 (08:35→21:18)
[2016-10-22] MEDS: METOPROLOL TART IMMED RELEASE 50 MG TABLET. PO SCH ×2 (08:35→21:17)
[2016-10-22] MEDS: LOSARTAN POTASSIUM 50 MG TABLET. PO SCH ×2 (08:35→21:17)
[2016-10-22] MEDS: ASPIRIN 325 MG TABLET PO SCH (08:36)
[2016-10-22] MEDS: POTASSIUM CHLORIDE 20 MEQ TABLET.ER. PO SCH (08:37)
[2016-10-22] MEDS: metFORMIN 500 MG TABLET PO SCH ×2 (08:37→17:57)
[2016-10-22] MEDS: INSULIN ASPART 300 UNITS/3 ML INSULN.PEN SQ SCH ×4 (08:42→21:00)
--- NOTE | 2016-10-22 09:36 | PDOC ---
Subjective: Subjective: Onc f/u- rectal cancer Pt with S aureus, echo with probably mitral veg Clinically doing well SNF transfer to be arranged No SOB/ CP/ diarrhea/ other complaints Objective: Vital Signs: Vital Signs Date Time Temp Pulse Resp B/P (MAP) Pulse Ox O2 Delivery O2 Flow Rate FiO2 10/22/16 08:36 92 180/106 10/22/16 07:20 98.4 22 95 Room Air 98.4 Physical Exam: Heart: Regular rate Extremities: No edema General: Alert, Oriented X3, Cooperative, No acute distress Lungs: Other (no respiratory distress) Psych/Mental Status: Mental status NL, Mood NL Labs/Imaging: CBC stable Echo reviewed as above MRI brain reviewed Assessment/Plan A/P: 1. Stage IV rectal cancer with lung metastases managed by Dr. Jade. Previously on palliative FOLFIRI, last given on 10/02/2016, scans showing slight progression. - Plan to hold tx until bacteremia/ vegetation cleared. Port removed. Will need to discuss tx options in future with Dr. Jade. - Requested MSI testing on his tumor to see if he could be a candidate for immune based therapy in the future. 2. Abnormal CT head finding, arm tingling (resolved). Likely related to a small vessel disease. MRI supporting this as well. 3. S aureus bacteremia and mitral vegetation - Port removed 10/17; On IV abx for several wks per ID. Holding chemo. 4. Thrombocytopenia. Related to sepsis. Last chemo 2.5 wk ago. D/W . Will update Dr. Jade upon his return; will likely move back f/u until off abx. FAUSTO ALVAREZ DO Oct 22, 2016 09:36
[2016-10-22 11:02] VITALS: BP 170/103
[2016-10-22] MEDS: LABETALOL 20 MG/4 ML DISP.SYRIN. IVP PRN ×2 (12:07→17:59)
[2016-10-22] MEDS ORDERED: METO50TA2 PO (12:20)
[2016-10-22] MEDS ORDERED: POTA20TA4 PO (12:20)
[2016-10-22] MEDS ORDERED: POTASSIUM CHLORIDE 20 MEQ TABLET.ER. PO ONE (12:45)
--- NOTE | 2016-10-22 14:30 | PDOC3 ---
Discharge Summary [facility] Date of Admission: Oct 15, 2016 Discharge Date: Oct 22, 2016 Admitting Diagnosis h/o rectal Ca with lung mets anemia/thrombocytopenia status post extensive chemotherapy for rectal CA L UE/ tongue paresthesias L hand weakness Neutropenia,resolved Rectal CA Sepsis with bateremia MSSA, with possible endocarditis DM2 Acute encephalopathy, better Lactic acidosis Rectal cancer, status post chemotherapy. Diabetes. PNC listed as allergy, tolerated Zosyn w/o problem hypokalemia Problems: Final Diagnosis Problems CONSULTS id onco Procedures Brief Hospital Course Mr. Perez is a 71 old M, with h/o rectal Ca with lung mets , comes here for left arm and tounge numbness, could 2/2 chemo. MRI brain no mets pt was also found leukocytopenia and thrombocytopenia, 2/2 chemo and sepsis. he was found +bacteremia with MSSA, repeated bcx 2nd time neg. but TTE cannot really rule out endocarditis. dc with a picc line to rehab, cont cefazolin for 4-6weeks. chemo held dc time 35min. General: Alert, Oriented X3, Cooperative, No acute distress Heart: Normal S1, Normal S2, No murmurs, Other (tachycardic) Lungs: Clear, Other Abdomen: Normal bowel sounds, Soft, No tenderness. LLQ colostomy Extremities: No clubbing, No cyanosis, No edema Skin: No rashes, Other (tiny wound right above chest port, with surrounding discoloration, no fluctuance) Patient History: Family history: Diabetes mellitus (situation) 32 MOTHER Family history: Hypertension (situation) G8 BROTHER 32 MOTHER Problems: Disposition snf CONDITION AT DISCHARGE: Improved Diet regular Scheduled Aspirin (Aspir 81), 81 MG PO DAILY, (Reported) Diltiazem Hcl (Diltiazem Xt), 240 MG PO DAILY, (Reported) Gabapentin (Gabapentin), 300 MG PO TID, (Reported) Losartan Potassium (Losartan Potassium), 50 MG PO BID, (Reported) Metformin Hcl (Metformin Hcl), 1,000 MG PO DAILYWBKFT, (Reported) Metformin Hcl (Metformin Hcl), 500 MG PO DAILYBFRSUP, (Reported) Metoprolol Tartrate (Metoprolol Tartrate), 100 MG PO BID Potassium Chloride (Klor-Con M20), 20 MEQ PO DAILYWBKFT Ranitidine Hcl (Ranitidine Hcl), 150 MG PO BID, (Reported) Terazosin Hcl (Terazosin Hcl), 5 MG PO DAILY, (Reported) Discontinued Medications Diltiazem Hcl (Cardizem Cd), Unknown Dose PO DAILY, (Reported) Gabapentin (Gabapentin), Unknown Dose PO TID, (Reported) Metoprolol Succinate (Metoprolol Succinate ( Xl )), 100 MG PO DAILY, (Reported) Metoprolol Tartrate (Metoprolol Tartrate), 100 MG PO BID, (Reported) Follow Up id in 2 weeks ANTOINE HUITRON MD Oct 22, 2016 14:29
[2016-10-22 14:54] VITALS: BP 173/99
--- NOTE | 2016-10-22 17:18 | PDOC ---
PROGRESS NOTES Subjective Subjective Pt has no cardiac complaints Objective Objective Vital Signs Date Time Temp Pulse Resp B/P (MAP) Pulse Ox O2 Delivery O2 Flow Rate FiO2 10/22/16 14:54 97.4 95 20 173/99 (123) 97 Nasal Cannula 2.0 97.4 Intake and Output 10/22/16 07:00 Intake Total 1230 ml Output Total 1450 ml Balance -220 ml Intake Oral 1230 ml Output Urine Total 1200 ml Stool Total 250 ml # Voids 2 Physical Exam Physical Exam No changes in cardiac exam Assessment Assessment Pt stable cardiac lizarraga. Agree with plan to discharge to SNU. Problems Medical Problems: (1) Brain metastases Status: Acute (2) Paresthesias Status: Acute Comment Review of Relevant I have reviewed the following items isabel (where applicable) has been applied. Labs Laboratory Tests Test 10/20/16 20:49 10/21/16 03:31 10/21/16 07:40 10/21/16 12:06 Glucose (Fingerstick) 206 mg/dL (70-99) 213 mg/dL (70-99) 248 mg/dL (70-99) White Blood Count 13.2 x10^3/uL (4.0-11.0) Red Blood Count 3.97 x10^6/uL (4.30-5.70) Hemoglobin 10.9 g/dL (13.0-17.5) Hematocrit 32.5 % (39.0-53.0) Mean Corpuscular Volume 82 fL (79-100) Mean Corpuscular Hemoglobin 28 pg (25-35) Mean Corpuscular Hemoglobin Concent 34 g/dL (31-37) Red Cell Distribution Width 17.4 % (11.5-14.5) Platelet Count 122 x10^3/uL (140-400) Neutrophils (%) (Auto) 77 % (31-73) Lymphocytes (%) (Auto) 11 % (24-48) Monocytes (%) (Auto) 11 % (0-9) Eosinophils (%) (Auto) 1 % (0-3) Basophils (%) (Auto) 0 % (0-3) Neutrophils # (Auto) 10.1 x10^3uL (1.8-7.7) Lymphocytes # (Auto) 1.5 x10^3/uL (1.0-4.8) Monocytes # (Auto) 1.4 x10^3/uL (0.0-1.1) Eosinophils # (Auto) 0.1 x10^3/uL (0.0-0.7) Basophils # (Auto) 0.1 x10^3/uL (0.0-0.2) Sodium Level 138 mmol/L (136-145) Potassium Level 3.1 mmol/L (3.5-5.1) Chloride Level 103 mmol/L (98-107) Carbon Dioxide Level 26 mmol/L (21-32) Anion Gap 9 (6-14) Blood Urea Nitrogen 5 mg/dL (8-26) Creatinine 1.0 mg/dL (0.7-1.3) Estimated GFR (Cockcroft-Gault) 89.4 Glucose Level 218 mg/dL (70-99) Calcium Level 8.5 mg/dL (8.5-10.1) Test 10/21/16 16:45 10/21/16 21:14 10/22/16 05:35 10/22/16 07:27 Glucose (Fingerstick) 182 mg/dL (70-99) 229 mg/dL (70-99) 205 mg/dL (70-99) White Blood Count 9.7 x10^3/uL (4.0-11.0) Red Blood Count 3.85 x10^6/uL (4.30-5.70) Hemoglobin 10.9 g/dL (13.0-17.5) Hematocrit 30.9 % (39.0-53.0) Mean Corpuscular Volume 80 fL (79-100) Mean Corpuscular Hemoglobin 28 pg (25-35) Mean Corpuscular Hemoglobin Concent 35 g/dL (31-37) Red Cell Distribution Width 17.7 % (11.5-14.5) Platelet Count 124 x10^3/uL (140-400) Neutrophils (%) (Auto) 73 % (31-73) Lymphocytes (%) (Auto) 13 % (24-48) Monocytes (%) (Auto) 13 % (0-9) Eosinophils (%) (Auto) 0 % (0-3) Basophils (%) (Auto) 1 % (0-3) Neutrophils # (Auto) 7.1 x10^3uL (1.8-7.7) Lymphocytes # (Auto) 1.2 x10^3/uL (1.0-4.8) Monocytes # (Auto) 1.2 x10^3/uL (0.0-1.1) Eosinophils # (Auto) 0.0 x10^3/uL (0.0-0.7) Basophils # (Auto) 0.1 x10^3/uL (0.0-0.2) Sodium Level 138 mmol/L (136-145) Potassium Level 3.3 mmol/L (3.5-5.1) Chloride Level 102 mmol/L (98-107) Carbon Dioxide Level 27 mmol/L (21-32) Anion Gap 9 (6-14) Blood Urea Nitrogen 6 mg/dL (8-26) Creatinine 1.0 mg/dL (0.7-1.3) Estimated GFR (Cockcroft-Gault) 89.4 Glucose Level 212 mg/dL (70-99) Calcium Level 9.1 mg/dL (8.5-10.1) Test 10/22/16 11:25 Glucose (Fingerstick) 264 mg/dL (70-99) Laboratory Tests Test 10/21/16 21:14 10/22/16 05:35 10/22/16 07:27 10/22/16 11:25 Glucose (Fingerstick) 229 mg/dL (70-99) 205 mg/dL (70-99) 264 mg/dL (70-99) White Blood Count 9.7 x10^3/uL (4.0-11.0) Red Blood Count 3.85 x10^6/uL (4.30-5.70) Hemoglobin 10.9 g/dL (13.0-17.5) Hematocrit 30.9 % (39.0-53.0) Mean Corpuscular Volume 80 fL (79-100) Mean Corpuscular Hemoglobin 28 pg (25-35) Mean Corpuscular Hemoglobin Concent 35 g/dL (31-37) Red Cell Distribution Width 17.7 % (11.5-14.5) Platelet Count 124 x10^3/uL (140-400) Neutrophils (%) (Auto) 73 % (31-73) Lymphocytes (%) (Auto) 13 % (24-48) Monocytes (%) (Auto) 13 % (0-9) Eosinophils (%) (Auto) 0 % (0-3) Basophils (%) (Auto) 1 % (0-3) Neutrophils # (Auto) 7.1 x10^3uL (1.8-7.7) Lymphocytes # (Auto) 1.2 x10^3/uL (1.0-4.8) Monocytes # (Auto) 1.2 x10^3/uL (0.0-1.1) Eosinophils # (Auto) 0.0 x10^3/uL (0.0-0.7) Basophils # (Auto) 0.1 x10^3/uL (0.0-0.2) Sodium Level 138 mmol/L (136-145) Potassium Level 3.3 mmol/L (3.5-5.1) Chloride Level 102 mmol/L (98-107) Carbon Dioxide Level 27 mmol/L (21-32) Anion Gap 9 (6-14) Blood Urea Nitrogen 6 mg/dL (8-26) Creatinine 1.0 mg/dL (0.7-1.3) Estimated GFR (Cockcroft-Gault) 89.4 Glucose Level 212 mg/dL (70-99) Calcium Level 9.1 mg/dL (8.5-10.1) Microbiology 10/18/16 Blood Culture - Preliminary, Resulted NO GROWTH AFTER 4 DAYS 10/17/16 Aerobic Culture - Final, Complete 10/17/16 Aerobic Culture Result 1 (MAYE) - Final, Complete 10/17/16 Antimicrobic Susceptibility - Final, Complete Medications Current Medications Ondansetron HCl (Zofran) 4 mg PRN Q8HRS PRN IV NAUSEA/VOMITING; Start 10/15/16 at 13:30; Stop 10/16/16 at 13:29; Status DC Morphine Sulfate 4 mg PRN Q2HR PRN IV PAIN; Start 10/15/16 at 13:30; Stop 10/16 at 13:29; Status DC Potassium Chloride/Dextrose/ Sod Cl 1,000 ml @ 75 mls/hr 1X ONCE IV Last administered on 10/15/16t 13:47; Start 10/15/16 at 14:00; Stop 10/16/16 at 03:19 ; Status DC Aspirin (Ecotrin) 81 mg DAILY PO ; Start 10/15/16 at 16:00; Stop 10/15/16 at 16: 20; Status DC Gabapentin (Neurontin) 300 mg TID PO Last administered on 10/22/16 13:29; Start 10/15/16 at 16:00 Metformin HCl (Glucophage) 1,000 mg DAILYWBKFT PO Last administered on 08:37; Start 10/16/16 at 08:00 Metformin HCl (Glucophage) 500 mg DAILYBFRSUP PO Last administered on 17:36; Start 10/15/16 at 17:00 Metoprolol Succinate (Toprol Xl) 100 mg DAILY PO Last administered on 08:50; Start 10/15/16 at 16:00; Stop 10/21/16 at 14:46; Status DC Terazosin HCl (Hytrin) 5 mg DAILY PO Last administered on 10/22/16 08:34; Start 10/15/16 at 16:00 Diltiazem HCl (Cardizem 24hr Cd) 240 mg DAILY PO Last administered on 08:36; Start 10/15/16 at 16:00 Losartan Potassium (Cozaar) 50 mg BID PO Last administered on 10/22/16 08:35; Start 10/15/16 at 21:00 Famotidine (Pepcid) 20 mg BID PO Last administered on 10/22/16 08:35; Start at 21:00 Potassium Chloride (Klor-Con) 40 meq 1X ONCE PO Last administered on 16:37; Start 10/15/16 at 16:30; Stop 10/15/16 at 16:31; Status DC Potassium Chloride (Klor-Con) 20 meq DAILYWBKFT PO Last administered on 08:37; Start 10/16/16 at 08:00 Insulin Aspart (NovoLOG) 0-7 UNITS QIDACHS SQ Last administered on 10/22/16 12 :13; Start 10/15/16 at 16:30 Dextrose (Dextrose 50%-Water Syringe) 12.5 gm PRN Q15MIN PRN IV SEE COMMENTS; Start 10/15/16 at 16:15 Aspirin (Grecia Aspirin) 325 mg DAILYWBKFT PO Last administered on 10/22/16 08: 36; Start 10/16/16 at 08:00 Aspirin (Grecia Aspirin) 325 mg 1X ONCE PO Last administered on 10/15/16 16:35 ; Start 10/15/16 at 16:30; Stop 10/15/16 at 16:31; Status DC Enoxaparin Sodium (Lovenox Per Pharmacy Prophylaxis Dosing) 1 each PRN DAILY PRN MC SEE COMMENTS; Start 10/15/16 at 16:15 Enoxaparin Sodium (Lovenox 40mg Syringe) 40 mg Q24H SQ Last administered on 17:36; Start 10/15/16 at 17:00 Sodium Chloride 1,000 ml @ 30 mls/hr Q24H IV Last administered on 10/21/16 22 :44; Start 10/16/16 at 15:00 Piperacillin Sod/ Tazobactam Sod 4.5 gm/Sodium Chloride 100 ml @ 200 mls/hr Q6HRS IV Last administered on 10/18/16 12:13; Start 10/16/16 at 18:00; Stop at 14:47; Status DC Vancomycin HCl 1 gm/Sodium Chloride 250 ml @ 250 mls/hr Q12H IV ; Start at 14:30; Status UNV Vancomycin HCl (Vanco Per Pharmacy) 1 each PRN DAILY PRN MC SEE COMMENTS Last administered on 10/17/16 17:26; Start 10/16/16 at 15:00; Stop 10/18/16 at 14:47 ; Status DC Vancomycin HCl 2 gm/Sodium Chloride 500 ml @ 250 mls/hr 1X ONCE IV Last administered on 10/16/16 16:20; Start 10/16/16 at 15:00; Stop 10/16/16 at 16:59 ; Status DC Cefepime HCl 2 gm/ Sodium Chloride 100 ml @ 200 mls/hr Q8HRS IV ; Start at 15:30; Status Cancel Acetaminophen (Tylenol) 650 mg PRN Q6HRS PRN PO MILD PAIN / TEMP Last administered on 10/16/16 16:03; Start 10/16/16 at 15:45; Stop 10/16/16 at 20:26 ; Status DC Vancomycin HCl 1.25 gm/Sodium Chloride 250 ml @ 167 mls/hr Q12H IV Last administered on 10/17/16 04:25; Start 10/17/16 at 04:00; Stop 10/17/16 at 17:19 ; Status DC Vancomycin HCl 1 each 1X ONCE MC Last administered on 10/17/16 15:30; Start 10/17/16 at 15:30; Stop 10/17/16 at 15:31; Status DC Acetaminophen (Tylenol) 650 mg PRN Q4HRS PRN PO MILD PAIN / TEMP; Start at 15:45; Stop 10/17/16 at 15:45; Status DC Acetaminophen (Tylenol) 650 mg PRN Q4HRS PRN PO MILD PAIN / TEMP Last administered on 10/21/16 08:56; Start 10/16/16 at 20:45 Morphine Sulfate 4 mg PRN Q4HRS PRN IV SEVERE PAIN Last administered on 05:30; Start 10/17/16 at 02:15; Stop 10/19/16 at 14:44; Status DC Heparin Sodium/ Sodium Chloride 500 ml @ As Directed STK-MED ONCE .ROUTE ; Start 10/17/16 at 15:22; Stop 10/17/16 at 15:23; Status DC Lidocaine/ Epinephrine (Xylocaine 2%-Epi 1:100,000) 20 ml STK-MED ONCE .ROUTE ; Start 10/17/16 at 15:22; Stop 10/17/16 at 15:23; Status DC Heparin Sodium/ Sodium Chloride 1,000 unit 1X ONCE IART Last administered on 16:00; Start 10/17/16 at 16:00; Stop 10/17/16 at 16:01; Status DC Lidocaine/ Epinephrine (Xylocaine 1%-Epi 1:100,000) 4 ml 1X ONCE INJ Last administered on 10/17/16 16:00; Start 10/17/16 at 16:00; Stop 10/17/16 at 16:01 ; Status DC Vancomycin HCl 1.5 gm/Sodium Chloride 500 ml @ 250 mls/hr Q12H IV Last administered on 10/18/16 04:52; Start 10/17/16 at 17:00; Stop 10/18/16 at 14:47 ; Status DC Vancomycin HCl 1 each 1X ONCE MC ; Start 10/19/16 at 04:30; Stop 10/19/16 at 04 :31; Status Cancel Tbo-Filgrastim (Granix) 480 mcg QHS SQ Last administered on 10/18/16 20:01; Start 10/18/16 at 21:00; Stop 10/19/16 at 08:17; Status DC Cefazolin Sodium 2 gm/Sodium Chloride 50 ml @ 100 mls/hr Q8HRS IV Last administered on 10/22/16 13:31; Start 10/18/16 at 22:00 Labetalol HCl (Normodyne) 10 mg PRN Q2HR PRN IVP HYPERTENSION, SEE COMMENTS Last administered on 10/22/16 12:07; Start 10/20/16 at 22:00 Metoprolol Tartrate (Lopressor) 100 mg BID PO Last administered on 10/22/16 08 :35; Start 10/21/16 at 21:00 Gadobutrol (Gadavist) 7.5 mmol 1X ONCE IV Last administered on 10/21/16 14:58 ; Start 10/21/16 at 15:00; Stop 10/21/16 at 15:01; Status DC Potassium Chloride (Klor-Con) 40 meq 1X ONCE PO Last administered on 13:28; Start 10/22/16 at 12:45; Stop 10/22/16 at 12:46; Status DC Active Scripts Active Klor-Con M20 (Potassium Chloride) 20 Meq Tab.er.prt 20 Meq PO DAILYWBKFT 30 Days Metoprolol Tartrate 50 Mg Tablet 100 Mg PO BID 30 Days Reported Metformin Hcl 500 Mg Tablet 500 Mg PO DAILYBFRSUP Losartan Potassium 100 Mg Tablet 50 Mg PO BID Metformin Hcl 500 Mg Tablet 1,000 Mg PO DAILYWBKFT Gabapentin 300 Mg Capsule 300 Mg PO TID Diltiazem Xt (Diltiazem Hcl) 240 Mg Capsule.er 240 Mg PO DAILY Terazosin Hcl 5 Mg Capsule 5 Mg PO DAILY Aspir 81 (Aspirin) 81 Mg Tablet.dr 81 Mg PO DAILY Ranitidine Hcl 150 Mg Tablet 150 Mg PO BID Vitals/I & O Vital Sign - Last 24 Hours 10/21/16 10/21/16 10/21/16 10/21/16 19:00 20:00 20:38 20:39 Temp 98.7 98.7 Pulse 104 101 101 Resp 20 B/P (MAP) 181/92 (121) 181/92 181/92 Pulse Ox 93 O2 Delivery Room Air Room Air 10/21/16 10/22/16 10/22/16 10/22/16 23:00 03:00 07:20 07:41 Temp 98.9 98.6 98.4 98.9 98.6 98.4 Pulse 100 91 92 Resp 20 20 22 B/P (MAP) 152/99 (116) 158/88 (111) 180/106 (130) Pulse Ox 94 95 95 O2 Delivery Room Air Room Air Room Air Nasal Cannula O2 Flow Rate 1.0 10/22/16 10/22/16 10/22/16 10/22/16 08:34 08:35 08:35 08:36 Pulse 92 92 92 92 B/P (MAP) 180/106 180/106 180/106 180/106 10/22/16 10/22/16 10/22/16 11:02 12:07 14:54 Temp 97.9 97.4 97.9 97.4 Pulse 98 98 95 Resp 20 20 B/P (MAP) 170/103 (125) 170/103 173/99 (123) Pulse Ox 96 97 O2 Delivery Nasal Cannula Nasal Cannula O2 Flow Rate 2.0 2.0 Intake and Output 10/21/16 10/21/16 10/22/16 15:00 23:00 07:00 Intake Total 250 ml 340 ml 640 ml Output Total 400 ml 600 ml 450 ml Balance -150 ml -260 ml 190 ml OSCAR SUAREZ MD Oct 22, 2016 17:17
[2016-10-22] MEDS: ENOXAPARIN 40 MG/0.4 ML SYRINGE. SQ SCH (17:58)
--- NOTE | 2016-10-22 18:05 | RAD ---
CHEST AP ONLY History: PICC placement Comparison: May 25, 2016 Findings: 2 AP portable views of the chest are submitted. There is right base infiltrate. There is again eventration of the left hemidiaphragm. Gas beneath the left hemidiaphragm is likely in bowel. There is right upper extremity PICC with the tip in the region of the mid to inferior aspect of the superior vena cava. There is a tortuous, possibly ectatic thoracic aorta as seen previously, atherosclerotic calcification near arch. Cardiac silhouette is stable. No pneumothorax is identified. Impression: 1. There is right upper extremity PICC with the tip in superior vena cava. 2. There is right base infiltrate. Electronically signed by: Rivera Dennis MD (10/22/2016 6:02 PM) [facility]
--- NOTE | 2016-10-22 18:18 | PDOC ---
PROGRESS NOTES Assessment Assessment IMPRESSION: TIA syndrome. Numbness and tingling in tongue. DM Hyperglycemia Hypokalemia, K+ 2.9 Thrombocytopenia. Colon cancer stage IV. HTN No evidence of acute CVA this time. RECOMMENDATIONS/PLAN: Continue ASA 325 mg daily, Treat medical diseases. Lab: see orders. OT/PT. Past Medical History Cardiovascular: HTN Pulmonary: Asthma, Pneumonia, Other ( lung metastases) CENTRAL NERVOUS SYSTEM: Periperal neuropathy GI: Peptic Ulcer disease Heme/Onc: Cancer (colon, stage IV with lung mets) Endocrine: Diabetes Past Surgical History Colectomy ( colostomy), Other ( right rotator cuff) Family History CVA Social History , no tobacco or alcohol ALLERGY: Reviewed. MEDICATIONS: Refer to [facility] REVIEW OF SYSTEMS: Constitutional: No malnutrition, weight loss, cachexia. Head: No traumatic brain or head injury. Skin: No edema, or rash. Ear: No infection. Eyes: No vision loss, or diplopia. Nose: No bleeding or purulent discharges. Hearing: No hearing decrease. Neck: No injury. Cardiac: HTN Pulmonary: No CPOD. GI: Colon cancer. Urinary/genital: UTI. Endocrine: Diabetes Mellitus. Skeletomuscular: Generalized weakness. Neurological: see HP. Psychiatric: Denies drug use/abuse. Otherwise, not [id number] review of systems. PHYSICAL EXAMINATION: General appearance in subacute distress. HEENT: Normocephalic and nontraumatic. Eyes, nose, ears, and throat are unremarkable. Hearing decrease. Neck is supple. No lymphadenopathy. No bruits are heard over the carotid artery. No Crepitus. Cardiovascular: S1, S2, regular rate and rhythm. Pulmonary: Clear to auscultation bilaterally. Abdomen: Bowel sounds are positive. Abdomen is soft, nontender, and nondistended. Extremities: No rash, lesions, or edema. No restriction of range of motion NEUROLOGICAL EXAMINATION: Awake. Oriented to time, place and person. PERRL. EOMI. CN: no focal findings. Muscle tone: within normal. Muscle strength: 5 DTR: 2 Plantar reflex: Flexor response bilaterally Gait: not examined in bed. Sensory exam: no abnormal findings. No acute cerebellar signs elicited. F-T-N test fine. Objective Objective Vital Signs Date Time Temp Pulse Resp B/P (MAP) Pulse Ox O2 Delivery O2 Flow Rate FiO2 10/22/16 17:59 95 173/99 10/22/16 14:54 97.4 20 97 Nasal Cannula 2.0 97.4 Intake and Output 10/22/16 07:00 Intake Total 1230 ml Output Total 1450 ml Balance -220 ml Intake Oral 1230 ml Output Urine Total 1200 ml Stool Total 250 ml # Voids 2 Vitals Signs Vitals VS - Last 72 Hours, by Label Date Time Temp Pulse Resp B/P (MAP) Pulse Ox O2 Delivery O2 Flow Rate FiO2 10/22/16 17:59 95 173/99 10/22/16 14:54 97.4 95 20 173/99 (123) 97 Nasal Cannula 2.0 97.4 10/22/16 12:07 98 170/103 10/22/16 11:02 97.9 98 20 170/103 (125) 96 Nasal Cannula 2.0 97.9 10/22/16 08:36 92 180/106 10/22/16 08:35 92 180/106 10/22/16 08:35 92 180/106 10/22/16 08:34 92 180/106 10/22/16 07:41 Nasal Cannula 1.0 10/22/16 07:20 98.4 92 22 180/106 (130) 95 Room Air 98.4 10/22/16 03:00 98.6 91 20 158/88 (111) 95 Room Air 98.6 10/21/16 23:00 98.9 100 20 152/99 (116) 94 Room Air 98.9 10/21/16 20:39 101 181/92 10/21/16 20:38 101 181/92 10/21/16 20:00 Room Air 10/21/16 19:00 98.7 104 20 181/92 (121) 93 Room Air 98.7 10/21/16 15:10 98.7 120 20 142/95 (111) 98 Room Air 98.7 10/21/16 12:28 126 152/100 (117) 10/21/16 11:22 97.5 127 22 174/95 (121) 98 Room Air 97.5 10/21/16 09:00 94 159/93 10/21/16 08:50 94 159/93 10/21/16 08:49 94 159/93 10/21/16 08:48 94 159/93 10/21/16 08:00 Room Air Laboratory Laboratory Laboratory Tests Test 10/21/16 21:14 10/22/16 05:35 10/22/16 07:27 10/22/16 11:25 Glucose (Fingerstick) 229 mg/dL (70-99) 205 mg/dL (70-99) 264 mg/dL (70-99) White Blood Count 9.7 x10^3/uL (4.0-11.0) Red Blood Count 3.85 x10^6/uL (4.30-5.70) Hemoglobin 10.9 g/dL (13.0-17.5) Hematocrit 30.9 % (39.0-53.0) Mean Corpuscular Volume 80 fL (79-100) Mean Corpuscular Hemoglobin 28 pg (25-35) Mean Corpuscular Hemoglobin Concent 35 g/dL (31-37) Red Cell Distribution Width 17.7 % (11.5-14.5) Platelet Count 124 x10^3/uL (140-400) Neutrophils (%) (Auto) 73 % (31-73) Lymphocytes (%) (Auto) 13 % (24-48) Monocytes (%) (Auto) 13 % (0-9) Eosinophils (%) (Auto) 0 % (0-3) Basophils (%) (Auto) 1 % (0-3) Neutrophils # (Auto) 7.1 x10^3uL (1.8-7.7) Lymphocytes # (Auto) 1.2 x10^3/uL (1.0-4.8) Monocytes # (Auto) 1.2 x10^3/uL (0.0-1.1) Eosinophils # (Auto) 0.0 x10^3/uL (0.0-0.7) Basophils # (Auto) 0.1 x10^3/uL (0.0-0.2) Sodium Level 138 mmol/L (136-145) Potassium Level 3.3 mmol/L (3.5-5.1) Chloride Level 102 mmol/L (98-107) Carbon Dioxide Level 27 mmol/L (21-32) Anion Gap 9 (6-14) Blood Urea Nitrogen 6 mg/dL (8-26) Creatinine 1.0 mg/dL (0.7-1.3) Estimated GFR (Cockcroft-Gault) 89.4 Glucose Level 212 mg/dL (70-99) Calcium Level 9.1 mg/dL (8.5-10.1) Test 10/22/16 17:45 Glucose (Fingerstick) 159 mg/dL (70-99) Microbiology 10/18/16 Blood Culture - Preliminary, Resulted NO GROWTH AFTER 4 DAYS 10/17/16 Aerobic Culture - Final, Complete 10/17/16 Aerobic Culture Result 1 (MAYE) - Final, Complete 10/17/16 Antimicrobic Susceptibility - Final, Complete Medication Medications Current Medications Metoprolol Tartrate (Lopressor) 100 mg BID PO Last administered on 10/22/16 08 :35; Start 10/21/16 at 21:00 Potassium Chloride (Klor-Con) 40 meq 1X ONCE PO Last administered on 13:28; Start 10/22/16 at 12:45; Stop 10/22/16 at 12:46; Status DC Comment Review of Relevant I have reviewed the following items isabel (where applicable) has been applied. JUDITH AMBROSIO MD Oct 22, 2016 18:18
[2016-10-22 19:45] VITALS: BP 165/92
[2016-10-22] MEDS: IV NORMAL SALINE 1000ML BAG 1,000 ML IV SCH (21:28)
[2016-10-22 23:09] VITALS: BP 164/98
[2016-10-23 01:29] LABS: CHOLESTEROL/HDL RATIO 7.8
[2016-10-23 02:45] VITALS: BP 155/87
[2016-10-23 07:00] VITALS: BP 136/93
[2016-10-23] MEDS: POTASSIUM CHLORIDE 20 MEQ TABLET.ER. PO SCH (08:01)
[2016-10-23] MEDS: ASPIRIN 325 MG TABLET PO SCH (08:01)
[2016-10-23] MEDS: FAMOTIDINE 20 MG TABLET. PO SCH (08:01)
[2016-10-23] MEDS: GABAPENTIN 300 MG CAPSULE. PO SCH (08:01)
[2016-10-23] MEDS: metFORMIN 500 MG TABLET PO SCH (08:02)
[2016-10-23] MEDS: METOPROLOL TART IMMED RELEASE 50 MG TABLET. PO SCH (08:02)
[2016-10-23] MEDS: TERAZOSIN 5 MG CAPSULE. PO SCH (08:03)
[2016-10-23] MEDS: LOSARTAN POTASSIUM 50 MG TABLET. PO SCH (08:05)
[2016-10-23] MEDS: INSULIN ASPART 300 UNITS/3 ML INSULN.PEN SQ SCH ×2 (08:08→12:33)
--- NOTE | 2016-10-23 09:28 | PDOC ---
Infectious Disease Note Subjective Subjective Comfortable feeling good ROS ROS GEN: Denies fevers, chills, sweats HEENT: Denies blurred vision, sore throat CV: Denies chest pain RESP: Denies shortness of air, cough GI: Denies n/v/d NEURO: Denies confusion, dizziness MSK: Denies weakness, joint pain/swelling Vital Sign Vital Signs Vital Signs Date Time Temp Pulse Resp B/P (MAP) Pulse Ox O2 Delivery O2 Flow Rate FiO2 10/23/16 08:05 94 136/93 10/23/16 07:00 98.6 20 99 Room Air 98.6 10/22/16 14:54 2.0 Physical Exam PHYSICAL EXAM GENERAL: NAD, Alert HEENT: PERRL, OC/OP NECK: Supple, no JVD, no LN LUNGS: Clear HEART: S1S2, no gallop, no murmur ABD: Soft, NT, no organomegaly, no rebound EXT: No edema, no cyanosis BLOCK FEEDER: Alert, oriented x 3, no focal neurologic deficit SKIN: No rash IV: ok Labs Lab Laboratory Tests Test 10/22/16 11:25 10/22/16 17:45 10/22/16 20:39 10/23/16 07:02 Glucose (Fingerstick) 264 mg/dL (70-99) 159 mg/dL (70-99) 165 mg/dL (70-99) 215 mg/dL (70-99) Objective Assessment Sepsis with hypotension and bacteremia. POA, 10/16. MSSA . TTE: mitral valve leaflets are thickened. Can not rule out possible vegetation on anterior leaflet. -Repeat BC NGTD from 10/18 Infected port . s/p removal, 10/17. staph aureus Neutropenia, s/p Granix. better Fevers, better Acute encephalopathy, better Lactic acidosis Rectal cancer, status post chemotherapy. Diabetes. PNC listed as allergy, tolerated Zosyn w/o problem Plan Plan of Care Cefazolin for 6 wks Repeat BC NGTD Monitor labs/temp PT/OT ss to arrange SNF transfer f/u with us in 2 wks wkly cbc, bun/cr MARK JULIO MD Oct 23, 2016 09:28
[2016-10-23 10:36] VITALS: BP 147/93
--- NOTE | 2016-10-23 13:16 | PDOC3 ---
Discharge Summary [facility] Date of Admission: Oct 15, 2016 Discharge Date: Oct 23, 2016 Admitting Diagnosis h/o rectal Ca with lung mets anemia/thrombocytopenia status post extensive chemotherapy for rectal CA L UE/ tongue paresthesias L hand weakness Neutropenia,resolved Rectal CA Sepsis with bateremia MSSA, with possible endocarditis DM2 Acute encephalopathy, better Lactic acidosis Rectal cancer, status post chemotherapy. Diabetes. PNC listed as allergy, tolerated Zosyn w/o problem hypokalemia Problems: Final Diagnosis CONSULTS id onco Brief Hospital Course Brief Hospital Course Mr. Perez is a 71 old M, with h/o rectal Ca with lung mets , comes here for left arm and tounge numbness, could 2/2 chemo. MRI brain no mets pt was also found leukocytopenia and thrombocytopenia, 2/2 chemo and sepsis. he was found +bacteremia with MSSA, repeated bcx 2nd time neg. but TTE cannot really rule out endocarditis. dc with a picc line to rehab, cont cefazolin for 6weeks. chemo held dc time 35min. General: Alert, Oriented X3, Cooperative, No acute distress Heart: Normal S1, Normal S2, No murmurs, Other (tachycardic) Lungs: Clear, Other Abdomen: Normal bowel sounds, Soft, No tenderness. LLQ colostomy Extremities: No clubbing, No cyanosis, No edema Skin: No rashes, Other (tiny wound right above chest port, with surrounding discoloration, no fluctuance) Patient History: Family history: Diabetes mellitus (situation) 32 MOTHER Family history: Hypertension (situation) G8 BROTHER 32 MOTHER Problems: Disposition snf CONDITION AT DISCHARGE: Improved Diet regular Scheduled Aspirin (Aspir 81), 81 MG PO DAILY, (Reported) Diltiazem Hcl (Diltiazem Xt), 240 MG PO DAILY, (Reported) Gabapentin (Gabapentin), 300 MG PO TID, (Reported) Losartan Potassium (Losartan Potassium), 50 MG PO BID, (Reported) Metformin Hcl (Metformin Hcl), 1,000 MG PO DAILYWBKFT, (Reported) Metformin Hcl (Metformin Hcl), 500 MG PO DAILYBFRSUP, (Reported) Metoprolol Tartrate (Metoprolol Tartrate), 100 MG PO BID Potassium Chloride (Klor-Con M20), 20 MEQ PO DAILYWBKFT Ranitidine Hcl (Ranitidine Hcl), 150 MG PO BID, (Reported) Terazosin Hcl (Terazosin Hcl), 5 MG PO DAILY, (Reported) Discontinued Medications Metoprolol Succinate (Metoprolol Succinate ( Xl )), 100 MG PO DAILY, (Reported) Follow Up id in 2 weeks ANTOINE HUITRON MD Oct 23, 2016 13:16
--- NOTE | 2016-10-23 15:55 | PDOC ---
PROGRESS NOTES Assessment Assessment TIA syndrome. Numbness and tingling in tongue. DM Hyperglycemia Hypokalemia, K+ 2.9 Thrombocytopenia. Colon cancer stage IV. HTN No evidence of acute CVA this time. RECOMMENDATIONS/PLAN: Continue ASA 325 mg daily, Treat medical diseases. OT/PT. Past Medical History Cardiovascular: HTN Pulmonary: Asthma, Pneumonia, Other ( lung metastases) CENTRAL NERVOUS SYSTEM: Peripheral neuropathy GI: Peptic Ulcer disease Heme/Onc: Cancer (colon, stage IV with lung mets) Endocrine: Diabetes Past Surgical History Colectomy ( colostomy), Other ( right rotator cuff) Family History CVA Social History , no tobacco or alcohol ALLERGY: Reviewed. MEDICATIONS: Refer to MAR REVIEW OF SYSTEMS: Constitutional: No malnutrition, weight loss, cachexia. Head: No traumatic brain or head injury. Skin: No edema, or rash. Ear: No infection. Eyes: No vision loss, or diplopia. Nose: No bleeding or purulent discharges. Hearing: No hearing decrease. Neck: No injury. Cardiac: HTN Pulmonary: No CPOD. GI: Colon cancer. Urinary/genital: UTI. Endocrine: Diabetes Mellitus. Skeletomuscular: Generalized weakness. Neurological: see HP. Psychiatric: Denies drug use/abuse. Otherwise, not [id number] review of systems. PHYSICAL EXAMINATION: General appearance in no acute distress. HEENT: Normocephalic and nontraumatic. Eyes, nose, ears, and throat are unremarkable. Hearing decrease. Neck is supple. No lymphadenopathy. No bruits are heard over the carotid artery. No Crepitus. Cardiovascular: S1, S2, regular rate and rhythm. Pulmonary: Clear to auscultation bilaterally. Abdomen: Bowel sounds are positive. Abdomen is soft, nontender, and nondistended. Extremities: No rash, lesions, or edema. No restriction of range of motion NEUROLOGICAL EXAMINATION: Awake. Oriented to time, place and person. PERRL. EOMI. CN: no focal findings. Muscle tone: within normal. Muscle strength: 5 DTR: 2 Plantar reflex: Flexor response bilaterally Gait: not examined in bed. Sensory exam: no abnormal findings. No acute cerebellar signs elicited. F-T-N test fine. Objective Objective Vital Signs Date Time Temp Pulse Resp B/P (MAP) Pulse Ox O2 Delivery O2 Flow Rate FiO2 10/23/16 10:36 98.4 91 19 147/93 (111) 99 Room Air 98.4 10/22/16 14:54 2.0 Intake and Output 10/23/16 07:00 Intake Total 1750 ml Output Total 2150 ml Balance -400 ml Intake Oral 1700 ml IV Total 50 ml Output Urine Total 1800 ml Stool Total 350 ml # Voids 3 Vitals Signs Vitals VS - Last 72 Hours, by Label Date Time Temp Pulse Resp B/P (MAP) Pulse Ox O2 Delivery O2 Flow Rate FiO2 10/23/16 10:36 98.4 91 19 147/93 (111) 99 Room Air 98.4 10/23/16 08:05 94 136/93 10/23/16 08:03 94 136/93 10/23/16 08:03 94 136/93 10/23/16 08:02 94 136/93 10/23/16 08:01 Room Air 10/23/16 07:00 98.6 94 20 136/93 (107) 99 Room Air 98.6 10/23/16 02:45 99.0 91 18 155/87 (109) 95 Room Air 99.0 10/22/16 23:09 98.9 96 20 164/98 (120) 99 Room Air 98.9 10/22/16 21:17 104 165/92 10/22/16 21:17 104 165/92 10/22/16 20:24 Room Air 10/22/16 19:45 Room Air 10/22/16 19:45 98.3 104 18 165/92 (116) 96 Room Air 98.3 10/22/16 17:59 95 173/99 10/22/16 14:54 97.4 95 20 173/99 (123) 97 Nasal Cannula 2.0 97.4 10/22/16 12:07 98 170/103 10/22/16 11:02 97.9 98 20 170/103 (125) 96 Nasal Cannula 2.0 97.9 10/22/16 08:36 92 180/106 10/22/16 08:35 92 180/106 10/22/16 08:35 92 180/106 10/22/16 08:34 92 180/106 10/22/16 07:41 Nasal Cannula 1.0 10/22/16 07:20 98.4 92 22 180/106 (130) 95 Room Air 98.4 Laboratory Laboratory Laboratory Tests Test 10/22/16 17:45 7/31/17 20:39 10/23/16 07:02 10/23/16 11:41 Glucose (Fingerstick) 159 mg/dL (70-99) 165 mg/dL (70-99) 215 mg/dL (70-99) 174 mg/dL (70-99) Microbiology 10/18/16 Blood Culture - Final, Complete NO GROWTH AFTER 5 DAYS 10/17/16 Aerobic Culture - Final, Complete 10/17/16 Aerobic Culture Result 1 (MAYE) - Final, Complete 10/17/16 Antimicrobic Susceptibility - Final, Complete Medication Medications Current Medications Atorvastatin Calcium (Lipitor) 20 mg QHS PO ; Start 10/23/16 at 21:00; Stop at 21:00; Status DC Comment Review of Relevant I have reviewed the following items isabel (where applicable) has been applied. JUDITH AMBROSIO MD Oct 23, 2016 15:54
[2016-10-23] MEDS ORDERED: ATORVASTATIN CALCIUM 20 MG TABLET PO SCH (21:00)
== END 2016-10-23 13:10 | DRG 314 ==
LOC: ER 10:31 → 6 SOUTH 13:03
PROVIDERS: ADMIT Internal Medicine; ATTEND Internal Medicine
PROC: 0JPT3XZ Removal of Tunneled Vascular Access Device from Trunk Subcutaneous Tissue and Fascia, Percutaneous Approach (ICD-10-PCS; 2016-10-17)
PROC: 02HV33Z Insertion of Infusion Device into Superior Vena Cava, Percutaneous Approach (ICD-10-PCS; principal; 2016-10-22)
DX: T82.7XXA Infection and inflammatory reaction due to other cardiac and vascular devices, implants and grafts, initial encounter (principal); A41.01 Sepsis due to Methicillin susceptible Staphylococcus aureus; G93.40 Encephalopathy, unspecified; G45.9 Transient cerebral ischemic attack, unspecified; C20 Malignant neoplasm of rectum; C78.01 Secondary malignant neoplasm of right lung; D61.818 Other pancytopenia; I38 Endocarditis, valve unspecified; C78.00 Secondary malignant neoplasm of unspecified lung; E87.6 Hypokalemia; I12.9 Hypertensive chronic kidney disease with stage 1 through stage 4 chronic kidney disease, or unspecified chronic kidney disease; R50.81 Fever presenting with conditions classified elsewhere; J45.909 Unspecified asthma, uncomplicated; N18.9 Chronic kidney disease, unspecified; E11.22 Type 2 diabetes mellitus with diabetic chronic kidney disease; D64.9 Anemia, unspecified; E11.65 Type 2 diabetes mellitus with hyperglycemia; F32.9 Major depressive disorder, single episode, unspecified; I73.9 Peripheral vascular disease, unspecified; E11.42 Type 2 diabetes mellitus with diabetic polyneuropathy; T45.1X5A Adverse effect of antineoplastic and immunosuppressive drugs, initial encounter; Z82.3 Family history of stroke; Z82.49 Family history of ischemic heart disease and other diseases of the circulatory system; Z83.3 Family history of diabetes mellitus; Z85.048 Personal history of other malignant neoplasm of rectum, rectosigmoid junction, and anus; Z86.73 Personal history of transient ischemic attack (TIA), and cerebral infarction without residual deficits; Z79.82 Long term (current) use of aspirin; Z87.11 Personal history of peptic ulcer disease; Z92.21 Personal history of antineoplastic chemotherapy; Z93.3 Colostomy status; Z87.01 Personal history of pneumonia (recurrent); Y92.89 Other specified places as the place of occurrence of the external cause; Z88.0 Allergy status to penicillin; Z91.041 Radiographic dye allergy status
CPT/HCPCS: 36415; 36590; 70450; 70553; 71010; 71250; 74176; 80048; 80053; 80061; 80202; 81001; 82607; 82962; 83605; 84484; 85007; 85027; 85610; 87040; 87070; 87071; 87075; 87186; 87205; 93005; 93306; 96365; A9585; J0690; J1442; J1644; J1650; J1815; J2270; J2543; J3370; J3490; J7030; J7040; J7042; J7050; 97116; 97535; 99285-25

== ENCOUNTER → 2017-01-08 | Outpatient (CLI) | payer BC ==
[~2017-01-08] MED LIST changes: +DILT240C4 PO; +GABA300C8 PO; +LOSA100T6 PO; +METO-247 PO; +METO50TA2 PO; +POTA20TA4 PO
--- NOTE | 2017-01-08 14:41 | RAD ---
Indication rectal carcinoma. Evaluate for metastatic disease. The chest abdomen and pelvis were evaluated. No IV contrast was administered. Oral contrast was. Comparison is made to a similar examination 10/16/2016. CT chest: Findings Somewhat enlarged left axillary lymph node is noted. It appears unchanged compared to the previous exam. Coronary artery calcification is noted. The thoracic aorta is grossly normal. There is no definite pathologic hilar or mediastinal adenopathy. Parenchymal opacity in the right lower lobe, probably reflecting atelectatic lung appears to be slightly smaller. This may reflect atelectatic lung. An underlying mass is not excluded. Bronchoscopy would be useful for additional evaluation. A new finding in the chest is not seen. CT abdomen and pelvis: Findings Ostomy with associated herniated mesentery through the ostomy site is noted in the left abdomen. The appearance is similar to the previous exam. There is marked diastases involving the rectus muscle. Bowel loops appear ventral to the diastases. The appearance is similar to the previous exam. The liver and spleen appear unremarkable. There is cholelithiasis. Left adrenal mass, compatible with an adenoma appears similar. The kidneys are unremarkable. The pancreas appears normal. Significant central or retroperitoneal adenopathy within the abdomen is not seen. Acute finding is not apparent. In the pelvis presacral soft tissue mass, likely postsurgical and/or therapeutic is again seen and appears unchanged. A new finding in the pelvis is not seen. IMPRESSION: Infrahilar lung mass persists but appears smaller. The etiology is unclear. Bronchoscopy could be utilized for additional evaluation. No significant change in the abdomen or pelvis relative to the previous exam. PQRS Compliance Statement: One or more of the following individualized dose reduction techniques were utilized for this examination: 1. Automated exposure control 2. Adjustment of the mA and/or kV according to patient size 3. Use of iterative reconstruction technique
== END | disposition home or self-care (01) ==
LOC: CT 10:50
PROVIDERS: ATTEND Internal Medicine Hematology & Oncology
DX: C20 Malignant neoplasm of rectum (principal); C78.00 Secondary malignant neoplasm of unspecified lung
CPT/HCPCS: 71250; 74176

== ENCOUNTER 2017-02-07 05:52 | Day surgery (SDC) | payer BC ==
[~2017-02-07] VITALS: Ht 179.1 cm; Wt 86.6 kg
[~2017-02-07 05:52] MED LIST changes: -METO100T2 PO; +METO100T7 PO; -METO50TA2 PO; +METO50TA6 PO
[2017-02-07] MEDS ORDERED: LIDOCAINE 1% PF 2 ML VIAL. ID PRN (07:00)
[2017-02-07] MEDS ORDERED: HEPARIN PF 500 UNIT/5 ML DISP.SYRIN. IV ONE ×3 (07:00→08:37)
[2017-02-07] MEDS ORDERED: fentaNYL PF VIAL 100 MCG/2 ML VIAL IV PRN ×2 (07:00)
[2017-02-07] MEDS ORDERED: HEPARIN for IV BOLUS 10,000 UNIT/10 ML VIAL. ONE (07:00)
[2017-02-07] MEDS ORDERED: PROCHLORPERAZINE 10 MG/2 ML VIAL. IV PRN (07:00)
[2017-02-07] MEDS ORDERED: IV RINGERS,LACTATED 1000ML 1,000 ML IV SCH (07:00)
[2017-02-07] MEDS ORDERED: HYDROmorphone 2 MG/ML VIAL IV PRN (07:00)
[2017-02-07] MEDS ORDERED: ONDANSETRON PF 4 MG/2 ML VIAL. IV PRN (07:00)
[2017-02-07] MEDS ORDERED: MORPHINE SULFATE 2 MG/ML DISP.SYRIN. IV PRN (07:00)
[2017-02-07] MEDS ORDERED: BUPIVACAINE 0.25% 50 ML VIAL. ONE (07:01)
[2017-02-07] MEDS ORDERED: INSULIN ASPART 100 UNIT/ML 10ML VIAL. SQ ONE ×3 (07:03→09:15)
[2017-02-07] MEDS ORDERED: fentaNYL PF VIAL 100 MCG/2 ML VIAL ONE (07:30)
[2017-02-07] MEDS ORDERED: PROPOFOL 20 ML IV ONE (07:30)
[2017-02-07] MEDS ORDERED: ONDANSETRON PF 4 MG/2 ML VIAL. ONE (07:30)
[2017-02-07] MEDS ORDERED: LIDOCAINE 1% PF 5 ML VIAL. ONE (07:30)
[2017-02-07] MEDS ORDERED: DEXAMETHASONE SOD PHOS 20 MG/5 ML VIAL. ONE (07:31)
[2017-02-07] MEDS ORDERED: PHENYLEPHRINE in 0.9% NACL PF 1 MG/10 ML DISP.SYRIN. IV ONE (08:24)
[2017-02-07] MEDS ORDERED: BUPIVACAINE MPF 0.25% 30 ML VIAL. IJ ONE (08:35)
--- NOTE | 2017-02-07 08:50 | PDOC4 ---
Operative Note Operative Note Date: 02/07/2017 Preoperative diagnosis: Rectal carcinoma Postoperative diagnosis: Same Procedure: Left-sided Port-A-Cath placement Surgeon: Rod Specimen: None Dictation: Patient is a 71-year-old male who has had a APR resection for rectal carcinoma is receiving chemotherapy has had a couple of ports that had been taken out for infection and returns for port placement. The procedure of Port-A- Cath placement was explained to the patient in detail was benefits were also discussed including bleeding infection pneumothorax alternatives to this procedure also discussed with the patient seemed understanding gave both verbal and written consent had procedure performed. Patient was taken to the operating room placed in supine position general anesthesia was initiated once patient was asleep and intubated his chest and neck were prepped and draped in usual sterile fashion using ChloraPrep and area over the deltopectoral groove on the left side was injected with quarter percent Marcaine with epinephrine incision was then made with 15 blade scalpel was carried down through the subcutaneous tissues elect cautery by hemostasis down to the cephalic vein which was controlled proximally and distally with silk ligatures. The vein was partially open with 11 blade scalpel and a cylinder wire was placed under fluoroscopy into the superior vena cava. At this point a peel-away dilator was then placed over the wire the dilator was removed and the catheter was placed through the peel-away the peel-away portion of the catheter was then removed fluoroscopy was used to confirm placement of the tip of the catheter within the superior vena cava at the right atrium. The port was placed on the back end of the catheter a new pocket was made on the anterior chest wall with electrocautery and the port was sewn into place with 3-0 Prolene. Port was then accessed there was good return of blood was easily flushed with heparin saline solution and then hep lock of 1000 units per milliliter was placed. The incision was then closed in 2 layers deep layer running 3-0 Vicryl and the skin was approximate 4 septic or Monocryl Mastisol Steri-Strips and island dressing were applied. Patient was waken expanded in the operative room taken to recovery in stable condition all sponge instrument needle counts listed as correct estimate blood loss 5 mL FITO MACHADO MD Feb 07, 2017 08:50
--- NOTE | 2017-02-07 08:51 | DISCH ---
DISCHARGE INSTRUCTIONS Condition on Discharge Condition on Discharge: Stable Activity After Discharge Activity Instructions for Disc: Resume previous activity Other activity instructions: No lifting left arm above head for 1 week Diet after Discharge Diet after Discharge: Regular Wound Incision Care Other wound/incision instructi: May shower in 24 hours Contacting the after DC Call your doctor for: If your condition worsens Follow-Up Follow up with: Dr Machado in 2 weeks FITO MACHADO MD Feb 07, 2017 08:51
[2017-02-07] MEDS ORDERED: HYDR-971 PO (09:16)
[2017-02-07] MEDS ORDERED: HYDROcodone/APAP 5/325MG 1 TAB TABLET PO PRN (09:30)
[2017-02-07 09:52] VITALS: BP 96/69
== END 2017-02-07 10:50 | disposition home or self-care (01) ==
LOC: SURG 05:52
PROVIDERS: ATTEND Surgery
DX: C20 Malignant neoplasm of rectum (principal); Z79.82 Long term (current) use of aspirin; I10 Essential (primary) hypertension; E78.00 Pure hypercholesterolemia, unspecified; E11.9 Type 2 diabetes mellitus without complications; Z98.890 Other specified postprocedural states; Z83.3 Family history of diabetes mellitus; Z88.0 Allergy status to penicillin; Z88.6 Allergy status to analgesic agent
CPT/HCPCS: 36561; 77001; 82962; A4215; C1788; J1100; J1644; J1815; J1956; J2370; J2405; J2704; J3010; J3490; 36556

== ENCOUNTER 2017-04-24 11:40 | Inpatient (IN) | payer BC ==
[2017-04-24 13:25] LABS: ADD MAN DIFF? NO
[2017-04-24 13:31] LABS: BASO % 0 % (0-3); EOS % 3 % (0-3); HEMATOCRIT 26.3 % (39.0-53.0); HEMOGLOBIN 9.3 g/dL (13.0-17.5); LYMPH # 0.5 x10^3/uL (1.0-4.8); LYMPH % 31 % (24-48); MEAN CORPUSCULAR HEMOGLOBIN 31 pg (25-35); MEAN CORPUSCULAR HGB CONC 35 g/dL (31-37); MEAN CORPUSCULAR VOLUME 89 fL (79-100); MONO # 0.2 x10^3/uL (0.0-1.1); MONO % 14 % (0-9); NEUT # 0.8 x10^3uL (1.8-7.7); NEUT % 52 % (31-73); PLATELET COUNT 104 x10^3/uL (140-400); RED BLOOD COUNT 2.97 x10^6/uL (4.30-5.70)
[2017-04-24 13:35] LABS: WHITE BLOOD COUNT 1.6 x10^3/uL (4.0-11.0)
[2017-04-24] MEDS: IV NORMAL SALINE 1000ML BAG 1,000 ML IV ×3 (13:37→15:36)
[2017-04-24 14:07] LABS: TROPONINI < 0.017 ng/mL (0.000-0.055)
[2017-04-24 14:14] LABS: ALBUMIN 3.4 g/dL (3.4-5.0); ALBUMIN/GLOBULIN RATIO 1.2 (1.0-1.7); ALK PHOS 129 U/L (46-116); ALT (SGPT) 17 U/L (16-63); ANION GAP 11 (6-14); AST (SGOT) 14 U/L (15-37); BLOOD UREA NITROGEN 24 mg/dL (8-26); BUN/CREATININE RATIO 11 (6-20); CALCIUM 8.3 mg/dL (8.5-10.1); CARBON DIOXIDE 28 mmol/L (21-32); CHLORIDE 91 mmol/L (98-107); CREATININE 2.1 mg/dL (0.7-1.3); GLUCOSE 224 mg/dL (70-99); LIPASE 79 U/L (73-393); SODIUM 130 mmol/L (136-145); TOTAL BILIRUBIN 0.6 mg/dL (0.2-1.0); TOTAL PROTEIN 6.3 g/dL (6.4-8.2)
[2017-04-24 14:18] LABS: POTASSIUM 2.8 mmol/L (3.5-5.1)
[2017-04-24 14:23] LABS: LACTIC ACID 4.1 mmol/L (0.4-2.0)
[2017-04-24] MEDS ORDERED: IV NORMAL SALINE 1000ML BAG 1,000 ML IV ×2 (14:30→14:32)
[2017-04-24 14:31] LABS: % BANDS 8 % (0-9); % EOS 2 % (0-5); % LYMPHS 28 % (24-48); % MONOS 10 % (0-10); % SEGS 52 % (35-66); ANISOCYTOSIS MOD; PLT ESTIMATE DECREASED (ADEQUATE)
[2017-04-24] MEDS ORDERED: fentaNYL PF VIAL 100 MCG/2 ML VIAL IV ×2 (14:45→15:00)
[2017-04-24] MEDS ORDERED: ONDANSETRON PF 4 MG/2 ML VIAL. IV ×2 (14:45→15:00)
[2017-04-24 15:22] LABS: BILIRUBIN,URINE NEGATIVE (NEG); CLARITY,URINE CLEAR; COLOR,URINE YELLOW; GLUCOSE,URINE NEGATIVE (NEG); NITRITE,URINE NEGATIVE (NEG); PH,URINE 5.5; PROTEIN,URINE NEGATIVE (NEG-TRACE); UROBILINOGEN,URINE 0.2 mg/dL (0.2 mg/dL)
[2017-04-24] MEDS: CEFEPIME HCL IV Push 1 GM VIAL. IVP ×2 (15:36→20:22)
[2017-04-24] MEDS: POTASSIUM CL 20MEQ D5-0.2%NACL 1,000 ML IV (15:36)
[2017-04-24] MEDS: VANCOMYCIN 2 GM in IV DEXTROSE 5 %-0.45 % NACL 500 ML IV (15:37)
[2017-04-24 15:39] LABS: BACTERIA,URINE 0 /HPF (0-FEW); HYALINE CASTS, URINE MANY /HPF; WBC,URINE 0 /HPF (0-4)
[2017-04-24] MEDS: POTASSIUM CHLORIDE 20 MEQ TABLET.ER. PO ×2 (16:25→18:14)
[2017-04-24 16:43] LABS: LACTIC ACID 2.2 mmol/L (0.4-2.0)
[2017-04-24] MEDS: VANCOMYCIN PER PHARMACY MC (17:19)
[2017-04-24] MEDS ORDERED: LOPERAMIDE 2 MG CAPSULE PO (17:45)
[2017-04-24] MEDS: ENOXAPARIN 40 MG/0.4 ML SYRINGE. SQ (20:21)
[2017-04-24] MEDS: GABAPENTIN 300 MG CAPSULE. PO (20:21)
[2017-04-24] MEDS: METOPROLOL TART IMMED RELEASE 50 MG TABLET. PO (20:21)
[2017-04-24] MEDS: FAMOTIDINE 20 MG TABLET. PO (20:21)
[2017-04-24] MEDS: LOSARTAN POTASSIUM 50 MG TABLET. PO (20:22)
[2017-04-24] MEDS: ACETAMINOPHEN 500 MG TABLET PO (20:32)
[2017-04-24] MEDS ORDERED: CEFEPIME HCL 1 GM in IV DEXTROSE 5% 50 ML IV (22:00)
[2017-04-24 22:02] LABS: POTASSIUM 3.2 mmol/L (3.5-5.1)
[2017-04-25 00:25] LABS: POC GLUCOSE 165 mg/dL (70-99)
[2017-04-25 04:12] LABS: ADD MAN DIFF? NO
[2017-04-25 04:24] LABS: BASO % 1 % (0-3); EOS % 2 % (0-3); HEMATOCRIT 23.1 % (39.0-53.0); HEMOGLOBIN 8.1 g/dL (13.0-17.5); LYMPH # 0.4 x10^3/uL (1.0-4.8); LYMPH % 26 % (24-48); MEAN CORPUSCULAR HEMOGLOBIN 31 pg (25-35); MEAN CORPUSCULAR HGB CONC 35 g/dL (31-37); MEAN CORPUSCULAR VOLUME 88 fL (79-100); MONO # 0.2 x10^3/uL (0.0-1.1); MONO % 16 % (0-9); NEUT # 0.9 x10^3uL (1.8-7.7); NEUT % 56 % (31-73); PLATELET COUNT 93 x10^3/uL (140-400); RED BLOOD COUNT 2.62 x10^6/uL (4.30-5.70); RED CELL DISTRIBUTION WIDTH 20.1 % (11.5-14.5)
[2017-04-25 04:32] LABS: WHITE BLOOD COUNT 1.6 x10^3/uL (4.0-11.0)
[2017-04-25 04:33] LABS: ANION GAP 10 (6-14); BLOOD UREA NITROGEN 24 mg/dL (8-26); CALCIUM 7.9 mg/dL (8.5-10.1); CARBON DIOXIDE 25 mmol/L (21-32); CHLORIDE 101 mmol/L (98-107); CREATININE 1.7 mg/dL (0.7-1.3); GFR 48.5; GLUCOSE 126 mg/dL (70-99); SODIUM 136 mmol/L (136-145)
[2017-04-25] MEDS: IV NORMAL SALINE 1000ML BAG 1,000 ML IV ×3 (05:12→21:46)
[2017-04-25] MEDS: GABAPENTIN 300 MG CAPSULE. PO ×3 (08:12→21:45)
[2017-04-25] MEDS: TERAZOSIN 5 MG CAPSULE. PO (08:12)
[2017-04-25] MEDS: ASPIRIN ENTERIC COATED 81 MG TABLET.DR. PO (08:12)
[2017-04-25] MEDS: POTASSIUM CHLORIDE 20 MEQ TABLET.ER. PO ×2 (08:12→11:45)
[2017-04-25] MEDS: LOSARTAN POTASSIUM 50 MG TABLET. PO ×2 (08:13→21:45)
[2017-04-25] MEDS: METOPROLOL TART IMMED RELEASE 50 MG TABLET. PO ×2 (08:13→21:45)
[2017-04-25] MEDS: CEFEPIME HCL IV Push 1 GM VIAL. IVP ×2 (08:14→21:45)
[2017-04-25] MEDS: ACETAMINOPHEN 500 MG TABLET PO ×2 (11:45→21:55)
[2017-04-25] MEDS: VANCOMYCIN 1.25 GM in IV DEXTROSE 5 %-0.2 % NACL 500 ML IV (14:31)
[2017-04-25] MEDS: ENOXAPARIN 40 MG/0.4 ML SYRINGE. SQ (21:44)
[2017-04-25] MEDS: TBO-FILGRASTIM 480 MCG/0.8 ML SYRINGE. SQ (21:44)
[2017-04-25] MEDS: FAMOTIDINE 20 MG TABLET. PO (21:46)
[2017-04-26] MEDS: IV NORMAL SALINE 1000ML BAG 1,000 ML IV ×3 (02:45→22:10)
[2017-04-26 04:25] LABS: ADD MAN DIFF? NO
[2017-04-26 04:35] LABS: BASO % 0 % (0-3); EOS % 1 % (0-3); HEMATOCRIT 23.3 % (39.0-53.0); HEMOGLOBIN 8.3 g/dL (13.0-17.5); LYMPH # 0.5 x10^3/uL (1.0-4.8); LYMPH % 9 % (24-48); MEAN CORPUSCULAR HEMOGLOBIN 31 pg (25-35); MEAN CORPUSCULAR HGB CONC 36 g/dL (31-37); MEAN CORPUSCULAR VOLUME 88 fL (79-100); MONO # 0.6 x10^3/uL (0.0-1.1); MONO % 10 % (0-9); NEUT # 4.7 x10^3uL (1.8-7.7); NEUT % 80 % (31-73); PLATELET COUNT 92 x10^3/uL (140-400); RED BLOOD COUNT 2.64 x10^6/uL (4.30-5.70); RED CELL DISTRIBUTION WIDTH 19.8 % (11.5-14.5); WHITE BLOOD COUNT 5.8 x10^3/uL (4.0-11.0)
[2017-04-26 04:53] LABS: ALBUMIN 2.8 g/dL (3.4-5.0); ALK PHOS 119 U/L (46-116); ALT (SGPT) 10 U/L (16-63); ANION GAP 9 (6-14); AST (SGOT) 9 U/L (15-37); BLOOD UREA NITROGEN 16 mg/dL (8-26); BUN/CREATININE RATIO 11 (6-20); CALCIUM 8.5 mg/dL (8.5-10.1); CARBON DIOXIDE 24 mmol/L (21-32); CHLORIDE 105 mmol/L (98-107); CREATININE 1.5 mg/dL (0.7-1.3); GLUCOSE 135 mg/dL (70-99); POTASSIUM 3.3 mmol/L (3.5-5.1); SODIUM 138 mmol/L (136-145); TOTAL BILIRUBIN 0.5 mg/dL (0.2-1.0); TOTAL PROTEIN 5.7 g/dL (6.4-8.2)
[2017-04-26] MEDS: CEFEPIME HCL IV Push 1 GM VIAL. IVP ×2 (08:11→22:07)
[2017-04-26] MEDS: LOSARTAN POTASSIUM 50 MG TABLET. PO ×3 (08:12→21:00)
[2017-04-26] MEDS: GABAPENTIN 300 MG CAPSULE. PO ×3 (08:12→22:09)
[2017-04-26] MEDS: TERAZOSIN 5 MG CAPSULE. PO (08:12)
[2017-04-26] MEDS: ACETAMINOPHEN 500 MG TABLET PO ×2 (08:13→22:08)
[2017-04-26] MEDS: METOPROLOL TART IMMED RELEASE 50 MG TABLET. PO ×2 (08:13→22:09)
[2017-04-26] MEDS: ASPIRIN ENTERIC COATED 81 MG TABLET.DR. PO (08:13)
[2017-04-26] MEDS: POTASSIUM CHLORIDE 20 MEQ TABLET.ER. PO (08:15)
[2017-04-26] MEDS: ONDANSETRON PF 4 MG/2 ML VIAL. IV (09:06)
[2017-04-26] MEDS: FLUDROCORTISONE 0.1 MG TABLET PO (12:38)
[2017-04-26] MEDS: VANCOMYCIN 1.25 GM in IV DEXTROSE 5 %-0.2 % NACL 500 ML IV (14:57)
[2017-04-26] MEDS: VANCOMYCIN PER PHARMACY MC ×2 (15:29→17:02)
[2017-04-26 15:33] LABS: VANC TR 12.3 mcg/mL (10.0-20.0)
[2017-04-26] MEDS: FAMOTIDINE 20 MG TABLET. PO (22:08)
[2017-04-26] MEDS: ENOXAPARIN 40 MG/0.4 ML SYRINGE. SQ (22:08)
[2017-04-27] MEDS: IV NORMAL SALINE 1000ML BAG 1,000 ML IV ×3 (04:07→21:11)
[2017-04-27] MEDS: GABAPENTIN 300 MG CAPSULE. PO ×3 (08:54→21:08)
[2017-04-27] MEDS: POTASSIUM CHLORIDE 20 MEQ TABLET.ER. PO (08:54)
[2017-04-27] MEDS: LOSARTAN POTASSIUM 50 MG TABLET. PO ×2 (08:55→21:09)
[2017-04-27] MEDS: FLUDROCORTISONE 0.1 MG TABLET PO (08:55)
[2017-04-27] MEDS: TERAZOSIN 5 MG CAPSULE. PO (08:56)
[2017-04-27] MEDS: METOPROLOL TART IMMED RELEASE 50 MG TABLET. PO ×2 (08:56→21:09)
[2017-04-27] MEDS: ASPIRIN ENTERIC COATED 81 MG TABLET.DR. PO (08:56)
[2017-04-27] MEDS: CEFEPIME HCL IV Push 1 GM VIAL. IVP ×2 (09:00→21:10)
[2017-04-27] MEDS: VANCOMYCIN PER PHARMACY MC (14:18)
[2017-04-27] MEDS: VANCOMYCIN 1.5 GM in IV DEXTROSE 5% 500 ML IV (14:31)
[2017-04-27] MEDS: ACETAMINOPHEN 500 MG TABLET PO (17:57)
[2017-04-27] MEDS: FAMOTIDINE 20 MG TABLET. PO (21:09)
[2017-04-28] MEDS: IV NORMAL SALINE 1000ML BAG 1,000 ML IV ×2 (04:49→12:00)
[2017-04-28 05:25] LABS: HEMATOCRIT 22.2 % (39.0-53.0); HEMOGLOBIN 8.1 g/dL (13.0-17.5); MEAN CORPUSCULAR HEMOGLOBIN 32 pg (25-35); MEAN CORPUSCULAR HGB CONC 36 g/dL (31-37); MEAN CORPUSCULAR VOLUME 89 fL (79-100); PLATELET COUNT 111 x10^3/uL (140-400); RED BLOOD COUNT 2.51 x10^6/uL (4.30-5.70); RED CELL DISTRIBUTION WIDTH 19.8 % (11.5-14.5); WHITE BLOOD COUNT 7.1 x10^3/uL (4.0-11.0)
[2017-04-28 05:46] LABS: ALBUMIN 2.7 g/dL (3.4-5.0); ALK PHOS 121 U/L (46-116); ALT (SGPT) 13 U/L (16-63); ANION GAP 10 (6-14); AST (SGOT) 12 U/L (15-37); BLOOD UREA NITROGEN 12 mg/dL (8-26); BUN/CREATININE RATIO 9 (6-20); CALCIUM 8.4 mg/dL (8.5-10.1); CARBON DIOXIDE 26 mmol/L (21-32); CHLORIDE 103 mmol/L (98-107); CREATININE 1.4 mg/dL (0.7-1.3); GFR 60.6; GLUCOSE 194 mg/dL (70-99); SODIUM 139 mmol/L (136-145); TOTAL BILIRUBIN 0.3 mg/dL (0.2-1.0); TOTAL PROTEIN 5.4 g/dL (6.4-8.2)
[2017-04-28] MEDS: FLUDROCORTISONE 0.1 MG TABLET PO (08:28)
[2017-04-28] MEDS: ASPIRIN ENTERIC COATED 81 MG TABLET.DR. PO (08:28)
[2017-04-28] MEDS: GABAPENTIN 300 MG CAPSULE. PO ×3 (08:28→20:26)
[2017-04-28] MEDS: POTASSIUM CHLORIDE 20 MEQ TABLET.ER. PO ×3 (08:28→14:40)
[2017-04-28] MEDS: METOPROLOL TART IMMED RELEASE 50 MG TABLET. PO ×2 (08:29→20:27)
[2017-04-28] MEDS: TERAZOSIN 5 MG CAPSULE. PO (08:30)
[2017-04-28] MEDS: ACETAMINOPHEN 500 MG TABLET PO (08:34)
[2017-04-28] MEDS: LOSARTAN POTASSIUM 50 MG TABLET. PO ×2 (08:34→20:26)
[2017-04-28] MEDS: CEFEPIME HCL IV Push 1 GM VIAL. IVP ×2 (11:06→20:26)
[2017-04-28] MEDS: VANCOMYCIN PER PHARMACY MC (11:09)
[2017-04-28] MEDS: VANCOMYCIN 1.5 GM in IV DEXTROSE 5% 500 ML IV (14:40)
[2017-04-28] MEDS: FAMOTIDINE 20 MG TABLET. PO (20:26)
[2017-04-29] MEDS: HYDROcodone/APAP 5/325MG 1 TAB TABLET PO (00:20)
[2017-04-29 04:48] LABS: ADD MAN DIFF? NO
[2017-04-29 05:02] LABS: BASO % 1 % (0-3); EOS # 0.1 x10^3/uL (0.0-0.7); EOS % 2 % (0-3); HEMATOCRIT 24.2 % (39.0-53.0); HEMOGLOBIN 8.6 g/dL (13.0-17.5); LYMPH # 0.7 x10^3/uL (1.0-4.8); LYMPH % 20 % (24-48); MEAN CORPUSCULAR HEMOGLOBIN 32 pg (25-35); MEAN CORPUSCULAR HGB CONC 36 g/dL (31-37); MEAN CORPUSCULAR VOLUME 89 fL (79-100); MONO # 0.5 x10^3/uL (0.0-1.1); MONO % 13 % (0-9); NEUT # 2.3 x10^3uL (1.8-7.7); NEUT % 64 % (31-73); PLATELET COUNT 112 x10^3/uL (140-400); RED BLOOD COUNT 2.73 x10^6/uL (4.30-5.70); RED CELL DISTRIBUTION WIDTH 19.5 % (11.5-14.5); WHITE BLOOD COUNT 3.7 x10^3/uL (4.0-11.0)
[2017-04-29 05:45] LABS: ANION GAP 9 (6-14); BLOOD UREA NITROGEN 14 mg/dL (8-26); CALCIUM 8.6 mg/dL (8.5-10.1); CARBON DIOXIDE 27 mmol/L (21-32); CHLORIDE 100 mmol/L (98-107); CREATININE 1.4 mg/dL (0.7-1.3); GFR 60.6; GLUCOSE 186 mg/dL (70-99); SODIUM 136 mmol/L (136-145)
[2017-04-29] MEDS: METOPROLOL TART IMMED RELEASE 50 MG TABLET. PO ×2 (09:20→20:16)
[2017-04-29] MEDS: ASPIRIN ENTERIC COATED 81 MG TABLET.DR. PO (09:21)
[2017-04-29] MEDS: GABAPENTIN 300 MG CAPSULE. PO ×3 (09:21→20:15)
[2017-04-29] MEDS: LOSARTAN POTASSIUM 50 MG TABLET. PO ×2 (09:22→20:16)
[2017-04-29] MEDS: GADOBUTROL 7.5 MMOL/7.5 ML VIAL IV (10:17)
[2017-04-29] MEDS: CEFEPIME HCL IV Push 1 GM VIAL. IVP ×2 (11:18→20:15)
[2017-04-29] MEDS: VANCOMYCIN 1.5 GM in IV DEXTROSE 5% 500 ML IV (15:43)
[2017-04-29] MEDS: ACETAMINOPHEN 500 MG TABLET PO (18:36)
[2017-04-29] MEDS: VANCOMYCIN PER PHARMACY MC (19:54)
[2017-04-29] MEDS: FAMOTIDINE 20 MG TABLET. PO (20:16)
[2017-04-30] MEDS: CEFEPIME HCL IV Push 1 GM VIAL. IVP ×2 (08:01→21:43)
[2017-04-30] MEDS: POTASSIUM CHLORIDE 20 MEQ TABLET.ER. PO (08:01)
[2017-04-30] MEDS: METOPROLOL TART IMMED RELEASE 50 MG TABLET. PO ×2 (08:03→21:44)
[2017-04-30] MEDS: GABAPENTIN 300 MG CAPSULE. PO ×3 (08:04→21:44)
[2017-04-30] MEDS: ASPIRIN ENTERIC COATED 81 MG TABLET.DR. PO (08:04)
[2017-04-30] MEDS: LOSARTAN POTASSIUM 50 MG TABLET. PO ×2 (08:04→21:45)
[2017-04-30] MEDS: ACETAMINOPHEN 500 MG TABLET PO (09:59)
[2017-04-30] MEDS: SIMETHICONE 80 MG TAB.CHEW PO ×2 (13:33→21:44)
[2017-04-30] MEDS: VANCOMYCIN 1.5 GM in IV DEXTROSE 5% 500 ML IV (14:56)
[2017-04-30] MEDS: VANCOMYCIN PER PHARMACY MC ×2 (19:34→19:40)
[2017-04-30] MEDS: FAMOTIDINE 20 MG TABLET. PO (21:44)
[2017-04-30] MEDS: HYDROcodone/APAP 5/325MG 1 TAB TABLET PO (23:43)
[2017-05-01] MEDS: LOSARTAN POTASSIUM 50 MG TABLET. PO (10:04)
[2017-05-01] MEDS: ASPIRIN ENTERIC COATED 81 MG TABLET.DR. PO (10:05)
[2017-05-01] MEDS: GABAPENTIN 300 MG CAPSULE. PO (10:05)
[2017-05-01] MEDS: SIMETHICONE 80 MG TAB.CHEW PO (10:06)
[2017-05-01] MEDS: METOPROLOL TART IMMED RELEASE 50 MG TABLET. PO (10:06)
[2017-05-01] MEDS: POTASSIUM CHLORIDE 20 MEQ TABLET.ER. PO (10:06)
[2017-05-01] MEDS: CEFEPIME HCL IV Push 1 GM VIAL. IVP (10:07)
[2017-05-01] MEDS: ACETAMINOPHEN 500 MG TABLET PO (10:08)
[2017-05-01] MEDS: VANCOMYCIN PER PHARMACY MC (10:58)
[2017-05-01] MEDS: HYDROcodone/APAP 5/325MG 1 TAB TABLET PO (13:01)
[2017-05-01] MEDS: HEPARIN PF 500 UNIT/5 ML DISP.SYRIN. IV (15:22)
== END 2017-05-01 15:44 | DRG 808 ==
LOC: ER 11:40 → 6 SOUTH 14:29
DX: D61.810 Antineoplastic chemotherapy induced pancytopenia (principal); N17.0 Acute kidney failure with tubular necrosis; E44.0 Moderate protein-calorie malnutrition; C78.00 Secondary malignant neoplasm of unspecified lung; D69.59 Other secondary thrombocytopenia; R65.10 Systemic inflammatory response syndrome (SIRS) of non-infectious origin without acute organ dysfunction; E87.1 Hypo-osmolality and hyponatremia; C20 Malignant neoplasm of rectum; E11.22 Type 2 diabetes mellitus with diabetic chronic kidney disease; E11.42 Type 2 diabetes mellitus with diabetic polyneuropathy; Z68.25 Body mass index [BMI] 25.0-25.9, adult; E86.0 Dehydration; E87.6 Hypokalemia; I12.9 Hypertensive chronic kidney disease with stage 1 through stage 4 chronic kidney disease, or unspecified chronic kidney disease; I95.1 Orthostatic hypotension; J45.909 Unspecified asthma, uncomplicated; N18.9 Chronic kidney disease, unspecified; T45.1X5A Adverse effect of antineoplastic and immunosuppressive drugs, initial encounter; Z85.048 Personal history of other malignant neoplasm of rectum, rectosigmoid junction, and anus; Z87.11 Personal history of peptic ulcer disease; Z93.3 Colostomy status; F32.9 Major depressive disorder, single episode, unspecified; G62.9 Polyneuropathy, unspecified; Z88.0 Allergy status to penicillin; Z91.041 Radiographic dye allergy status; Z90.49 Acquired absence of other specified parts of digestive tract
CPT/HCPCS: 36415; 70450; 70553; 71045; 73560; 80048; 80053; 80202; 81001; 82962; 83605; 83690; 84132; 84484; 85007; 85025; 85027; 87040; 93005; 96361; 96365; 96375; 97110-GO; 97116-GP; 97162-GP; 97166-GO; 97530-GO; 97530-GP; 97535-GO; 99285; 99285-25; A9585; J0692; J1442; J1650; J2405; J3370; J7030; J7042

== ENCOUNTER 2017-08-14 13:31 | Emergency (ER) | payer BC ==
[2017-08-14 14:21] LABS: POC GLUCOSE 406 mg/dL (70-99)
[2017-08-14 14:32] LABS: ADD MAN DIFF? YES; BASO # 0.1 x10^3/uL (0.0-0.2); BASO % 1 % (0-3); EOS # 0.1 x10^3/uL (0.0-0.7); EOS % 1 % (0-3); HEMATOCRIT 29.7 % (39.0-53.0); HEMOGLOBIN 10.3 g/dL (13.0-17.5); LYMPH # 0.5 x10^3/uL (1.0-4.8); LYMPH % 5 % (24-48); MEAN CORPUSCULAR HEMOGLOBIN 28 pg (25-35); MEAN CORPUSCULAR HGB CONC 35 g/dL (31-37); MEAN CORPUSCULAR VOLUME 80 fL (79-100); MONO # 0.1 x10^3/uL (0.0-1.1); MONO % 1 % (0-9); NEUT # 8.3 x10^3uL (1.8-7.7); NEUT % 93 % (31-73); PLATELET COUNT 186 x10^3/uL (140-400); RED BLOOD COUNT 3.69 x10^6/uL (4.30-5.70); RED CELL DISTRIBUTION WIDTH 22.7 % (11.5-14.5)
[2017-08-14] MEDS: IV NORMAL SALINE 500ML BAG 500 ML IV ×2 (14:34→15:35)
[2017-08-14 14:42] LABS: ANION GAP 10 (6-14); BLOOD UREA NITROGEN 22 mg/dL (8-26); CALCIUM 9.3 mg/dL (8.5-10.1); CARBON DIOXIDE 23 mmol/L (21-32); CHLORIDE 92 mmol/L (98-107); CREATININE 1.8 mg/dL (0.7-1.3); GFR 45.2; GLUCOSE 388 mg/dL (70-99); POTASSIUM 3.9 mmol/L (3.5-5.1); SODIUM 125 mmol/L (136-145)
[2017-08-14 14:55] LABS: NT-PRO BNP 460 pg/mL (0-124)
[2017-08-14 15:06] LABS: % BANDS 1 % (0-9); % LYMPHS 9 % (24-48); % MONOS 2 % (0-10); % SEGS 88 % (35-66); ANISOCYTOSIS MOD; PLT ESTIMATE ADEQUATE (ADEQUATE); POIKILOCYTOSIS SLIGHT
[2017-08-14 15:07] LABS: SCHISTOCYTES OCC
[2017-08-14 15:20] LABS: BILIRUBIN,URINE NEGATIVE (NEG); CLARITY,URINE CLEAR; COLOR,URINE YELLOW; GLUCOSE,URINE >=1000 mg/dL (NEG); NITRITE,URINE NEGATIVE (NEG); PROTEIN,URINE NEGATIVE (NEG-TRACE)
[2017-08-14 15:29] LABS: BACTERIA,URINE 0 /HPF (0-FEW); RBC,URINE 20-40 /HPF (0-2); SQUAMOUS EPITHELIAL CELL,UR OCC /LPF; WBC,URINE 0 /HPF (0-4)
[2017-08-14 15:39] LABS: POC GLUCOSE 334 mg/dL (70-99)
== END 2017-08-14 17:05 | disposition home or self-care (01) ==
LOC: ER 13:31
DX: E11.65 Type 2 diabetes mellitus with hyperglycemia (principal); C34.90 Malignant neoplasm of unspecified part of unspecified bronchus or lung; I10 Essential (primary) hypertension; E11.40 Type 2 diabetes mellitus with diabetic neuropathy, unspecified; Z85.038 Personal history of other malignant neoplasm of large intestine; Z98.890 Other specified postprocedural states; Z88.0 Allergy status to penicillin; Z91.041 Radiographic dye allergy status
CPT/HCPCS: 36415; 80048; 81001; 82962; 83880; 84484; 85007; 85025; 93005; 96360; 96361; 99285-25; J7040

== ENCOUNTER → 2017-09-13 | Outpatient (CLI) | payer BC | END | disposition home or self-care (01) | LOC: NM 10:38 | DX: C20 Malignant neoplasm of rectum (principal); N62 Hypertrophy of breast; J98.11 Atelectasis; C79.51 Secondary malignant neoplasm of bone | CPT/HCPCS: 71250; 74176; 78306; 96374; A9503 ==

== ENCOUNTER 2017-10-06 20:52 | Emergency (ER) | payer BC ==
[2017-10-06] MEDS: HYDROcodone/APAP 5/325MG 1 TAB TABLET PO (22:36)
[2017-10-06 23:39] LABS: ADD MAN DIFF? YES; BASO # 0.1 x10^3/uL (0.0-0.2); BASO % 2 % (0-3); EOS # 0.3 x10^3/uL (0.0-0.7); EOS % 8 % (0-3); HEMATOCRIT 26.6 % (39.0-53.0); HEMOGLOBIN 9.4 g/dL (13.0-17.5); LYMPH # 0.9 x10^3/uL (1.0-4.8); LYMPH % 20 % (24-48); MEAN CORPUSCULAR HEMOGLOBIN 28 pg (25-35); MEAN CORPUSCULAR HGB CONC 35 g/dL (31-37); MEAN CORPUSCULAR VOLUME 80 fL (79-100); MONO # 0.8 x10^3/uL (0.0-1.1); MONO % 18 % (0-9); NEUT # 2.4 x10^3uL (1.8-7.7); NEUT % 52 % (31-73); PLATELET COUNT 160 x10^3/uL (140-400); RED BLOOD COUNT 3.33 x10^6/uL (4.30-5.70); RED CELL DISTRIBUTION WIDTH 20.8 % (11.5-14.5); WHITE BLOOD COUNT 4.6 x10^3/uL (4.0-11.0)
[2017-10-06 23:48] LABS: ANION GAP 9 (6-14); BLOOD UREA NITROGEN 16 mg/dL (8-26); BUN/CREATININE RATIO 8 (6-20); CALCIUM 9.1 mg/dL (8.5-10.1); CARBON DIOXIDE 29 mmol/L (21-32); CHLORIDE 95 mmol/L (98-107); CREATININE 1.9 mg/dL (0.7-1.3); GFR 42.5; GLUCOSE 110 mg/dL (70-99); POTASSIUM 3.3 mmol/L (3.5-5.1); SODIUM 133 mmol/L (136-145)
[2017-10-06 23:53] LABS: ALBUMIN 3.2 g/dL (3.4-5.0); ALBUMIN/GLOBULIN RATIO 0.8 (1.0-1.7); ALK PHOS 605 U/L (46-116); ALT (SGPT) 16 U/L (16-63); AST (SGOT) 27 U/L (15-37); TOTAL BILIRUBIN 0.6 mg/dL (0.2-1.0); TOTAL PROTEIN 7.3 g/dL (6.4-8.2)
[2017-10-06 23:59] LABS: % BASOS 1 % (0-3); % EOS 5 % (0-5); % LYMPHS 23 % (24-48); % MONOS 14 % (0-10); % SEGS 57 % (35-66)
[2017-10-07] LABS: ANISOCYTOSIS MOD; PLT ESTIMATE ADEQUATE (ADEQUATE); POLYCHROMASIA SLIGHT
[2017-10-07 00:26] LABS: BILIRUBIN,URINE NEGATIVE (NEG); CLARITY,URINE CLEAR; COLOR,URINE YELLOW; GLUCOSE,URINE NEGATIVE (NEG); NITRITE,URINE NEGATIVE (NEG); PROTEIN,URINE 30 mg/dL (NEG-TRACE); UROBILINOGEN,URINE 0.2 mg/dL (0.2 mg/dL)
[2017-10-07] MEDS ORDERED: HEPARIN for IV BOLUS 10,000 UNIT/10 ML VIAL. (00:32)
[2017-10-07 00:51] LABS: BACTERIA,URINE 0 /HPF (0-FEW); HYALINE CASTS, URINE FEW /HPF; RBC,URINE >40 /HPF (0-2); SQUAMOUS EPITHELIAL CELL,UR FEW /LPF
[2017-10-07] MEDS ORDERED: HEPARIN 25,000UTS/500ML PREMIX 500 ML IV (01:02)
== END 2017-10-07 04:08 | disposition home or self-care (01) ==
LOC: ER 10-07 04:08
DX: L02.214 Cutaneous abscess of groin (principal); I10 Essential (primary) hypertension; E11.40 Type 2 diabetes mellitus with diabetic neuropathy, unspecified; Z88.0 Allergy status to penicillin; Z91.041 Radiographic dye allergy status
CPT/HCPCS: 36415; 72072; 72100; 80053; 81001; 85007; 85025; 99285-25

== ENCOUNTER 2017-10-10 10:43 | Inpatient (IN) | payer BC ==
[2017-10-10 11:27] LABS: BASO # 0.1 x10^3/uL (0.0-0.2); BASO % 1 % (0-3); EOS # 0.1 x10^3/uL (0.0-0.7); EOS % 1 % (0-3); HEMATOCRIT 29.6 % (39.0-53.0); HEMOGLOBIN 10.3 g/dL (13.0-17.5); LYMPH # 0.6 x10^3/uL (1.0-4.8); LYMPH % 9 % (24-48); MEAN CORPUSCULAR HEMOGLOBIN 28 pg (25-35); MEAN CORPUSCULAR HGB CONC 35 g/dL (31-37); MEAN CORPUSCULAR VOLUME 79 fL (79-100); MONO # 1.4 x10^3/uL (0.0-1.1); MONO % 22 % (0-9); NEUT # 4.2 x10^3uL (1.8-7.7); NEUT % 66 % (31-73); PLATELET COUNT 190 x10^3/uL (140-400); RED BLOOD COUNT 3.76 x10^6/uL (4.30-5.70); RED CELL DISTRIBUTION WIDTH 20.1 % (11.5-14.5); WHITE BLOOD COUNT 6.3 x10^3/uL (4.0-11.0)
[2017-10-10 11:31] LABS: ADD MAN DIFF? YES
[2017-10-10 11:34] LABS: ANION GAP 12 (6-14); BLOOD UREA NITROGEN 22 mg/dL (8-26); BUN/CREATININE RATIO 11 (6-20); CALCIUM 9.2 mg/dL (8.5-10.1); CARBON DIOXIDE 26 mmol/L (21-32); CHLORIDE 86 mmol/L (98-107); GFR 40.1; GLUCOSE 159 mg/dL (70-99); POTASSIUM 3.3 mmol/L (3.5-5.1); SODIUM 124 mmol/L (136-145)
[2017-10-10 11:41] LABS: ALBUMIN 3.2 g/dL (3.4-5.0); ALBUMIN/GLOBULIN RATIO 0.7 (1.0-1.7); ALK PHOS 824 U/L (46-116); ALT (SGPT) 13 U/L (16-63); AST (SGOT) 38 U/L (15-37); TOTAL BILIRUBIN 0.6 mg/dL (0.2-1.0); TOTAL PROTEIN 8.1 g/dL (6.4-8.2)
[2017-10-10] MEDS: MECLIZINE HCL 12.5 MG TABLET. PO (11:42)
[2017-10-10 12:16] LABS: % ATYL 1 % (0-0); % BANDS 2 % (0-9); % BASOS 2 % (0-3); % LYMPHS 13 % (24-48); % METAS 1 % (0-0); % MONOS 17 % (0-10); % MYELOS 1 % (0-0); % SEGS 63 % (35-66); NUCLEATED RBC 1
[2017-10-10 12:17] LABS: PLT ESTIMATE ADEQUATE (ADEQUATE)
[2017-10-10 12:18] LABS: ANISOCYTOSIS SLIGHT; POLYCHROMASIA SLIGHT
[2017-10-10 12:22] LABS: BILIRUBIN,URINE NEGATIVE (NEG); CLARITY,URINE CLEAR; COLOR,URINE YELLOW; GLUCOSE,URINE NEGATIVE (NEG); NITRITE,URINE NEGATIVE (NEG); PH,URINE 6.5; PROTEIN,URINE 100 mg/dL (NEG-TRACE)
[2017-10-10 12:33] LABS: SQUAMOUS EPITHELIAL CELL,UR OCC /LPF
[2017-10-10 12:34] LABS: BACTERIA,URINE FEW /HPF (0-FEW); RBC,URINE >40 /HPF (0-2); WBC,URINE OCC /HPF (0-4)
[2017-10-10] MEDS: IV NORMAL SALINE 1000ML BAG 1,000 ML IV ×2 (13:30→13:42)
[2017-10-10] MEDS: POTASSIUM CHLORIDE 20 MEQ TABLET.ER. PO (13:36)
[2017-10-10] MEDS ORDERED: HYDROcodone/APAP 5/325MG 1 TAB TABLET PO ×2 (15:00→15:15)
[2017-10-10] MEDS: ASPIRIN ENTERIC COATED 81 MG TABLET.DR. PO (15:30)
[2017-10-10] MEDS: TERAZOSIN 5 MG CAPSULE. PO (15:30)
[2017-10-10] MEDS: FAMOTIDINE 20 MG TABLET. PO (15:30)
[2017-10-10] MEDS: AMINO AC 3%/ELECTROLYTE/GLYCER 1,000 ML IV (15:32)
[2017-10-10] MEDS: SMZ/TMP 800/160MG TABLET. PO (16:12)
[2017-10-10] MEDS: GABAPENTIN 300 MG CAPSULE. PO ×2 (16:12→21:23)
[2017-10-10 17:08] LABS: POC GLUCOSE 163 mg/dL (70-99)
[2017-10-10 17:54] LABS: THYROID STIM HORMONE (TSH) 1.388 uIU/mL (0.358-3.74)
[2017-10-10 18:17] LABS: VITAMIN-B12 282 pg/mL (247-911)
[2017-10-10] MEDS: LACTOBACILLUS RHAMNOSUS GG 1 CAPSULE. PO (21:22)
[2017-10-10] MEDS: LOSARTAN POTASSIUM 50 MG TABLET. PO (21:23)
[2017-10-10] MEDS: METOPROLOL TART IMMED RELEASE 50 MG TABLET. PO (21:23)
[2017-10-10 22:21] LABS: POC GLUCOSE 119 mg/dL (70-99)
[2017-10-11] MEDS: AMINO AC 3%/ELECTROLYTE/GLYCER 1,000 ML IV (05:18)
[2017-10-11] MEDS: ACETAMINOPHEN 325 MG TABLET. PO ×3 (05:19→20:39)
[2017-10-11 07:49] LABS: POC GLUCOSE 119 mg/dL (70-99)
[2017-10-11] MEDS: TERAZOSIN 5 MG CAPSULE. PO (07:50)
[2017-10-11] MEDS: SMZ/TMP 800/160MG TABLET. PO ×2 (07:50→20:39)
[2017-10-11] MEDS: GABAPENTIN 300 MG CAPSULE. PO ×3 (07:51→20:39)
[2017-10-11] MEDS: LACTOBACILLUS RHAMNOSUS GG 1 CAPSULE. PO ×2 (07:51→20:39)
[2017-10-11] MEDS: ASPIRIN ENTERIC COATED 81 MG TABLET.DR. PO (07:51)
[2017-10-11] MEDS: FAMOTIDINE 20 MG TABLET. PO (07:51)
[2017-10-11] MEDS: GLIMEPIRIDE 2 MG TABLET. PO (07:51)
[2017-10-11] MEDS: LOSARTAN POTASSIUM 50 MG TABLET. PO ×2 (07:51→20:40)
[2017-10-11] MEDS: POTASSIUM CHLORIDE 20 MEQ TABLET.ER. PO (07:51)
[2017-10-11] MEDS: METOPROLOL TART IMMED RELEASE 50 MG TABLET. PO ×2 (07:52→20:39)
[2017-10-11] MEDS: CYANOCOBALAMIN (VITAMIN B-12) 1,000 MCG TABLET. PO (08:31)
[2017-10-11] MEDS: ERGOCALCIFEROL (VITAMIN D2) 50,000 UNIT CAPSULE. PO (08:31)
[2017-10-11 09:22] LABS: ADD MAN DIFF? NO
[2017-10-11 09:30] LABS: BASO # 0.1 x10^3/uL (0.0-0.2); BASO % 1 % (0-3); EOS # 0.1 x10^3/uL (0.0-0.7); EOS % 2 % (0-3); HEMATOCRIT 28.2 % (39.0-53.0); HEMOGLOBIN 9.8 g/dL (13.0-17.5); LYMPH # 0.8 x10^3/uL (1.0-4.8); LYMPH % 12 % (24-48); MEAN CORPUSCULAR HEMOGLOBIN 27 pg (25-35); MEAN CORPUSCULAR HGB CONC 35 g/dL (31-37); MEAN CORPUSCULAR VOLUME 79 fL (79-100); MONO # 1.5 x10^3/uL (0.0-1.1); MONO % 22 % (0-9); NEUT # 4.1 x10^3uL (1.8-7.7); NEUT % 63 % (31-73); PLATELET COUNT 176 x10^3/uL (140-400); RED BLOOD COUNT 3.56 x10^6/uL (4.30-5.70); RED CELL DISTRIBUTION WIDTH 20.6 % (11.5-14.5); WHITE BLOOD COUNT 6.6 x10^3/uL (4.0-11.0)
[2017-10-11 09:49] LABS: ANION GAP 7 (6-14); BLOOD UREA NITROGEN 25 mg/dL (8-26); CALCIUM 9.4 mg/dL (8.5-10.1); CARBON DIOXIDE 28 mmol/L (21-32); CHLORIDE 88 mmol/L (98-107); CREATININE 1.9 mg/dL (0.7-1.3); GFR 42.5; GLUCOSE 122 mg/dL (70-99); POTASSIUM 4.1 mmol/L (3.5-5.1); SODIUM 123 mmol/L (136-145)
[2017-10-11] MEDS ORDERED: DEXTROSE 50% 25 GM / 50ML DISP.SYRIN. IV (10:00)
[2017-10-11 10:42] LABS: URIC ACID 4.8 mg/dL (3.5-7.2)
[2017-10-11] MEDS: IV NORMAL SALINE 1000ML BAG 1,000 ML IV ×2 (10:45→23:00)
[2017-10-11] MEDS: CALCIUM CARBONATE 500 MG TABLET PO (11:29)
[2017-10-11] MEDS: SODIUM CHLORIDE 3 % 250 ML IV (11:30)
[2017-10-11] MEDS: INSULIN LISPRO 300 UNITS/3 ML INSULN.PEN. SQ ×2 (11:34→16:59)
[2017-10-11] MEDS ORDERED: CHOLECALCIFEROL (VITAMIN D3) 5,000 UNIT CAPSULE PO (12:00)
[2017-10-11 12:17] LABS: POC GLUCOSE 100 mg/dL (70-99)
[2017-10-11 16:56] LABS: POC GLUCOSE 72 mg/dL (70-99)
[2017-10-11 18:02] LABS: POC GLUCOSE 108 mg/dL (70-99)
[2017-10-11 21:22] LABS: POC GLUCOSE 149 mg/dL (70-99)
[2017-10-11 22:13] LABS: SODIUM, URINE 77 mmol/L (Not Estab.); UR POTASSIUM 13.4 mmol/L (Not Estab.)
[2017-10-12 00:26] LABS: ANION GAP 7 (6-14); BLOOD UREA NITROGEN 32 mg/dL (8-26); CALCIUM 8.9 mg/dL (8.5-10.1); CARBON DIOXIDE 27 mmol/L (21-32); CHLORIDE 90 mmol/L (98-107); GFR 40.1; GLUCOSE 119 mg/dL (70-99); POTASSIUM 4.2 mmol/L (3.5-5.1); SODIUM 124 mmol/L (136-145)
[2017-10-12] MEDS: ACETAMINOPHEN 325 MG TABLET. PO ×4 (03:01→21:02)
[2017-10-12 04:58] LABS: ADD MAN DIFF? NO
[2017-10-12 05:35] LABS: ANION GAP 10 (6-14); BLOOD UREA NITROGEN 31 mg/dL (8-26); CARBON DIOXIDE 25 mmol/L (21-32); CHLORIDE 90 mmol/L (98-107); GFR 40.1; GLUCOSE 95 mg/dL (70-99); POTASSIUM 4.4 mmol/L (3.5-5.1); SODIUM 125 mmol/L (136-145)
[2017-10-12 05:51] LABS: BASO # 0.1 x10^3/uL (0.0-0.2); BASO % 1 % (0-3); EOS # 0.1 x10^3/uL (0.0-0.7); EOS % 2 % (0-3); HEMATOCRIT 26.3 % (39.0-53.0); HEMOGLOBIN 9.2 g/dL (13.0-17.5); LYMPH # 0.8 x10^3/uL (1.0-4.8); LYMPH % 12 % (24-48); MEAN CORPUSCULAR HEMOGLOBIN 28 pg (25-35); MEAN CORPUSCULAR HGB CONC 35 g/dL (31-37); MEAN CORPUSCULAR VOLUME 79 fL (79-100); MONO # 1.4 x10^3/uL (0.0-1.1); MONO % 20 % (0-9); NEUT # 4.5 x10^3uL (1.8-7.7); NEUT % 65 % (31-73); PLATELET COUNT 179 x10^3/uL (140-400); RED BLOOD COUNT 3.32 x10^6/uL (4.30-5.70); RED CELL DISTRIBUTION WIDTH 20.4 % (11.5-14.5); WHITE BLOOD COUNT 6.9 x10^3/uL (4.0-11.0)
[2017-10-12] MEDS: INSULIN LISPRO 300 UNITS/3 ML INSULN.PEN. SQ ×3 (08:00→17:00)
[2017-10-12] MEDS: LACTOBACILLUS RHAMNOSUS GG 1 CAPSULE. PO ×2 (08:47→21:02)
[2017-10-12] MEDS: SMZ/TMP 800/160MG TABLET. PO ×2 (08:47→21:02)
[2017-10-12] MEDS: POTASSIUM CHLORIDE 20 MEQ TABLET.ER. PO (08:47)
[2017-10-12] MEDS: CALCIUM CARBONATE 500 MG TABLET PO (08:48)
[2017-10-12] MEDS: GLIMEPIRIDE 2 MG TABLET. PO (08:48)
[2017-10-12] MEDS: TERAZOSIN 5 MG CAPSULE. PO (08:49)
[2017-10-12] MEDS: ASPIRIN ENTERIC COATED 81 MG TABLET.DR. PO (08:49)
[2017-10-12] MEDS: GABAPENTIN 300 MG CAPSULE. PO ×3 (08:49→21:01)
[2017-10-12] MEDS: LOSARTAN POTASSIUM 50 MG TABLET. PO ×2 (08:49→21:03)
[2017-10-12] MEDS: CYANOCOBALAMIN (VITAMIN B-12) 1,000 MCG TABLET. PO (08:50)
[2017-10-12] MEDS: METOPROLOL TART IMMED RELEASE 50 MG TABLET. PO ×2 (08:50→21:02)
[2017-10-12] MEDS: FAMOTIDINE 20 MG TABLET. PO (08:50)
[2017-10-12 08:58] LABS: POC GLUCOSE 115 mg/dL (70-99)
[2017-10-12] MEDS: IV NORMAL SALINE 1000ML BAG 1,000 ML IV (08:58)
[2017-10-12] MEDS: SODIUM CHLORIDE 3 % 300 ML IV (11:33)
[2017-10-12 12:15] LABS: POC GLUCOSE 138 mg/dL (70-99)
[2017-10-12 17:08] LABS: POC GLUCOSE 118 mg/dL (70-99)
[2017-10-12 19:04] LABS: ANION GAP 9 (6-14); BLOOD UREA NITROGEN 24 mg/dL (8-26); CALCIUM 8.9 mg/dL (8.5-10.1); CARBON DIOXIDE 24 mmol/L (21-32); CHLORIDE 91 mmol/L (98-107); CREATININE 1.7 mg/dL (0.7-1.3); GFR 48.3; GLUCOSE 157 mg/dL (70-99); SODIUM 124 mmol/L (136-145)
[2017-10-12 20:53] LABS: POC GLUCOSE 150 mg/dL (70-99)
[2017-10-13 06:10] LABS: POC GLUCOSE 127 mg/dL (70-99)
[2017-10-13] MEDS: ACETAMINOPHEN 325 MG TABLET. PO ×4 (06:21→20:49)
[2017-10-13 07:02] LABS: ADD MAN DIFF? NO
[2017-10-13 07:08] LABS: BASO # 0.1 x10^3/uL (0.0-0.2); BASO % 1 % (0-3); EOS # 0.1 x10^3/uL (0.0-0.7); EOS % 1 % (0-3); HEMATOCRIT 25.4 % (39.0-53.0); HEMOGLOBIN 8.9 g/dL (13.0-17.5); LYMPH # 0.6 x10^3/uL (1.0-4.8); LYMPH % 9 % (24-48); MEAN CORPUSCULAR HEMOGLOBIN 28 pg (25-35); MEAN CORPUSCULAR HGB CONC 35 g/dL (31-37); MEAN CORPUSCULAR VOLUME 79 fL (79-100); MONO # 1.1 x10^3/uL (0.0-1.1); MONO % 15 % (0-9); NEUT # 5.5 x10^3uL (1.8-7.7); NEUT % 75 % (31-73); PLATELET COUNT 176 x10^3/uL (140-400); RED BLOOD COUNT 3.22 x10^6/uL (4.30-5.70); RED CELL DISTRIBUTION WIDTH 20.7 % (11.5-14.5); WHITE BLOOD COUNT 7.3 x10^3/uL (4.0-11.0)
[2017-10-13 07:14] LABS: ANION GAP 9 (6-14); BLOOD UREA NITROGEN 19 mg/dL (8-26); CALCIUM 8.7 mg/dL (8.5-10.1); CARBON DIOXIDE 22 mmol/L (21-32); CHLORIDE 92 mmol/L (98-107); CREATININE 1.5 mg/dL (0.7-1.3); GFR 55.8; GLUCOSE 136 mg/dL (70-99); POTASSIUM 4.8 mmol/L (3.5-5.1); SODIUM 123 mmol/L (136-145)
[2017-10-13] MEDS: INSULIN LISPRO 300 UNITS/3 ML INSULN.PEN. SQ ×3 (08:00→17:00)
[2017-10-13] MEDS: GABAPENTIN 300 MG CAPSULE. PO ×3 (10:34→20:41)
[2017-10-13] MEDS: FAMOTIDINE 20 MG TABLET. PO (10:35)
[2017-10-13] MEDS: METOPROLOL TART IMMED RELEASE 50 MG TABLET. PO ×2 (10:35→20:42)
[2017-10-13] MEDS: LOSARTAN POTASSIUM 50 MG TABLET. PO ×2 (10:35→20:41)
[2017-10-13] MEDS: GLIMEPIRIDE 2 MG TABLET. PO (10:35)
[2017-10-13] MEDS: CALCIUM CARBONATE 500 MG TABLET PO (10:35)
[2017-10-13] MEDS: ASPIRIN ENTERIC COATED 81 MG TABLET.DR. PO (10:35)
[2017-10-13] MEDS: LACTOBACILLUS RHAMNOSUS GG 1 CAPSULE. PO ×2 (10:36→20:41)
[2017-10-13] MEDS: TERAZOSIN 5 MG CAPSULE. PO (10:36)
[2017-10-13] MEDS: CYANOCOBALAMIN (VITAMIN B-12) 1,000 MCG TABLET. PO (10:36)
[2017-10-13] MEDS: POTASSIUM CHLORIDE 20 MEQ TABLET.ER. PO (10:36)
[2017-10-13] MEDS: SMZ/TMP 800/160MG TABLET. PO ×2 (10:36→20:41)
[2017-10-13] MEDS: IV NORMAL SALINE 1000ML BAG 1,000 ML IV (12:00)
[2017-10-13 12:04] LABS: POC GLUCOSE 175 mg/dL (70-99)
[2017-10-13] MEDS: MAGNESIUM HYDROXIDE 2,400 MG/30 ML ORAL.SUSP. PO ×2 (15:27→20:42)
[2017-10-13] MEDS: DOCUSATE SODIUM 100 MG CAPSULE. PO ×2 (15:27→20:41)
[2017-10-13] MEDS: SENNOSIDES/DOCUSATE 8.6/50MG TABLET. PO ×2 (15:27→20:41)
[2017-10-13 16:21] LABS: POC GLUCOSE 102 mg/dL (70-99)
[2017-10-13 21:04] LABS: POC GLUCOSE 75 mg/dL (70-99)
[2017-10-14] MEDS: IV NORMAL SALINE 1000ML BAG 1,000 ML IV ×2 (01:37→14:40)
[2017-10-14 01:43] LABS: POC GLUCOSE 94 mg/dL (70-99)
[2017-10-14 05:14] LABS: ADD MAN DIFF? NO
[2017-10-14 05:27] LABS: BASO % 1 % (0-3); EOS # 0.1 x10^3/uL (0.0-0.7); EOS % 1 % (0-3); HEMATOCRIT 22.9 % (39.0-53.0); HEMOGLOBIN 8.2 g/dL (13.0-17.5); LYMPH # 0.7 x10^3/uL (1.0-4.8); LYMPH % 9 % (24-48); MEAN CORPUSCULAR HEMOGLOBIN 28 pg (25-35); MEAN CORPUSCULAR HGB CONC 36 g/dL (31-37); MEAN CORPUSCULAR VOLUME 78 fL (79-100); MONO # 0.9 x10^3/uL (0.0-1.1); MONO % 12 % (0-9); NEUT # 5.9 x10^3uL (1.8-7.7); NEUT % 78 % (31-73); PLATELET COUNT 163 x10^3/uL (140-400); RED BLOOD COUNT 2.93 x10^6/uL (4.30-5.70); RED CELL DISTRIBUTION WIDTH 20.3 % (11.5-14.5); WHITE BLOOD COUNT 7.6 x10^3/uL (4.0-11.0)
[2017-10-14 05:48] LABS: ANION GAP 8 (6-14); BLOOD UREA NITROGEN 24 mg/dL (8-26); CALCIUM 8.9 mg/dL (8.5-10.1); CARBON DIOXIDE 25 mmol/L (21-32); CHLORIDE 95 mmol/L (98-107); CREATININE 1.6 mg/dL (0.7-1.3); GFR 51.8; GLUCOSE 84 mg/dL (70-99); POTASSIUM 4.9 mmol/L (3.5-5.1); SODIUM 128 mmol/L (136-145)
[2017-10-14] MEDS: LACTULOSE 20 GM/30 ML SOLUTION. PO (07:13)
[2017-10-14 07:45] LABS: POC GLUCOSE 92 mg/dL (70-99)
[2017-10-14] MEDS: INSULIN LISPRO 300 UNITS/3 ML INSULN.PEN. SQ ×3 (08:00→17:00)
[2017-10-14] MEDS: MAGNESIUM HYDROXIDE 2,400 MG/30 ML ORAL.SUSP. PO ×2 (08:03→21:00)
[2017-10-14] MEDS: LACTOBACILLUS RHAMNOSUS GG 1 CAPSULE. PO ×2 (08:03→21:07)
[2017-10-14] MEDS: ASPIRIN ENTERIC COATED 81 MG TABLET.DR. PO (08:04)
[2017-10-14] MEDS: LOSARTAN POTASSIUM 50 MG TABLET. PO ×2 (08:04→21:06)
[2017-10-14] MEDS: DOCUSATE SODIUM 100 MG CAPSULE. PO ×2 (08:04→21:07)
[2017-10-14] MEDS: CYANOCOBALAMIN (VITAMIN B-12) 1,000 MCG TABLET. PO (08:05)
[2017-10-14] MEDS: GABAPENTIN 300 MG CAPSULE. PO ×3 (08:05→21:00)
[2017-10-14] MEDS: POTASSIUM CHLORIDE 20 MEQ TABLET.ER. PO (08:06)
[2017-10-14] MEDS: METOPROLOL TART IMMED RELEASE 50 MG TABLET. PO ×2 (08:06→21:07)
[2017-10-14] MEDS: SENNOSIDES/DOCUSATE 8.6/50MG TABLET. PO ×2 (08:07→21:07)
[2017-10-14] MEDS: TERAZOSIN 5 MG CAPSULE. PO (08:07)
[2017-10-14] MEDS: CALCIUM CARBONATE 500 MG TABLET PO (08:07)
[2017-10-14] MEDS: GLIMEPIRIDE 2 MG TABLET. PO (08:07)
[2017-10-14] MEDS: SMZ/TMP 800/160MG TABLET. PO ×2 (08:16→21:07)
[2017-10-14] MEDS: FAMOTIDINE 20 MG TABLET. PO (08:18)
[2017-10-14 11:24] LABS: URINE OSMOLALITY 386 mOsmol/kg (.)
[2017-10-14 11:52] LABS: POC GLUCOSE 73 mg/dL (70-99)
[2017-10-14 17:29] LABS: POC GLUCOSE 131 mg/dL (70-99)
[2017-10-14] MEDS: ACETAMINOPHEN 325 MG TABLET. PO (18:32)
[2017-10-14 20:37] LABS: POC GLUCOSE 154 mg/dL (70-99)
[2017-10-15] MEDS: IV NORMAL SALINE 1000ML BAG 1,000 ML IV ×2 (06:41→17:22)
[2017-10-15 07:40] LABS: POC GLUCOSE 102 mg/dL (70-99)
[2017-10-15] MEDS: INSULIN LISPRO 300 UNITS/3 ML INSULN.PEN. SQ ×3 (08:00→17:00)
[2017-10-15] MEDS: SMZ/TMP 800/160MG TABLET. PO ×2 (09:18→22:09)
[2017-10-15] MEDS: DOCUSATE SODIUM 100 MG CAPSULE. PO ×2 (09:18→22:11)
[2017-10-15] MEDS: GABAPENTIN 300 MG CAPSULE. PO ×3 (09:18→22:12)
[2017-10-15] MEDS: CALCIUM CARBONATE 500 MG TABLET PO (09:18)
[2017-10-15] MEDS: GLIMEPIRIDE 2 MG TABLET. PO (09:18)
[2017-10-15] MEDS: FAMOTIDINE 20 MG TABLET. PO (09:18)
[2017-10-15] MEDS: POTASSIUM CHLORIDE 20 MEQ TABLET.ER. PO (09:18)
[2017-10-15] MEDS: SENNOSIDES/DOCUSATE 8.6/50MG TABLET. PO ×2 (09:18→22:10)
[2017-10-15] MEDS: MAGNESIUM HYDROXIDE 2,400 MG/30 ML ORAL.SUSP. PO ×2 (09:18→22:11)
[2017-10-15] MEDS: METOPROLOL TART IMMED RELEASE 50 MG TABLET. PO ×2 (09:19→22:10)
[2017-10-15] MEDS: LOSARTAN POTASSIUM 50 MG TABLET. PO ×2 (09:19→22:10)
[2017-10-15] MEDS: TERAZOSIN 5 MG CAPSULE. PO (09:19)
[2017-10-15] MEDS: ASPIRIN ENTERIC COATED 81 MG TABLET.DR. PO (09:19)
[2017-10-15] MEDS: LACTOBACILLUS RHAMNOSUS GG 1 CAPSULE. PO (09:19)
[2017-10-15] MEDS: CYANOCOBALAMIN (VITAMIN B-12) 1,000 MCG TABLET. PO (09:19)
[2017-10-15] MEDS: HYDROcodone/APAP 5/325MG 1 TAB TABLET PO ×2 (09:21→17:22)
[2017-10-15 12:08] LABS: POC GLUCOSE 210 mg/dL (70-99)
[2017-10-15 17:00] LABS: POC GLUCOSE 155 mg/dL (70-99)
[2017-10-15 20:45] LABS: POC GLUCOSE 116 mg/dL (70-99)
[2017-10-16] MEDS: HYDROcodone/APAP 5/325MG 1 TAB TABLET PO (02:48)
[2017-10-16] MEDS: INSULIN LISPRO 300 UNITS/3 ML INSULN.PEN. SQ ×2 (08:00→12:00)
[2017-10-16] MEDS: SMZ/TMP 800/160MG TABLET. PO (08:12)
[2017-10-16] MEDS: IV NORMAL SALINE 1000ML BAG 1,000 ML IV (08:12)
[2017-10-16] MEDS: METOPROLOL TART IMMED RELEASE 50 MG TABLET. PO (08:14)
[2017-10-16] MEDS: SENNOSIDES/DOCUSATE 8.6/50MG TABLET. PO (08:14)
[2017-10-16] MEDS: MAGNESIUM HYDROXIDE 2,400 MG/30 ML ORAL.SUSP. PO (08:15)
[2017-10-16] MEDS: POTASSIUM CHLORIDE 20 MEQ TABLET.ER. PO (08:15)
[2017-10-16] MEDS: LOSARTAN POTASSIUM 50 MG TABLET. PO (08:16)
[2017-10-16] MEDS: ASPIRIN ENTERIC COATED 81 MG TABLET.DR. PO (08:16)
[2017-10-16] MEDS: FAMOTIDINE 20 MG TABLET. PO (08:16)
[2017-10-16] MEDS: DOCUSATE SODIUM 100 MG CAPSULE. PO (08:16)
[2017-10-16] MEDS: GLIMEPIRIDE 2 MG TABLET. PO (08:16)
[2017-10-16] MEDS: TERAZOSIN 5 MG CAPSULE. PO (08:17)
[2017-10-16] MEDS: CALCIUM CARBONATE 500 MG TABLET PO (08:17)
[2017-10-16] MEDS: GABAPENTIN 300 MG CAPSULE. PO (08:17)
[2017-10-16] MEDS: CYANOCOBALAMIN (VITAMIN B-12) 1,000 MCG TABLET. PO (08:17)
[2017-10-16 09:01] LABS: POC GLUCOSE 95 mg/dL (70-99)
[2017-10-16 12:09] LABS: POC GLUCOSE 117 mg/dL (70-99)
[2017-10-16 13:04] LABS: ANION GAP 8 (6-14); BLOOD UREA NITROGEN 21 mg/dL (8-26); CALCIUM 8.9 mg/dL (8.5-10.1); CARBON DIOXIDE 24 mmol/L (21-32); CHLORIDE 97 mmol/L (98-107); CREATININE 1.5 mg/dL (0.7-1.3); GFR 55.8; GLUCOSE 106 mg/dL (70-99); POTASSIUM 4.7 mmol/L (3.5-5.1); SODIUM 129 mmol/L (136-145)
== END 2017-10-16 14:10 | DRG 640 ==
LOC: ER 10:43 → 6 SOUTH 13:20
DX: E87.1 Hypo-osmolality and hyponatremia (principal); N17.0 Acute kidney failure with tubular necrosis; C18.9 Malignant neoplasm of colon, unspecified; C78.00 Secondary malignant neoplasm of unspecified lung; C79.51 Secondary malignant neoplasm of bone; C20 Malignant neoplasm of rectum; M48.56XA Collapsed vertebra, not elsewhere classified, lumbar region, initial encounter for fracture; D63.0 Anemia in neoplastic disease; E11.22 Type 2 diabetes mellitus with diabetic chronic kidney disease; E11.40 Type 2 diabetes mellitus with diabetic neuropathy, unspecified; E55.9 Vitamin D deficiency, unspecified; E87.6 Hypokalemia; G89.29 Other chronic pain; I12.9 Hypertensive chronic kidney disease with stage 1 through stage 4 chronic kidney disease, or unspecified chronic kidney disease; J45.909 Unspecified asthma, uncomplicated; K46.9 Unspecified abdominal hernia without obstruction or gangrene; K59.00 Constipation, unspecified; R31.29 Other microscopic hematuria; R62.7 Adult failure to thrive; Z66 Do not resuscitate; F32.9 Major depressive disorder, single episode, unspecified; Z87.01 Personal history of pneumonia (recurrent); N18.3 Chronic kidney disease, stage 3 (moderate); Z80.0 Family history of malignant neoplasm of digestive organs; Z85.048 Personal history of other malignant neoplasm of rectum, rectosigmoid junction, and anus; Z87.891 Personal history of nicotine dependence; Z92.21 Personal history of antineoplastic chemotherapy; Z92.3 Personal history of irradiation; Z93.3 Colostomy status; Z87.11 Personal history of peptic ulcer disease
CPT/HCPCS: 36415; 70551; 72072; 72100; 74176; 80048; 80053; 81001; 82306; 82436; 82607; 82962; 83930; 83935; 84133; 84300; 84443; 84550; 85007; 85025; 96360; 97162-GP; 97166-GO; 97530-GO; 97535-GO; 99285; 99285-25; J1815; J3490; J7030; J8597